=== PATIENT | male | born 1935 | race Caucasian/White ===

== ENCOUNTER 2017-01-26 09:27 | Day surgery (SDC) | payer MEDICARE, OTHER ==
--- NOTE | 2017-01-21 10:18 | HISTORY AND PHYSICAL E ---
History and Physical NAME: MALIKA LEHMAN : 1935 AGE: 81Y ADMITTED: 01/26/2017 ROOM: The patient is for colon screening. He takes baby aspirin, Tramadol, diltiazem. Patient for colon screening. TRANSFUSION: Negative. SOCIAL HISTORY: The patient is . Three children. Does not smoke. Does not drink. FAMILY HISTORY: Negative for colon cancer. His father had Whipple disease. His mom had heart disease. REVIEW OF SYSTEMS: CARDIAC: No chest pain. PULMONARY: No dyspnea. PHYSICAL EXAMINATION: GENERAL: Alert and oriented. In no acute distress. VITAL SIGNS: Blood pressure is 120/80, pulse 80, respirations 18, temp is 98. HEAD, EYES, EARS, NOSE, THROAT: Normal. ABDOMEN: Soft. NEUROLOGIC: Exam. SURGERIES: Patient had hip surgery. We give him Cleocin 450 mg IV prevention because of history of hip surgery. The patient presented for colon screening. Patient presented at this time regarding colon exam. It was successful to the cecum. There were no polyps. He did have external hemorrhoids, moderate amount of stool in the ascending colon. There was no gross abnormalities. Negative, external hemorrhoids. No polyps. The colonoscopy was done in 2014. PRIMARY CARE PHYSICIAN: Dr. Dequan Erwin. Patient does have hypertension. He does not smoke and does not drink. He was given Cleocin IV prior to his hip surgery. Patient to get Ancef or Cleocin. The patient presented at this time regarding colon exam. Patient does have history of arthritis. I saw him earlier this month where he presented. He did have surgery for aneurysm, poor circulation, rectal bleeding. Patient was hospitalized and his thoracic surgeon feels that he needs colonoscopy because of external hemorrhoids. MEDICATIONS: 1. Tramadol. 2. Clindamycin 300 mg 2 tablets prior dental. 3. Eliquis 5 mg tablet 1 tablet twice a day. CONCLUSION: Colon screening. Patient to stop his Eliquis 5 mg twice daily 24 hours before the test and needs Cleocin 450 mg IV. PLAN: Colonoscopy. DICTATING PHYSICIAN: TONIO CABA M.D. [id number] PHY#: [id number] ID: [id number] JOB#: [id number] ACCT: [id number] cc:TONIO CABA M.D. >
[~2017-01-26 09:27] MED LIST: EPINEPHRINE INJ 1 MG/10 ML DISP.SYRIN ONE; FENTANYL CITRATE INJ/PF 100 MCG/2 ML AMPUL ONE; FLUMAZENIL INJ 0.5 MG/5 ML VIAL IV ONE; GLUCAGON,HUMAN RECOMB 1 MG INJ ONE; GLYCOPYRROLATE INJ 0.4 MG/2 ML VIAL ONE; LIDOCAINE 2% JELLY 30 ML TUBE ONE; MIDAZOLAM 2 MG/2 ML INJ ONE; NALOXONE HCL INJ/PF 0.4 MG/1 ML SDV ONE; ONDANSETRON HCL INJ/PF 4 MG/2 ML SDV ONE; PROMETHAZINE HCL INJ 25 MG/1 ML VIAL ONE
[2017-01-26 11:17] LABS: HEMATOCRIT 32.5 % (37.9-51.0); HEMOGLOBIN 11.1 g/dL (13.5-17.0); HGB HCT DIFFERENCE 0.8; MEAN CORPUSCULAR HEMOGLOBIN 26.7 pg (27.0-33.4); MEAN CORPUSCULAR HGB CONC 34.3 g/dL (32.0-36.0); MEAN CORPUSCULAR VOLUME 78 fl (80-97); RED BLOOD COUNT 4.17 10^6/uL (4.35-5.55); RED CELL DISTRIBUTION WIDTH 19.2 % (11.5-14.0); WHITE BLOOD COUNT 8.9 10^3/uL (4.0-10.5)
[2017-01-26 11:30] VITALS: BP 141/72
[2017-01-26 11:42] LABS: IRON 29.4 ug/dL (49-181)
[2017-01-26 11:47] LABS: BAND NEUTROPHILS % (MANUAL) 1 % (3-5); BASOPHILS % (MANUAL) 0 % (0-2); EOSINOPHILS % (MANUAL) 0 % (0-6); LYMPHOCYTES % (MANUAL) 17 % (13-45); TOTAL CELLS COUNTED 100
[2017-01-26 11:49] LABS: ANISOCYTOSIS 1+; HYPOCHROMASIA SLIGHT; MICROCYTOSIS SLIGHT; POLYCHROMASIA SLIGHT
[2017-01-26 12:15] LABS: FERRITIN 26.2 ng/mL (17.9-464.0)
--- NOTE | 2017-01-26 14:38 | DISCHARGE SUMMARY E ---
Discharge Summary NAME: MALIKA LEHMAN : 1935 AGE: 81Y ADMITTED: 01/26/2017 DISCHARGED: 01/26/2017 HOSPITAL COURSE: This 81-year-old male presented with rectal bleeding. The patient takes Eliquis for a history of stent to kidney, stent to right leg. Hypertension. The patient underwent colonoscopy today showing no bleeding. He did have external hemorrhoids. He does have abdominal aortic aneurysm. DISCHARGE PLAN: Start Eliquis tonight or tomorrow morning. We will obtain baseline lab studies, CBC, iron, ferritin, and consider surgical consult if the bleeding continues regarding hemorrhoid surgery. DICTATING PHYSICIAN: TONIO CABA M.D. [id number] PHY#: [id number] ID: [id number] JOB#: [id number] ACCT: [id number] cc:TONIO CABA M.D. >
--- NOTE | 2017-01-26 14:41 | OPERATIVE REPORT E ---
Operative Report NAME: MALIKA LEHMAN : 1935 AGE: 81Y DATE OF SURGERY: 01/26/2017 ROOM: PREOPERATIVE DIAGNOSIS: Rectal bleeding. POSTOPERATIVE DIAGNOSIS: External hemorrhoids and anal warts. Diminutive anal polyp, 1 mm in size each. The bleeding is coming from external hemorrhoids and skin tags which prolapse in and out of the anus. OPERATION: Colonoscopy. SURGEON: TONIO CABA M.D. TISSUE REMOVED OR ALTERED: None. HISTORY: The patient is on blood thinner Eliquis, which was stopped prior to the procedure. The patient does have a history of abdominal aortic aneurysm in October 2016, stent in his kidney, stent to right leg, hypertension. DESCRIPTION OF PROCEDURE: Colonoscopy was successful to the cecum. No active bleeding. The patient does have mild diverticulosis. One or 2 diverticula were seen in the descending colon. No bleeding. Stool brown. Rectal exam shows prolapsed external hemorrhoids in and out of the anus. Mild proctitis. Diminutive anal polyps 1 mm in size each x2. Two diverticula opening in the descending colon with no diverticulitis. The rest of the colon was normal all the way to the cecum. Again, the scope was withdrawn from cecum, ascending, transverse, descending, and sigmoid all the way to the rectum. CONCLUSIONS: The rectal bleeding is coming from prolapsed hemorrhoid, external, with skin tags, anal warts and diminutive anal polyp. If the patient continues to see blood we will consider surgical consult for possible surgery. We will obtain baseline CBC, iron and ferritin. Start his blood thinner tomorrow. DICTATING PHYSICIAN: TONIO CABA M.D. [id number] PHY#: [id number] ID: [id number] JOB#: [id number] ACCT: [id number] cc:TONIO CABA M.D. >
== END 2017-01-26 11:38 | disposition home or self-care (01) ==
LOC: END 09:27
PROVIDERS: ATTEND Specialist
PROC: 0DJD8ZZ Inspection of Lower Intestinal Tract, Via Natural or Artificial Opening Endoscopic (ICD-10-PCS; principal; 2017-01-26 10:00)
DX: K57.30 Diverticulosis of large intestine without perforation or abscess without bleeding (principal); K62.0 Anal polyp; K64.4 Residual hemorrhoidal skin tags; K62.5 Hemorrhage of anus and rectum; I10 Essential (primary) hypertension; Z79.01 Long term (current) use of anticoagulants; Z79.82 Long term (current) use of aspirin; Z79.891 Long term (current) use of opiate analgesic
CPT/HCPCS: 45378; 36415; 82728; 83540; 85025; J2250; J3010; J1610; J0171; J2310; J2405; J2550; J3490

== ENCOUNTER → 2017-05-18 | Outpatient (CLI) | payer MEDICARE, OTHER ==
[2017-05-18 11:46] LABS: HEMATOCRIT 30.9 % (37.9-51.0); HEMOGLOBIN 10.7 g/dL (13.5-17.0); HGB HCT DIFFERENCE 1.2; MEAN CORPUSCULAR HEMOGLOBIN 28.8 pg (27.0-33.4); MEAN CORPUSCULAR HGB CONC 34.5 g/dL (32.0-36.0); MEAN CORPUSCULAR VOLUME 84 fl (80-97); RED BLOOD COUNT 3.69 10^6/uL (4.35-5.55); RED CELL DISTRIBUTION WIDTH 18.8 % (11.5-14.0); WHITE BLOOD COUNT 8.3 10^3/uL (4.0-10.5)
[2017-05-18 12:08] LABS: BAND NEUTROPHILS % (MANUAL) 1 % (3-5); BASOPHILS % (MANUAL) 0 % (0-2); EOSINOPHILS % (MANUAL) 2 % (0-6); IRON 50.3 ug/dL (49-181); LYMPHOCYTES % (MANUAL) 28 % (13-45); TOTAL CELLS COUNTED 100
[2017-05-18 12:15] LABS: ANISOCYTOSIS 1+; PLATELET CLUMPS PRESENT
[2017-05-18 12:40] LABS: FERRITIN 22.9 ng/mL (17.9-464.0)
[2017-05-20 11:12] LABS: PATH REVIEW PATHOLOGIST REVIEWED
== END ==
LOC: OD 10:18
PROVIDERS: ATTEND Specialist
DX: K92.2 Gastrointestinal hemorrhage, unspecified (principal); D50.9 Iron deficiency anemia, unspecified
CPT/HCPCS: 36415; 82728; 83540; 85025

== ENCOUNTER 2017-07-13 15:44 | Observation (INO) | payer MEDICARE, OTHER ==
[~2017-07-13 15:44] MED LIST changes: +ACETAMINOPHEN 325 MG TABLET PO PRN; +DIPHENHYDRAMINE HCL 25 MG CAPSULE PO PRN; -EPINEPHRINE INJ 1 MG/10 ML DISP.SYRIN ONE; -FENTANYL CITRATE INJ/PF 100 MCG/2 ML AMPUL ONE; -FLUMAZENIL INJ 0.5 MG/5 ML VIAL IV ONE; +FUROSEMIDE INJ/PF 20 MG/2 ML SDV IV PRN; -GLUCAGON,HUMAN RECOMB 1 MG INJ ONE; -GLYCOPYRROLATE INJ 0.4 MG/2 ML VIAL ONE; -LIDOCAINE 2% JELLY 30 ML TUBE ONE; -MIDAZOLAM 2 MG/2 ML INJ ONE; -NALOXONE HCL INJ/PF 0.4 MG/1 ML SDV ONE; -ONDANSETRON HCL INJ/PF 4 MG/2 ML SDV ONE; -PROMETHAZINE HCL INJ 25 MG/1 ML VIAL ONE
--- NOTE | 2017-07-13 16:51 | ER Document Report ---
ED Medical Screen (RME) - General Chief Complaint: Weakness Stated Complaint: WEAKNESS Time Seen by Provider: 07/13/17 16:49 Notes: Patient was sent from his primary care physician's office. Patient had some routine lab work done which showed a hemoglobin of approximately 6 per patient. He states that he was told he needed a transfusion in the come to the emergency department. He states he has been feeling weak. He states that he had an aneurysm repaired in October of this year and has been feeling weak ever since. He denies any new changes seen blood in the stool. 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 TRAVEL OUTSIDE OF THE [place] IN LAST 30 DAYS: No - Related Data Allergies/Adverse Reactions: amoxicillin [Amoxicillin] Allergy (Verified 07/13/17 16:49) ITCHING, HIVES Past Medical History - Past Medical History Cardiac Medical History: Reports: Hx Coronary Artery Disease - R lEG BLOCKAGE, Hx Hypertension Denies: Hx Heart Attack Pulmonary Medical History: Denies: Hx Asthma, Hx Bronchitis, Hx COPD, Hx Pneumonia Neurological Medical History: Denies: Hx Cerebrovascular Accident, Hx Seizures Renal/ Medical History: Denies: Hx Peritoneal Dialysis GI Medical History: Denies: Hx Hepatitis, Hx Hiatal Hernia, Hx Ulcer Musculoskeltal Medical History: Reports Hx Arthritis - BACK AND HANDS Infectious Medical History: Denies: Hx Hepatitis Past Surgical History: Denies: Hx Open Heart Surgery, Hx Pacemaker - Immunizations Hx Diphtheria, Pertussis, Tetanus Vaccination: Yes Physical Exam - Vital signs Vitals: Temp Pulse Resp BP Pulse Ox 98.3 F 74 16 153/61 H 98 07/13/17 15:55 07/13/17 15:55 07/13/17 15:55 07/13/17 15:55 07/13/17 15:55 Course - Vital Signs Vital signs: Temp Pulse Resp BP Pulse Ox 98.3 F 74 16 153/61 H 98 07/13/17 15:55 07/13/17 15:55 07/13/17 15:55 07/13/17 15:55 07/13/17 15:55
[2017-07-13 17:18] LABS: HEMATOCRIT 21.5 % (37.9-51.0); HGB HCT DIFFERENCE -0.2; MEAN CORPUSCULAR HEMOGLOBIN 28.2 pg (27.0-33.4); MEAN CORPUSCULAR HGB CONC 33.2 g/dL (32.0-36.0); MEAN CORPUSCULAR VOLUME 85 fl (80-97); RED BLOOD COUNT 2.53 10^6/uL (4.35-5.55); WHITE BLOOD COUNT 7.1 10^3/uL (4.0-10.5)
[2017-07-13 17:33] LABS: ALANINE AMINOTRANSFERASE 35 U/L (21-72); ALBUMIN 3.8 g/dL (3.5-5.0); ALKALINE PHOSPHATASE 60 U/L (38-126); ANION GAP 12 (5-19); ASPARTATE AMINO TRANSFERASE 24 U/L (17-59); BILIRUBIN,DIRECT 0.3 mg/dL (0.0-0.4); BILIRUBIN,TOTAL 0.3 mg/dL (0.2-1.3); BLOOD UREA NITROGEN 19 mg/dL (7-20); CALCIUM 9.3 mg/dL (8.4-10.2); CARBON DIOXIDE 26 mmol/L (22-30); CHLORIDE 98 mmol/L (98-107); CREATININE RESULT 1.59 mg/dL (0.52-1.25); GLUCOSE 96 mg/dL (75-110); POTASSIUM 4.7 mmol/L (3.6-5.0); SODIUM 135.6 mmol/L (137-145); TOTAL PROTEIN 6.8 g/dL (6.3-8.2)
[2017-07-13 17:39] LABS: HEMOGLOBIN 7.1 g/dL (13.5-17.0)
[2017-07-13 17:48] LABS: BASOPHILS % (MANUAL) 0 % (0-2); EOSINOPHILS % (MANUAL) 1 % (0-6); LYMPHOCYTES % (MANUAL) 20 % (13-45); TOTAL CELLS COUNTED 100
[2017-07-13 17:51] LABS: ANISOCYTOSIS 2+; POIKILOCYTOSIS 1+; POLYCHROMASIA SLIGHT; TOXIC GRANULATION SLIGHT
[2017-07-13 17:52] LABS: STOMATOCYTES 1+
--- NOTE | 2017-07-13 19:06 | ER Document Report ---
ED General - General Mode of Arrival: Ambulatory Information source: Patient TRAVEL OUTSIDE OF THE [place] IN LAST 30 DAYS: No - HPI Similar symptoms previously: Yes Recently seen / treated by doctor: Yes <ELSA FLORES - Last Filed: 07/13/17 21:45> <SHERIF SHOEMAKER - Last Filed: 07/13/17 23:42> - General Chief Complaint: Weakness Stated Complaint: WEAKNESS Time Seen by Provider: 07/13/17 19:23 Notes: Patient is an 81 year old male presenting to the emergency department for shortness of breath, weakness and hemoglobin level of 6. Patient states that he has had more shortness of breath and weakness than usual and he has seen Dr. Trujillo in the office for such. Patient was told to come to the emergency department for a transfusion. Patient denies any new changes seen in his stool. Patient states he has some chronic blood in his stool due to a renal cyst. Patient states that he has hard stool that he has to break up sometimes, However he has not had any increased amounts of blood in his stool. Patient denies any chest pain, syncope, or dizziness with standing. PCP Dr. Jose. ( ELSA FLORES) - Related Data Allergies/Adverse Reactions: amoxicillin [Amoxicillin] Allergy (Verified 07/13/17 16:49) ITCHING, HIVES Home Medications: Current Home Medications Albuterol Sulfate [Proair HFA] 2 puff IH Q4HP PRN 07/13/17 [History] Amiodarone HCl [Pacerone] 200 mg PO BID 07/13/17 [History] Apixaban [Eliquis 5 mg Tablet] 5 mg PO Q12 07/13/17 [History] Aspirin [Aspirin EC] 81 mg PO QHS 07/13/17 [History] Benazepril/Hydrochlorothiazide [Lotensin Hct 20-12.5 mg Tablet] 1 tab PO DAILY 07/13/17 [History] Celecoxib [Celebrex 200 mg Capsule] 200 mg PO DAILY 07/13/17 [History] Clindamycin HCl [Cleocin 300 mg Capsule] 600 mg PO ONCEP PRN 07/13/17 [History] Diltiazem HCl [Tiazac] 240 mg PO QHS 07/13/17 [History] Ferrous Sulfate [Iron] 325 mg PO Q12 07/13/17 [History] Lorazepam [Ativan 1 mg Tablet] 1 mg PO Q8HP PRN 07/13/17 [History] Multivit-Min/Folic/Vit K/Lycop [One-A-Day Men's 50 Plus Tablet] 1 tab PO DAILY 07/13/17 [History] Simvastatin [Zocor 20 mg Tablet] 20 mg PO QHS 07/13/17 [History] Tramadol HCl [Ultram 50 mg Tablet] 50 mg PO Q6HP PRN 07/13/17 [History] Trazodone HCl [Desyrel 50 mg Tablet] 50 mg PO QHS 07/13/17 [History] Past Medical History - General Information source: Patient - Social History Smoking Status: Former Smoker Chew tobacco use (# tins/day): No Frequency of alcohol use: None Drug Abuse: None Family History: None Patient has suicidal ideation: No Patient has homicidal ideation: No - Past Medical History Cardiac Medical History: Reports: Hx Coronary Artery Disease - R lEG BLOCKAGE, Hx Hypertension Musculoskeltal Medical History: Reports Hx Arthritis - BACK AND HANDS Surgical Hx: Negative - Immunizations Hx Diphtheria, Pertussis, Tetanus Vaccination: Yes Hx Pneumococcal Vaccination: 07/25/13 <ELSA FLORES - Last Filed: 07/13/17 21:45> Review of Systems - Review of Systems Constitutional: See HPI, Malaise, Weakness. denies: Fever EENT: No symptoms reported Cardiovascular: denies: Chest pain, Syncope, Dizziness Respiratory: See HPI, Short of breath Gastrointestinal: See HPI, Blood streaked bowels Genitourinary: No symptoms reported Male Genitourinary: No symptoms reported Musculoskeletal: No symptoms reported Skin: See HPI Hematologic/Lymphatic: No symptoms reported Neurological/Psychological: See HPI, Weakness -: Yes All other systems reviewed and negative <ELSA FLORES - Last Filed: 07/13/17 21:45> Physical Exam - Vital signs Interpretation: Hypertensive <ELSA FLORES - Last Filed: 07/13/17 21:45> <SHERIF SHOEMAKER - Last Filed: 07/13/17 23:42> - Vital signs Vitals: Temp Pulse Resp BP Pulse Ox 98.3 F 74 16 153/61 H 98 07/13/17 15:55 07/13/17 15:55 07/13/17 15:55 07/13/17 15:55 07/13/17 15:55 - Notes Notes: GENERAL: Alert, interacts well. No acute distress. HEAD: Normocephalic, atraumatic. EYES: Pupils equal, round, and reactive to light. Extraocular movements intact. ENT: Oral mucosa moist, tongue midline. NECK: Full range of motion. Supple. Trachea midline. LUNGS: Clear to auscultation bilaterally, no wheezes, rales, or rhonchi. No respiratory distress. HEART: Regular rate and rhythm. No murmurs, gallops, or rubs. ABDOMEN: Soft, non-tender. Non-distended. Bowel sounds present in all 4 quadrants. EXTREMITIES: Moves all 4 extremities spontaneously. No edema, radial and dorsalis pedis pulses 2/4 bilaterally. No cyanosis. NEUROLOGICAL: Alert and oriented x3. Normal speech. PSYCH: Normal affect, normal mood. SKIN: Warm, dry, normal turgor, pale. (ELSA FLORES) Course - Laboratory Result Diagrams: 07/13/17 16:55 07/13/17 16:55 - Consults Dr. Trujillo Time consulted: 19:39 Consulted provider: will see as inpatient <ELSA FLORES - Last Filed: 07/13/17 21:45> - Laboratory Result Diagrams: 07/13/17 16:55 07/13/17 16:55 <SHERIF SHOEMAKER - Last Filed: 07/13/17 23:42> - Re-evaluation Re-evalutation: 07/13/17 19:40 CBC shows anemia with hemoglobin 7.1, CMP shows some renal failure with a creatinine of 1.59, patient is O+. Discussed patient with Dr. Lopez who would like to admit the patient for blood transfusion for acute blood loss anemia and continue to monitor the patient after that. Patient will be placed on the IMCU in observation status. (SHERIF SHOEMAKER) - Vital Signs Vital signs: Temp Pulse Resp BP Pulse Ox 98.2 F 71 22 H 163/64 H 100 07/13/17 23:31 07/13/17 23:31 07/13/17 23:31 07/13/17 23:31 07/13/17 23:31 - Laboratory Laboratory results interpreted by me: 07/13/17 07/13/17 07/13/17 16:55 16:55 16:55 RBC 2.53 L Hgb 7.1 L Hct 21.5 L RDW 18.0 H Monocytes % (Manual) 30 H Abs Monocytes (Manual) 2.1 H Sodium 135.6 L Creatinine 1.59 H Est GFR ( Amer) 51 L Est GFR (Non-Af Amer) 42 L Crossmatch See Detail - Consults Dr. Trujillo Reason for consultation: 07/13/17 19:[address] Trujillo about patient, he would like the patient to be admitted as observation in the IMCU and has provided orders for the admission. He would like to evaluate the patient later after he receives a blood transfusion. ( ELSA FLORES) Critical Care Note - Critical Care Note Total time excluding time spent on procedures (mins): 35 <SHERIF SHOEMAKER - Last Filed: 07/13/17 23:42> Discharge <ELSA FLORES - Last Filed: 07/13/17 21:45> - Discharge Admitting Provider: Ronnie Unit Admitted: IMCU <SHERIF SHOEMAKER - Last Filed: 07/13/17 23:42> - Discharge Clinical Impression: Acute blood loss anemia, Chronic lower GI bleeding Condition: Stable Disposition: ADMITTED OBSERVATION Scribe Attestation: 07/13/17 23:42 I personally performed the services described in the documentation, reviewed and edited the documentation which was dictated to the scribe in my presence, and it accurately records my words and actions. (SHERIF SHOEMAKER) Scribe Documentation - Scribe Written by Roxanna:: Roxanna Ruiz 07/13/2017 19:43 acting as scribe for :: Janusz <ELSA FLORES - Last Filed: 07/13/17 21:45>
[2017-07-13] MEDS ORDERED: NORMAL SALINE 250 ML IV PRN (19:09)
[2017-07-13] MEDS ORDERED: DIPHENHYDRAMINE HCL 25 MG CAPSULE ONE (21:07)
[2017-07-13] MEDS ORDERED: ACETAMINOPHEN 325 MG TABLET ONE (21:08)
[2017-07-13] MEDS ORDERED: ALBUTEROL SULFATE HFA (90 MCG/PUFF) 8 GM MDI (1 MDI/ER DISP) IH PRN (21:51)
[2017-07-13] MEDS ORDERED: TRAMADOL HCL 50 MG TABLET PO PRN (21:51)
[2017-07-13] MEDS ORDERED: LORAZEPAM 1 MG TABLET PO PRN (21:51)
[2017-07-13] MEDS ORDERED: ALBUTEROL SULFATE HFA (90 MCG/PUFF) 200 PUFF/8.5 GM MDI IH PRN (21:55)
[2017-07-13] MEDS ORDERED: DILTIAZEM HCL 240 MG CAPSULE.CR PO SCH (22:00)
[2017-07-13] MEDS ORDERED: FAMOTIDINE INJ/PF 20 MG/2 ML SDV IV SCH (22:00)
[2017-07-13] MEDS ORDERED: TRAZODONE HCL 50 MG TABLET PO SCH (22:00)
[2017-07-13] MEDS ORDERED: DILTIAZEM HCL 240 MG PO SCH (22:00)
[2017-07-13] MEDS: AMIODARONE HCL 200 MG TABLET PO SCH (23:19)
[2017-07-14] MEDS: FAMOTIDINE INJ/PF 20 MG/2 ML SDV IV SCH ×2 (00:16→10:00)
[2017-07-14 06:38] LABS: HEMATOCRIT 26.5 % (37.9-51.0); HEMOGLOBIN 9.1 g/dL (13.5-17.0); HGB HCT DIFFERENCE 0.8; MEAN CORPUSCULAR HEMOGLOBIN 28.7 pg (27.0-33.4); MEAN CORPUSCULAR HGB CONC 34.3 g/dL (32.0-36.0); MEAN CORPUSCULAR VOLUME 84 fl (80-97); RED BLOOD COUNT 3.16 10^6/uL (4.35-5.55); RED CELL DISTRIBUTION WIDTH 16.6 % (11.5-14.0); WHITE BLOOD COUNT 6.7 10^3/uL (4.0-10.5)
[2017-07-14 06:46] LABS: ANION GAP 10 (5-19); BLOOD UREA NITROGEN 16 mg/dL (7-20); CALCIUM 9.1 mg/dL (8.4-10.2); CARBON DIOXIDE 24 mmol/L (22-30); CHLORIDE 102 mmol/L (98-107); CREATININE RESULT 1.33 mg/dL (0.52-1.25); GLUCOSE 94 mg/dL (75-110); IRON 31.7 ug/dL (49-181); POTASSIUM 5.1 mmol/L (3.6-5.0); SODIUM 136.2 mmol/L (137-145)
[2017-07-14] MEDS ORDERED: NALOXONE HCL INJ/PF 0.4 MG/1 ML SDV ONE (07:30)
[2017-07-14] MEDS ORDERED: ONDANSETRON HCL INJ/PF 4 MG/2 ML SDV ONE (07:30)
[2017-07-14] MEDS ORDERED: GLYCOPYRROLATE INJ 0.4 MG/2 ML VIAL ONE (07:30)
[2017-07-14] MEDS ORDERED: EPINEPHRINE INJ 1 MG/10 ML DISP.SYRIN ONE (07:31)
[2017-07-14] MEDS ORDERED: FLUMAZENIL INJ 0.5 MG/5 ML VIAL ONE (07:31)
[2017-07-14] MEDS ORDERED: FENTANYL CITRATE INJ/PF 100 MCG/2 ML AMPUL ONE (07:31)
[2017-07-14] MEDS ORDERED: MIDAZOLAM 2 MG/2 ML INJ ONE (07:31)
[2017-07-14 07:41] LABS: BASOPHILS % (MANUAL) 3 % (0-2); EOSINOPHILS % (MANUAL) 0 % (0-6); LYMPHOCYTES % (MANUAL) 28 % (13-45); TOTAL CELLS COUNTED 100
[2017-07-14 07:46] LABS: ANISOCYTOSIS 1+; OVALOCYTES SLIGHT; POIKILOCYTOSIS SLIGHT; POLYCHROMASIA 1+; TARGET CELLS SLIGHT
[2017-07-14 09:21] LABS: HEMATOCRIT 27.2 % (37.9-51.0); HEMOGLOBIN 9.3 g/dL (13.5-17.0); HGB HCT DIFFERENCE 0.7; MEAN CORPUSCULAR HEMOGLOBIN 28.6 pg (27.0-33.4); MEAN CORPUSCULAR HGB CONC 34.1 g/dL (32.0-36.0); MEAN CORPUSCULAR VOLUME 84 fl (80-97); RED BLOOD COUNT 3.23 10^6/uL (4.35-5.55); RED CELL DISTRIBUTION WIDTH 16.1 % (11.5-14.0); WHITE BLOOD COUNT 5.9 10^3/uL (4.0-10.5)
[2017-07-14 09:32] LABS: PROTHROMBIN TIME 15.4 SEC (11.4-15.4)
[2017-07-14] MEDS ORDERED: HYDROCHLOROTHIAZIDE 12.5 MG CAPSULE PO SCH (10:00)
[2017-07-14] MEDS ORDERED: BENAZEPRIL HCL 20 MG TABLET PO SCH (10:00)
[2017-07-14] MEDS: AMIODARONE HCL 200 MG TABLET PO SCH (10:00)
[2017-07-14] MEDS ORDERED: HYDROCHLOROTHIAZIDE PO SCH (10:00)
[2017-07-14] MEDS ORDERED: AMIODARONE HCL 200 MG TABLET PO SCH (10:00)
[2017-07-14] MEDS ORDERED: BENAZEPRIL PO SCH (10:00)
[2017-07-14] MEDS ORDERED: [UNRECOGNIZED DRUG - OTHER] PO SCH (10:00)
[2017-07-14 13:03] VITALS: BP 128/46
--- NOTE | 2017-07-14 14:00 | EKG REPORT ---
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
[2017-07-14 16:48] LABS: PATH REVIEW PATHOLOGIST REVIEWED
--- NOTE | 2017-07-22 15:26 | HISTORY AND PHYSICAL E ---
History and Physical NAME: MALIKA LEHMAN : 1935 AGE: 81Y ADMITTED: 07/13/2017 ROOM: 321 HISTORY OF PRESENT ILLNESS: The patient was seen as an outpatient on yesterday, 07/13, and his blood count came back with severe anemia, hemoglobin 7.2. The patient was brought in outpatient admission and transfused 2 units of packed cells. The patient is discharged to be evaluated as an outpatient. Reviewing records shows the patient does have history of hemorrhoids, anemia. He did have colonoscopy 2017 showing hemorrhoids. The patient is giving me a recent history of abdominal surgery, abdominal aorta repair at [place] and presented to me with constipation, is on ferrous sulfate. The patient again was seen 2012, colon was successful. I did not see any polyps. He did have external hemorrhoids. The patient is known to me. Originally he did have colonoscopy by in 1998, where he did have hemorrhoids, external and internal hemorrhoids. The patient's hemoglobin at that time was 16 with a creatinine 47. The patient does continue to have history of hemorrhoids. Colonoscopy 2012 showing hemorrhoids. The patient does take Celebrex, tramadol. The patient did have colonoscopy 2017. Colonoscopy 2017 shows thrombosed hemorrhoids. The patient takes Eliquis. The patient presently has a need for colonoscopy because of external hemorrhoids. Again, the patient did have external hemorrhoids, anal warts, diminutive anal polyp. His hemoglobin was 11 with a hematocrit 32. His iron was low 29, ferritin is 26. PAST MEDICAL HISTORY: 1. He does have history of hypertension. 2. The patient does have history of arthritis. PAST SURGICAL HISTORY: He did have surgery for: 1. Aneurysm. 2. Poor circulation. 3. Rectal bleeding. SOCIAL HISTORY: Does not smoke. DIAGNOSTIC DATA: The patient's white count was 6, hemoglobin was 7.2, the MCV was 86. Creatinine 21.5. The patient's iron continued to be low, 18. CONCLUSION: 1. Anemia. 2. The patient continues to have a low iron. PLAN: We will see the patient outpatient and consider upper GI/small bowel follow through to rule out upper GI lesion. Will arrange for upper GI and small bowel follow through. DICTATING PHYSICIAN: TONIO CABA M.D. [id number] PHY#: [id number] ID: [id number] JOB#: [id number] ACCT: [id number] cc:TONIO CABA M.D. >
== END 2017-07-14 13:15 | disposition home or self-care (01) ==
LOC: ER 15:44 → EH 19:51 → UNDOADMOB 19:51 → EH 21:00 → 3W 21:02 → EH 21:02 → 3W 07-14 03:39
PROVIDERS: ADMIT Specialist; ATTEND Specialist
PROC: 30233N1 Transfusion of Nonautologous Red Blood Cells into Peripheral Vein, Percutaneous Approach (ICD-10-PCS; principal; 2017-07-13)
PROC: 30233N1 Transfusion of Nonautologous Red Blood Cells into Peripheral Vein, Percutaneous Approach (ICD-10-PCS; 2017-07-14)
DX: D50.9 Iron deficiency anemia, unspecified (principal); K62.89 Other specified diseases of anus and rectum; K64.4 Residual hemorrhoidal skin tags; K59.00 Constipation, unspecified; K62.0 Anal polyp; I10 Essential (primary) hypertension; N19 Unspecified kidney failure; K92.1 Melena; I25.10 Atherosclerotic heart disease of native coronary artery without angina pectoris; Z79.899 Other long term (current) drug therapy; Z79.82 Long term (current) use of aspirin; Z79.02 Long term (current) use of antithrombotics/antiplatelets; Z87.891 Personal history of nicotine dependence; Z98.890 Other specified postprocedural states; Z79.1 Long term (current) use of non-steroidal anti-inflammatories (NSAID); Z79.891 Long term (current) use of opiate analgesic
CPT/HCPCS: 99291; 86900; 86901; 36415 ×2; 36430; 86850; 82607; 82728; 83540 ×2; 85025 ×2; 85027; 85610; 80048; 80053; 86920; 93005; 93010; G0378 ×2; P9016 ×2; A9270 ×9; S0028; J0171; J2250; J2310; J2405; J3010; J3490

== ENCOUNTER → 2017-07-13 | Outpatient (CLI) | payer MEDICARE, OTHER ==
[2017-07-13 14:02] LABS: HEMATOCRIT 21.5 % (37.9-51.0); HGB HCT DIFFERENCE 0.1; MEAN CORPUSCULAR HEMOGLOBIN 28.4 pg (27.0-33.4); MEAN CORPUSCULAR HGB CONC 33.2 g/dL (32.0-36.0); MEAN CORPUSCULAR VOLUME 86 fl (80-97); RED BLOOD COUNT 2.52 10^6/uL (4.35-5.55); RED CELL DISTRIBUTION WIDTH 17.5 % (11.5-14.0); WHITE BLOOD COUNT 6.2 10^3/uL (4.0-10.5)
[2017-07-13 14:26] LABS: IRON 18.4 ug/dL (49-181)
[2017-07-13 14:34] LABS: HEMOGLOBIN 7.2 g/dL (13.5-17.0)
[2017-07-13 14:36] LABS: BASOPHILS % (MANUAL) 1 % (0-2); EOSINOPHILS % (MANUAL) 0 % (0-6); LYMPHOCYTES % (MANUAL) 19 % (13-45); TOTAL CELLS COUNTED 100
[2017-07-13 14:38] LABS: ANISOCYTOSIS 1+; OVALOCYTES SLIGHT; POIKILOCYTOSIS SLIGHT; POLYCHROMASIA SLIGHT; STOMATOCYTES SLIGHT
[2017-07-13 15:05] LABS: FERRITIN 20.3 ng/mL (17.9-464.0)
== END ==
LOC: OD 13:23
PROVIDERS: ATTEND Specialist
DX: R10.9 Unspecified abdominal pain (principal); D50.9 Iron deficiency anemia, unspecified
CPT/HCPCS: 36415; 82728; 83540; 85025

== ENCOUNTER → 2017-07-21 | Outpatient (CLI) | payer MEDICARE, OTHER ==
[2017-07-21 15:37] LABS: HEMATOCRIT 29.7 % (37.9-51.0); HEMOGLOBIN 9.9 g/dL (13.5-17.0); MEAN CORPUSCULAR HEMOGLOBIN 27.7 pg (27.0-33.4); MEAN CORPUSCULAR HGB CONC 33.4 g/dL (32.0-36.0); MEAN CORPUSCULAR VOLUME 83 fl (80-97); RED BLOOD COUNT 3.58 10^6/uL (4.35-5.55); RED CELL DISTRIBUTION WIDTH 15.8 % (11.5-14.0); WHITE BLOOD COUNT 6.3 10^3/uL (4.0-10.5)
[2017-07-21 16:04] LABS: BASOPHILS % (MANUAL) 0 % (0-2); EOSINOPHILS % (MANUAL) 1 % (0-6); LYMPHOCYTES % (MANUAL) 38 % (13-45); TOTAL CELLS COUNTED 100; TOXIC VACUOLATION PRESENT
[2017-07-21 16:06] LABS: ANISOCYTOSIS SLIGHT; HYPOCHROMASIA SLIGHT; POLYCHROMASIA 1+
[2017-07-21 16:07] LABS: OVALOCYTES SLIGHT; PLATELET CLUMPS PRESENT
== END ==
LOC: OD 13:53
PROVIDERS: ATTEND Specialist
DX: D50.9 Iron deficiency anemia, unspecified (principal)
CPT/HCPCS: 36415; 85025

== ENCOUNTER 2017-08-03 07:25 | Day surgery (SDC) | payer MEDICARE, OTHER ==
--- NOTE | 2017-07-27 12:17 | HISTORY AND PHYSICAL E ---
History and Physical NAME: MALIKA LEHMAN : 1935 AGE: 81Y ADMITTED: 08/03/2017 ROOM: PRIMARY CARE PHYSICIAN: HAYDE ORTIZ MD CHIEF COMPLAINT: Anemia. The patient presented at this time for upper scope. HISTORY: The patient was recently found to be anemic, hemoglobin 7, and he was given 2 units of packed cells as an outpatient. The patient is on baby aspirin. The patient did have a colonoscopy in 2012. He did have a colon screening. The patient presented for a colon screening. The patient did have colonoscopy showing external hemorrhoids, otherwise no evidence of polyps, no evidence of malignancy. Colonoscopy was done on 01/26/2017 shows as follows: Colon screening. The patient's colonoscopy was successful to the cecum. No polyps. External hemorrhoids. Moderate amount of stool in the ascending colon. Again, 01/26/2017, colonoscopy shows anal warts, diminutive polyp, external hemorrhoids. The bleeding is coming from external hemorrhoids and skin tags, which prolapse in and out of the anus. Again, the patient presented recently with anemia and was transfused as an outpatient. The patient was admitted for upper scope. PAST MEDICAL HISTORY: Negative for tuberculosis or diabetes. PAST SURGICAL HISTORY: He did have hip surgery. MEDICATIONS: The patient takes: 1. Celebrex. 2. Lotensin. 3. Tramadol. 4. Diltiazem. SOCIAL HISTORY: Negative for alcohol or tobacco. The patient is , 3 children. Does not smoke. Does not drink. FAMILY HISTORY: Negative for colon cancer. His father had Whipple disease. His mom had heart disease. REVIEW OF SYSTEMS: GASTROINTESTINAL: No history of colon cancer. CARDIAC: No chest pain. PHYSICAL EXAMINATION: GENERAL: Pleasant, alert, oriented, in no acute distress. DIAGNOSTIC DATA: His hemoglobin was 11 with a hematocrit of 32. His iron was *------*. CONCLUSION: Anemia. PLAN: Upper endoscopy. Admit on 08/03. DICTATING PHYSICIAN: TONIO CABA M.D. [id number] PHY#: [id number] ID: [id number] JOB#: [id number] ACCT: [id number] cc:TONIO CABA M.D. >
[2017-08-03] MEDS ORDERED: NALOXONE HCL INJ/PF 0.4 MG/1 ML SDV ONE (07:28)
[2017-08-03] MEDS ORDERED: ONDANSETRON HCL INJ/PF 4 MG/2 ML SDV ONE (07:28)
[2017-08-03] MEDS ORDERED: GLYCOPYRROLATE INJ 0.4 MG/2 ML VIAL ONE (07:28)
[2017-08-03] MEDS ORDERED: FLUMAZENIL INJ 0.5 MG/5 ML VIAL ONE (07:29)
[2017-08-03] MEDS ORDERED: MIDAZOLAM 2 MG/2 ML INJ ONE (07:29)
[2017-08-03] MEDS ORDERED: EPINEPHRINE INJ 1 MG/10 ML DISP.SYRIN ONE (07:30)
[2017-08-03] MEDS ORDERED: GLUCAGON,HUMAN RECOMB 1 MG INJ ONE (07:30)
[2017-08-03] MEDS: FENTANYL CITRATE INJ/PF 100 MCG/2 ML AMPUL ONE ×2 (08:28→08:33)
--- NOTE | 2017-08-03 09:53 | OPERATIVE REPORT E ---
Operative Report NAME: MALIKA LEHMAN : 1935 AGE: 81Y DATE OF SURGERY: 08/03/2017 ROOM: PREOPERATIVE DIAGNOSIS: ANEMIA. POSTOPERATIVE DIAGNOSES: 1. ESOPHAGITIS, MILD. 2. GASTRITIS, MODERATE. 3. DUODENITIS, MILD. OPERATION: 1. Esophagoscopy. 2. Gastroscopy. 3. Duodenoscopy. SURGEON: TONIO CABA M.D. ANESTHESIA: Versed 2, fentanyl 75. TISSUE REMOVED OR ALTERED: Gastric biopsy. PROCEDURE: Videoscope passed under guided vision, no difficulties. Esophagoscopy: Junction at ; no hernia. No stricture. No cancer. Mild esophagitis. No erosions, no ulcers. Thickening mucosae at the junction, consistent with mild reflux. Gastroscopy: Benign looking pre-pyloric gastric polyps, 3 mm. Erosions, prominent folds in the gastric antrum. No definite ulcers; just erythema and polyp and prominent gastric folds. Biopsy obtained for H. pylori. Duodenoscopy: Moderate duodenitis with no ulcers. CONCLUSION: 1. BENIGN GASTRIC POLYP. 2. GASTRITIS. 3. DUODENITIS. 4. ESOPHAGITIS. PLAN: 1. Hold aspirin 5 days. 2. Awaiting biopsy results. 3. Repeat CBC, B12 and iron. 4. Follow-up office visit in the next few days. DICTATING PHYSICIAN: TONIO CABA M.D. [id number] PHY#: [id number] ID: [id number] JOB#: [id number] ACCT: [id number] cc:TONIO CABA M.D., MICHAEL
--- NOTE | 2017-08-03 09:53 | DISCHARGE SUMMARY E ---
Discharge Summary NAME: MALIKA LEHMAN : 1935 AGE: 81Y ADMITTED: 08/03/2017 DISCHARGED: 08/03/2017 HISTORY: An 81-year-old male with severe anemia. Patient had recent colonoscopy that shows no polyps, no bleeding. Underwent colonoscopy back in January this year, no problem. Hemorrhoids, diminutive polyps, anal warts. Today's upper scope shows no ulcers. He does have some gastritis, benign-looking gastric polyp, and duodenitis. DISCHARGE PLAN: Repeat CBC. I will do serology for Whipple disease. Repeat lab tests. Awaiting biopsy results. DICTATING PHYSICIAN: TONIO CABA M.D. [id number] Y#: [id number] ID: [id number] JOB#: [id number] ACCT: [id number] cc:TONIO CABA M.D. >
[2017-08-03 10:25] VITALS: BP 148/65
[2017-08-03 10:54] LABS: HEMATOCRIT 32.8 % (37.9-51.0); HEMOGLOBIN 10.9 g/dL (13.5-17.0); HGB HCT DIFFERENCE -0.1; MEAN CORPUSCULAR HEMOGLOBIN 27.7 pg (27.0-33.4); MEAN CORPUSCULAR HGB CONC 33.3 g/dL (32.0-36.0); MEAN CORPUSCULAR VOLUME 83 fl (80-97); RED BLOOD COUNT 3.95 10^6/uL (4.35-5.55); RED CELL DISTRIBUTION WIDTH 16.8 % (11.5-14.0); WHITE BLOOD COUNT 5.8 10^3/uL (4.0-10.5)
[2017-08-03 11:39] LABS: BASOPHILS % (MANUAL) 0 % (0-2); EOSINOPHILS % (MANUAL) 0 % (0-6); LYMPHOCYTES % (MANUAL) 17 % (13-45); TOTAL CELLS COUNTED 100
[2017-08-03 11:40] LABS: TOXIC GRANULATION SLIGHT
[2017-08-03 11:41] LABS: ANISOCYTOSIS 1+
[2017-08-03 12:51] LABS: IRON 10.4 ug/dL (49-181)
== END 2017-08-03 10:05 | disposition home or self-care (01) ==
LOC: END 07:25
PROVIDERS: ATTEND Specialist
PROC: 0DB68ZX Excision of Stomach, Via Natural or Artificial Opening Endoscopic, Diagnostic (ICD-10-PCS; principal; 2017-08-03 10:00)
DX: K64.4 Residual hemorrhoidal skin tags (principal); K20.9 Esophagitis, unspecified; K31.9 Disease of stomach and duodenum, unspecified; K29.80 Duodenitis without bleeding; K31.7 Polyp of stomach and duodenum; D64.9 Anemia, unspecified; Z79.1 Long term (current) use of non-steroidal anti-inflammatories (NSAID); Z79.899 Other long term (current) drug therapy
CPT/HCPCS: 43239; 87798; 36415; 82306; 82607; 83540; 85025; 88305 ×2; J2250; J3010; J1610; J2405; J0171; J2310; J3490

== ENCOUNTER → 2017-09-02 | Outpatient (CLI) | payer MEDICARE, OTHER ==
[2017-09-02 13:35] LABS: ANION GAP 15 (5-19); BLOOD UREA NITROGEN 16 mg/dL (7-20); CALCIUM 9.8 mg/dL (8.4-10.2); CARBON DIOXIDE 28 mmol/L (22-30); CHLORIDE 94 mmol/L (98-107); CREATININE RESULT 1.19 mg/dL (0.52-1.25); GLUCOSE 102 mg/dL (75-110); HEMOGLOBIN 12.5 g/dL (13.5-17.0); HGB HCT DIFFERENCE 0.5; MEAN CORPUSCULAR HEMOGLOBIN 27.9 pg (27.0-33.4); MEAN CORPUSCULAR HGB CONC 33.9 g/dL (32.0-36.0); MEAN CORPUSCULAR VOLUME 82 fl (80-97); PHOSPHORUS 3.3 mg/dL (2.5-4.5); POTASSIUM 4.5 mmol/L (3.6-5.0); RED BLOOD COUNT 4.49 10^6/uL (4.35-5.55); RED CELL DISTRIBUTION WIDTH 16.9 % (11.5-14.0); SODIUM 137.2 mmol/L (137-145); WHITE BLOOD COUNT 9.2 10^3/uL (4.0-10.5)
[2017-09-02 14:06] LABS: BASOPHILS % (MANUAL) 0 % (0-2); EOSINOPHILS % (MANUAL) 0 % (0-6); LYMPHOCYTES % (MANUAL) 24 % (13-45); TOTAL CELLS COUNTED 100
[2017-09-02 14:07] LABS: ANISOCYTOSIS 1+; POLYCHROMASIA SLIGHT; TOXIC GRANULATION SLIGHT
[2017-09-03 12:24] LABS: PATH REVIEW PATHOLOGIST REVIEWED
[2017-09-03 12:38] LABS: CREATININE URINE 27.5 mg/dL (Not Estab.); MICROALBUMIN URINE 38.4 ug/mL (Not Estab.)
== END ==
LOC: OD 11:26
PROVIDERS: ATTEND Internal Medicine Nephrology
DX: I12.9 Hypertensive chronic kidney disease with stage 1 through stage 4 chronic kidney disease, or unspecified chronic kidney disease (principal); N18.3 Chronic kidney disease, stage 3 (moderate); D63.1 Anemia in chronic kidney disease
CPT/HCPCS: 36415; 80048; 82043; 82570; 82728; 83540; 83550; 83970; 84100; 85025

== ENCOUNTER → 2017-12-06 | Outpatient (CLI) | payer MEDICARE, OTHER ==
[2017-12-06 12:04] LABS: HEMATOCRIT 38.2 % (37.9-51.0); HEMOGLOBIN 12.9 g/dL (13.5-17.0); MEAN CORPUSCULAR HGB CONC 33.8 g/dL (32.0-36.0); MEAN CORPUSCULAR VOLUME 86 fl (80-97); PLATELET COUNT 332 10^3/uL (150-450); RED BLOOD COUNT 4.46 10^6/uL (4.35-5.55); RED CELL DISTRIBUTION WIDTH 19.4 % (11.5-14.0); WHITE BLOOD COUNT 6.8 10^3/uL (4.0-10.5)
[2017-12-06 12:33] LABS: ABSOLUTE LYMPHOCYTES# (MANUAL) 1.8 10^3/uL (0.5-4.7); ABSOLUTE MONOCYTES # (MANUAL) 1.3 10^3/uL (0.1-1.4); ABSOLUTE NEUTROPHILS# (MANUAL) 3.6 10^3/uL (1.7-8.2); ANION GAP 12 (5-19); ANISOCYTOSIS 2+; BASOPHILS % (MANUAL) 2 % (0-2); BLOOD UREA NITROGEN 19 mg/dL (7-20); CALCIUM 9.9 mg/dL (8.4-10.2); CARBON DIOXIDE 31 mmol/L (22-30); CHLORIDE 96 mmol/L (98-107); EOSINOPHILS % (MANUAL) 0 % (0-6); GLUCOSE 138 mg/dL (75-110); LYMPHOCYTES % (MANUAL) 25 % (13-45); MONOCYTES % (MANUAL) 19 % (3-13); PLATELET COMMENT ADEQUATE; POIKILOCYTOSIS SLIGHT; POTASSIUM 4.4 mmol/L (3.6-5.0); SEGMENTED NEUTROPHILS % (MAN) 53 % (42-78); TEAR DROP CELLS SLIGHT; TOTAL CELLS COUNTED 100
[2017-12-06 13:27] LABS: IRON(TIBC) 40.4 ug/dL (49-181)
[2017-12-07 13:39] LABS: CREATININE URINE 136.3 mg/dL (Not Estab.); MICROALBUMIN URINE 27.3 ug/mL (Not Estab.)
== END ==
LOC: OD 10:38
PROVIDERS: ATTEND Internal Medicine Nephrology
DX: I12.9 Hypertensive chronic kidney disease with stage 1 through stage 4 chronic kidney disease, or unspecified chronic kidney disease (principal); N18.3 Chronic kidney disease, stage 3 (moderate); D63.1 Anemia in chronic kidney disease
CPT/HCPCS: 36415; 80048; 82043; 82570; 82728; 83540; 83550; 85025

== ENCOUNTER → 2018-03-07 | Outpatient (CLI) | payer MEDICARE, OTHER ==
[2018-03-07 11:27] LABS: HEMATOCRIT 28.2 % (37.9-51.0); HEMOGLOBIN 9.2 g/dL (13.5-17.0); MEAN CORPUSCULAR HEMOGLOBIN 25.9 pg (27.0-33.4); MEAN CORPUSCULAR HGB CONC 32.8 g/dL (32.0-36.0); MEAN CORPUSCULAR VOLUME 79 fl (80-97); PLATELET COUNT 510 10^3/uL (150-450); RED BLOOD COUNT 3.57 10^6/uL (4.35-5.55); RED CELL DISTRIBUTION WIDTH 18.2 % (11.5-14.0); WHITE BLOOD COUNT 9.6 10^3/uL (4.0-10.5)
[2018-03-07 11:39] LABS: ANION GAP 12 (5-19); BLOOD UREA NITROGEN 24 mg/dL (7-20); CARBON DIOXIDE 30 mmol/L (22-30); CHLORIDE 96 mmol/L (98-107); GLUCOSE 124 mg/dL (75-110); POTASSIUM 4.7 mmol/L (3.6-5.0)
[2018-03-07 11:50] LABS: ABSOLUTE LYMPHOCYTES# (MANUAL) 2.7 10^3/uL (0.5-4.7); ABSOLUTE MONOCYTES # (MANUAL) 2.6 10^3/uL (0.1-1.4); BASOPHILS % (MANUAL) 3 % (0-2); EOSINOPHILS % (MANUAL) 0 % (0-6); LYMPHOCYTES % (MANUAL) 28 % (13-45); MONOCYTES % (MANUAL) 27 % (3-13); SEGMENTED NEUTROPHILS % (MAN) 42 % (42-78); TOTAL CELLS COUNTED 100
[2018-03-07 11:51] LABS: ANISOCYTOSIS 2+; HYPOCHROMASIA SLIGHT; POIKILOCYTOSIS 1+; POLYCHROMASIA 1+; STOMATOCYTES 1+
[2018-03-07 11:52] LABS: PLATELET COMMENT INCREASED
[2018-03-08 14:40] LABS: CREATININE URINE 65.6 mg/dL (Not Estab.); MICROALBUMIN URINE 5.4 ug/mL (Not Estab.)
== END ==
LOC: OD 10:09
PROVIDERS: ATTEND Internal Medicine Nephrology
DX: N18.3 Chronic kidney disease, stage 3 (moderate) (principal); I12.9 Hypertensive chronic kidney disease with stage 1 through stage 4 chronic kidney disease, or unspecified chronic kidney disease
CPT/HCPCS: 36415; 80048; 82043; 82570; 85025

== ENCOUNTER → 2018-03-15 | Outpatient (CLI) | payer MEDICARE, OTHER ==
[2018-03-15 09:28] LABS: HEMATOCRIT 27.4 % (37.9-51.0); HEMOGLOBIN 9.1 g/dL (13.5-17.0); MEAN CORPUSCULAR HGB CONC 33.2 g/dL (32.0-36.0); MEAN CORPUSCULAR VOLUME 78 fl (80-97); PLATELET COUNT 506 10^3/uL (150-450); RED BLOOD COUNT 3.51 10^6/uL (4.35-5.55); RED CELL DISTRIBUTION WIDTH 18.5 % (11.5-14.0); WHITE BLOOD COUNT 8.3 10^3/uL (4.0-10.5)
[2018-03-15 09:43] LABS: IRON(TIBC) 14.6 ug/dL (49-181)
[2018-03-15 09:58] LABS: ABSOLUTE LYMPHOCYTES# (MANUAL) 1.7 10^3/uL (0.5-4.7); ABSOLUTE MONOCYTES # (MANUAL) 1.2 10^3/uL (0.1-1.4); ABSOLUTE NEUTROPHILS# (MANUAL) 5.1 10^3/uL (1.7-8.2); BAND NEUTROPHILS % (MANUAL) 2 % (3-5); BASOPHILS % (MANUAL) 1 % (0-2); EOSINOPHILS % (MANUAL) 1 % (0-6); LYMPHOCYTES % (MANUAL) 21 % (13-45); MONOCYTES % (MANUAL) 15 % (3-13); SEGMENTED NEUTROPHILS % (MAN) 60 % (42-78); TOTAL CELLS COUNTED 100
[2018-03-15 10:01] LABS: ANISOCYTOSIS 1+; HYPOCHROMASIA SLIGHT
[2018-03-15 10:02] LABS: PLATELET CLUMPS PRESENT; PLATELET COMMENT INCREASED; POLYCHROMASIA SLIGHT; STOMATOCYTES SLIGHT
== END ==
LOC: OD 08:16
PROVIDERS: ATTEND Internal Medicine Nephrology
DX: N18.3 Chronic kidney disease, stage 3 (moderate) (principal); D50.9 Iron deficiency anemia, unspecified
CPT/HCPCS: 36415; 82272; 82728; 83540; 83550; 85025

== ENCOUNTER 2018-03-22 09:19 | Outpatient (CLI) | payer MEDICARE, OTHER ==
[~2018-03-22 09:19] MED LIST changes: -ACETAMINOPHEN 325 MG TABLET PO PRN; -DIPHENHYDRAMINE HCL 25 MG CAPSULE PO PRN; +FERUMOXYTOL (NON-ESRD) 510 MG/NS 100 ML IV PRN; -FUROSEMIDE INJ/PF 20 MG/2 ML SDV IV PRN
[2018-03-22 10:06] VITALS: BP 110/38
== END 2018-03-22 10:31 | disposition home or self-care (01) ==
LOC: II 09:19 → 5TH 09:23 → II 10:31
PROVIDERS: ATTEND Internal Medicine Nephrology
PROC: 3E033GC Introduction of Other Therapeutic Substance into Peripheral Vein, Percutaneous Approach (ICD-10-PCS; principal; 2018-03-22)
DX: D50.8 Other iron deficiency anemias (principal); N18.3 Chronic kidney disease, stage 3 (moderate)
CPT/HCPCS: 96365; 96374; Q0138

== ENCOUNTER 2018-03-29 09:38 | Outpatient (CLI) | payer MEDICARE, OTHER ==
[~2018-03-29 09:38] MED LIST changes: -FERUMOXYTOL (NON-ESRD) 510 MG/NS 100 ML IV PRN; +FERUMOXYTOL 510 MG in NORMAL SALINE 100 ML IV PRN; +NORMAL SALINE 250 ML IV PRN
[2018-03-29 10:29] VITALS: BP 147/38
== END 2018-03-29 10:57 | disposition home or self-care (01) ==
LOC: II 09:38 → 5TH 09:43 → II 10:57
PROVIDERS: ATTEND Internal Medicine Nephrology
PROC: 3E033GC Introduction of Other Therapeutic Substance into Peripheral Vein, Percutaneous Approach (ICD-10-PCS; principal; 2018-03-29)
DX: D50.8 Other iron deficiency anemias (principal); N18.3 Chronic kidney disease, stage 3 (moderate)
CPT/HCPCS: 96365; Q0138

== ENCOUNTER → 2018-04-08 | Outpatient (CLI) | payer MEDICARE, OTHER ==
[2018-04-08 09:42] LABS: HEMATOCRIT 27.4 % (37.9-51.0); HEMOGLOBIN 8.9 g/dL (13.5-17.0); MEAN CORPUSCULAR HEMOGLOBIN 25.5 pg (27.0-33.4); MEAN CORPUSCULAR HGB CONC 32.3 g/dL (32.0-36.0); MEAN CORPUSCULAR VOLUME 79 fl (80-97); PLATELET COUNT 400 10^3/uL (150-450); RED BLOOD COUNT 3.48 10^6/uL (4.35-5.55); RED CELL DISTRIBUTION WIDTH 20.5 % (11.5-14.0); WHITE BLOOD COUNT 7.4 10^3/uL (4.0-10.5)
[2018-04-08 09:56] LABS: IRON(TIBC) 16.1 ug/dL (49-181)
[2018-04-08 10:12] LABS: ABSOLUTE LYMPHOCYTES# (MANUAL) 1.2 10^3/uL (0.5-4.7); ABSOLUTE MONOCYTES # (MANUAL) 1.3 10^3/uL (0.1-1.4); ABSOLUTE NEUTROPHILS# (MANUAL) 4.9 10^3/uL (1.7-8.2); ANISOCYTOSIS 2+; BAND NEUTROPHILS % (MANUAL) 1 % (3-5); BASOPHILS % (MANUAL) 0 % (0-2); EOSINOPHILS % (MANUAL) 0 % (0-6); LYMPHOCYTES % (MANUAL) 16 % (13-45); METAMYELOCYTES % (MANUAL) 1 % (0); MONOCYTES % (MANUAL) 18 % (3-13); PLATELET COMMENT ADEQUATE; POLYCHROMASIA 1+; SEGMENTED NEUTROPHILS % (MAN) 64 % (42-78); TOTAL CELLS COUNTED 100; TOXIC GRANULATION SLIGHT
== END ==
LOC: OD 08:57
PROVIDERS: ATTEND Internal Medicine Nephrology
DX: N18.3 Chronic kidney disease, stage 3 (moderate) (principal); D63.1 Anemia in chronic kidney disease; D50.9 Iron deficiency anemia, unspecified
CPT/HCPCS: 36415; 82728; 83540; 83550; 85025

== ENCOUNTER 2018-04-11 07:30 | Day surgery (SDC) | payer MEDICARE, OTHER ==
[~2018-04-11 07:30] MED LIST changes: -FERUMOXYTOL 510 MG in NORMAL SALINE 100 ML IV PRN; -NORMAL SALINE 250 ML IV PRN; +PROPOFOL INJ 200 MG/20 ML VIAL IV ONE
[2018-04-11 08:54] VITALS: BP 131/53
--- NOTE | 2018-04-11 12:19 | Operative Report ---
Operative Report DATE OF SURGERY: 04/11/18 Operative Report: The risks, benefits and alternatives of the procedure including risk of bleeding , perforation requiring surgery are explained to the patient in detail and informed consent is obtained. Patient is taken back to the endoscopy suite and placed in the left, lateral decubital position. Timeout was called. Propofol medications administered. Rectal examination is done which did not reveal any masses, tears or fissures. An Olympus endoscope was inserted in the patient's rectum. The scope was then carefully advanced all the way to the cecum. The cecum was identified by the usual anatomical landmarks including the ileocecal valve as well as the appendiceal office. Photodocumentation was obtained. The scope was then sequentially pulled back via the vas deferens of the colon including the ascending colon, hepatic flexure, transverse colon, splenic flexure, descending colon and finally to the rectosigmoid portions of the colon. Retroflexion maneuver was performed. PREOPERATIVE DIAGNOSIS: Personal history of polyps, iron deficiency anemia POSTOPERATIVE DIAGNOSIS: Internal hemorrhoids. Anal fissure. Diverticulosis OPERATION: Diagnostic colonoscopy SURGEON: CHUCK WHITNEY ANESTHESIA: LMAC TISSUE REMOVED OR ALTERED: None. COMPLICATIONS: None. ESTIMATED BLOOD LOSS: None. INTRAOPERATIVE FINDINGS: As noted above. PROCEDURE: Patient tolerated procedure well. No immediate postprocedure comp occasions are noted. Patient discharged in good condition. Discharge date 04/11/2018. Discharge diet: Regular. Discharge activity: Regular. 2-3-week follow-up to discuss findings. Patient is instructed to call the office or proceed to the emergency room should there be any further problems or questions. No active bleeding noted in the colon, due to iron deficiency anemia; will need to schedule upper endoscopy on a separate occasion.
== END 2018-04-11 08:55 | disposition home or self-care (01) ==
LOC: END 07:30
PROVIDERS: ATTEND Internal Medicine Gastroenterology
DX: K64.8 Other hemorrhoids (principal); K57.30 Diverticulosis of large intestine without perforation or abscess without bleeding; K64.4 Residual hemorrhoidal skin tags; D50.0 Iron deficiency anemia secondary to blood loss (chronic); Z86.010 Personal history of colon polyps; M19.90 Unspecified osteoarthritis, unspecified site; I73.9 Peripheral vascular disease, unspecified; I12.9 Hypertensive chronic kidney disease with stage 1 through stage 4 chronic kidney disease, or unspecified chronic kidney disease; N18.3 Chronic kidney disease, stage 3 (moderate); D63.1 Anemia in chronic kidney disease; I70.1 Atherosclerosis of renal artery; Z79.899 Other long term (current) drug therapy; Z79.82 Long term (current) use of aspirin
CPT/HCPCS: 45378; J2704; 811

== ENCOUNTER 2018-05-09 07:06 | Day surgery (SDC) | payer MEDICARE, OTHER ==
[2018-05-09] MEDS ORDERED: PROPOFOL INJ 200 MG/20 ML VIAL IV ONE (07:25)
[2018-05-09 09:41] VITALS: BP 146/58
--- NOTE | 2018-05-09 13:07 | Operative Report ---
Operative Report DATE OF SURGERY: 05/09/18 Operative Report: The risks benefits and alternatives of the procedure explained to the patient in detail and informed consent is obtained.A GIF Olympus video scope was inserted into the patient's mouth and hypopharynx, the esophagus is identified intubated and insufflated, the scope was then advanced through the esophagus stomach and duodenum, retroflexion maneuver is done, the esophagus stomach and first and second portions of the duodenum examined PREOPERATIVE DIAGNOSIS: Iron deficiency anemia, negative colonoscopy POSTOPERATIVE DIAGNOSIS: Duodenitis status post biopsy rule out celiac disease. Gastritis status post biopsy rule out Helicobacter pylori OPERATION: EGD with biopsy SURGEON: CHUCK WHITNEY ANESTHESIA: LMAC TISSUE REMOVED OR ALTERED: As noted above. COMPLICATIONS: None. ESTIMATED BLOOD LOSS: None. INTRAOPERATIVE FINDINGS: As noted above. PROCEDURE: Patient tolerated procedure well. No immediate postprocedure complications are noted. Patient discharged in good condition. Discharge date 05/09/2018. Discharge diet: Regular. Discharge activity: Regular. 2-3 week follow-up to discuss findings. Patient is instructed to call the office or proceed to the emergency room should there be any further problems or questions. We will wait on pathology.
== END 2018-05-09 09:40 | disposition home or self-care (01) ==
LOC: END 07:06
PROVIDERS: ATTEND Internal Medicine Gastroenterology
DX: D50.0 Iron deficiency anemia secondary to blood loss (chronic) (principal); K29.80 Duodenitis without bleeding; K29.70 Gastritis, unspecified, without bleeding; K64.8 Other hemorrhoids; K60.2 Anal fissure, unspecified; D50.9 Iron deficiency anemia, unspecified; E78.5 Hyperlipidemia, unspecified; I12.9 Hypertensive chronic kidney disease with stage 1 through stage 4 chronic kidney disease, or unspecified chronic kidney disease; N18.3 Chronic kidney disease, stage 3 (moderate); M19.90 Unspecified osteoarthritis, unspecified site; I73.9 Peripheral vascular disease, unspecified; D63.1 Anemia in chronic kidney disease; Z87.891 Personal history of nicotine dependence
CPT/HCPCS: 43239; 88342 ×2; 88305 ×2; J2704; 731

== ENCOUNTER → 2018-06-01 | Outpatient (CLI) | payer MEDICARE, OTHER ==
[2018-06-01 15:39] LABS: HEMATOCRIT 21.2 % (37.9-51.0); MEAN CORPUSCULAR HEMOGLOBIN 26.5 pg (27.0-33.4); MEAN CORPUSCULAR HGB CONC 33.3 g/dL (32.0-36.0); MEAN CORPUSCULAR VOLUME 80 fl (80-97); PLATELET COUNT 342 10^3/uL (150-450); RED BLOOD COUNT 2.66 10^6/uL (4.35-5.55); RED CELL DISTRIBUTION WIDTH 19.8 % (11.5-14.0); WHITE BLOOD COUNT 7.9 10^3/uL (4.0-10.5)
[2018-06-01 15:48] LABS: HEMOGLOBIN 7.1 g/dL (13.5-17.0)
== END ==
LOC: OD 15:09
PROVIDERS: ATTEND Internal Medicine Nephrology
DX: N18.9 Chronic kidney disease, unspecified (principal); D50.9 Iron deficiency anemia, unspecified
CPT/HCPCS: 36415; 85027

== ENCOUNTER 2018-06-02 12:56 | Outpatient (CLI) | payer MEDICARE, OTHER ==
[~2018-06-02 12:56] MED LIST changes: +ACETAMINOPHEN 325 MG TABLET PO PRN; +DIPHENHYDRAMINE HCL 25 MG CAPSULE PO PRN; +FUROSEMIDE INJ/PF 20 MG/2 ML SDV IV PRN; -PROPOFOL INJ 200 MG/20 ML VIAL IV ONE
[2018-06-02] MEDS ORDERED: NORMAL SALINE 250 ML IV PRN (13:46)
[2018-06-02] MEDS ORDERED: FUROSEMIDE INJ/PF 40 MG/4 ML SDV IV PRN (14:00)
[2018-06-02 14:24] LABS: HEMATOCRIT 21.7 % (37.9-51.0); MEAN CORPUSCULAR VOLUME 80 fl (80-97); RED BLOOD COUNT 2.69 10^6/uL (4.35-5.55); WHITE BLOOD COUNT 8.6 10^3/uL (4.0-10.5)
[2018-06-02 14:25] LABS: MEAN CORPUSCULAR HEMOGLOBIN 26.3 pg (27.0-33.4); MEAN CORPUSCULAR HGB CONC 32.7 g/dL (32.0-36.0); PLATELET COUNT 372 10^3/uL (150-450)
[2018-06-02 14:26] LABS: HEMOGLOBIN 7.1 g/dL (13.5-17.0)
[2018-06-03 00:15] VITALS: BP 132/41
== END 2018-06-03 00:10 | disposition home or self-care (01) ==
LOC: II 12:56 → 2S 12:59 → II 06-03 00:10
PROVIDERS: ATTEND Internal Medicine Nephrology
PROC: 30233N1 Transfusion of Nonautologous Red Blood Cells into Peripheral Vein, Percutaneous Approach (ICD-10-PCS; principal; 2018-06-02)
PROC: 3E033GC Introduction of Other Therapeutic Substance into Peripheral Vein, Percutaneous Approach (ICD-10-PCS; 2018-06-02)
DX: N18.3 Chronic kidney disease, stage 3 (moderate) (principal); D63.1 Anemia in chronic kidney disease
CPT/HCPCS: 86900; 86901; 36430; 86850; 86920; P9016; A9270 ×2; J1940; 36415; 96374

== ENCOUNTER 2018-06-12 16:28 | Emergency (ER) | payer MEDICARE, OTHER ==
--- NOTE | 2018-06-12 17:30 | ER Document Report ---
ED General - General Mode of Arrival: Ambulatory Information source: Patient TRAVEL OUTSIDE OF THE [place] IN LAST 30 DAYS: No <ESTER GASTON - Last Filed: 06/12/18 18:32> <ROSE KELLER - Last Filed: 06/13/18 02:18> - General Chief Complaint: Shortness Of Breath Stated Complaint: DIFFICULTY BREATHING Time Seen by Provider: 06/12/18 16:52 Notes: Patient is an 82 year old male with chronic anemia, CAD, HTN, PVD presents to the emergency department complaining of shortness of breath onset 3-4 days ago. Patient states his shortness of breath is exacerbated on exertion and relieved when laying down. Patient also complains of constipation and states he often times has to use a glove and break up his stool into smaller pieces. Patient states he takes a daily baby aspirin. Patient had a recent blood transfusion on 06/02/2018 and received 2 units. 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 Hernandez and PCP is Dr. Jsoe. Patient states they have been unable pinpoint the source of his bleeding. (ESTER GASTON) - Related Data Allergies/Adverse Reactions: amoxicillin [Amoxicillin] Allergy (Verified 05/09/18 07:13) ITCHING, HIVES Past Medical History - General Information source: Patient, Parent - Social History Smoking Status: Former Smoker Cigarette use (# per day): No Chew tobacco use (# tins/day): No Smoking Education Provided: No Frequency of alcohol use: None Family History: None - Past Medical History Cardiac Medical History: Reports: Hx Coronary Artery Disease - R lEG BLOCKAGE, Hx Hypertension, Hx Peripheral Vascular Disease Musculoskeletal Medical History: Reports Hx Arthritis - BACK AND HANDS Past Surgical History: Reports: Hx Orthopedic Surgery - Immunizations Hx Diphtheria, Pertussis, Tetanus Vaccination: Yes Hx Pneumococcal Vaccination: 07/06/17 <ESTER GASTON - Last Filed: 06/12/18 18:32> Review of Systems - Review of Systems Constitutional: No symptoms reported EENT: No symptoms reported Cardiovascular: No symptoms reported Respiratory: See HPI, Short of breath Gastrointestinal: No symptoms reported Genitourinary: No symptoms reported Male Genitourinary: No symptoms reported Musculoskeletal: No symptoms reported Skin: No symptoms reported Hematologic/Lymphatic: No symptoms reported Neurological/Psychological: No symptoms reported -: Yes All other systems reviewed and negative <DIONISIO GASTONAYA - Last Filed: 06/12/18 18:32> Physical Exam - General General appearance: Appears well, Alert In distress: None - HEENT Head: Normocephalic, Atraumatic Eyes: Normal, Pale conjunctiva Conjunctiva: Normal Extraocular movements intact: Yes Pupils: PERRL Mucous membranes: Normal Neck: Normal - Respiratory Respiratory status: Other - Dyspneic Chest status: Nontender Breath sounds: Normal Chest palpation: Normal - Cardiovascular Rhythm: Regular Heart sounds: Normal auscultation Murmur: No Friction rub: No Gallop: None auscultated - Abdominal Inspection: Obese Distension: No distension Bowel sounds: Normal Tenderness: Nontender Organomegaly: No organomegaly - Back Back: Normal - Extremities General upper extremity: Normal ROM General lower extremity: Edema - minimal, Normal ROM - Neurological Neuro grossly intact: Yes Cognition: Normal Orientation: AAOx4 Alyse Coma Scale Eye Opening: Spontaneous [place] Coma Scale Verbal: Oriented Alyse Coma Scale Motor: Obeys Commands Alyse Coma Scale Total: 15 Speech: Normal - Psychological Associated symptoms: Normal affect, Normal mood - Skin Skin Temperature: Warm Skin Moisture: Dry Skin Color: Pale - Nails are also pale <ALEKESTER MORA - Last Filed: 06/12/18 18:32> - Vital signs Vitals: Temp Pulse Resp BP Pulse Ox 98.6 F 80 22 H 163/41 H 100 06/12/18 16:32 06/12/18 16:32 06/12/18 16:32 06/12/18 16:32 06/12/18 16:32 Course - Laboratory Result Diagrams: 06/12/18 17:17 06/12/18 17:17 <ALEKDIONISIOEMILY - Last Filed: 06/12/18 18:32> - Laboratory Result Diagrams: 06/12/18 17:17 06/12/18 17:17 - Transfer of Care Care transferred to following provider: Dr. Galan <ROSE KELLER - Last Filed: 06/13/18 02:18> - Vital Signs Vital signs: Temp Pulse Resp BP Pulse Ox 97.8 F 68 17 147/57 H 98 06/13/18 02:09 06/13/18 02:09 06/13/18 02:09 06/13/18 02:09 06/13/18 02:09 - Laboratory Laboratory results interpreted by me: 06/12/18 06/12/18 06/12/18 17:17 17:17 18:05 RBC 2.20 L Hgb 6.0 L Hct 18.2 L RDW 18.9 H Monocytes % (Manual) 31 H Metamyelocytes % 1 H Abs Monocytes (Manual) 2.7 H Sodium 135.7 L Chloride 97 L BUN 35 H Creatinine 1.78 H Est GFR ( Amer) 45 L Est GFR (Non-Af Amer) 37 L Glucose 117 H Urine Ascorbic Acid Crossmatch See Detail 06/12/18 18:25 RBC Hgb Hct RDW Monocytes % (Manual) Metamyelocytes % Abs Monocytes (Manual) Sodium Chloride BUN Creatinine Est GFR ( Amer) Est GFR (Non-Af Amer) Glucose Urine Ascorbic Acid 40 H Crossmatch - Transfer of Care Notes: 06/13/18 02:17 Patient is receiving his second unit of packed red blood cells. He can be discharged after the blood is in. (ROSE KELLER) Discharge <ESTER GASTON - Last Filed: 06/12/18 18:32> <ROSE KELLER - Last Filed: 06/13/18 02:18> - Discharge Clinical Impression: Chronic lower GI bleeding, Dyspnea on exertion Anemia Qualifiers: Anemia type: iron deficiency Iron deficiency anemia type: chronic blood loss Qualified Code(s): D50.0 - Iron deficiency anemia secondary to blood loss ( chronic) Condition: Good Disposition: HOME, SELF-CARE Additional Instructions: Follow-up with Dr. Hernandez in the office today--call in the morning for an appointment today. RETURN TO THE EMERGENCY ROOM IF ANY NEW OR WORSENING SYMPTOMS. Referrals: LEONARDO HERNANDEZ MD [ACTIVE STAFF] - 06/13/18 Scribe Attestation: 06/12/18 18:16 I personally performed the services described in the documentation, reviewed and edited the documentation which was dictated to the scribe in my presence, and it accurately records my words and actions. (ROSE KELLER) Scribe Documentation - Scribe Written by Scribe:: Roxanna Huerta, 06/12/2018 17:32 acting as scribe for :: Ranjeet <ESTER GASTON - Last Filed: 06/12/18 18:32>
[2018-06-12 17:33] LABS: HEMATOCRIT 18.2 % (37.9-51.0); MEAN CORPUSCULAR HEMOGLOBIN 27.4 pg (27.0-33.4); MEAN CORPUSCULAR HGB CONC 33.1 g/dL (32.0-36.0); MEAN CORPUSCULAR VOLUME 83 fl (80-97); PLATELET COUNT 369 10^3/uL (150-450); RED CELL DISTRIBUTION WIDTH 18.9 % (11.5-14.0); WHITE BLOOD COUNT 8.7 10^3/uL (4.0-10.5)
--- NOTE | 2018-06-12 17:43 | RADIOLOGY REPORT (SQ) ---
EXAM DESCRIPTION: CHEST SINGLE VIEW COMPLETED DATE/TIME: 06/12/2018 5:28 pm REASON FOR STUDY: sob COMPARISON: None. EXAM PARAMETERS: NUMBER OF VIEWS: One view. TECHNIQUE: Single frontal radiographic view of the chest acquired. RADIATION DOSE: NA LIMITATIONS: Nonstandard patient positioning and patient motion. FINDINGS: LUNGS AND PLEURA: A patchy opacification is seen of the left lung base. No pleural effusi on. No pneumothorax. MEDIASTINUM AND HILAR STRUCTURES: No masses. Contour normal. HEART AND VASCULAR STRUCTURES: Heart normal in size. Normal vasculature. BONES: No acute findings. HARDWARE: None in the chest. OTHER: No other significant finding. IMPRESSION: In the appropriate clinical setting, findings are consistent with a developing lingular pneumonia. TECHNICAL DOCUMENTATION: JOB ID: [id number] [employer]- All Rights Reserved Reading location - IP/workstation name: [email or web address]
[2018-06-12 17:49] LABS: ALANINE AMINOTRANSFERASE 28 U/L (21-72); ALBUMIN 3.5 g/dL (3.5-5.0); ALKALINE PHOSPHATASE 44 U/L (38-126); ANION GAP 14 (5-19); ASPARTATE AMINO TRANSFERASE 30 U/L (17-59); BILIRUBIN,DIRECT 0.2 mg/dL (0.0-0.4); BILIRUBIN,TOTAL 0.3 mg/dL (0.2-1.3); BLOOD UREA NITROGEN 35 mg/dL (7-20); CALCIUM 9.4 mg/dL (8.4-10.2); CARBON DIOXIDE 25 mmol/L (22-30); CHLORIDE 97 mmol/L (98-107); CREATINE KINASE 63 U/L (55-170); GLUCOSE 117 mg/dL (75-110); POTASSIUM 4.5 mmol/L (3.6-5.0); SODIUM 135.7 mmol/L (137-145); TOTAL PROTEIN 6.5 g/dL (6.3-8.2)
[2018-06-12 17:52] LABS: ABSOLUTE LYMPHOCYTES# (MANUAL) 1.5 10^3/uL (0.5-4.7); ABSOLUTE MONOCYTES # (MANUAL) 2.7 10^3/uL (0.1-1.4); ABSOLUTE NEUTROPHILS# (MANUAL) 4.4 10^3/uL (1.7-8.2); ANISOCYTOSIS 2+; BASOPHILS % (MANUAL) 2 % (0-2); EOSINOPHILS % (MANUAL) 0 % (0-6); LYMPHOCYTES % (MANUAL) 17 % (13-45); METAMYELOCYTES % (MANUAL) 1 % (0); MONOCYTES % (MANUAL) 31 % (3-13); POLYCHROMASIA 1+; SEGMENTED NEUTROPHILS % (MAN) 49 % (42-78); TOTAL CELLS COUNTED 100
[2018-06-12 17:53] LABS: HYPOCHROMASIA SLIGHT; PLATELET COMMENT ADEQUATE
[2018-06-12 18:00] LABS: CREATINE KINASE MB 1.58 ng/mL (<4.55)
[2018-06-12] MEDS ORDERED: NORMAL SALINE 250 ML IV PRN (18:00)
[2018-06-12 18:03] LABS: TROPONIN I < 0.012 ng/mL
[2018-06-12 18:47] LABS: APPEARANCE,URINE SLIGHTLY-CLOUDY; BILIRUBIN,URINE NEGATIVE (NEGATIVE); COLOR,URINE YELLOW; GLUCOSE, URINE NEGATIVE (NEGATIVE); KETONES,URINE NEGATIVE (NEGATIVE); LEUKOCYTE ESTERASE,URINE NEGATIVE (NEGATIVE); NITRITE,URINE NEGATIVE (NEGATIVE); PROTEIN,URINE NEGATIVE (NEGATIVE); URINE SPECIFIC GRAVITY 1.015; UROBILINOGEN,URINE NEGATIVE mg/dL (<2.0)
[2018-06-13 02:39] VITALS: BP 125/47
--- NOTE | 2018-06-13 06:11 | EKG REPORT ---
SEVERITY:- ABNORMAL ECG - SINUS RHYTHM RBBB AND LAFB : Confirmed by: Abdiaziz Salinas MD 13-Jun-2018 06:10:32
== END 2018-06-13 02:41 | disposition home or self-care (01) ==
LOC: ER 16:28
DX: K92.2 Gastrointestinal hemorrhage, unspecified (principal); R06.09 Other forms of dyspnea; D50.0 Iron deficiency anemia secondary to blood loss (chronic); R06.02 Shortness of breath; E66.9 Obesity, unspecified; I25.10 Atherosclerotic heart disease of native coronary artery without angina pectoris; I10 Essential (primary) hypertension; Z88.0 Allergy status to penicillin
CPT/HCPCS: 93005; 99285; 86900; 86901; 36415; 82553; 36430; 86850; 82550; 85025; 80053; 81001; 84484; 86920; 71045; 93010; P9016

== ENCOUNTER → 2018-06-14 | Outpatient (CLI) | payer MEDICARE, OTHER ==
[2018-06-14 10:13] LABS: HEMATOCRIT 23.1 % (37.9-51.0); MEAN CORPUSCULAR HEMOGLOBIN 27.6 pg (27.0-33.4); MEAN CORPUSCULAR HGB CONC 33.4 g/dL (32.0-36.0); MEAN CORPUSCULAR VOLUME 83 fl (80-97); PLATELET COUNT 362 10^3/uL (150-450); WHITE BLOOD COUNT 6.9 10^3/uL (4.0-10.5)
[2018-06-14 11:09] LABS: HEMOGLOBIN 7.7 g/dL (13.5-17.0)
[2018-06-14 11:12] LABS: ABSOLUTE LYMPHOCYTES# (MANUAL) 1.2 10^3/uL (0.5-4.7); ABSOLUTE MONOCYTES # (MANUAL) 1.8 10^3/uL (0.1-1.4); ABSOLUTE NEUTROPHILS# (MANUAL) 3.9 10^3/uL (1.7-8.2); BAND NEUTROPHILS % (MANUAL) 1 % (3-5); BASOPHILS % (MANUAL) 0 % (0-2); EOSINOPHILS % (MANUAL) 0 % (0-6); LYMPHOCYTES % (MANUAL) 18 % (13-45); MONOCYTES % (MANUAL) 26 % (3-13); SEGMENTED NEUTROPHILS % (MAN) 55 % (42-78); TOTAL CELLS COUNTED 100
[2018-06-14 11:13] LABS: ANISOCYTOSIS 1+; OVALOCYTES SLIGHT; PLATELET COMMENT ADEQUATE; POIKILOCYTOSIS SLIGHT; POLYCHROMASIA SLIGHT
== END ==
LOC: OD 09:18
PROVIDERS: ATTEND Internal Medicine Nephrology
DX: N18.9 Chronic kidney disease, unspecified (principal)
CPT/HCPCS: 36415; 85025

== ENCOUNTER 2018-06-21 12:22 | Inpatient (IN) | payer MEDICARE, OTHER ==
--- NOTE | 2018-06-21 13:01 | ER Document Report ---
ED Medical Screen (RME) - General Chief Complaint: Breathing Difficulty Stated Complaint: WEAKNESS Time Seen by Provider: 06/21/18 12:57 Notes: RAPID MEDICAL EVALUATION DISCLOSURE I have seen this patient as part of a Rapid Medical Evaluation and, if applicable, placed any initially appropriate orders. The patient will be seen and fully evaluated, including a full history and physical exam, by a provider ( in Main ED or Fast Track) when a room becomes available. 82-year-old male PMH anemia requiring blood transfusions here with complaints of fatigue and exertional shortness of breath ongoing for the past 3-4 days. He usually will receive a Procrit injection once weekly however states that he felt so bad today he did not want to risk driving to receive his Procrit injection. He has chronically dark stools and has had scoping in the past but states "they have never found the source of the low blood counts". He denies any chest/abdominal/back pain cough fevers chills. He denies any other complaints. EXAM Pale conjunctiva CTAB RRR TRAVEL OUTSIDE OF THE [place] IN LAST 30 DAYS: No - Related Data Allergies/Adverse Reactions: amoxicillin [Amoxicillin] Allergy (Verified 06/21/18 12:49) ITCHING, HIVES Past Medical History - Social History Frequency of alcohol use: None Drug Abuse: None - Past Medical History Cardiac Medical History: Reports: Hx Coronary Artery Disease - R lEG BLOCKAGE, Hx Hypertension, Hx Peripheral Vascular Disease Denies: Hx Heart Attack Pulmonary Medical History: Denies: Hx Asthma, Hx Bronchitis, Hx COPD, Hx Pneumonia Neurological Medical History: Denies: Hx Cerebrovascular Accident, Hx Seizures Renal/ Medical History: Denies: Hx Peritoneal Dialysis GI Medical History: Denies: Hx Hepatitis, Hx Hiatal Hernia, Hx Ulcer Musculoskeltal Medical History: Reports Hx Arthritis - BACK AND HANDS Infectious Medical History: Denies: Hx Hepatitis Past Surgical History: Reports: Hx Abdominal Surgery - abdominal aneursym stent , Hx Orthopedic Surgery - right hand. Denies: Hx Open Heart Surgery, Hx Pacemaker - Immunizations Hx Diphtheria, Pertussis, Tetanus Vaccination: Yes History of Influenza Vaccine for 07/2017 - 12/2017 Season: Yes Influenza Administration Date for 07/2017 - 12/2017 Season: 07/06/17 Physical Exam - Vital signs Vitals: Temp Pulse BP Pulse Ox 97.8 F 65 132/54 H 98 06/21/18 12:29 06/21/18 12:29 06/21/18 12:29 06/21/18 12:29 Course - Vital Signs Vital signs: Temp Pulse Resp BP Pulse Ox 97.8 F 65 19 132/54 H 98 06/21/18 12:45 06/21/18 12:45 06/21/18 12:45 06/21/18 12:45 06/21/18 12:45 Doctor's Discharge - Discharge Referrals: LEONARDO HERNANDEZ MD [Primary Care Provider] - Follow up as needed
[2018-06-21 13:26] LABS: INTERNATIONAL RATION (INR) 1.54; PROTHROMBIN TIME 19.2 SEC (11.4-15.4)
[2018-06-21 13:27] LABS: PARTIAL THROMBOPLASTIN TIME 42.9 SEC (23.5-35.8)
[2018-06-21 13:30] LABS: ALANINE AMINOTRANSFERASE 27 U/L (21-72); ALBUMIN 2.9 g/dL (3.5-5.0); ALKALINE PHOSPHATASE 40 U/L (38-126); ANION GAP 12 (5-19); ASPARTATE AMINO TRANSFERASE 22 U/L (17-59); BILIRUBIN,DIRECT 0.3 mg/dL (0.0-0.4); BILIRUBIN,TOTAL 0.3 mg/dL (0.2-1.3); BLOOD UREA NITROGEN 43 mg/dL (7-20); CALCIUM 8.6 mg/dL (8.4-10.2); CARBON DIOXIDE 23 mmol/L (22-30); CHLORIDE 94 mmol/L (98-107); GLUCOSE 125 mg/dL (75-110); POTASSIUM 4.7 mmol/L (3.6-5.0); SODIUM 128.7 mmol/L (137-145); TOTAL PROTEIN 5.6 g/dL (6.3-8.2)
--- NOTE | 2018-06-21 13:33 | ER Document Report ---
ED General - General Mode of Arrival: Medic Information source: Patient TRAVEL OUTSIDE OF THE [place] IN LAST 30 DAYS: No <BK CURRIE - Last Filed: 06/21/18 13:39> <ROSE KELLER - Last Filed: 06/21/18 15:15> - General Chief Complaint: Breathing Difficulty Stated Complaint: WEAKNESS Time Seen by Provider: 06/21/18 12:57 Notes: 82-year-old male that presents to the emergency department today with complaints of generalized weakness. Patient has been seen for low blood levels multiple times in the past and was last transfused a little over a week ago. Patient was due for his Procrit injection today but he states he felt he was too weak to leave the house this morning so he missed his appointment. Patient is on Pacerone and Eliquis but he is unsure why. Patient has chronic GI blood loss but the source has never been identified. (BK CURRIE) The most recent upper and lower endoscopies were about 6 weeks ago without any bleeding source found. (ROSE KELLER) - Related Data Allergies/Adverse Reactions: amoxicillin [Amoxicillin] Allergy (Verified 06/21/18 12:49) ITCHING, HIVES Past Medical History - General Information source: Patient - Social History Smoking Status: Former Smoker Cigarette use (# per day): No Frequency of alcohol use: None Drug Abuse: None Lives with: Family Family History: None Patient has suicidal ideation: No Patient has homicidal ideation: No - Past Medical History Cardiac Medical History: Reports: Hx Hypertension, Hx Peripheral Vascular Disease - Right iliac artery stenosis, unsure where Musculoskeletal Medical History: Reports Hx Arthritis - BACK AND HANDS Past Surgical History: Reports: Hx Abdominal Surgery - abdominal aneursym stent , Hx Orthopedic Surgery - right hand - Immunizations Hx Diphtheria, Pertussis, Tetanus Vaccination: Yes Hx Pneumococcal Vaccination: 07/06/17 <BK CURRIE - Last Filed: 06/21/18 13:39> Review of Systems - Review of Systems Constitutional: See HPI, Weakness EENT: No symptoms reported Cardiovascular: No symptoms reported Respiratory: No symptoms reported Gastrointestinal: No symptoms reported Genitourinary: No symptoms reported Male Genitourinary: No symptoms reported Musculoskeletal: No symptoms reported Skin: No symptoms reported Hematologic/Lymphatic: No symptoms reported Neurological/Psychological: No symptoms reported -: Yes All other systems reviewed and negative <BK CURRIE - Last Filed: 06/21/18 13:39> Physical Exam <BK CURRIE - Last Filed: 06/21/18 13:39> <ROSE KELLER - Last Filed: 06/21/18 15:15> - Vital signs Vitals: Temp Pulse BP Pulse Ox 97.8 F 65 132/54 H 98 06/21/18 12:29 06/21/18 12:29 06/21/18 12:29 06/21/18 12:29 - Notes Notes: Physical Exam: General: Alert, appears pale. HEENT: Normocephalic. Atraumatic. PERRL. Extraocular movements intact. Oropharynx clear. Pale conjunctivae. Neck: Supple. Non-tender. Respiratory: No respiratory distress. Clear and equal breath sounds bilaterally. Mild congested cough. Dyspneic. Cardiovascular: Regular rate and rhythm. Abdominal: Protuberant abdomen. Non-tender. No distension. Normal Bowel Sounds. Back: Non-tender. No deformity or step off. Extremities: Moves all four extremities. Upper extremities: Normal inspection. Normal ROM. Lower extremities: Normal inspection. No edema. Normal ROM. Neurological: Normal cognition. AAOx4. Normal speech. Psychological: Normal affect. Normal Mood. Skin: Warm. Dry. Pale skin and nail beds. (BK CURRIE) Course - Laboratory Result Diagrams: 06/21/18 12:40 06/21/18 12:40 <BK CURRIE - Last Filed: 06/21/18 13:39> - Laboratory Result Diagrams: 06/21/18 12:40 06/21/18 12:40 - EKG Interpretation by Nd EKG shows normal: Sinus rhythm, [place], Intervals, QRS Complexes, ST-T Waves Rate: Normal - 65 Rhythm: NSR [place]/QRS: RBBB, LAHB/LAFB When compared to previous EKG there are: No significant change - Consults Dr. Neff Time consulted: 15:10 Consulted provider: will come to ER - Telemetry admission <ROSE KELLER - Last Filed: 06/21/18 15:15> - Vital Signs Vital signs: Temp Pulse Resp BP Pulse Ox 97.8 F 65 23 H 119/52 L 100 06/21/18 12:45 06/21/18 12:45 06/21/18 15:01 06/21/18 15:01 06/21/18 15:01 - Laboratory Laboratory results interpreted by me: 06/21/18 06/21/18 06/21/18 12:40 12:40 12:40 RBC 1.59 L Hgb 4.3 L* Hct 12.8 L* RDW 17.5 H Lymphocytes % (Manual) 10 L Monocytes % (Manual) 18 H Abs Monocytes (Manual) 1.6 H PT 19.2 H APTT 42.9 H Sodium 128.7 L Chloride 94 L BUN 43 H Creatinine 1.72 H Est GFR ( Amer) 46 L Est GFR (Non-Af Amer) 38 L Glucose 125 H Total Protein 5.6 L Albumin 2.9 L Crossmatch 06/21/18 12:40 RBC Hgb Hct RDW Lymphocytes % (Manual) Monocytes % (Manual) Abs Monocytes (Manual) PT APTT Sodium Chloride BUN Creatinine Est GFR ( Amer) Est GFR (Non-Af Amer) Glucose Total Protein Albumin Crossmatch See Detail Critical Care Note - Critical Care Note Total time excluding time spent on procedures (mins): 25 <ROSE KELLER - Last Filed: 06/21/18 15:15> Discharge <BK CURRIE - Last Filed: 06/21/18 13:39> - Discharge Admitting Provider: Hospitalist Unit Admitted: Telemetry <ROSE KELLER - Last Filed: 06/21/18 15:15> - Discharge Clinical Impression: Chronic lower GI bleeding, Acute blood loss anemia Condition: Stable Disposition: ADMITTED OBSERVATION Referrals: LEONARDO HERNANDEZ MD [ACTIVE STAFF] - Follow up as needed Scribe Attestation: 06/21/18 15:15 I personally performed the services described in the documentation, reviewed and edited the documentation which was dictated to the scribe in my presence, and it accurately records my words and actions. (ROSE KELLER)
--- NOTE | 2018-06-21 13:40 | RADIOLOGY REPORT (SQ) ---
EXAM DESCRIPTION: CHEST 2 VIEWS COMPLETED DATE/TIME: 06/21/2018 1:23 pm REASON FOR STUDY: SOB; pneumonia mass fluid? Shortness of breath on walking COMPARISON: None. EXAM PARAMETERS: NUMBER OF VIEWS: two views TECHNIQUE: Digital Frontal and Lateral radiographic views of the chest acquired. RADIATION DOSE: NA LIMITATIONS: none FINDINGS: LUNGS AND PLEURA: Bandlike atelectasis left lateral lung base. No fluffy alveolar infiltrates worrisome for edema or pneumonia. No pleural effusion. No pneumothor ax. MEDIASTINUM AND HILAR STRUCTURES: No masses or contour abnormalities. HEART AND VASCULAR STRUCTURES: Heart normal size. No evidence for failure. BONES: No acute findings. HARDWARE: None in the chest. OTHER: No other significant finding. IMPRESSION: NO ACUTE RADIOGRAPHIC FINDING IN THE CHEST. TECHNICAL DOCUMENTATION: JOB ID: [id number] [employer]- All Rights Reserved Reading location - IP/workstation name: [email or web address]
[2018-06-21 13:44] LABS: MEAN CORPUSCULAR HGB CONC 33.6 g/dL (32.0-36.0); MEAN CORPUSCULAR VOLUME 80 fl (80-97); PLATELET COUNT 319 10^3/uL (150-450); RED BLOOD COUNT 1.59 10^6/uL (4.35-5.55); RED CELL DISTRIBUTION WIDTH 17.5 % (11.5-14.0); WHITE BLOOD COUNT 8.7 10^3/uL (4.0-10.5)
[2018-06-21 15:01] LABS: HEMATOCRIT 12.8 % (37.9-51.0); HEMOGLOBIN 4.3 g/dL (13.5-17.0)
[2018-06-21] MEDS ORDERED: NORMAL SALINE 250 ML IV PRN ×2 (15:01→17:07)
[2018-06-21 15:04] LABS: ABSOLUTE LYMPHOCYTES# (MANUAL) 0.9 10^3/uL (0.5-4.7); ABSOLUTE MONOCYTES # (MANUAL) 1.6 10^3/uL (0.1-1.4); ABSOLUTE NEUTROPHILS# (MANUAL) 6.2 10^3/uL (1.7-8.2); ANISOCYTOSIS 1+; BASOPHILS % (MANUAL) 1 % (0-2); EOSINOPHILS % (MANUAL) 0 % (0-6); HYPOCHROMASIA SLIGHT; LYMPHOCYTES % (MANUAL) 10 % (13-45); MONOCYTES % (MANUAL) 18 % (3-13); NUCLEATED RED BLOOD CELLS 1 /100 WBC (0); PLATELET COMMENT ADEQUATE; SEGMENTED NEUTROPHILS % (MAN) 71 % (42-78); TOTAL CELLS COUNTED 100
[2018-06-21] MEDS ORDERED: DEXTROSE 50%-WATER 25 GM/50 ML DISP.SYRIN IV PRN ×2 (17:03)
[2018-06-21] MEDS ORDERED: GLUCAGON,HUMAN RECOMB 1 MG INJ SUBCUT PRN (17:03)
[2018-06-21] MEDS ORDERED: DEXTROSE 40% GEL 15 GM TUBE PO PRN ×2 (17:03)
--- NOTE | 2018-06-21 17:37 | PDOC CONSULTATION ---
Consultation Consult Date: 06/21/18 Attending physician:: CHUCK WHITNEY Consult reason:: chronic anemia History of Present Illness Admission Date/PCP: 06/21/18 15:28 NORMA ZAVALA DO History of Present Illness: MALIKA LEHMAN is a 82 year old male Asked to see this patient due to admission for chronic anemia did have recent EGD and colonoscopy done about 6 weeks ago,, no source of bleeding is noted prior to those procedures, patient also had same tests done by Dr Trujillo that did not reveal any cause of his bleeding he has not come back in for a office follow up they were plans to have a rectal EUS done as a next step , there appears to be internal hemorrhoids or prolapsed mucosa in the rectal area that will need a rectal ultrasound for further evaluation, however that needs to be done at a tertiary institution, either at [facility] patient does appear to have chronic renal issues as well if there is a suspicion that patient may be bleeding, then a bleeding scan would be recommended he will also need a small capusule endoscopy , but again not equipment available at [facility] follow up on H/H, transfuse as necessary, Past Medical History Cardiac Medical History: Reports: Coronary Artery Disease - R lEG BLOCKAGE, Hypertension, Peripheral Vascular Disease - Right iliac artery stenosis, unsure where Denies: Myocardial Infarction Pulmonary Medical History: Denies: Asthma, Bronchitis, Chronic Obstructive Pulmonary Disease (COPD), Pneumonia Neurological Medical History: Denies: Seizures GI Medical History: Denies: Hepatitis, Hiatal Hernia Musculoskeltal Medical History: Reports: Arthritis - BACK AND HANDS Hematology: Reports: Anemia Denies: Sickle Cell Disease Past Surgical History Past Surgical History: Reports: Orthopedic Surgery - right hand Denies: Pacemaker Social History Lives with: Family Smoking Status: Former Smoker Frequency of Alcohol Use: None Hx Recreational Drug Use: No Drugs: None Hx Prescription Drug Abuse: No Family History Family History: None Parental Family History Reviewed: Yes Children Family History Reviewed: Unknown Sibling(s) Family History Reviewed.: Unknown Medication/Allergy Home Medications: Aspirin [Aspirin EC] 81 mg PO QHS 07/13/17 Benazepril/Hydrochlorothiazide [Lotensin Hct 20-12.5 mg Tablet] 1 tab PO DAILY 07/13/17 Diltiazem HCl [Tiazac] 240 mg PO QHS 07/13/17 Ferrous Sulfate [Iron] 325 mg PO Q12 07/13/17 Lorazepam [Ativan 1 mg Tablet] 1 mg PO Q8HP PRN 07/13/17 Multivit-Min/Folic/Vit K/Lycop [One-A-Day Men's 50 Plus Tablet] 1 tab PO DAILY 07/13/17 Apixaban [Eliquis 5 mg Tablet] 5 mg PO BID 04/06/18 Allergies/Adverse Reactions: amoxicillin [Amoxicillin] Allergy (Verified 06/21/18 12:49) ITCHING, HIVES Review of Systems Constitutional: PRESENT: weakness. ABSENT: fever(s), headache(s), night sweats Eyes: ABSENT: visual disturbances Ears: ABSENT: hearing changes Cardiovascular: PRESENT: orthropnea. ABSENT: edema Respiratory: ABSENT: dyspnea, hemoptysis Gastrointestinal: ABSENT: nausea, vomiting Genitourinary: ABSENT: dysuria, hematuria Musculoskeletal: ABSENT: deformity, joint swelling Integumentary: ABSENT: lesions, pruritus Neurological: PRESENT: weakness. ABSENT: syncope, tingling, tremor(s), vertigo Endocrine: ABSENT: polydipsia, polyphagia, polyuria Hematologic/Lymphatic: ABSENT: easy bruising Physical Exam Vital Signs: Temp Pulse Resp BP Pulse Ox 98.1 F 65 20 146/59 H 100 06/21/18 16:00 06/21/18 12:45 06/21/18 16:30 06/21/18 16:30 06/21/18 16:30 Intake & Output 06/20/18 06/21/18 06/22/18 06:59 06:59 06:59 Intake Total 0 Output Total 300 Balance -300 General appearance: PRESENT: no acute distress, well-developed, well-nourished Head exam: PRESENT: atraumatic, normocephalic Eye exam: PRESENT: EOMI, PERRLA. ABSENT: nystagmus, periorbital swelling, scleral icterus Mouth exam: PRESENT: moist, neck supple Throat exam: ABSENT: tonsillar exudate, tonsillogmegaly Neck exam: ABSENT: meningismus, tenderness, thyromegaly Respiratory exam: PRESENT: symmetrical, unlabored. ABSENT: tachypnea, wheezes Cardiovascular exam: PRESENT: RRR, +S1, +S2 GI/Abdominal exam: PRESENT: soft. ABSENT: rebound, rigid, tenderness Extremities exam: ABSENT: joint swelling Musculoskeletal exam: PRESENT: full ROM Neurological exam: PRESENT: alert, awake, oriented to time, oriented to situation, CN II-XII grossly intact Focused psych exam: ABSENT: restlessness Skin exam: PRESENT: normal color, pallor. ABSENT: mottled, urticaria, vesicles Results Impressions: Chest X-Ray 06/21/18 12:58 IMPRESSION: NO ACUTE RADIOGRAPHIC FINDING IN THE CHEST. Assessment & Plan - Diagnosis (1) Chronic anemia Plan: recent colonoscopy and EGD from 6 weeks ago reviewed also all previous procedures from 2013 reviewed when he was a patient of Dr Trujillo no need to repeat that testing for now instead he will need a small capsule study to be performed, however this is not available here at [facility] Dr Cedeño's office may be able to do, but it will need to be done as an outpatient if there is suspicion of GI bleeding, recommend tagged RBC scan since no source noted on recent EGD and colonoscopy. transfuse as needed (2) Rectal lesion Plan: either internal hemorrhoids vs prolapsed mucosa that was noted as an outpatient he will need endoscopic ultrasound, not available here at [facility] patient will need to be scheduled for that further recommendations to follow - Time Time Spent: 50 to 70 Minutes
[2018-06-21] MEDS ORDERED: FUROSEMIDE INJ/PF 20 MG/2 ML SDV IV ONE (19:30)
--- NOTE | 2018-06-21 19:52 | EKG REPORT ---
SEVERITY:- ABNORMAL ECG - SINUS OR ECTOPIC ATRIAL RHYTHM RBBB AND LAFB : Confirmed by: Abdiaziz Salinas MD 21-Jun-2018 19:51:11
--- NOTE | 2018-06-21 20:37 | PDOC H&P ---
History of Present Illness Admission Date/PCP: 06/21/18 15:28 NORMA ZAVALA DO Patient complains of: melena History of Present Illness: MALIKA LEHMAN is a 82 year old male who has a history of recurrent anemia and history of GI bleeds and questionable history of atrial fibrillation on Eliquis who presented with fatigue in melena. Patient has had multiple blood transfusions in the past because of acute on chronic anemia. He did have prior histories of melanotic stools. He said he had multiple EGDs and colonoscopies in the past and the recent one in April which was unremarkable for a definite bleeding source. He says that he has been taken off Eliquis in the past. He is not sure if he has A. fib but says that he has been on Pacerone and Eliquis as prescribed by his scout executive. He says that when he followed up with his scout executive, the latter reportedly strongly recommended that he be resumed on the blood thinner. He says he has been having black stools in the past for to 6 weeks. He says he does not have any abdominal pain. He denies nausea, vomiting or hematemesis. He says he has been having increasing fatigue in the past 3 days. In the ER, hemoglobin was noted to be low at 4.3. Upon review of his previous hemoglobin, his last ones are running at 6-7.1. His blood pressure stable at 146/60. Patient currently denies any dizziness, chest pain or shortness of breath. Past Medical History Cardiac Medical History: Reports: Coronary Artery Disease - R lEG BLOCKAGE, Hypertension, Peripheral Vascular Disease - Right iliac artery stenosis, unsure where Denies: Myocardial Infarction Pulmonary Medical History: Denies: Asthma, Bronchitis, Chronic Obstructive Pulmonary Disease (COPD), Pneumonia Neurological Medical History: Denies: Seizures GI Medical History: Denies: Hepatitis, Hiatal Hernia Musculoskeltal Medical History: Reports: Arthritis - BACK AND HANDS Psychiatric Medical History: Reports: Depression Hematology: Reports: Anemia Denies: Sickle Cell Disease Past Surgical History Past Surgical History: Reports: Orthopedic Surgery - right hand Denies: Pacemaker Social History Lives with: Family Smoking Status: Former Smoker Frequency of Alcohol Use: None Hx Recreational Drug Use: No Drugs: None Hx Prescription Drug Abuse: No Family History Family History: None Medication/Allergy Home Medications: Albuterol Sulfate [Proair HFA] 2 puff IH Q4HP PRN 06/21/18 Amiodarone HCl [Pacerone] 200 mg PO DAILY 06/21/18 Apixaban [Eliquis 5 mg Tablet] 5 mg PO BID 06/21/18 Benazepril/Hydrochlorothiazide [Lotensin Hct 20-12.5 Tablet] 1 tab PO DAILY Diltiazem HCl [Diltiazem 24Hr ER] 240 mg PO DAILY 06/21/18 Lorazepam [Ativan 1 mg Tablet] 1 mg PO QHS 06/21/18 Multivit-Min/Folic/Vit K/Lycop [One-A-Day Men's 50+ Tablet] 1 each PO DAILY Allergies/Adverse Reactions: amoxicillin [Amoxicillin] Allergy (Verified 06/21/18 12:49) ITCHING, HIVES Review of Systems All systems: reviewed and no additional remarkable complaints except as stated - As mentioned in HPI. Physical Exam Vital Signs: Temp Pulse Resp BP Pulse Ox 98.1 F 73 20 146/59 H 100 06/21/18 16:00 06/21/18 17:45 06/21/18 16:30 06/21/18 16:30 06/21/18 16:30 Intake & Output 06/20/18 06/21/18 06/22/18 06:59 06:59 06:59 Intake Total 300 Output Total 300 Balance 0 General appearance: PRESENT: no acute distress, well-developed, well-nourished Head exam: PRESENT: atraumatic, normocephalic Eye exam: PRESENT: conjunctiva pink, EOMI, PERRLA. ABSENT: scleral icterus Ear exam: PRESENT: normal external ear exam Neck exam: ABSENT: carotid bruit, JVD, lymphadenopathy, thyromegaly Respiratory exam: PRESENT: clear to auscultation eduardo. ABSENT: rales, rhonchi, wheezes Cardiovascular exam: PRESENT: bradycardia Pulses: PRESENT: normal dorsalis pedis pul GI/Abdominal exam: PRESENT: normal bowel sounds, soft. ABSENT: distended, guarding, mass, organolmegaly, rebound, tenderness Neurological exam: PRESENT: alert, awake, oriented to person, oriented to place , oriented to time, oriented to situation, CN II-XII grossly intact. ABSENT: motor sensory deficit Results Impressions: Chest X-Ray 06/21/18 12:58 IMPRESSION: NO ACUTE RADIOGRAPHIC FINDING IN THE CHEST. Assessment & Plan - Diagnosis (1) Acute blood loss anemia Is this a current diagnosis for this admission?: Yes Plan: This is likely secondary to ongoing GI bleed. ER physician has already ordered 3 units of packed RBC. We will order a unit of FFP because patient has been on Eliquis at home. Will consult GI. We will continue to monitor H&H. (2) GI bleed Is this a current diagnosis for this admission?: Yes Plan: Will consult GI. We will continue to monitor H&H. Start Protonix IV. (3) History of atrial fibrillation Is this a current diagnosis for this admission?: Yes Plan: Patient is currently in sinus rhythm. Patient has a questionable history of atrial fibrillation. He is not sure why he is on amiodarone and Eliquis. Hold off on any anticoagulation at the moment. Will recommend holding of on anticoagulation even on discharge because of patient's recurrent GI bleed. Will rediscuss this with patient and family tomorrow. (4) Full code status Plan: Patient initially said that he is DNR/DNI however he verbalized that he wants to be full code for now and will rediscuss this tomorrow with his son and will update us with changes of his CODE STATUS. Will keep patient full code for now. - Time Time Spent: 50 to 70 Minutes
[2018-06-21] MEDS: PANTOPRAZOLE SODIUM 40 MG VIAL IV SCH (21:29)
--- NOTE | 2018-06-21 23:12 | RADIOLOGY REPORT (SQ) ---
EXAM DESCRIPTION: NM GASTROINTESTINAL BLEEDING COMPLETED DATE/TME: 06/21/2018 00:00 CLINICAL HISTORY: 82 years, Male, GI bleed COMPARISON: None. RADIONUCLIDE AND DOSE: 24.5 mCi Tc 99m RBC LIMITATIONS: None. FINDINGS: Left paracentral abdominal activity increases over time and moves within a tubular structure suggestive of a superior mesenteric arterial small bowel bleed. As seen on images 31 through 119 of the two minute frames. IMPRESSION: Active small bowel, superior mesenteric arterial GI bleed pattern.
--- NOTE | 2018-06-21 23:50 | PDOC TRANSFER SUMMARY ---
General Admission Date/PCP: 06/21/18 15:28 NORMA ZAVALA DO Admission Date: 06/21/18 Transfer Date: 06/21/18 Accepting Facility: [facility] Resuscitation Status: Full Code - Transfer Diagnosis (1) Acute blood loss anemia Is this a current diagnosis for this admission?: Yes Diagnosis Summary: Patient admitted with history of atrial fibrillation on Eliquis with several days of melena, fatigue, history of uncertain GI bleed following multiple negative EGD and colonoscopies. Patient is found to have a hemoglobin of only 4.3 from a baseline of 8. Ordered 3 units of packed red blood cells and FFP. He has received 1 unit of packed red blood cells. Bleeding scan results in active arterial bleed of the small bowel, surgery consulted recommending transfer to tertiary care for interventional radiology. Patient is updated as to his results, remaining in stable but unimproved condition blood pressure is 123/59 pulse of 74 respirations 16 satting 98% on room air and afebrile. Agrees to plan for transfer. (2) History of atrial fibrillation Is this a current diagnosis for this admission?: Yes Diagnosis Summary: Eliquis discontinued, rate controlled on Pacerone. - Transfer Medications Home Medications: Albuterol Sulfate [Proair HFA] 2 puff IH Q4HP PRN 06/21/18 Amiodarone HCl [Pacerone] 200 mg PO DAILY 06/21/18 Benazepril/Hydrochlorothiazide [Lotensin Hct 20-12.5 Tablet] 1 tab PO DAILY Diltiazem HCl [Diltiazem 24Hr ER] 240 mg PO DAILY 06/21/18 Lorazepam [Ativan 1 mg Tablet] 1 mg PO QHS 06/21/18 Multivit-Min/Folic/Vit K/Lycop [One-A-Day Men's 50+ Tablet] 1 each PO DAILY Transfer Medications: Current Medications Dextrose (Dextrose Inj 50% Syringe (25 Gm/50 Ml)) 12.5 gm IV PRN PRN; Protocol PRN Reason: FOR BG 50-69 IN ALERT PATIENT Stop: 07/21/18 17:02 Dextrose (Dextrose Inj 50% Syringe (25 Gm/50 Ml)) 25 gm IV PRN PRN; Protocol PRN Reason: See Label Comments Stop: 07/21/18 17:02 Glucagon (Glucagen Inj 1 Mg Vial) 1 mg SUBCUT PRN PRN; Protocol PRN Reason: Evaluate for BG < 70 Stop: 07/21/18 17:02 Glucose (Glutose 40% Gel 15 Gm Tube) 15 gm PO PRN PRN; Protocol PRN Reason: For BG 50-69 in Alert Patient Stop: 07/21/18 17:02 Glucose (Glutose 40% Gel 15 Gm Tube) 30 gm PO PRN PRN; Protocol PRN Reason: FOR BG < 50 IN ALERT PATIENT Stop: 07/21/18 17:02 Sodium Chloride (Nacl 0.9% 250 Ml Iv Soln) 250 mls @ 0 mls/hr IV CONTINUOUS PRN ; As Directed PRN Reason: AFTER EACH UNIT Stop: 06/22/18 15:00 Sodium Chloride (Nacl 0.9% 250 Ml Iv Soln) 250 mls @ 0 mls/hr IV CONTINUOUS PRN ; As Directed PRN Reason: AFTER EACH UNIT Stop: 06/22/18 17:06 Pantoprazole Sodium (Protonix Iv Inj 40 Mg Vial) 40 mg IV Q12A EDNA Stop: 06/24/18 17:59 Last Admin: 06/21/18 21:29 Dose: 40 mg - Allergies Allergies/Adverse Reactions: amoxicillin [Amoxicillin] Allergy (Verified 06/21/18 12:49) ITCHING, HIVES Hospital Course Hospital Course: Patient admitted with history of atrial fibrillation on Eliquis with several days of melena, fatigue, history of uncertain GI bleed following multiple negative EGD and colonoscopies. Patient is found to have a hemoglobin of only 4.3 from a baseline of 8. Ordered 3 units of packed red blood cells and FFP. He has received 1 unit of packed red blood cells. Bleeding scan results in active arterial bleed of the small bowel, surgery consulted recommending transfer to tertiary care for interventional radiology. Patient is updated as to his results, remaining in stable but unimproved condition blood pressure is 123/59 pulse of 74 respirations 16 satting 98% on room air and afebrile. Agrees to plan for transfer. Physical Exam Vital Signs: Temp Pulse Resp BP Pulse Ox 98.5 F 76 17 136/72 H 98 06/21/18 20:11 06/21/18 20:11 06/21/18 20:11 06/21/18 20:11 06/21/18 20:11 Intake & Output 06/20/18 06/21/18 06/22/18 11:59 11:59 11:59 Intake Total 300 Output Total 300 Balance 0 General appearance: PRESENT: no acute distress, well-developed, well-nourished Head exam: PRESENT: atraumatic, normocephalic Eye exam: PRESENT: conjunctiva pink, EOMI, PERRLA. ABSENT: scleral icterus Ear exam: PRESENT: normal external ear exam Mouth exam: PRESENT: moist, tongue midline Neck exam: ABSENT: carotid bruit, JVD, lymphadenopathy, thyromegaly Respiratory exam: PRESENT: clear to auscultation eduardo. ABSENT: rales, rhonchi, wheezes Cardiovascular exam: PRESENT: RRR. ABSENT: diastolic murmur, rubs, systolic murmur Pulses: PRESENT: normal dorsalis pedis pul Vascular exam: PRESENT: normal capillary refill GI/Abdominal exam: PRESENT: normal bowel sounds, soft. ABSENT: distended, guarding, mass, organolmegaly, rebound, tenderness Rectal exam: PRESENT: deferred Extremities exam: PRESENT: full ROM. ABSENT: calf tenderness, clubbing, pedal edema Neurological exam: PRESENT: alert, awake, oriented to person, oriented to place , oriented to time, oriented to situation, CN II-XII grossly intact. ABSENT: motor sensory deficit Psychiatric exam: PRESENT: appropriate affect, normal mood. ABSENT: homicidal ideation, suicidal ideation Skin exam: PRESENT: dry, intact, warm. ABSENT: cyanosis, rash Results Impressions: GI Bleed Scan Nuclear Medicine 06/21/18 00:00 IMPRESSION: Active small bowel, superior mesenteric arterial GI bleed pattern. Chest X-Ray 06/21/18 12:58 IMPRESSION: NO ACUTE RADIOGRAPHIC FINDING IN THE CHEST. Plan Discharge Plan: Patient admitted with history of atrial fibrillation on Eliquis with several days of melena, fatigue, history of uncertain GI bleed following multiple negative EGD and colonoscopies. Patient is found to have a hemoglobin of only 4.3 from a baseline of 8. Ordered 3 units of packed red blood cells and FFP. He has received 1 unit of packed red blood cells. Bleeding scan results in active arterial bleed of the small bowel, surgery consulted recommending transfer to tertiary care for interventional radiology. Patient is updated as to his results, remaining in stable but unimproved condition blood pressure is 123/59 pulse of 74 respirations 16 satting 98% on room air and afebrile. Agrees to plan for transfer. Time Spent: Less than 30 Minutes
--- NOTE | 2018-06-22 00:09 | PDOC CONSULTATION ---
Consultation Consult Date: 06/21/18 Consult reason:: SMA bleeding History of Present Illness Admission Date/PCP: 06/21/18 15:28 NORMA ZAVALA DO History of Present Illness: MALIKA LEHMAN is a 82 year old male with a hx of atrial fibrillation on Eliquis, recently developed anemia On May 31, which required hospitalization and transfusion of 1 U of PRBC, followed by second transfusion as ER patient. Today, the patient has developed dizziness and shortness of breath and found to be severely anemic (H/H= 4.3/12.8). Due to the lack of evidence of GI bleeding source, has he has undergone two previous EGD/colonoscopies both unable to identify the bleeding source. A Tagged red blood cell scan has been done today and it is positive for SMA active bleeding. Past Medical History Cardiac Medical History: Reports: Coronary Artery Disease - R lEG BLOCKAGE, Hypertension, Peripheral Vascular Disease - Right iliac artery stenosis, unsure where Denies: Myocardial Infarction Pulmonary Medical History: Denies: Asthma, Bronchitis, Chronic Obstructive Pulmonary Disease (COPD), Pneumonia Neurological Medical History: Denies: Seizures GI Medical History: Denies: Hepatitis, Hiatal Hernia Musculoskeltal Medical History: Reports: Arthritis - BACK AND HANDS Psychiatric Medical History: Reports: Depression Hematology: Reports: Anemia Denies: Sickle Cell Disease Past Surgical History Past Surgical History: Reports: Orthopedic Surgery - right hand Denies: Pacemaker Social History Lives with: Family Smoking Status: Former Smoker Frequency of Alcohol Use: None Hx Recreational Drug Use: No Drugs: None Hx Prescription Drug Abuse: No - Advance Directive Resuscitation Status: Full Code Family History Family History: None Parental Family History Reviewed: No Children Family History Reviewed: No Sibling(s) Family History Reviewed.: No Medication/Allergy Home Medications: Albuterol Sulfate [Proair HFA] 2 puff IH Q4HP PRN 06/21/18 Amiodarone HCl [Pacerone] 200 mg PO DAILY 06/21/18 Benazepril/Hydrochlorothiazide [Lotensin Hct 20-12.5 Tablet] 1 tab PO DAILY Diltiazem HCl [Diltiazem 24Hr ER] 240 mg PO DAILY 06/21/18 Lorazepam [Ativan 1 mg Tablet] 1 mg PO QHS 06/21/18 Multivit-Min/Folic/Vit K/Lycop [One-A-Day Men's 50+ Tablet] 1 each PO DAILY Allergies/Adverse Reactions: amoxicillin [Amoxicillin] Allergy (Verified 06/21/18 12:49) ITCHING, HIVES Physical Exam Vital Signs: Temp Pulse Resp BP Pulse Ox 98.5 F 76 17 136/72 H 98 06/21/18 20:11 06/21/18 20:11 06/21/18 20:11 06/21/18 20:11 06/21/18 20:11 Intake & Output 06/20/18 06/21/18 06/22/18 06:59 06:59 06:59 Intake Total 300 Output Total 300 Balance 0 General appearance: PRESENT: no acute distress, obese Head exam: PRESENT: atraumatic Eye exam: PRESENT: EOMI Mouth exam: PRESENT: dry mucosa, neck supple Neck exam: PRESENT: full ROM Respiratory exam: PRESENT: clear to auscultation eduardo Cardiovascular exam: PRESENT: RRR GI/Abdominal exam: PRESENT: soft - but obese, old upper abdominal midline scar Rectal exam: PRESENT: deferred Psychiatric exam: PRESENT: agitated, appropriate affect Focused psych exam: PRESENT: other Skin exam: PRESENT: warm Results Impressions: GI Bleed Scan Nuclear Medicine 06/21/18 00:00 IMPRESSION: Active small bowel, superior mesenteric arterial GI bleed pattern. Chest X-Ray 06/21/18 12:58 IMPRESSION: NO ACUTE RADIOGRAPHIC FINDING IN THE CHEST. Assessment & Plan - Plan Summary Plan Summary: A/ Acute anemia (H/H = 4.3/12.8 Negative previous EGD and colonoscopy x 2 during past few months Patient anticoagulated on Coumadin for atrial fribrillation Tgged red Blood Cell scan positive for upper GI bleeding from SMA branch source Marginal kidney failure, most likely secondary to dehydration and compounded by age and poor kidney functioni P/ My recommendation is to transfer the patient to a tertiary center with Interventional Radiology capabilities to endovascularly embolize the bleeding SMA vessel as soon as possible. No acute General Surgery modality available to this patient. Please, call me question.
[2018-06-22] MEDS ORDERED: FUROSEMIDE INJ/PF 20 MG/2 ML SDV ONE (02:38)
[2018-06-22] MEDS: PANTOPRAZOLE SODIUM 40 MG VIAL IV SCH (06:48)
--- NOTE | 2018-06-22 07:31 | PDOC PROGRESS REPORT ---
Subjective Progress Note for:: 06/22/18 Subjective:: tagged RBC scan reveals a probable small bowel source of bleeding surgery was consulted patient is being transferred presented with low Hgb, getting transfused patient otherwise hemodynamically stable he should be discontinued from his anti coagulation surgery recommended IVR for possible embolization of lesion. He will need a rectal EUS as well at the accepting facility if it is available. Reason For Visit: ACUTE GI BLEED Physical Exam Vital Signs: Temp Pulse Resp BP Pulse Ox 98.3 F 76 16 130/54 H 99 06/22/18 06:51 06/22/18 06:51 06/22/18 06:51 06/22/18 06:51 06/22/18 06:51 Intake & Output 06/21/18 06/22/18 06/23/18 06:59 06:59 06:59 Intake Total 1244 Output Total 2200 Balance -956 Weight 90.3 kg General appearance: PRESENT: no acute distress, well-developed, well-nourished Head exam: PRESENT: atraumatic, normocephalic Eye exam: PRESENT: EOMI, PERRLA. ABSENT: nystagmus, periorbital swelling, scleral icterus Mouth exam: PRESENT: moist, neck supple Throat exam: ABSENT: tonsillar exudate, tonsillogmegaly Neck exam: ABSENT: meningismus, tenderness, thyromegaly Respiratory exam: PRESENT: symmetrical, unlabored. ABSENT: tachypnea, wheezes Cardiovascular exam: PRESENT: irregular rhythm, RRR, +S2 GI/Abdominal exam: PRESENT: soft. ABSENT: rebound, rigid, tenderness Extremities exam: ABSENT: joint swelling Musculoskeletal exam: PRESENT: full ROM Neurological exam: PRESENT: alert, oriented to time, reflexes normal, CN II-XII grossly intact Focused psych exam: ABSENT: restlessness Skin exam: PRESENT: normal color. ABSENT: mottled, pallor, urticaria, vesicles Results Impressions: GI Bleed Scan Nuclear Medicine 06/21/18 00:00 IMPRESSION: Active small bowel, superior mesenteric arterial GI bleed pattern. Chest X-Ray 06/21/18 12:58 IMPRESSION: NO ACUTE RADIOGRAPHIC FINDING IN THE CHEST. Assessment & Plan - Diagnosis (1) Chronic anemia Is this a current diagnosis for this admission?: Yes Plan: small source of bleeding by tagged RBC scan previous EGD and colonoscopy negative transfer for interventional radiology embolization (2) Rectal lesion Is this a current diagnosis for this admission?: Yes Plan: will need EUS, rectal if available at accepting institution ? possible mucosal prolapse vs internal hemorrhoids vs other lesion - Time Time Spent with patient: 15-24 minutes
[2018-06-22 08:22] LABS: HEMATOCRIT 21.8 % (37.9-51.0); MEAN CORPUSCULAR HEMOGLOBIN 28.1 pg (27.0-33.4); MEAN CORPUSCULAR HGB CONC 34.2 g/dL (32.0-36.0); MEAN CORPUSCULAR VOLUME 82 fl (80-97); PLATELET COUNT 295 10^3/uL (150-450); RED BLOOD COUNT 2.65 10^6/uL (4.35-5.55); RED CELL DISTRIBUTION WIDTH 16.5 % (11.5-14.0); WHITE BLOOD COUNT 8.7 10^3/uL (4.0-10.5)
[2018-06-22 08:25] LABS: HEMOGLOBIN 7.5 g/dL (13.5-17.0)
[2018-06-22 08:54] VITALS: BP 154/88
[2018-06-22 15:55] LABS: PATH REVIEW PATHOLOGIST REVIEWED
== END 2018-06-22 08:56 | disposition short-term general hospital (02) | DRG 378 ==
LOC: ER 12:22 → EH 15:28 → OBSVTOIN 15:28 → 5 17:39
PROVIDERS: ADMIT Internal Medicine; ATTEND Internal Medicine
PROC: 30233N1 Transfusion of Nonautologous Red Blood Cells into Peripheral Vein, Percutaneous Approach (ICD-10-PCS; principal; 2018-06-21)
PROC: 30233L1 Transfusion of Nonautologous Fresh Plasma into Peripheral Vein, Percutaneous Approach (ICD-10-PCS; 2018-06-21)
DX: K92.2 Gastrointestinal hemorrhage, unspecified (principal); D62 Acute posthemorrhagic anemia; I48.91 Unspecified atrial fibrillation; I10 Essential (primary) hypertension; I25.10 Atherosclerotic heart disease of native coronary artery without angina pectoris; I73.9 Peripheral vascular disease, unspecified; M19.042 Primary osteoarthritis, left hand; M19.041 Primary osteoarthritis, right hand; M47.9 Spondylosis, unspecified; F32.9 Major depressive disorder, single episode, unspecified; I45.10 Unspecified right bundle-branch block; E66.9 Obesity, unspecified; Z68.34 Body mass index [BMI] 34.0-34.9, adult; Z79.899 Other long term (current) drug therapy; Z88.1 Allergy status to other antibiotic agents; Z87.891 Personal history of nicotine dependence
CPT/HCPCS: 36415; 36430; 71046; 78278; 80053; 84484; 85025; 85027; 85610; 85730; 86850; 86900; 86901; 86920; 93005; 93010; 99285; A9560; J1642; J1940; P9016; P9017; S0164

== ENCOUNTER → 2018-07-05 | Outpatient (CLI) | payer MEDICARE, OTHER ==
[2018-07-05 08:37] LABS: HEMATOCRIT 29.8 % (37.9-51.0); HEMOGLOBIN 10.1 g/dL (13.5-17.0); MEAN CORPUSCULAR HEMOGLOBIN 28.3 pg (27.0-33.4); MEAN CORPUSCULAR HGB CONC 33.7 g/dL (32.0-36.0); MEAN CORPUSCULAR VOLUME 84 fl (80-97); PLATELET COUNT 392 10^3/uL (150-450); RED BLOOD COUNT 3.55 10^6/uL (4.35-5.55); RED CELL DISTRIBUTION WIDTH 18.1 % (11.5-14.0)
[2018-07-05 08:46] LABS: ALBUMIN 3.5 g/dL (3.5-5.0); ANION GAP 9 (5-19); BLOOD UREA NITROGEN 23 mg/dL (7-20); CALCIUM 9.3 mg/dL (8.4-10.2); CARBON DIOXIDE 28 mmol/L (22-30); CHLORIDE 100 mmol/L (98-107); GLUCOSE 113 mg/dL (75-110); PHOSPHORUS 3.2 mg/dL (2.5-4.5); POTASSIUM 4.3 mmol/L (3.6-5.0); SODIUM 137.1 mmol/L (137-145)
[2018-07-05 09:39] LABS: ABSOLUTE LYMPHOCYTES# (MANUAL) 1.8 10^3/uL (0.5-4.7); ABSOLUTE MONOCYTES # (MANUAL) 2.2 10^3/uL (0.1-1.4); ABSOLUTE NEUTROPHILS# (MANUAL) 3.9 10^3/uL (1.7-8.2); BASOPHILS % (MANUAL) 2 % (0-2); EOSINOPHILS % (MANUAL) 0 % (0-6); LYMPHOCYTES % (MANUAL) 20 % (13-45); MONOCYTES % (MANUAL) 27 % (3-13); SEGMENTED NEUTROPHILS % (MAN) 49 % (42-78); TOTAL CELLS COUNTED 100
[2018-07-05 09:41] LABS: ANISOCYTOSIS 2+; PLATELET COMMENT ADEQUATE; POLYCHROMASIA SLIGHT
[2018-07-06 10:38] LABS: CREATININE URINE 74.4 mg/dL (Not Estab.); MICROALBUMIN URINE 23.9 ug/mL (Not Estab.)
== END ==
LOC: OD 07:47
PROVIDERS: ATTEND Student in an Organized Health Care Education/Training Program
DX: N18.3 Chronic kidney disease, stage 3 (moderate) (principal); D63.1 Anemia in chronic kidney disease; R80.9 Proteinuria, unspecified
CPT/HCPCS: 36415; 80048; 82040; 82043; 82306; 82570; 83970; 84100; 85025

== ENCOUNTER → 2018-07-18 | Outpatient (CLI) | payer MEDICARE, OTHER ==
--- NOTE | 2018-07-18 14:45 | XCELERA REPORT ---
[address] [place] [facility] [place] [id number] Lower Extremity Venous Evaluation Procedure: Color flow and duplex imaging bilaterally of the veins of the lower extremities as well as the Common Femoral veins. Right Sided Venous Evaluation Peroneal vein not well seen. Normal vessel filling wall to wall, compression and augmentation as well as Colour flow down to the infrageniculate veins. Left Sided Venous Evaluation Normal vessel filling wall to wall, compression and augmentation as well as Colour flow down to the infrageniculate veins. Interpretation Summary No duplex evidence of DVT or obstruction in the bilateral lower extremities. Minor limitation as the right Peroneal vein was not seen. Name: MALIKA LEHMAN Age: 82 yrs Gender: Male : 1935 Patient Status: Outpatient Patient Location: Study Date: 07/18/2018 11:38 AM Reason For Study: BLE SWELLING Ordering Physician: NORMA ZAVALA Performed By: Erick Head : NORMA ZAVALA > [facility] [place]
== END ==
LOC: SP 11:08
PROVIDERS: ATTEND Student in an Organized Health Care Education/Training Program
DX: N18.3 Chronic kidney disease, stage 3 (moderate) (principal); M79.89 Other specified soft tissue disorders
CPT/HCPCS: 93970

== ENCOUNTER → 2018-07-25 | Outpatient (CLI) | payer MEDICARE, OTHER ==
[2018-07-25 10:00] LABS: HEMOGLOBIN 9.4 g/dL (13.5-17.0); MEAN CORPUSCULAR HEMOGLOBIN 26.6 pg (27.0-33.4); MEAN CORPUSCULAR HGB CONC 33.8 g/dL (32.0-36.0); PLATELET COUNT 417 10^3/uL (150-450); RED BLOOD COUNT 3.55 10^6/uL (4.35-5.55); RED CELL DISTRIBUTION WIDTH 21.3 % (11.5-14.0); WHITE BLOOD COUNT 8.5 10^3/uL (4.0-10.5)
[2018-07-25 10:14] LABS: MEAN CORPUSCULAR VOLUME 79 fl (80-97)
[2018-07-25 10:21] LABS: BILIRUBIN,URINE NEGATIVE (NEGATIVE); GLUCOSE, URINE NEGATIVE (NEGATIVE); KETONES,URINE NEGATIVE (NEGATIVE); LEUKOCYTE ESTERASE,URINE NEGATIVE (NEGATIVE); NITRITE,URINE NEGATIVE (NEGATIVE); PROTEIN,URINE NEGATIVE (NEGATIVE); URINE SPECIFIC GRAVITY 1.012; UROBILINOGEN,URINE NEGATIVE mg/dL (<2.0)
[2018-07-25 10:27] LABS: APPEARANCE,URINE CLEAR; COLOR,URINE YELLOW
[2018-07-25 10:27] LABS: ALBUMIN 3.7 g/dL (3.5-5.0); ANION GAP 11 (5-19); BLOOD UREA NITROGEN 29 mg/dL (7-20); CALCIUM 9.3 mg/dL (8.4-10.2); CARBON DIOXIDE 30 mmol/L (22-30); CHLORIDE 92 mmol/L (98-107); GLUCOSE 150 mg/dL (75-110); PHOSPHORUS 3.3 mg/dL (2.5-4.5); POTASSIUM 4.3 mmol/L (3.6-5.0)
[2018-07-25 10:56] LABS: ABSOLUTE LYMPHOCYTES# (MANUAL) 1.2 10^3/uL (0.5-4.7); ABSOLUTE MONOCYTES # (MANUAL) 2.5 10^3/uL (0.1-1.4); ABSOLUTE NEUTROPHILS# (MANUAL) 4.7 10^3/uL (1.7-8.2); BASOPHILS % (MANUAL) 0 % (0-2); EOSINOPHILS % (MANUAL) 2 % (0-6); LYMPHOCYTES % (MANUAL) 12 % (13-45); METAMYELOCYTES % (MANUAL) 1 % (0); MONOCYTES % (MANUAL) 29 % (3-13); SEGMENTED NEUTROPHILS % (MAN) 54 % (42-78); TOTAL CELLS COUNTED 100
[2018-07-25 10:58] LABS: ANISOCYTOSIS 2+; HYPOCHROMASIA SLIGHT; PLATELET COMMENT ADEQUATE; POLYCHROMASIA SLIGHT; TOXIC GRANULATION SLIGHT
[2018-07-26 14:39] LABS: CREATININE URINE 68.2 mg/dL (Not Estab.); MICROALBUMIN URINE 21.7 ug/mL (Not Estab.)
[2018-07-26 16:39] LABS: A/G RATIO 0.7 (0.7-1.7); ALPHA-2-GLOBULIN 2 1.1 g/dL (0.4-1.0); GAMMA GLOBULIN 1.7 g/dL (0.4-1.8); GLOBULIN TOTAL 4.2 g/dL (2.2-3.9); MONOCLONAL SPIKE Not Observed g/dL (Not Observ); PROTEIN TOTAL SERUM 7.2 g/dL (6.0-8.5)
== END ==
LOC: OD 08:57
PROVIDERS: ATTEND Internal Medicine Nephrology
DX: N18.3 Chronic kidney disease, stage 3 (moderate) (principal); D63.1 Anemia in chronic kidney disease; D50.0 Iron deficiency anemia secondary to blood loss (chronic)
CPT/HCPCS: 36415; 80048; 81001; 82040; 82043; 82306; 82570; 83970; 84100; 84165; 85025

== ENCOUNTER → 2018-08-29 | Outpatient (CLI) | payer MEDICARE, OTHER ==
[2018-08-29 09:14] LABS: ANION GAP 15 (5-19); BLOOD UREA NITROGEN 42 mg/dL (7-20); CALCIUM 9.9 mg/dL (8.4-10.2); CARBON DIOXIDE 31 mmol/L (22-30); CHLORIDE 93 mmol/L (98-107); GLUCOSE 109 mg/dL (75-110); POTASSIUM 4.3 mmol/L (3.6-5.0); SODIUM 139.2 mmol/L (137-145)
== END ==
LOC: OD 08:17
PROVIDERS: ATTEND Internal Medicine Nephrology
DX: N18.3 Chronic kidney disease, stage 3 (moderate) (principal); R60.0 Localized edema
CPT/HCPCS: 36415; 80048

== ENCOUNTER → 2018-09-01 | Outpatient (CLI) | payer MEDICARE, OTHER ==
[2018-09-01 15:38] LABS: HEMATOCRIT 31.4 % (37.9-51.0); HEMOGLOBIN 10.4 g/dL (13.5-17.0); MEAN CORPUSCULAR VOLUME 76 fl (80-97); PLATELET COUNT 358 10^3/uL (150-450); RED BLOOD COUNT 4.15 10^6/uL (4.35-5.55); RED CELL DISTRIBUTION WIDTH 22.8 % (11.5-14.0)
== END ==
LOC: OD 15:07
PROVIDERS: ATTEND Internal Medicine Nephrology
DX: N18.3 Chronic kidney disease, stage 3 (moderate) (principal); D50.9 Iron deficiency anemia, unspecified
CPT/HCPCS: 36415; 85027

== ENCOUNTER → 2018-09-09 | Outpatient (CLI) | payer MEDICARE, OTHER ==
[2018-09-09 11:34] LABS: HEMATOCRIT 31.2 % (37.9-51.0); HEMOGLOBIN 10.5 g/dL (13.5-17.0); MEAN CORPUSCULAR HEMOGLOBIN 25.7 pg (27.0-33.4); MEAN CORPUSCULAR HGB CONC 33.6 g/dL (32.0-36.0); MEAN CORPUSCULAR VOLUME 77 fl (80-97); PLATELET COUNT 371 10^3/uL (150-450); RED BLOOD COUNT 4.08 10^6/uL (4.35-5.55); RED CELL DISTRIBUTION WIDTH 23.8 % (11.5-14.0); WHITE BLOOD COUNT 8.4 10^3/uL (4.0-10.5)
== END ==
LOC: OD 10:31
PROVIDERS: ATTEND Internal Medicine Nephrology
DX: N18.9 Chronic kidney disease, unspecified (principal)
CPT/HCPCS: 36415; 85027

== ENCOUNTER → 2018-09-14 | Outpatient (CLI) | payer MEDICARE, OTHER ==
[2018-09-14 08:41] LABS: ANION GAP 13 (5-19); BLOOD UREA NITROGEN 29 mg/dL (7-20); CALCIUM 9.7 mg/dL (8.4-10.2); CARBON DIOXIDE 28 mmol/L (22-30); CHLORIDE 100 mmol/L (98-107); GLUCOSE 107 mg/dL (75-110); POTASSIUM 4.4 mmol/L (3.6-5.0); SODIUM 141.4 mmol/L (137-145)
== END ==
LOC: OD 07:38
PROVIDERS: ATTEND Internal Medicine Nephrology
DX: N18.3 Chronic kidney disease, stage 3 (moderate) (principal); R60.0 Localized edema
CPT/HCPCS: 36415; 80048

== ENCOUNTER → 2018-09-19 | Outpatient (CLI) | payer MEDICARE, OTHER ==
--- NOTE | 2018-09-19 16:38 | RADIOLOGY REPORT (SQ) ---
EXAM DESCRIPTION: VENOUS BILATERAL LOWER COMPLETED DATE/TIME: 09/19/2018 4:24 pm REASON FOR STUDY: LLE SWELLING R22.42 LOCALIZED SWELLING, MASS AND LUMP, LEFT LOWER LIMB COMPARISON: 07/18/2018 TECHNIQUE: Dynamic and static stevens scale and color images acquired of both lower extremity venous sy stems. Selected spectral images acquired with additional compression and augmentation maneuvers. Imag es stored on PACS. LIMITATIONS: None. FINDINGS: RIGHT LEG COMMON FEMORAL AND FEMORAL: Normal phasicity, compression and augmentation. No visualized echogenic m aterial on stevens scale. No defects on color images. POPLITEAL: Normal compression and augmentation. No visualized echogenic material on stevens scale. No de fects on color images. CALF VESSELS: Normal compression and augmentation. No visualized echogenic material on stevens scale. No defects on color image. GSV AND SSV: Normal compression. No visualized echogenic material on stevens scale. No defects on color images. ANY DEEP VENOUS INSUFFICIENCY: Not evaluated. ANY EVIDENCE OF POPLITEAL CYST: No. OTHER: No other significant finding. LEFT LEG COMMON FEMORAL AND FEMORAL: Normal phasicity, compression and augmentation. No visualized echogenic m aterial on stevens scale. No defects on color images. POPLITEAL: Normal compression and augmentation. No visualized echogenic material on stevens scale. No de fects on color images. CALF VESSELS: Normal compression and augmentation. No visualized echogenic material on stevens scale. No defects on color images. GSV AND SSV: Normal compression. No visualized echogenic material on stevens scale. No defects on color images. ANY DEEP VENOUS INSUFFICIENCY: Not evaluated. ANY EVIDENCE POPLITEAL CYST: No. OTHER: No other significant finding. IMPRESSION: 1. NO EVIDENCE DVT OR SVT IN EITHER LEG. TECHNICAL DOCUMENTATION: JOB ID: [id number]- All Rights Reserved Reading location - IP/workstation name: [email or web address]
== END ==
LOC: SP 15:28
PROVIDERS: ATTEND Internal Medicine Nephrology
DX: R22.42 Localized swelling, mass and lump, left lower limb (principal)
CPT/HCPCS: 93970

== ENCOUNTER → 2018-11-08 | Outpatient (CLI) | payer MEDICARE, OTHER ==
[2018-11-08 12:32] LABS: HEMATOCRIT 33.4 % (37.9-51.0); HEMOGLOBIN 11.4 g/dL (13.5-17.0); MEAN CORPUSCULAR HEMOGLOBIN 27.3 pg (27.0-33.4); MEAN CORPUSCULAR HGB CONC 34.2 g/dL (32.0-36.0); MEAN CORPUSCULAR VOLUME 80 fl (80-97); PLATELET COUNT 361 10^3/uL (150-450); RED BLOOD COUNT 4.19 10^6/uL (4.35-5.55); RED CELL DISTRIBUTION WIDTH 23.1 % (11.5-14.0); WHITE BLOOD COUNT 6.6 10^3/uL (4.0-10.5)
[2018-11-08 12:51] LABS: ANION GAP 12 (5-19); BLOOD UREA NITROGEN 24 mg/dL (7-20); CARBON DIOXIDE 31 mmol/L (22-30); CHLORIDE 95 mmol/L (98-107); GLUCOSE 89 mg/dL (75-110); IRON(TIBC) 92.6 ug/dL (49-181); POTASSIUM 4.3 mmol/L (3.6-5.0); SODIUM 137.7 mmol/L (137-145)
[2018-11-08 13:15] LABS: ABSOLUTE LYMPHOCYTES# (MANUAL) 1.5 10^3/uL (0.5-4.7); ABSOLUTE MONOCYTES # (MANUAL) 1.5 10^3/uL (0.1-1.4); ABSOLUTE NEUTROPHILS# (MANUAL) 3.3 10^3/uL (1.7-8.2); BASOPHILS % (MANUAL) 3 % (0-2); EOSINOPHILS % (MANUAL) 1 % (0-6); LYMPHOCYTES % (MANUAL) 10 % (13-45); MONOCYTES % (MANUAL) 23 % (3-13); SEGMENTED NEUTROPHILS % (MAN) 50 % (42-78); TOTAL CELLS COUNTED 100
[2018-11-08 13:20] LABS: ANISOCYTOSIS 3+; STOMATOCYTES 2+
[2018-11-08 13:23] LABS: PLATELET COMMENT ADEQUATE; POLYCHROMASIA SLIGHT
[2018-11-09 13:12] LABS: PATH REVIEW PATHOLOGIST REVIEWED
[2018-11-09 13:39] LABS: CREATININE URINE 20.9 mg/dL (Not Estab.); MICROALBUMIN URINE <3.0 ug/mL (Not Estab.)
== END ==
LOC: OD 11:13
PROVIDERS: ATTEND Internal Medicine Nephrology
DX: I12.9 Hypertensive chronic kidney disease with stage 1 through stage 4 chronic kidney disease, or unspecified chronic kidney disease (principal); N18.3 Chronic kidney disease, stage 3 (moderate); D64.9 Anemia, unspecified
CPT/HCPCS: 36415; 80048; 82043; 82570; 82728; 83540; 83550; 85025

== ENCOUNTER 2019-01-03 10:01 | Inpatient (IN) | payer MEDICARE, OTHER ==
[2019-01-03] MEDS ORDERED: ASPIRIN 81 MG TABLET, CHEWABLE PO ONE (10:40)
--- NOTE | 2019-01-03 10:47 | ER Document Report ---
ED Medical Screen (RME) - General Chief Complaint: Breathing Difficulty Stated Complaint: DIFFICULTY BREATHING Time Seen by Provider: 01/03/19 10:39 Primary Care Provider: LEONARDO HERNANDEZ MD [Primary Care Provider] - Follow up as needed Mode of Arrival: Ambulatory Information source: Patient Notes: 83-year-old male with hypertension, coronary artery disease, peripheral vascular disease, known AAA presents with shortness of breath that started a few weeks prior to arrival. Patient states it is exacerbated with walking, relieved with rest. Patient denies any associated chest pain, nausea, vomiting, abdominal pain. Patient does report some mild lower extremity edema which is chronic for him. He denies known history of heart failure. I have greeted and performed a rapid initial assessment of this patient. A comprehensive ED assessment and evaluation of the patient, analysis of test results and completion of medical decision making process we will be contacted by additional ED providers. PHYSICAL EXAMINATION: Vital signs reviewed GENERAL: Well-appearing, well-nourished and in no acute distress. LUNGS: No respiratory distress Musculoskeletal: Normal range of motion NEUROLOGICAL: Normal speech, normal gait. PSYCH: Normal mood, normal affect. SKIN: Warm, Dry, normal turgor, no rashes or lesions noted. TRAVEL OUTSIDE OF THE [place] IN LAST 30 DAYS: No - HPI Onset: Other Onset/Duration: Gradual, Persistent Quality of pain: No pain Severity: None Associated Symptoms: Leg swelling, Shortness of breath. denies: Chest pain Exacerbated by: Walking Relieved by: Sitting Similar symptoms previously: No Recently seen / treated by doctor: No - Related Data Smoking: Quit greater than 1 year Frequency of alcohol use: None Drug Abuse: None Allergies/Adverse Reactions: amoxicillin [Amoxicillin] Allergy (Verified 01/03/19 10:02) ITCHING, HIVES Past Medical History - Past Medical History Cardiac Medical History: Reports: Hx Coronary Artery Disease - R lEG BLOCKAGE, Hx Hypertension, Hx Peripheral Vascular Disease - Right iliac artery stenosis, unsure where Denies: Hx Heart Attack Pulmonary Medical History: Denies: Hx Asthma, Hx Bronchitis, Hx COPD, Hx Pneumonia Neurological Medical History: Denies: Hx Cerebrovascular Accident, Hx Seizures Renal/ Medical History: Denies: Hx Peritoneal Dialysis GI Medical History: Denies: Hx Hepatitis, Hx Hiatal Hernia, Hx Ulcer Musculoskeltal Medical History: Reports Hx Arthritis - BACK AND HANDS Psychiatric Medical History: Reports: Hx Depression Infectious Medical History: Denies: Hx Hepatitis Past Surgical History: Reports: Hx Abdominal Surgery - abdominal aneursym stent, Hx Orthopedic Surgery - right hand. Denies: Hx Open Heart Surgery, Hx Pacemaker - Immunizations Hx Diphtheria, Pertussis, Tetanus Vaccination: Yes History of Influenza Vaccine for 07/2017 - 12/2017 Season: Yes Influenza Administration Date for 07/2017 - 12/2017 Season: 07/06/17 Physical Exam - Vital signs Vitals: Temp Pulse Resp BP Pulse Ox 97.4 F 68 22 H 162/64 H 100 01/03/19 10:07 01/03/19 10:07 01/03/19 10:07 01/03/19 10:07 01/03/19 10:07 Course - Vital Signs Vital signs: Temp Pulse Resp BP Pulse Ox 97.4 F 68 22 H 162/64 H 100 01/03/19 10:07 01/03/19 10:07 01/03/19 10:07 01/03/19 10:07 01/03/19 10:07 Doctor's Discharge - Discharge Referrals: LEONARDO HERNANDEZ MD [Primary Care Provider] - Follow up as needed
--- NOTE | 2019-01-03 11:27 | RADIOLOGY REPORT (SQ) ---
EXAM DESCRIPTION: CHEST 2 VIEWS COMPLETED DATE/TIME: 01/03/2019 10:51 am REASON FOR STUDY: sob COMPARISON: 06/21/2018, 06/12/2018 EXAM PARAMETERS: NUMBER OF VIEWS: two views TECHNIQUE: Digital Frontal and Lateral radiographic views of the chest acquired. RADIATION DOSE: NA LIMITATIONS: none FINDINGS: LUNGS AND PLEURA: There is a redemonstrated subtle opacity of the lingula as seen on prior radiographs. MEDIASTINUM AND HILAR STRUCTURES: No masses or contour abnormalities. HEART AND VASCULAR STRUCTURES: Heart normal size. No evidence for failure. BONES: Disc degenerative disease of the thoracic spine. HARDWARE: None in the chest. OTHER: No other significant finding. IMPRESSION: Redemonstrated subtle opacity of the lingula as seen on prior radiographs dating back to 06/12/2018, of uncertain significance. This could reflect airspace disease ; underlying malignancy i s not excluded. Consider CT to further evaluate. TECHNICAL DOCUMENTATION: JOB ID: [id number] [employer]- All Rights Reserved Reading location - IP/workstation name: [email or web address]
[2019-01-03 11:35] LABS: INTERNATIONAL RATION (INR) 1.04; PROTHROMBIN TIME 14.1 SEC (11.4-15.4)
[2019-01-03 11:48] LABS: ALANINE AMINOTRANSFERASE 31 U/L (21-72); ALBUMIN 4.1 g/dL (3.5-5.0); ALKALINE PHOSPHATASE 62 U/L (38-126); ANION GAP 7 (5-19); ASPARTATE AMINO TRANSFERASE 39 U/L (17-59); BILIRUBIN,DIRECT 0.2 mg/dL (0.0-0.4); BILIRUBIN,TOTAL 0.4 mg/dL (0.2-1.3); BLOOD UREA NITROGEN 19 mg/dL (7-20); CALCIUM 9.2 mg/dL (8.4-10.2); CARBON DIOXIDE 29 mmol/L (22-30); CHLORIDE 99 mmol/L (98-107); CREATINE KINASE 93 U/L (55-170); GLUCOSE 107 mg/dL (75-110); HEMATOCRIT 20.4 % (37.9-51.0); MEAN CORPUSCULAR HEMOGLOBIN 26.5 pg (27.0-33.4); MEAN CORPUSCULAR HGB CONC 33.3 g/dL (32.0-36.0); MEAN CORPUSCULAR VOLUME 79 fl (80-97); PLATELET COUNT 373 10^3/uL (150-450); POTASSIUM 4.6 mmol/L (3.6-5.0); RED BLOOD COUNT 2.57 10^6/uL (4.35-5.55); RED CELL DISTRIBUTION WIDTH 21.1 % (11.5-14.0); TOTAL PROTEIN 7.5 g/dL (6.3-8.2); WHITE BLOOD COUNT 9.6 10^3/uL (4.0-10.5)
[2019-01-03 11:55] LABS: HEMOGLOBIN 6.8 g/dL (13.5-17.0)
[2019-01-03 12:00] LABS: CREATINE KINASE MB 1.83 ng/mL (<4.55); NT PRO BNP 504 pg/mL (<450)
[2019-01-03 12:02] LABS: TROPONIN I < 0.012 ng/mL
[2019-01-03] MEDS ORDERED: NORMAL SALINE 250 ML IV PRN (12:02)
[2019-01-03 12:09] LABS: ABSOLUTE MONOCYTES # (MANUAL) 2.1 10^3/uL (0.1-1.4); ABSOLUTE NEUTROPHILS# (MANUAL) 5.4 10^3/uL (1.7-8.2); BASOPHILS % (MANUAL) 1 % (0-2); EOSINOPHILS % (MANUAL) 0 % (0-6); LYMPHOCYTES % (MANUAL) 21 % (13-45); METAMYELOCYTES % (MANUAL) 1 % (0); MONOCYTES % (MANUAL) 22 % (3-13); SEGMENTED NEUTROPHILS % (MAN) 55 % (42-78); TOTAL CELLS COUNTED 100
--- NOTE | 2019-01-03 12:09 | EKG REPORT ---
SEVERITY:- ABNORMAL ECG - SINUS RHYTHM RBBB AND LAFB : Confirmed by: Abdiaziz Salinas MD 03-Jan-2019 12:08:35
[2019-01-03 12:11] LABS: ANISOCYTOSIS 3+; HYPOCHROMASIA SLIGHT; OVALOCYTES SLIGHT; PLATELET COMMENT ADEQUATE; POIKILOCYTOSIS SLIGHT; POLYCHROMASIA SLIGHT
--- NOTE | 2019-01-03 15:13 | ER Document Report ---
Entered by ESTER GASTON SCRIBE 01/03/19 1211 Acting as scribe for:ROSE KELLER MD ED General - General Chief Complaint: Breathing Difficulty Stated Complaint: DIFFICULTY BREATHING Time Seen by Provider: 01/03/19 10:39 Primary Care Provider: LEONARDO HERNANDEZ MD [Primary Care Provider] - Follow up as needed NORMA JOSE DO [NO LOCAL MD] - Follow up as needed Mode of Arrival: Ambulatory Information source: Patient, [facility] Records Notes: Patient is an 83 year old male presenting to the emergency department complaining of shortness of breath. Patient states he has had shortness of breath on exertion for the last few weeks which has been progressively worsening. His dyspnea on exertion is relieved by sitting down to rest. He also reports he developed a dark stool about 2 weeks ago, and over the past few days it has turned more brown in color. He did not try to see his primary care provider when he developed the dark stool because he did not have an appointment. He also states he has been using MiraLax for chronic constipation. He denies any chest pain, nausea, vomiting, or abdominal pain. 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 The patient reports that the Eliquis was stopped after the GI bleed in May 2018. He does take one baby aspirin daily. Patient's PCP is Dr. Jose. TRAVEL OUTSIDE OF THE [place] IN LAST 30 DAYS: No - Related Data Allergies/Adverse Reactions: amoxicillin [Amoxicillin] Allergy (Verified 01/03/19 10:02) ITCHING, HIVES Past Medical History - General Information source: Patient, [facility] Records - Social History Smoking Status: Former Smoker Cigarette use (# per day): No Chew tobacco use (# tins/day): No Smoking Education Provided: No Frequency of alcohol use: None Drug Abuse: None Occupation: Retired Lives with: Spouse/Significant other Family History: None Patient has suicidal ideation: No Patient has homicidal ideation: No - Past Medical History Cardiac Medical History: Reports: Hx Atrial Fibrillation, Hx Coronary Artery Disease, Hx Hypercholesterolemia, Hx Hypertension, Hx Peripheral Vascular Disease - Right iliac artery stenosis, unsure where GI Medical History: Reports: Other - Chronic intermittent gastrointestinal bleeding Musculoskeletal Medical History: Reports Hx Arthritis - BACK AND HANDS Psychiatric Medical History: Reports: Hx Depression Past Surgical History: Reports: Hx Abdominal Surgery - abdominal aneursym stent, Hx Orthopedic Surgery - right hand - Immunizations Hx Diphtheria, Pertussis, Tetanus Vaccination: Yes Hx Pneumococcal Vaccination: 07/06/17 Review of Systems - Review of Systems Constitutional: No symptoms reported EENT: No symptoms reported Cardiovascular: No symptoms reported Respiratory: See HPI, Short of breath Gastrointestinal: See HPI Genitourinary: No symptoms reported Male Genitourinary: No symptoms reported Musculoskeletal: No symptoms reported Skin: No symptoms reported Hematologic/Lymphatic: No symptoms reported Neurological/Psychological: No symptoms reported -: Yes All other systems reviewed and negative Physical Exam - Vital signs Vitals: Temp Pulse Resp BP Pulse Ox 97.4 F 68 22 H 162/64 H 100 01/03/19 10:07 01/03/19 10:07 01/03/19 10:07 01/03/19 10:07 01/03/19 10:07 - Notes Notes: GENERAL: Alert, interacts well. No acute distress. HEAD: Normocephalic, atraumatic. EYES: Pupils equal, round, and reactive to light. Extraocular movements intact. Pale conjunctiva. ENT: Oral mucosa moist, tongue midline. NECK: Full range of motion. Supple. Trachea midline. LUNGS: Clear to auscultation bilaterally, no wheezes, rales, or rhonchi. No respiratory distress. Pulse ox 99% on room air. HEART: Regular rate and rhythm. No murmurs, gallops, or rubs. ABDOMEN: Soft, obese, non-tender, no guarding, rigidity, or rebound. Non- distended. Bowel sounds present in all 4 quadrants. EXTREMITIES: Moves all 4 extremities spontaneously. Trace edema in BLE, radial and dorsalis pedis pulses 2/4 bilaterally. Pale nail beds. NEUROLOGICAL: Alert and oriented x3. Normal speech. PSYCH: Normal affect, normal mood. SKIN: Warm, dry, normal turgor. Pale. Course - Re-evaluation Re-evalutation: 01/03/19 13:52 I have made phone calls to the transfer centers at [facility], [facility], and [facility]--none of these facilities have adult medical beds and are unable to accept this patient for transfer at this time. 01/03/19 15:09 I discussed the patient's case with the medical services at [facility]. They do not have beds available at this time. They did request that we call back tomorrow if the patient is still in the emergency room, or if he becomes unstable. Otherwise he may be a good candidate for their outpatient GI service to workup([phone]) and then use some of their newer endoscopic techniques to try to find the most current bleeding source. - Vital Signs Vital signs: Temp Pulse Resp BP Pulse Ox 97.8 F 71 15 146/81 H 99 01/03/19 15:05 01/03/19 15:05 01/03/19 15:05 01/03/19 15:05 01/03/19 15:05 - Laboratory Result Diagrams: 01/03/19 11:06 01/03/19 11:06 Laboratory results interpreted by me: 01/03/19 01/03/19 01/03/19 11:06 11:06 11:06 RBC 2.57 L Hgb 6.8 L Hct 20.4 L MCV 79 L MCH 26.5 L RDW 21.1 H Monocytes % (Manual) 22 H Metamyelocytes % 1 H Abs Monocytes (Manual) 2.1 H Sodium 135.0 L Creatinine 1.48 H Est GFR ( Amer) 55 L Est GFR (Non-Af Amer) 46 L NT-Pro-B Natriuret Pep 504 H Crossmatch 01/03/19 13:14 RBC Hgb Hct MCV MCH RDW Monocytes % (Manual) Metamyelocytes % Abs Monocytes (Manual) Sodium Creatinine Est GFR ( Amer) Est GFR (Non-Af Amer) NT-Pro-B Natriuret Pep Crossmatch See Detail - EKG Interpretation by Me EKG shows normal: Sinus rhythm, Mcalister, Intervals, QRS Complexes, ST-T Waves Rate: Normal - 65 Rhythm: NSR Mcalister/QRS: RBBB, LAHB/LAFB When compared to previous EKG there are: No significant change - Consults Dr. Larose Time consulted: 12:50 Consulted provider: other - After describing the patient current problem and past history, he feels that the patient cannot be cared for at this facility and needs to be transferred. - Transfer of Care Care transferred to following provider: Dr. Byrd Notes: 01/03/19 14:45 At this time the patient is scheduled to receive 2 units of packed RBCs. His history suggests that his GI bleed may have stopped a few days ago. I am presently awaiting a callback from [facility] to see if the patient can be placed on a waiting list for transfer. At this time, I suspect the patient will be transfused, will stay in the emergency room for repeat H&H in the morning and if remains stable could be discharged home. A more desirable course of action would be to have the patient admitted to the hospitalist service but so far that has not been possible. Discharge - Discharge Clinical Impression: Acute blood loss anemia, Chronic lower GI bleeding, History of atrial fibrillation, Chronic anemia Condition: Stable Referrals: LEONARDO HERNANDEZ MD [Primary Care Provider] - Follow up as needed NORMA JOSE DO [NO LOCAL MD] - Follow up as needed Scribe Attestation: 01/03/19 12:53 I personally performed the services described in the documentation, reviewed and edited the documentation which was dictated to the scribe in my presence, and it accurately records my words and actions. I personally performed the services described in the documentation, reviewed and edited the documentation which was dictated to the scribe in my presence, and it accurately records my words and actions.
[2019-01-03 18:51] LABS: HEMATOCRIT 25.6 % (37.9-51.0); HEMOGLOBIN 8.6 g/dL (13.5-17.0); MEAN CORPUSCULAR HEMOGLOBIN 27.3 pg (27.0-33.4); MEAN CORPUSCULAR HGB CONC 33.6 g/dL (32.0-36.0); MEAN CORPUSCULAR VOLUME 81 fl (80-97); PLATELET COUNT 332 10^3/uL (150-450); RED BLOOD COUNT 3.15 10^6/uL (4.35-5.55); RED CELL DISTRIBUTION WIDTH 20.6 % (11.5-14.0)
[2019-01-03] MEDS ORDERED: PANTOPRAZOLE SODIUM 40 MG VIAL IV ONE ×2 (20:11→20:26)
[2019-01-03] MEDS ORDERED: ACETAMINOPHEN 325 MG TABLET PO PRN (20:13)
[2019-01-03] MEDS ORDERED: IPRATROPIUM/ALBUTEROL 0.5-2.5 MG/3 ML AMPUL NEB PRN (20:13)
[2019-01-03] MEDS ORDERED: ONDANSETRON HCL INJ/PF 4 MG/2 ML SDV IV PRN (20:13)
[2019-01-03] MEDS ORDERED: NORMAL SALINE 1000 ML 1,000 ML IV ONE (20:17)
--- NOTE | 2019-01-03 20:38 | PDOC CONSULTATION ---
Consultation Consult Date: 01/03/19 Attending physician:: CHUCK WHITNEY Consult reason:: chronic anemia History of Present Illness Admission Date/PCP: LEONARDO HERNANDEZ MD History of Present Illness: MALIKA LEHMAN is a 83 year old male patient used to be a long standing patient of Dr Trujillo who has now retired in May of last year, he had an EGD and colonoscopy done for chronic anemia no source of bleeding was noted several weeks after that, patient had presented to the ED with GI bleeding a bleeding scan was done that showed a source in the distal small bowel corresponding to a bleed that was due to a 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 patient was transferred to a tertiary institution he apparently went to [place], GI over there said that they repeated the scan and could not be reproduced however they felt it could be an AVM he presented with about 1 week history of dark stool his Hgb was low on presentation and now received blood transfusion vitals are stable BUN/ Creat is normal, brown stool no longer on Eliquis of note, on his last colonoscopy that was done , he appeared to be an unusual rectal lesion that in the process of working up his GI bleed may have been lost he appeared to have possible rectal prolapse but I had wanted to send him to an institution where there was rectal EUS available however this never came to fruition . patient can be admitted here and have EGD done to see if there is indeed a lesion in the duodenum as previously stated however I do suspect that patient does have periodic bleeding episodes perhaps lower down in the small bowel that was by chance detected on the previous bleeding scan because of that , he will need close monitoring and potential transfer to a tertiary institution where there is interventional radiology available for possible embolization of the lesion if it were to bleed again as an arterial source of bleed cannot be controlled endoscopically. Past Medical History Cardiac Medical History: Reports: Atrial Fibrillation, Coronary Artery Disease, Hyperlipidema, Hypertension, Peripheral Vascular Disease - Right iliac artery stenosis, unsure where Denies: Myocardial Infarction Pulmonary Medical History: Denies: Asthma, Bronchitis, Chronic Obstructive Pulmonary Disease (COPD), Pneumonia Neurological Medical History: Denies: Seizures GI Medical History: Reports: Other - Chronic intermittent gastrointestinal bleeding Denies: Hepatitis, Hiatal Hernia Musculoskeltal Medical History: Reports: Arthritis - BACK AND HANDS Psychiatric Medical History: Reports: Depression Hematology: Reports: Anemia Denies: Sickle Cell Disease Past Surgical History Past Surgical History: Reports: Orthopedic Surgery - right hand Denies: Pacemaker Social History Lives with: Spouse/Significant other Smoking Status: Former Smoker Frequency of Alcohol Use: None Hx Recreational Drug Use: No Drugs: None Hx Prescription Drug Abuse: No Family History Family History: None Parental Family History Reviewed: Yes Children Family History Reviewed: Unknown Sibling(s) Family History Reviewed.: Unknown Medication/Allergy Home Medications: Albuterol Sulfate [Proair HFA] 2 puff IH Q4HP PRN 06/21/18 Amiodarone HCl [Pacerone] 200 mg PO DAILY 06/21/18 Benazepril/Hydrochlorothiazide [Lotensin Hct 20-12.5 Tablet] 1 tab PO DAILY 06/21/18 Diltiazem HCl [Diltiazem 24Hr ER] 240 mg PO DAILY 06/21/18 Multivit-Min/Folic/Vit K/Lycop [One-A-Day Men's 50+ Tablet] 1 each PO DAILY 06/21/18 Aspirin [Aspirin 81 mg Chewable Tablet] 81 mg PO DAILY 01/03/19 Allergies/Adverse Reactions: amoxicillin [Amoxicillin] Allergy (Verified 01/03/19 10:02) ITCHING, HIVES Review of Systems Constitutional: ABSENT: fever(s), headache(s), night sweats, weakness Eyes: ABSENT: visual disturbances Ears: ABSENT: hearing changes Nose, Mouth, and Throat: ABSENT: mouth pain, sore throat Cardiovascular: ABSENT: edema, orthropnea, palpitations Respiratory: ABSENT: dyspnea, hemoptysis Gastrointestinal: ABSENT: dysphagia, nausea, vomiting Genitourinary: ABSENT: dysuria, hematuria Musculoskeletal: ABSENT: deformity, joint swelling Integumentary: ABSENT: lesions, pruritus Neurological: ABSENT: syncope, tingling, tremor(s), vertigo Endocrine: ABSENT: polydipsia, polyphagia, polyuria Hematologic/Lymphatic: ABSENT: easy bruising Physical Exam Vital Signs: Temp Pulse Resp BP Pulse Ox 97.7 F 73 18 175/64 H 99 01/03/19 16:57 01/03/19 16:57 01/03/19 16:57 01/03/19 18:01 01/03/19 18:01 Intake & Output 01/02/19 01/03/19 01/04/19 06:59 06:59 06:59 Intake Total 600 Balance 600 Weight 93.894 kg General appearance: PRESENT: no acute distress, well-developed, well-nourished Head exam: PRESENT: atraumatic, normocephalic Eye exam: PRESENT: EOMI, PERRLA. ABSENT: nystagmus, periorbital swelling, scleral icterus Mouth exam: PRESENT: moist, neck supple Throat exam: ABSENT: tonsillar exudate, tonsillogmegaly Neck exam: ABSENT: meningismus, tenderness, thyromegaly Respiratory exam: PRESENT: symmetrical, unlabored. ABSENT: tachypnea, wheezes Cardiovascular exam: PRESENT: irregular rhythm, +S2 GI/Abdominal exam: PRESENT: soft. ABSENT: rebound, rigid, tenderness Extremities exam: ABSENT: joint swelling, pedal edema Neurological exam: PRESENT: oriented to time, oriented to situation, CN II-XII grossly intact Skin exam: PRESENT: normal color, pallor. ABSENT: mottled, urticaria, vesicles Results Laboratory Results: 01/03/19 18:41 01/03/19 11:06 01/03/19 01/03/19 01/03/19 11:06 11:06 13:14 WBC 9.6 RBC 2.57 L Hgb 6.8 L Hct 20.4 L MCV 79 L MCH 26.5 L MCHC 33.3 RDW 21.1 H Plt Count 373 Seg Neutrophils % Not Reportable Lymphocytes % Not Reportable Monocytes % Not Reportable Eosinophils % Not Reportable Basophils % Not Reportable Absolute Neutrophils Not Reportable Absolute Lymphocytes Not Reportable Absolute Monocytes Not Reportable Absolute Eosinophils Not Reportable Absolute Basophils Not Reportable Sodium 135.0 L Potassium 4.6 Chloride 99 Carbon Dioxide 29 Anion Gap 7 BUN 19 Creatinine 1.48 H Est GFR ( Amer) 55 L Est GFR (Non-Af Amer) 46 L Glucose 107 Calcium 9.2 Total Bilirubin 0.4 AST 39 ALT 31 Alkaline Phosphatase 62 Total Protein 7.5 Albumin 4.1 Blood Type O POSITIVE Antibody Screen NEGATIVE 01/03/19 18:41 WBC 8.0 RBC 3.15 L Hgb 8.6 L Hct 25.6 L MCV 81 MCH 27.3 MCHC 33.6 RDW 20.6 H Plt Count 332 Seg Neutrophils % Lymphocytes % Monocytes % Eosinophils % Basophils % Absolute Neutrophils Absolute Lymphocytes Absolute Monocytes Absolute Eosinophils Absolute Basophils Sodium Potassium Chloride Carbon Dioxide Anion Gap BUN Creatinine Est GFR ( Amer) Est GFR (Non-Af Amer) Glucose Calcium Total Bilirubin AST ALT Alkaline Phosphatase Total Protein Albumin Blood Type Antibody Screen 01/03/19 01/03/19 11:06 11:06 Creatine Kinase 93 CK-MB (CK-2) 1.83 Troponin I < 0.012 NT-Pro-B Natriuret Pep 504 H Impressions: Chest X-Ray 01/03/19 10:40 IMPRESSION: Redemonstrated subtle opacity of the lingula as seen on prior radio graphs dating back to 06/12/2018, of uncertain significance. This could reflect airspace disease ; underlying malignancy is not excluded. Consider CT to further evaluate. 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 - Time Time Spent: 50 to 70 Minutes
[2019-01-03 20:52] LABS: ABSOLUTE RETICS # 0.103 10^6/uL (0.028-0.122); RETICULOCYTE COUNT (AUTO) 3.28 % (0.66-2.85)
[2019-01-03] MEDS ORDERED: IRON SUCROSE COMPLEX INJ/PF 100 MG/5 ML SDV IV ONE (21:15)
[2019-01-03 21:33] LABS: IRON(TIBC) 24.8 ug/dL (49-181)
[2019-01-03] MEDS: DILTIAZEM HCL 240 MG CAPSULE.CR PO SCH (21:52)
[2019-01-03] MEDS: AMIODARONE HCL 200 MG TABLET PO SCH (21:53)
[2019-01-03 22:56] LABS: FOLATE > 20.00 ng/mL (>2.76)
[2019-01-04 00:59] LABS: HEMATOCRIT 24.9 % (37.9-51.0); HEMOGLOBIN 8.6 g/dL (13.5-17.0); MEAN CORPUSCULAR HEMOGLOBIN 27.5 pg (27.0-33.4); MEAN CORPUSCULAR HGB CONC 34.3 g/dL (32.0-36.0); MEAN CORPUSCULAR VOLUME 80 fl (80-97); PLATELET COUNT 322 10^3/uL (150-450); RED BLOOD COUNT 3.12 10^6/uL (4.35-5.55); RED CELL DISTRIBUTION WIDTH 19.7 % (11.5-14.0); WHITE BLOOD COUNT 8.5 10^3/uL (4.0-10.5)
[2019-01-04 01:22] LABS: ABSOLUTE LYMPHOCYTES# (MANUAL) 1.4 10^3/uL (0.5-4.7); ABSOLUTE MONOCYTES # (MANUAL) 2.2 10^3/uL (0.1-1.4); ABSOLUTE NEUTROPHILS# (MANUAL) 4.8 10^3/uL (1.7-8.2); ANISOCYTOSIS 2+; BAND NEUTROPHILS % (MANUAL) 1 % (3-5); BASOPHILS % (MANUAL) 1 % (0-2); EOSINOPHILS % (MANUAL) 0 % (0-6); LYMPHOCYTES % (MANUAL) 17 % (13-45); MONOCYTES % (MANUAL) 26 % (3-13); PLATELET COMMENT ADEQUATE; POLYCHROMASIA 1+; SEGMENTED NEUTROPHILS % (MAN) 55 % (42-78); TOTAL CELLS COUNTED 100; TOXIC VACUOLATION PRESENT
[2019-01-04 06:31] LABS: HEMATOCRIT 24.7 % (37.9-51.0); HEMOGLOBIN 8.6 g/dL (13.5-17.0); MEAN CORPUSCULAR HEMOGLOBIN 27.6 pg (27.0-33.4); MEAN CORPUSCULAR HGB CONC 34.6 g/dL (32.0-36.0); MEAN CORPUSCULAR VOLUME 80 fl (80-97); PLATELET COUNT 306 10^3/uL (150-450); RED CELL DISTRIBUTION WIDTH 20.1 % (11.5-14.0); WHITE BLOOD COUNT 8.2 10^3/uL (4.0-10.5)
[2019-01-04 06:48] LABS: ANION GAP 6 (5-19); BLOOD UREA NITROGEN 16 mg/dL (7-20); CARBON DIOXIDE 25 mmol/L (22-30); CHLORIDE 106 mmol/L (98-107); GLUCOSE 103 mg/dL (75-110); POTASSIUM 4.2 mmol/L (3.6-5.0); SODIUM 137.2 mmol/L (137-145)
--- NOTE | 2019-01-04 06:50 | PDOC H&P ---
History of Present Illness Admission Date/PCP: 01/03/19 20:28 LEONARDO HERNANDEZ MD Patient complains of: Shortness of breath History of Present Illness: MALIKA LEHMAN is a 83 year old male with a past medical history of GI bleed with iron deficiency anemia. Atrial fibrillation without anticoagulation secondary to bleeding. Patient had duodenal bleeding in May 2018 responsive to cautery intervention. Patient presents with 10 days of black stools without epigastric pain, nausea or vomiting. He denies recent change in medication regiment and specifically no NSAIDs beyond 81 mg of aspirin per day. He has developed exertional shortness of breath prompting evaluation in the emergency room where he is found to have Hemoccult positive stool and a hemoglobin of 6.8. He is ordered IV Protonix, 2 units of packed red blood cells and referred to the hospitalist for admission. Past Medical History Cardiac Medical History: Reports: Atrial Fibrillation, Coronary Artery Disease, Hyperlipidema, Hypertension, Peripheral Vascular Disease - Right iliac artery stenosis, unsure where Denies: Myocardial Infarction Pulmonary Medical History: Denies: Asthma, Bronchitis, Chronic Obstructive Pulmonary Disease (COPD), Pneumonia Neurological Medical History: Denies: Seizures GI Medical History: Reports: Other - Chronic intermittent gastrointestinal bleeding Denies: Hepatitis, Hiatal Hernia Musculoskeltal Medical History: Reports: Arthritis - BACK AND HANDS Psychiatric Medical History: Reports: Depression Hematology: Reports: Anemia Denies: Sickle Cell Disease Past Surgical History Past Surgical History: Reports: Orthopedic Surgery - right hand Denies: Pacemaker Social History Information Source: Patient, [facility] [place] Records Lives with: Spouse/Significant other Smoking Status: Former Smoker Number of Years Smokin Last Time Smoked: 1983 Frequency of Alcohol Use: None Hx Recreational Drug Use: No Drugs: None Hx Prescription Drug Abuse: No - Advance Directive Resuscitation Status: Full Code Family History Family History: Hypertension Parental Family History Reviewed: Yes Children Family History Reviewed: Yes Sibling(s) Family History Reviewed.: Yes Medication/Allergy Home Medications: Amiodarone HCl [Cordarone 200 mg Tablet] 200 mg PO QPM 01/03/19 Benazepril/Hydrochlorothiazide [Lotensin Hct 20-12.5 mg Tablet] 1 tab PO DAILY 01/03/19 Diltiazem HCl [Diltiazem 24Hr ER] 240 mg PO QPM 01/03/19 Lorazepam [Ativan 1 mg Tablet] 1 mg PO TIDP PRN 01/03/19 Multivit-Minerals/FA/Lycopene [One Daily Men's Health Tablet] 1 tab PO DAILY 01/03/19 Polyethylene Glycol 3350 [Miralax Powder 17 gm/Packet] 1 packet PO DAILY 01/03/19 Tramadol HCl [Ultram 50 mg Tablet] 50 mg PO BIDP PRN 01/03/19 Trazodone HCl [Desyrel 50 mg Tablet] 50 mg PO QHS 01/03/19 Allergies/Adverse Reactions: amoxicillin [Amoxicillin] Allergy (Verified 01/03/19 10:02) ITCHING, HIVES Review of Systems Constitutional: PRESENT: as per HPI, fatigue. ABSENT: chills, fever(s), headache(s), weight gain, weight loss Eyes: ABSENT: visual disturbances Ears: ABSENT: hearing changes Cardiovascular: ABSENT: chest pain, dyspnea on exertion, edema, orthropnea, palpitations Respiratory: ABSENT: cough, hemoptysis Gastrointestinal: PRESENT: as per HPI, melena. ABSENT: abdominal pain, constipation, diarrhea, hematemesis, hematochezia, nausea, vomiting Genitourinary: ABSENT: dysuria, hematuria Musculoskeletal: ABSENT: joint swelling Integumentary: ABSENT: rash, wounds Neurological: ABSENT: abnormal gait, abnormal speech, confusion, dizziness, focal weakness, syncope Psychiatric: ABSENT: anxiety, depression, homidical ideation, suicidal ideation Endocrine: ABSENT: cold intolerance, heat intolerance, polydipsia, polyuria Hematologic/Lymphatic: ABSENT: easy bleeding, easy bruising Physical Exam Vital Signs: Temp Pulse Resp BP Pulse Ox 98.4 F 71 17 176/71 H 96 01/04/19 04:18 01/04/19 04:18 01/04/19 04:18 01/04/19 04:18 01/04/19 04:18 Intake & Output 01/02/19 01/03/19 01/04/19 11:59 11:59 11:59 Intake Total 600 Balance 600 Weight 93.894 kg 93.2 kg General appearance: PRESENT: cooperative, mild distress, well-developed, well- nourished Head exam: PRESENT: atraumatic, normocephalic Eye exam: PRESENT: conjunctiva pale, EOMI, PERRLA. ABSENT: scleral icterus Ear exam: PRESENT: normal external ear exam Mouth exam: PRESENT: moist, tongue midline Neck exam: ABSENT: carotid bruit, JVD, lymphadenopathy, thyromegaly Respiratory exam: PRESENT: clear to auscultation eduardo. ABSENT: rales, rhonchi, wheezes Cardiovascular exam: PRESENT: RRR. ABSENT: diastolic murmur, rubs, systolic murmur Pulses: PRESENT: normal dorsalis pedis pul Vascular exam: PRESENT: normal capillary refill GI/Abdominal exam: PRESENT: normal bowel sounds, soft. ABSENT: distended, guarding, mass, organolmegaly, rebound, tenderness Rectal exam: PRESENT: deferred Extremities exam: PRESENT: full ROM. ABSENT: calf tenderness, clubbing, pedal edema Neurological exam: PRESENT: alert, awake, oriented to person, oriented to place, oriented to time, oriented to situation, CN II-XII grossly intact. ABSENT: motor sensory deficit Psychiatric exam: PRESENT: appropriate affect, normal mood. ABSENT: homicidal ideation, suicidal ideation Skin exam: PRESENT: dry, intact, warm. ABSENT: cyanosis, rash Results Laboratory Results: 01/03/19 01/03/19 01/03/19 11:06 11:06 13:14 WBC 9.6 RBC 2.57 L Hgb 6.8 L Hct 20.4 L MCV 79 L MCH 26.5 L MCHC 33.3 RDW 21.1 H Plt Count 373 Seg Neutrophils % Not Reportable Lymphocytes % Not Reportable Monocytes % Not Reportable Eosinophils % Not Reportable Basophils % Not Reportable Absolute Neutrophils Not Reportable Absolute Lymphocytes Not Reportable Absolute Monocytes Not Reportable Absolute Eosinophils Not Reportable Absolute Basophils Not Reportable Retic Count (auto) Absolute Retic Sodium 135.0 L Potassium 4.6 Chloride 99 Carbon Dioxide 29 Anion Gap 7 BUN 19 Creatinine 1.48 H Est GFR ( Amer) 55 L Est GFR (Non-Af Amer) 46 L Glucose 107 Calcium 9.2 Iron TIBC % Saturation Ferritin Total Bilirubin 0.4 AST 39 ALT 31 Alkaline Phosphatase 62 Total Protein 7.5 Albumin 4.1 Vitamin B12 Folate Blood Type O POSITIVE Antibody Screen NEGATIVE 01/03/19 01/03/19 01/03/19 18:41 18:41 18:41 WBC 8.0 RBC 3.15 L Hgb 8.6 L Hct 25.6 L MCV 81 MCH 27.3 MCHC 33.6 RDW 20.6 H Plt Count 332 Seg Neutrophils % Lymphocytes % Monocytes % Eosinophils % Basophils % Absolute Neutrophils Absolute Lymphocytes Absolute Monocytes Absolute Eosinophils Absolute Basophils Retic Count (auto) 3.28 H Absolute Retic 0.103 Sodium Potassium Chloride Carbon Dioxide Anion Gap BUN Creatinine Est GFR ( Amer) Est GFR (Non-Af Amer) Glucose Calcium Iron 24.8 L TIBC 423 % Saturation 6 Ferritin 10.70 L Total Bilirubin AST ALT Alkaline Phosphatase Total Protein Albumin Vitamin B12 > 1000.0 H Folate > 20.00 Blood Type Antibody Screen 01/04/19 00:25 WBC 8.5 RBC 3.12 L Hgb 8.6 L Hct 24.9 L MCV 80 MCH 27.5 MCHC 34.3 RDW 19.7 H Plt Count 322 Seg Neutrophils % Not Reportable Lymphocytes % Not Reportable Monocytes % Not Reportable Eosinophils % Not Reportable Basophils % Not Reportable Absolute Neutrophils Not Reportable Absolute Lymphocytes Not Reportable Absolute Monocytes Not Reportable Absolute Eosinophils Not Reportable Absolute Basophils Not Reportable Retic Count (auto) Absolute Retic Sodium Potassium Chloride Carbon Dioxide Anion Gap BUN Creatinine Est GFR ( Amer) Est GFR (Non-Af Amer) Glucose Calcium Iron TIBC % Saturation Ferritin Total Bilirubin AST ALT Alkaline Phosphatase Total Protein Albumin Vitamin B12 Folate Blood Type Antibody Screen 01/03/19 01/03/19 11:06 11:06 Creatine Kinase 93 CK-MB (CK-2) 1.83 Troponin I < 0.012 NT-Pro-B Natriuret Pep 504 H Impressions: Chest X-Ray 01/03/19 10:40 IMPRESSION: Redemonstrated subtle opacity of the lingula as seen on prior radiographs dating back to 06/12/2018, of uncertain significance. This could reflect airspace disease ; underlying malignancy is not excluded. Consider CT to further evaluate. Assessment & Plan - Diagnosis (1) Upper GI bleed Is this a current diagnosis for this admission?: Yes Plan: No further evidence of bleeding, continue IV Protonix, transfuse as needed hemoglobin less than 8, follow-up GI consultation for endoscopy and CBC. (2) Acute blood loss anemia Is this a current diagnosis for this admission?: Yes Plan: In addition to baseline iron deficiency anemia. Transfuse and IV iron. Follow- up CBC (3) History of atrial fibrillation Is this a current diagnosis for this admission?: Yes Plan: Currently in sinus rhythm, intolerant of anticoagulation secondary to recurrent GI bleed. Continue outpatient regiment. - Time Time Spent: 50 to 70 Minutes - Inpatient Certification Medical Necessity: Need Close Monitoring Due to Risk of Patient Decompensation
[2019-01-04] MEDS ORDERED: ONDANSETRON HCL INJ/PF 4 MG/2 ML SDV ONE (08:00)
[2019-01-04] MEDS ORDERED: DIPHENHYDRAMINE HCL 50 MG/ML VIAL ONE (08:00)
[2019-01-04] MEDS ORDERED: NALOXONE HCL INJ/PF 0.4 MG/1 ML SDV ONE (08:01)
[2019-01-04] MEDS ORDERED: EPINEPHRINE INJ 1 MG/10 ML DISP.SYRIN ONE (08:01)
[2019-01-04] MEDS ORDERED: FLUMAZENIL INJ 0.5 MG/5 ML VIAL ONE (08:01)
[2019-01-04] MEDS ORDERED: GLUCAGON,HUMAN RECOMB 1 MG INJ ONE (08:01)
[2019-01-04 08:05] LABS: ABSOLUTE LYMPHOCYTES# (MANUAL) 1.5 10^3/uL (0.5-4.7); ABSOLUTE MONOCYTES # (MANUAL) 3.3 10^3/uL (0.1-1.4); ABSOLUTE NEUTROPHILS# (MANUAL) 3.4 10^3/uL (1.7-8.2); BASOPHILS % (MANUAL) 0 % (0-2); EOSINOPHILS % (MANUAL) 0 % (0-6); LYMPHOCYTES % (MANUAL) 18 % (13-45); MONOCYTES % (MANUAL) 40 % (3-13); SEGMENTED NEUTROPHILS % (MAN) 42 % (42-78); TOTAL CELLS COUNTED 100
[2019-01-04 08:06] LABS: ANISOCYTOSIS 2+; HYPOCHROMASIA SLIGHT; OVALOCYTES SLIGHT; PLATELET COMMENT ADEQUATE; POIKILOCYTOSIS 1+; POLYCHROMASIA SLIGHT; STOMATOCYTES 1+
[2019-01-04] MEDS: MIDAZOLAM 2 MG/2 ML INJ ONE ×5 (08:36→08:46)
[2019-01-04] MEDS: FENTANYL CITRATE INJ/PF 100 MCG/2 ML AMPUL ONE ×2 (08:38→08:41)
[2019-01-04] MEDS ORDERED: TRAMADOL HCL 50 MG TABLET PO PRN (08:45)
[2019-01-04] MEDS ORDERED: LORAZEPAM 1 MG TABLET PO PRN (08:45)
--- NOTE | 2019-01-04 09:01 | Operative Report ---
Operative Report DATE OF SURGERY: 01/04/19 Operative Report: The risks benefits and alternatives of the procedure explained to the patient in detail and informed consent is obtained.A GIF Olympus video scope was inserted into the patient's mouth and hypopharynx, the esophagus is identified intubated and insufflated, the scope was then advanced through the esophagus stomach and duodenum, retroflexion maneuver is done, the esophagus stomach and first and second portions of the duodenum examined. 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 Conscious sedation monitoring time 30 minutes. TISSUE REMOVED OR ALTERED: None. COMPLICATIONS: None. ESTIMATED BLOOD LOSS: None. INTRAOPERATIVE FINDINGS: As noted above. PROCEDURE: Patient tolerated the procedure well. No immediate postprocedure complications are noted. Patient sent back to his room in good condition. Resume diet: Clears advance as tolerated Resume previous activity level Continue to monitor closely for any signs of rebleed Outpatient follow-up as needed
[2019-01-04] MEDS ORDERED: LYCOPENE PO SCH (10:00)
[2019-01-04] MEDS ORDERED: [UNRECOGNIZED DRUG - OTHER] PO SCH (10:00)
[2019-01-04] MEDS ORDERED: MULTIVIT MINERALS PO SCH (10:00)
[2019-01-04] MEDS ORDERED: (PENDING PHARMACY ID) (Diltiazem Hcl [Diltiazem 24hr Er] 240 MG) PO SCH (10:00)
[2019-01-04] MEDS: DILTIAZEM HCL 240 MG CAPSULE.CR PO SCH (10:04)
[2019-01-04] MEDS: PANTOPRAZOLE SODIUM 40 MG VIAL IV SCH ×2 (10:05→22:03)
[2019-01-04] MEDS: MULTIVITAMIN TABLET PO SCH (10:05)
[2019-01-04] MEDS: POLYETHYLENE GLYCOL 3350 POWDER 17 GM/1 PACKET PO SCH (10:05)
[2019-01-04 13:46] LABS: APPEARANCE,URINE CLEAR; BILIRUBIN,URINE NEGATIVE (NEGATIVE); COLOR,URINE YELLOW; GLUCOSE, URINE NEGATIVE (NEGATIVE); KETONES,URINE NEGATIVE (NEGATIVE); LEUKOCYTE ESTERASE,URINE NEGATIVE (NEGATIVE); NITRITE,URINE NEGATIVE (NEGATIVE); PROTEIN,URINE NEGATIVE (NEGATIVE); URINE SPECIFIC GRAVITY 1.014; UROBILINOGEN,URINE NEGATIVE mg/dL (<2.0)
[2019-01-04 14:14] LABS: HEMOGLOBIN 8.4 g/dL (13.5-17.0); MEAN CORPUSCULAR HGB CONC 33.9 g/dL (32.0-36.0)
[2019-01-04 14:18] LABS: HEMATOCRIT 24.9 % (37.9-51.0); MEAN CORPUSCULAR HEMOGLOBIN 27.3 pg (27.0-33.4); MEAN CORPUSCULAR VOLUME 81 fl (80-97); PLATELET COUNT 302 10^3/uL (150-450); RED CELL DISTRIBUTION WIDTH 20.2 % (11.5-14.0); WHITE BLOOD COUNT 8.6 10^3/uL (4.0-10.5)
[2019-01-04 14:36] LABS: ABSOLUTE LYMPHOCYTES# (MANUAL) 1.8 10^3/uL (0.5-4.7); ABSOLUTE NEUTROPHILS# (MANUAL) 4.8 10^3/uL (1.7-8.2); ANISOCYTOSIS 2+; BASOPHILS % (MANUAL) 0 % (0-2); EOSINOPHILS % (MANUAL) 0 % (0-6); HYPOCHROMASIA SLIGHT; LYMPHOCYTES % (MANUAL) 21 % (13-45); MONOCYTES % (MANUAL) 23 % (3-13); POLYCHROMASIA 1+; SEGMENTED NEUTROPHILS % (MAN) 56 % (42-78); TOTAL CELLS COUNTED 100
[2019-01-04 14:37] LABS: PLATELET COMMENT ADEQUATE
--- NOTE | 2019-01-04 15:05 | PDOC PROGRESS REPORT ---
Subjective Progress Note for:: 01/04/19 Subjective:: No adverse events overnight. No new complaints. No abdominal pain. No blood per rectum. He had EGD this morning with Dr. Merrill and the patient says he had a couple of "irregular blood vessels" that sound like AVMs which were cauterized. Reason For Visit: GI BLEED AFIB ANEMIA Physical Exam Vital Signs: Temp Pulse Resp BP Pulse Ox 98.1 F 69 24 H 167/60 H 100 01/04/19 11:34 01/04/19 11:34 01/04/19 11:34 01/04/19 11:34 01/04/19 11:34 Intake & Output 01/03/19 01/04/19 01/05/19 06:59 06:59 06:59 Intake Total 600 300 Balance 600 300 Weight 93.2 kg General appearance: PRESENT: no acute distress, cooperative, disheveled, morbidly obese Respiratory exam: PRESENT: clear to auscultation eduardo, symmetrical, unlabored. ABSENT: accessory muscle use, crackles, prolonged expiratory phas, rhonchi, tachypnea, wheezes Cardiovascular exam: PRESENT: irregular rhythm Pulses: PRESENT: normal carotid pulses Vascular exam: PRESENT: normal capillary refill GI/Abdominal exam: PRESENT: normal bowel sounds, soft. ABSENT: distended, guarding, rebound, tenderness Extremities exam: ABSENT: clubbing, pedal edema Musculoskeletal exam: PRESENT: normal inspection. ABSENT: deformity Neurological exam: PRESENT: alert, awake, oriented to person, oriented to place, oriented to time, oriented to situation Psychiatric exam: PRESENT: appropriate affect, normal mood Skin exam: PRESENT: dry, warm Results Laboratory Results: 01/04/19 13:46 01/04/19 06:15 01/03/19 01/03/19 01/03/19 13:14 18:41 18:41 WBC 8.0 RBC 3.15 L Hgb 8.6 L Hct 25.6 L MCV 81 MCH 27.3 MCHC 33.6 RDW 20.6 H Plt Count 332 Seg Neutrophils % Lymphocytes % Monocytes % Eosinophils % Basophils % Absolute Neutrophils Absolute Lymphocytes Absolute Monocytes Absolute Eosinophils Absolute Basophils Retic Count (auto) 3.28 H Absolute Retic 0.103 Sodium Potassium Chloride Carbon Dioxide Anion Gap BUN Creatinine Est GFR ( Amer) Est GFR (Non-Af Amer) Glucose Calcium Iron TIBC % Saturation Ferritin Vitamin B12 Folate Urine Color Urine Appearance Urine pH Ur Specific [place] Urine Protein Urine Glucose (UA) Urine Ketones Urine Blood Urine Nitrite Ur Leukocyte Esterase Urine WBC (Auto) Urine RBC (Auto) Blood Type O POSITIVE Antibody Screen NEGATIVE 01/03/19 01/04/19 01/04/19 18:41 00:25 06:15 WBC 8.5 8.2 RBC 3.12 L 3.10 L Hgb 8.6 L 8.6 L Hct 24.9 L 24.7 L MCV 80 80 MCH 27.5 27.6 MCHC 34.3 34.6 RDW 19.7 H 20.1 H Plt Count 322 306 Seg Neutrophils % Not Reportable Not Reportable Lymphocytes % Not Reportable Not Reportable Monocytes % Not Reportable Not Reportable Eosinophils % Not Reportable Not Reportable Basophils % Not Reportable Not Reportable Absolute Neutrophils Not Reportable Not Reportable Absolute Lymphocytes Not Reportable Not Reportable Absolute Monocytes Not Reportable Not Reportable Absolute Eosinophils Not Reportable Not Reportable Absolute Basophils Not Reportable Not Reportable Retic Count (auto) Absolute Retic Sodium Potassium Chloride Carbon Dioxide Anion Gap BUN Creatinine Est GFR ( Amer) Est GFR (Non-Af Amer) Glucose Calcium Iron 24.8 L TIBC 423 % Saturation 6 Ferritin 10.70 L Vitamin B12 > 1000.0 H Folate > 20.00 Urine Color Urine Appearance Urine pH Ur Specific [place] Urine Protein Urine Glucose (UA) Urine Ketones Urine Blood Urine Nitrite Ur Leukocyte Esterase Urine WBC (Auto) Urine RBC (Auto) Blood Type Antibody Screen 01/04/19 01/04/19 01/04/19 06:15 13:35 13:46 WBC 8.6 RBC 3.10 L Hgb 8.4 L Hct 24.9 L MCV 81 MCH 27.3 MCHC 33.9 RDW 20.2 H Plt Count 302 Seg Neutrophils % Not Reportable Lymphocytes % Not Reportable Monocytes % Not Reportable Eosinophils % Not Reportable Basophils % Not Reportable Absolute Neutrophils Not Reportable Absolute Lymphocytes Not Reportable Absolute Monocytes Not Reportable Absolute Eosinophils Not Reportable Absolute Basophils Not Reportable Retic Count (auto) Absolute Retic Sodium 137.2 Potassium 4.2 Chloride 106 Carbon Dioxide 25 Anion Gap 6 BUN 16 Creatinine 1.40 H Est GFR ( Amer) 59 L Est GFR (Non-Af Amer) 49 L Glucose 103 Calcium 9.0 Iron TIBC % Saturation Ferritin Vitamin B12 Folate Urine Color YELLOW Urine Appearance CLEAR Urine pH 7.0 Ur Specific [place] 1.014 Urine Protein NEGATIVE Urine Glucose (UA) NEGATIVE Urine Ketones NEGATIVE Urine Blood NEGATIVE Urine Nitrite NEGATIVE Ur Leukocyte Esterase NEGATIVE Urine WBC (Auto) 1 Urine RBC (Auto) 2 Blood Type Antibody Screen 01/03/19 01/03/19 11:06 11:06 Creatine Kinase 93 CK-MB (CK-2) 1.83 Troponin I < 0.012 NT-Pro-B Natriuret Pep 504 H Impressions: Chest X-Ray 01/03/19 10:40 IMPRESSION: Redemonstrated subtle opacity of the lingula as seen on prior radiographs dating back to 06/12/2018, of uncertain significance. This could reflect airspace disease ; underlying malignancy is not excluded. Consider CT to further evaluate. Assessment & Plan - Diagnosis (1) Acute blood loss anemia Is this a current diagnosis for this admission?: Yes Plan: Resolved. He is status post 2 units of packed red blood cells and his hemoglobin has been stable the last couple of times is been checked. His iron levels are low he will need an iron supplement when he is discharged. (2) Upper GI bleed Is this a current diagnosis for this admission?: Yes Plan: Per the report, he had 2 small bowel AVMs that were ablated. We will monitor him overnight let him eat, and if his blood counts are good and he has no recurrence of GI bleeding, we can likely send him home in the morning. - Time Time Spent with patient: 25-34 minutes
[2019-01-04 18:28] LABS: HEMATOCRIT 25.1 % (37.9-51.0); HEMOGLOBIN 8.6 g/dL (13.5-17.0); MEAN CORPUSCULAR HEMOGLOBIN 27.7 pg (27.0-33.4); MEAN CORPUSCULAR HGB CONC 34.1 g/dL (32.0-36.0); MEAN CORPUSCULAR VOLUME 81 fl (80-97); PLATELET COUNT 331 10^3/uL (150-450); RED BLOOD COUNT 3.08 10^6/uL (4.35-5.55); RED CELL DISTRIBUTION WIDTH 20.4 % (11.5-14.0); WHITE BLOOD COUNT 7.6 10^3/uL (4.0-10.5)
[2019-01-04 18:43] LABS: ABSOLUTE LYMPHOCYTES# (MANUAL) 1.4 10^3/uL (0.5-4.7); ABSOLUTE MONOCYTES # (MANUAL) 1.8 10^3/uL (0.1-1.4); ABSOLUTE NEUTROPHILS# (MANUAL) 4.2 10^3/uL (1.7-8.2); BASOPHILS % (MANUAL) 0 % (0-2); EOSINOPHILS % (MANUAL) 2 % (0-6); LYMPHOCYTES % (MANUAL) 19 % (13-45); MONOCYTES % (MANUAL) 24 % (3-13); SEGMENTED NEUTROPHILS % (MAN) 55 % (42-78); TOTAL CELLS COUNTED 100
[2019-01-04 18:45] LABS: ANISOCYTOSIS 2+; HYPOCHROMASIA SLIGHT; PLATELET COMMENT ADEQUATE; POIKILOCYTOSIS SLIGHT; TOXIC GRANULATION SLIGHT
[2019-01-04] MEDS: AMIODARONE HCL 200 MG TABLET PO SCH (18:51)
[2019-01-04] MEDS ORDERED: TRAZODONE HCL 50 MG TABLET PO SCH (22:00)
[2019-01-05 00:56] LABS: HEMATOCRIT 24.8 % (37.9-51.0); HEMOGLOBIN 8.3 g/dL (13.5-17.0); MEAN CORPUSCULAR HGB CONC 33.5 g/dL (32.0-36.0); MEAN CORPUSCULAR VOLUME 81 fl (80-97); PLATELET COUNT 310 10^3/uL (150-450); RED BLOOD COUNT 3.08 10^6/uL (4.35-5.55); RED CELL DISTRIBUTION WIDTH 20.9 % (11.5-14.0); WHITE BLOOD COUNT 7.4 10^3/uL (4.0-10.5)
[2019-01-05 01:37] LABS: ABSOLUTE LYMPHOCYTES# (MANUAL) 1.3 10^3/uL (0.5-4.7); BASOPHILS % (MANUAL) 0 % (0-2); EOSINOPHILS % (MANUAL) 0 % (0-6); LYMPHOCYTES % (MANUAL) 17 % (13-45); SEGMENTED NEUTROPHILS % (MAN) 56 % (42-78); TOTAL CELLS COUNTED 100
[2019-01-05 01:40] LABS: ANISOCYTOSIS 2+; HYPOCHROMASIA SLIGHT; POIKILOCYTOSIS 1+; POLYCHROMASIA 1+; STOMATOCYTES 1+
[2019-01-05 01:41] LABS: PLATELET COMMENT ADEQUATE
[2019-01-05 06:52] LABS: HEMOGLOBIN 8.6 g/dL (13.5-17.0); MEAN CORPUSCULAR HEMOGLOBIN 27.8 pg (27.0-33.4); MEAN CORPUSCULAR HGB CONC 34.5 g/dL (32.0-36.0); MEAN CORPUSCULAR VOLUME 81 fl (80-97); PLATELET COUNT 318 10^3/uL (150-450); RED CELL DISTRIBUTION WIDTH 21.2 % (11.5-14.0); WHITE BLOOD COUNT 7.5 10^3/uL (4.0-10.5)
[2019-01-05 07:20] LABS: ANION GAP 11 (5-19); BLOOD UREA NITROGEN 12 mg/dL (7-20); CALCIUM 9.4 mg/dL (8.4-10.2); CARBON DIOXIDE 23 mmol/L (22-30); CHLORIDE 103 mmol/L (98-107); GLUCOSE 95 mg/dL (75-110); POTASSIUM 4.2 mmol/L (3.6-5.0)
[2019-01-05 08:01] LABS: ABSOLUTE LYMPHOCYTES# (MANUAL) 1.3 10^3/uL (0.5-4.7); ABSOLUTE MONOCYTES # (MANUAL) 2.3 10^3/uL (0.1-1.4); ABSOLUTE NEUTROPHILS# (MANUAL) 3.8 10^3/uL (1.7-8.2); BASOPHILS % (MANUAL) 2 % (0-2); EOSINOPHILS % (MANUAL) 0 % (0-6); LYMPHOCYTES % (MANUAL) 16 % (13-45); MONOCYTES % (MANUAL) 30 % (3-13); SEGMENTED NEUTROPHILS % (MAN) 51 % (42-78); TOTAL CELLS COUNTED 100
[2019-01-05 08:02] LABS: ANISOCYTOSIS 3+; OVALOCYTES SLIGHT; PLATELET COMMENT ADEQUATE; POIKILOCYTOSIS SLIGHT; POLYCHROMASIA SLIGHT
[2019-01-05] MEDS: DILTIAZEM HCL 240 MG CAPSULE.CR PO SCH (09:54)
[2019-01-05] MEDS: POLYETHYLENE GLYCOL 3350 POWDER 17 GM/1 PACKET PO SCH (09:54)
[2019-01-05] MEDS: MULTIVITAMIN TABLET PO SCH (09:54)
[2019-01-05] MEDS: PANTOPRAZOLE SODIUM 40 MG VIAL IV SCH (09:54)
[2019-01-05 11:35] VITALS: BP 121/60
[2019-01-05 14:29] LABS: MONOCYTES % (MANUAL) 27 % (3-13); PATH REVIEW PATHOLOGIST REVIEWED
[2019-01-05 14:30] LABS: ABSOLUTE NEUTROPHILS# (MANUAL) 4.1 10^3/uL (1.7-8.2)
--- NOTE | 2019-01-05 18:11 | PDOC DISCHARGE SUMMARY ---
General - Admit/Disc Date/PCP Admission Date/Primary Care Provider: 01/03/19 20:28 LEONARDO HERNANDEZ MD Discharge Date: 01/05/19 - Discharge Diagnosis (1) Acute blood loss anemia Is this a current diagnosis for this admission?: Yes Summary: Resolved. He got 2 units of packed red blood cells and retained all of it. The bleeding source in his small bowel was ablated endoscopically. (2) Upper GI bleed Is this a current diagnosis for this admission?: Yes Summary: It appears he had 2 AVMs in his duodenum that were ablated endoscopically during EGD. He will be on a PPI for 8 weeks and will follow up with GI in the office. - Additional Information Resuscitation Status: Full Code Discharge Diet: Cardiac Discharge Activity: Activity As Tolerated, Balance Activity w/Rest Prescriptions: Ferrous Sulfate 325 mg PO BID #60 tablet. Pantoprazole Sodium [Protonix] 40 mg PO BID #[address] [place] Medications: Amiodarone HCl [Cordarone 200 mg Tablet] 200 mg PO QPM 01/03/19 Benazepril/Hydrochlorothiazide [Lotensin Hct 20-12.5 mg Tablet] 1 tab PO DAILY 01/03/19 Diltiazem HCl [Diltiazem 24Hr ER] 240 mg PO QPM 01/03/19 Lorazepam [Ativan 1 mg Tablet] 1 mg PO TIDP PRN 01/03/19 Multivit-Minerals/FA/Lycopene [One Daily Men's Health Tablet] 1 tab PO DAILY 01/03/19 Polyethylene Glycol 3350 [Miralax Powder 17 gm/Packet] 1 packet PO DAILY 01/03/19 Tramadol HCl [Ultram 50 mg Tablet] 50 mg PO BIDP PRN 01/03/19 Trazodone HCl [Desyrel 50 mg Tablet] 50 mg PO QHS 01/03/19 Ferrous Sulfate 325 mg PO BID #60 tablet. 01/05/19 Pantoprazole Sodium [Protonix] 40 mg PO BID #60 tablet. 01/05/19 History of Present Illness History of Present Illness: MALIKA LEHMAN is a 83 year old male with a past medical history of GI bleed with iron deficiency anemia. Atrial fibrillation without anticoagulation secondary to bleeding. Patient had duodenal bleeding in May 2018 responsive to cautery intervention. Patient presents with 10 days of black stools without epigastric pain, nausea or vomiting. He denies recent change in medication regiment and specifically no NSAIDs beyond 81 mg of aspirin per day. He has developed exertional shortness of breath prompting evaluation in the emergency room where he is found to have Hemoccult positive stool and a hemoglobin of 6.8. He is ordered IV Protonix, 2 units of packed red blood cells and referred to the hospitalist for admission. Hospital Course Hospital Course: He was given 2 units of packed red blood cells and put on some Protonix and his bleeding stopped. He was seen in consultation by Dr. Sheets who performed an EGD and ablated 2 AVMs in the duodenum. Dr. Merrill also noted a history of a rectal lesion that he was going to have evaluated via endoscopic ultrasound during a previous encounter but did not do so because of some issues at that time which were more acute. This can be followed up in the office. Patient was monitored sure he did not have any more ongoing blood loss. He tolerated his diet without any difficulty. His labs and examination were reassuring and he was discharged today in good condition. Physical Exam Vital Signs: Temp Pulse Resp BP Pulse Ox 97.5 F 60 18 121/60 99 01/05/19 13:02 01/05/19 13:02 01/05/19 13:02 01/05/19 13:02 01/05/19 13:02 Intake & Output 01/04/19 01/05/19 01/06/19 06:59 06:59 06:59 Intake Total 600 3760 Balance 600 3760 Weight 93.2 kg 93.5 kg General appearance: PRESENT: no acute distress, cooperative, disheveled, morbidly obese Respiratory exam: PRESENT: clear to auscultation eduardo, symmetrical, unlabored. ABSENT: accessory muscle use, crackles, prolonged expiratory phas, rhonchi, tachypnea, wheezes Cardiovascular exam: PRESENT: irregular rhythm Pulses: PRESENT: normal carotid pulses Vascular exam: PRESENT: normal capillary refill GI/Abdominal exam: PRESENT: normal bowel sounds, soft. ABSENT: distended, guarding, rebound, tenderness Extremities exam: ABSENT: clubbing, pedal edema Musculoskeletal exam: PRESENT: normal inspection. ABSENT: deformity Neurological exam: PRESENT: alert, awake, oriented to person, oriented to place, oriented to time, oriented to situation Psychiatric exam: PRESENT: appropriate affect, normal mood Skin exam: PRESENT: dry, warm Results Laboratory Results: 01/05/19 05:45 01/05/19 05:45 01/04/19 01/05/19 01/05/19 18:13 00:26 05:45 WBC 7.6 7.4 7.5 RBC 3.08 L 3.08 L 3.10 L Hgb 8.6 L 8.3 L 8.6 L Hct 25.1 L 24.8 L 25.0 L MCV 81 81 81 MCH 27.7 27.0 27.8 MCHC 34.1 33.5 34.5 RDW 20.4 H 20.9 H 21.2 H Plt Count 331 310 318 Seg Neutrophils % Not Reportable Not Reportable Not Reportable Lymphocytes % Not Reportable Not Reportable Not Reportable Monocytes % Not Reportable Not Reportable Not Reportable Eosinophils % Not Reportable Not Reportable Not Reportable Basophils % Not Reportable Not Reportable Not Reportable Absolute Neutrophils Not Reportable Not Reportable Not Reportable Absolute Lymphocytes Not Reportable Not Reportable Not Reportable Absolute Monocytes Not Reportable Not Reportable Not Reportable Absolute Eosinophils Not Reportable Not Reportable Not Reportable Absolute Basophils Not Reportable Not Reportable Not Reportable Sodium Potassium Chloride Carbon Dioxide Anion Gap BUN Creatinine Est GFR ( Amer) Est GFR (Non-Af Amer) Glucose Calcium Magnesium 01/05/19 05:45 WBC RBC Hgb Hct MCV MCH MCHC RDW Plt Count Seg Neutrophils % Lymphocytes % Monocytes % Eosinophils % Basophils % Absolute Neutrophils Absolute Lymphocytes Absolute Monocytes Absolute Eosinophils Absolute Basophils Sodium 137.0 Potassium 4.2 Chloride 103 Carbon Dioxide 23 Anion Gap 11 BUN 12 Creatinine 1.26 H Est GFR ( Amer) > 60 Est GFR (Non-Af Amer) 55 L Glucose 95 Calcium 9.4 Magnesium 2.0 01/03/19 01/03/19 11:06 11:06 Creatine Kinase 93 CK-MB (CK-2) 1.83 Troponin I < 0.012 NT-Pro-B Natriuret Pep 504 H Impressions: Chest X-Ray 01/03/19 10:40 IMPRESSION: Redemonstrated subtle opacity of the lingula as seen on prior radiographs dating back to 06/12/2018, of uncertain significance. This could reflect airspace disease ; underlying malignancy is not excluded. Consider CT to further evaluate. Qualifiers - * PATIENT BEING DISCHARGED WITH ANY OF THE FOLLOWING DIAGNOSIS: No
== END 2019-01-05 13:40 | disposition home or self-care (01) | DRG 988 ==
LOC: ER 10:01 → EH 20:28 → 3W 22:25
PROVIDERS: ADMIT Internal Medicine; ATTEND Internal Medicine
PROC: 30233N1 Transfusion of Nonautologous Red Blood Cells into Peripheral Vein, Percutaneous Approach (ICD-10-PCS; principal; 2019-01-03)
PROC: 0D5 Gastrointestinal System, Destruction (ICD-10-PCS; 2019-01-04)
DX: D62 Acute posthemorrhagic anemia (principal); K92.2 Gastrointestinal hemorrhage, unspecified; Q27.33 Arteriovenous malformation of digestive system vessel; I48.91 Unspecified atrial fibrillation; I25.10 Atherosclerotic heart disease of native coronary artery without angina pectoris; E78.00 Pure hypercholesterolemia, unspecified; I10 Essential (primary) hypertension; I73.9 Peripheral vascular disease, unspecified; M19.90 Unspecified osteoarthritis, unspecified site; F32.9 Major depressive disorder, single episode, unspecified; Z87.891 Personal history of nicotine dependence
CPT/HCPCS: 36415; 36430; 44366; 71046; 80048; 80053; 81001; 82550; 82553; 82607; 82728; 82746; 82962; 83540; 83550; 83735; 83880; 84484; 85025; 85027; 85045; 85610; 86850; 86900; 86901; 86920; 93005; 93010; 99285; J0171; J1200; J1610; J1756; J2250; J2310; J2405; J3010; J3490; J7030; P9016; S0164

== ENCOUNTER 2019-01-10 08:41 | Emergency (ER) | payer MEDICARE, OTHER ==
--- NOTE | 2019-01-10 09:53 | RADIOLOGY REPORT (SQ) ---
EXAM DESCRIPTION: HIP LEFT AP/LATERAL COMPLETED DATE/TIME: 01/10/2019 9:47 am REASON FOR STUDY: fell. hit face, hurts to move left hip COMPARISON: None. NUMBER OF VIEWS: Two views. TECHNIQUE: AP pelvis and additional frog-leg view of the left hip. LIMITATIONS: None. FINDINGS: MINERALIZATION: Normal. LEFT HIP: Total left hip arthroplasty. No radiographic evidence of loosening or infection. No frac ture or dislocation. RIGHT HIP: Total right hip arthroplasty. No radiographic evidence of loosening or infection. No fr acture or dislocation. PUBIS AND ISCHIUM: No fracture. PELVIS: No fracture. SACRUM: No fracture or dislocation. No worrisome bone lesions. LOWER LUMBAR SPINE: Moderate severe to marked degenerative changes lower lumbar spine. SOFT TISSUES: No findings. OTHER: No other significant finding. IMPRESSION: 1. Total hip arthroplasties. 2. No acute osseous findings. Correlation suggested and additional imaging if clinically indicated. TECHNICAL DOCUMENTATION: JOB ID: [id number] [employer]- All Rights Reserved Reading location - IP/workstation name: [email or web address]
--- NOTE | 2019-01-10 09:54 | RADIOLOGY REPORT (SQ) ---
EXAM DESCRIPTION: CT HEAD WITHOUT COMPLETED DATE/TIME: 01/10/2019 9:44 am REASON FOR STUDY: fell. hit face, hurts to move left hip COMPARISON: None. TECHNIQUE: Axial images acquired through the brain without intravenous contrast. Images reviewed wi th bone, brain and subdural windows. Additional sagittal and coronal reconstructions were generated. Images stored on PACS. All CT scanners at this facility use dose modulation, iterative reconstruction, and/or weight based d osing when appropriate to reduce radiation dose to as low as reasonably achievable (ALARA). [facility]: Dose Right [facility]: CareDose [facility]: Dose Right [facility]: Teradose 4D [facility]: MobStac RADIATION DOSE: CT Rad equipment meets quality standard of care and radiation dose reduction techniq ues were employed. CTDIvol: 53.2 mGy. DLP: 1044 mGy-cm. mGy. LIMITATIONS: None. FINDINGS: VENTRICLES: Appropriate for age. CEREBRUM: No masses. No hemorrhage. No midline shift. Mild scattered areas of low density in the w carlos alberto matter most likely due to chronic micro-vascular ischemic change. No evidence for acute infarct ion. CEREBELLUM: No masses. No hemorrhage. No alteration of density. No evidence for acute infarction. EXTRAAXIAL SPACES: Mild age-related involutional change. No fluid collections. No masses. ORBITS AND GLOBE: No intra- or extraconal masses. Normal contour of globe without masses. Evidence of prior cataract surgery. CALVARIUM: No fracture. PARANASAL SINUSES: No fluid or mucosal thickening. SOFT TISSUES: No mass or hematoma. OTHER: No other significant finding. IMPRESSION: No evidence of acute intracranial process. EVIDENCE OF ACUTE STROKE: NO. TECHNICAL DOCUMENTATION: JOB ID: [id number] Quality ID # [id number]: Final reports with documentation of one or more dose reduction techniques (e.g., Au tomated exposure control, adjustment of the mA and/or kV according to patient size, use of iterative reconstruction technique) 2010 [employer]- All Rights Reserved Reading location - IP/workstation name: [email or web address]
--- NOTE | 2019-01-10 10:07 | RADIOLOGY REPORT (SQ) ---
EXAM DESCRIPTION: CT CERVICAL SPINE WITHOUT COMPLETED DATE/TIME: 01/10/2019 9:44 am REASON FOR STUDY: fell. hit face, neck pain, hurts to move left hip COMPARISON: None. TECHNIQUE: Axial images acquired through the cervical spine without intravenous contrast. Images re viewed with lung, soft tissue and bone windows. Reconstructed coronal and sagittal MPR images review ed. Images stored on PACS. All CT scanners at this facility use dose modulation, iterative reconstruction, and/or weight based d osing when appropriate to reduce radiation dose to as low as reasonably achievable (ALARA). [facility]: Dose Right [facility]: CareDose [facility]: Dose Right [facility]: Teradose 4D [facility]: [employer] RADIATION DOSE: CT Rad equipment meets quality standard of care and radiation dose reduction techniq ues were employed. CTDIvol: 24.8 mGy. DLP: 461 mGy-cm. mGy. LIMITATIONS: None. FINDINGS: ALIGNMENT: Straightening of the normal cervical lordosis, likely positional. MINERALIZATION: Decreased. VERTEBRAL BODIES: No discrete fracture or dislocation. DISCS: There is multilevel degenerative disc disease throughout the cervical spine with anterior and posterior osteophytosis. Mild to moderate osseous canal narrowing secondary to posterior disc osteop hytes greatest at C5-6 and C6-7. FACETS, LATERAL MASSES, POSTERIOR ELEMENTS: No fractures. No dislocation. No acute findings. Mild multilevel facet arthropathy. HARDWARE: None in the spine. VISUALIZED RIBS: No fractures. LUNG APICES AND SOFT TISSUES: No pneumothorax. Increased prevertebral soft tissue density secondary to retropharyngeal course of the bilateral internal carotid arteries. OTHER: No other significant finding. IMPRESSION: No evidence of acute bony abnormality of the cervical spine. Multilevel degenerative disc disease throughout the cervical spine. Small posterior disc osteophytes causing lgfv-ej-hnydmyiq canal stenosis greatest at C5-6 and C6-7. TECHNICAL DOCUMENTATION: JOB ID: [id number] Quality ID # [id number]: Final reports with documentation of one or more dose reduction techniques (e.g., Au tomated exposure control, adjustment of the mA and/or kV according to patient size, use of iterative reconstruction technique) 2010 [employer]- All Rights Reserved Reading location - IP/workstation name: [email or web address]
--- NOTE | 2019-01-10 12:05 | RADIOLOGY REPORT (SQ) ---
EXAM DESCRIPTION: CT LT LOWER EXTREMITY WITHOUT COMPLETED DATE/TIME: 01/10/2019 11:34 am REASON FOR STUDY: left hip pain s/p fall, ?occult fracture COMPARISON: None. TECHNIQUE: CT scan of the left hip performed without intravenous or oral contrast. Images reviewed with soft tissue and bone windows. Reconstructed coronal and sagittal MPR images reviewed. All imag es stored on PACS. All CT scanners at this facility use dose modulation, iterative reconstruction, and/or weight based d osing when appropriate to reduce radiation dose to as low as reasonably achievable (ALARA). [facility]: Dose Right [facility]: CareDose [facility]: Dose Right [facility]: Teradose 4D [facility]: [employer] RADIATION DOSE: CT Rad equipment meets quality standard of care and radiation dose reduction techniq ues were employed. CTDIvol: 28.1 mGy. DLP: 930 mGy-cm. mGy. LIMITATIONS: None. FINDINGS: LEFT HIP: Left total hip arthroplasty with screw fixated acetabular component. No eviden ce of periprosthetic fracture or dislocation. PELVIC BONES: Unremarkable. VISUALIZED SPINE: Lower lumbar facet arthropathy. Lower lumbar osteophytosis. PELVIC SOFT TISSUES: Scattered vascular calcifications. EXTRAPELVIC SOFT TISSUES: No significant findings. OTHER: Scattered soft tissue calcifications within the scrotum. IMPRESSION: Left total hip arthroplasty without evident of fracture or other acute osseous abnormali ty. TECHNICAL DOCUMENTATION: JOB ID: [id number] Quality ID # [id number]: Final reports with documentation of one or more dose reduction techniques (e.g., Au tomated exposure control, adjustment of the mA and/or kV according to patient size, use of iterative reconstruction technique) 2010 [employer]- All Rights Reserved Reading location - IP/workstation name: [email or web address]
--- NOTE | 2019-01-10 12:49 | ER Document Report ---
Entered by ESTER GASTON SCRIBE 01/10/19 0932 Acting as scribe for:SHERIF SHOEMAKER DO ED Fall - General Chief Complaint: Fall Injury Stated Complaint: FALL/HIP AND KNEE PAIN Time Seen by Provider: 01/10/19 09:08 Primary Care Provider: LEONARDO HERNANDEZ MD [ACTIVE STAFF] - Follow up as needed Mode of Arrival: Ambulatory Information source: Patient Notes: Patient is an 83 year old male with HTN, hyperlipidemia presents to the emergency department complaining of neck pain and left leg pain secondary a mechanical trip and fall. Patient states he was stepping out of his car when he lost his footing and fell flat on his face. He states he has some subsequent nose and left hip pain. He reports a history of neck pain, but states he does no t have an increase of neck pain. He denies vomiting, a loss of consciousness, trouble breathing, headaches or confusion. He reports recently discontinuing aspirin a few days ago without consent of his employee relations consultant, Dr. Shultz. TRAVEL OUTSIDE OF THE [place] IN LAST 30 DAYS: No - Related data Allergies/Adverse Reactions: amoxicillin [Amoxicillin] Allergy (Verified 01/10/19 08:48) ITCHING, HIVES Past Medical History - General Information source: Patient - Social History Smoking Status: Former Smoker Frequency of alcohol use: None Drug Abuse: None Family History: Hypertension Patient has suicidal ideation: No Patient has homicidal ideation: No - Past Medical History Cardiac Medical History: Reports: Hx Atrial Fibrillation, Hx Coronary Artery Disease, Hx Hypercholesterolemia, Hx Hypertension, Hx Peripheral Vascular Disease - Right iliac artery stenosis, unsure where GI Medical History: Reports: Hx Gastroesophageal Reflux Disease Musculoskeletal Medical History: Reports Hx Arthritis Psychiatric Medical History: Reports: Hx Depression Past Surgical History: Reports: Hx Abdominal Surgery - AAA repair, Hx Orthopedic Surgery - right hand, bilateral hip replacement, Hx Tonsillectomy - Immunizations Hx Diphtheria, Pertussis, Tetanus Vaccination: Yes Hx Pneumococcal Vaccination: 07/06/17 Review of Systems - Review of Systems Constitutional: No symptoms reported EENT: See HPI Cardiovascular: No symptoms reported Respiratory: No symptoms reported Gastrointestinal: No symptoms reported Genitourinary: No symptoms reported Male Genitourinary: No symptoms reported Musculoskeletal: See HPI Skin: No symptoms reported Hematologic/Lymphatic: No symptoms reported Neurological/Psychological: No symptoms reported -: Yes All other systems reviewed and negative Physical Exam - Vital signs Vitals: Temp Pulse Resp BP Pulse Ox 98.1 F 66 18 187/58 H 96 01/10/19 08:51 01/10/19 08:51 01/10/19 08:51 01/10/19 08:51 01/10/19 08:51 - Notes Notes: GENERAL: Alert, interacts well. No acute distress. HEAD: Normocephalic. Abrasion to the bridge and tip of nose. EYES: Pupils equal, round, and reactive to light. Extraocular movements intact. ENT: Oral mucosa moist, tongue midline. Nares patent, no nasal septal hematoma, or bleeding. TM's intacts. NECK: Full range of motion. Supple. Trachea midline. LUNGS: Clear to auscultation bilaterally, no wheezes, rales, or rhonchi. No respiratory distress. HEART: Regular rate and rhythm. No murmurs, gallops, or rubs. ABDOMEN: Soft, non-tender. Non-distended. Bowel sounds present in all 4 quadrants. No guarding, rigidity, or rebound. EXTREMITIES: Moves all 4 extremities spontaneously. Flexion and extension of LLE is limited due to pain. It is not shortened or internally rotated. Sensations intact. No edema, radial and dorsalis pedis pulses 2/4 bilaterally. No cyanosis . NEUROLOGICAL: Alert and oriented x3. Normal speech. PSYCH: Normal affect, normal mood. SKIN: Warm, dry, normal turgor. No rashes or lesions noted. Course - Re-evaluation Re-evalutation: 01/10/19 10:23 CT scan of head was ordered given the fact that he just stopped taking aspirin a few days ago. CT scan of the head is negative, CT scan of the neck was ordered given the fact that he has baseline pain and cannot tell me whether or not his pain has worsened, this was negative for any acute process but does show chronic multilevel degenerative disc disease with osteophytes. X-ray of the left hip was ordered given increase in pain with movement. Patient is able to ambulate though there is increased pain. Given the ability to ambulate and how long the pain has been going on I do not suspect occult fracture at this time, I will not order a CT scan of the hip at this time. Recommend follow-up with orthopedic surgery as an outpatient. Discharge to home. 01/10/19 10:25 01/10/19 10:32 When discussing discharge plan with patient he states that he cannot actually walk very well, states that he has to use a cane and even with a cane he has significant pain while walking. Given this new information I will perform a CT scan to look for occult fracture. 01/10/19 12:49 CT scan of the left hip shows total left hip arthroplasty without evidence of fracture or other acute osseous abnormality. Patient is thus discharged to home, instructed to continue using the cane. Given instructions on following up with orthopedics. - Vital Signs Vital signs: Temp Pulse Resp BP Pulse Ox 98.1 F 66 18 187/58 H 96 01/10/19 08:51 01/10/19 08:51 01/10/19 08:51 01/10/19 08:51 01/10/19 08:51 Discharge - Discharge Clinical Impression: Left hip pain Fall at home Qualifiers: Encounter type: initial encounter Qualified Code(s): W19.XXXA - Unspecified fall, initial encounter; Y92.009 - Unspecified place [facility] the place of occurrence of the external cause Nasal abrasion Qualifiers: Encounter type: initial encounter Qualified Code(s): S00.31XA - Abrasion of nose, initial encounter Condition: Stable Disposition: HOME, SELF-CARE Additional Instructions: Today there was no evidence of bleeding in your brain, broken neck or broken hip. There is no evidence that the prosthesis is loosened. Since you have been having increasing pain in your left hip for some time now I would recommend that you follow-up with the orthopedic surgeon that either place this hip or with 1 of her local orthopedic surgeons if you no longer have contact with the surgeon who placed this hip. Please return to the emergency department should you stop being able to walk at all, develop numbness or tingling in your foot or any new or concerning symptoms. Referrals: LEONARDO HERNANDEZ MD [ACTIVE STAFF] - Follow up as needed I personally performed the services described in the documentation, reviewed and edited the documentation which was dictated to the scribe in my presence, and it accurately records my words and actions.
[2019-01-10 13:05] VITALS: BP 170/69
== END 2019-01-10 13:21 | disposition home or self-care (01) ==
LOC: ER 08:41
DX: S00.31XA Abrasion of nose, initial encounter (principal); M25.552 Pain in left hip; W19.XXXA Unspecified fall, initial encounter; Y93.89 Activity, other specified; M50.322 Other cervical disc degeneration at C5-C6 level; M48.02 Spinal stenosis, cervical region; I25.10 Atherosclerotic heart disease of native coronary artery without angina pectoris; I73.9 Peripheral vascular disease, unspecified; I10 Essential (primary) hypertension; Z91.14 Patient's other noncompliance with medication regimen; Z88.0 Allergy status to penicillin; Z87.891 Personal history of nicotine dependence; Z96.643 Presence of artificial hip joint, bilateral; Z95.828 Presence of other vascular implants and grafts
CPT/HCPCS: 70450; 72125; 99284

== ENCOUNTER 2019-02-21 09:53 | Day surgery (SDC) | payer MEDICARE, OTHER ==
[2019-02-21] MEDS ORDERED: PROPOFOL INJ 200 MG/20 ML VIAL IV ONE ×2 (10:49→11:10)
[2019-02-21 11:12] LABS: HEMATOCRIT 38.5 % (37.9-51.0); HEMOGLOBIN 13.2 g/dL (13.5-17.0); MEAN CORPUSCULAR HEMOGLOBIN 29.3 pg (27.0-33.4); MEAN CORPUSCULAR HGB CONC 34.3 g/dL (32.0-36.0); MEAN CORPUSCULAR VOLUME 85 fl (80-97); PLATELET COUNT 345 10^3/uL (150-450); RED BLOOD COUNT 4.51 10^6/uL (4.35-5.55); RED CELL DISTRIBUTION WIDTH 21.2 % (11.5-14.0); WHITE BLOOD COUNT 7.2 10^3/uL (4.0-10.5)
[2019-02-21] MEDS ORDERED: DIPHENHYDRAMINE HCL 50 MG/ML VIAL IV PRN (12:25)
[2019-02-21] MEDS ORDERED: FENTANYL CITRATE INJ/PF 100 MCG/2 ML AMPUL IV PRN ×3 (12:25)
[2019-02-21] MEDS ORDERED: PROMETHAZINE HCL INJ 25 MG/1 ML VIAL IV PRN ×2 (12:25)
[2019-02-21] MEDS ORDERED: MEPERIDINE HCL/PF INJ 25 MG/1 ML DISP.SYRIN IV PRN (12:25)
[2019-02-21 13:40] VITALS: BP 165/61
--- NOTE | 2019-02-21 13:40 | Operative Report ---
Operative Report DATE OF SURGERY: 02/21/19 Operative Report: The risks benefits and alternatives of the procedure explained to the patient in detail and informed consent is obtained.A GIF pediatric colonoscope Olympus video scope was inserted into the patient's mouth and hypopharynx, the esophagus is identified intubated and insufflated the scope was then advanced through the esophagus stomach and duodenum, the scope was advanced to at least 180 cm, retroflexion maneuver is done. PREOPERATIVE DIAGNOSIS: Possible AVM in the distal portions of the duodenum/jejunum. Pediatric colonoscope is used. 180 cm there is visualized POSTOPERATIVE DIAGNOSIS: Lesion noted in the distal portions of the duodenum status post biopsy, no active bleeding noted. No AVMs noted. Question if this is the lesion that have bled in the past will await biopsy OPERATION: Small intestinal enteroscopy with biopsy SURGEON: CHUCK WHITNEY ANESTHESIA: LMAC TISSUE REMOVED OR ALTERED: As noted above COMPLICATIONS: None. ESTIMATED BLOOD LOSS: None. INTRAOPERATIVE FINDINGS: As noted above PROCEDURE: Patient tolerated the procedure well. No immediate postprocedure complications are noted. Patient discharged in good condition. Discharge date 02/21/2019. Discharge diet: Regular. Discharge activity: Regular. 2 to 3-week follow-up to discuss findings. Patient is instructed to call the office or proceed to the emergency room should there be any further proximal questions. Wait on the pathology.
== END 2019-02-21 13:41 | disposition home or self-care (01) ==
LOC: OROUT 09:53
PROVIDERS: ATTEND Internal Medicine Gastroenterology
DX: Q27.30 Arteriovenous malformation, site unspecified (principal); D13.2 Benign neoplasm of duodenum; K62.3 Rectal prolapse; Z79.891 Long term (current) use of opiate analgesic; Z79.899 Other long term (current) drug therapy; Z79.82 Long term (current) use of aspirin; Z79.01 Long term (current) use of anticoagulants; E78.5 Hyperlipidemia, unspecified; D63.1 Anemia in chronic kidney disease; I12.9 Hypertensive chronic kidney disease with stage 1 through stage 4 chronic kidney disease, or unspecified chronic kidney disease; N18.3 Chronic kidney disease, stage 3 (moderate); D50.9 Iron deficiency anemia, unspecified; I73.9 Peripheral vascular disease, unspecified; I65.21 Occlusion and stenosis of right carotid artery
CPT/HCPCS: 44361; 36415; 84132; 85027; 88305 ×2; J2704; 731

== ENCOUNTER → 2019-03-08 | Outpatient (CLI) | payer MEDICARE, OTHER ==
[2019-03-08 08:15] LABS: HEMOGLOBIN 13.2 g/dL (13.5-17.0); MEAN CORPUSCULAR HEMOGLOBIN 29.7 pg (27.0-33.4); MEAN CORPUSCULAR HGB CONC 34.8 g/dL (32.0-36.0); MEAN CORPUSCULAR VOLUME 85 fl (80-97); PLATELET COUNT 354 10^3/uL (150-450); RED BLOOD COUNT 4.46 10^6/uL (4.35-5.55); RED CELL DISTRIBUTION WIDTH 19.5 % (11.5-14.0)
[2019-03-08 08:20] LABS: APPEARANCE,URINE CLEAR; BILIRUBIN,URINE NEGATIVE (NEGATIVE); COLOR,URINE STRAW; GLUCOSE, URINE NEGATIVE (NEGATIVE); KETONES,URINE NEGATIVE (NEGATIVE); LEUKOCYTE ESTERASE,URINE NEGATIVE (NEGATIVE); NITRITE,URINE NEGATIVE (NEGATIVE); PROTEIN,URINE NEGATIVE (NEGATIVE); URINE SPECIFIC GRAVITY 1.009; UROBILINOGEN,URINE NEGATIVE mg/dL (<2.0)
[2019-03-08 08:37] LABS: ALBUMIN 4.2 g/dL (3.5-5.0); BLOOD UREA NITROGEN 25 mg/dL (7-20); CHLORIDE 90 mmol/L (98-107); GLUCOSE 134 mg/dL (75-110); POTASSIUM 4.2 mmol/L (3.6-5.0); SODIUM 134.7 mmol/L (137-145)
[2019-03-08 08:39] LABS: ANION GAP 13 (5-19); CARBON DIOXIDE 32 mmol/L (22-30)
[2019-03-08 08:45] LABS: ABSOLUTE LYMPHOCYTES# (MANUAL) 2.4 10^3/uL (0.5-4.7); ABSOLUTE MONOCYTES # (MANUAL) 1.7 10^3/uL (0.1-1.4); ABSOLUTE NEUTROPHILS# (MANUAL) 2.9 10^3/uL (1.7-8.2); BASOPHILS % (MANUAL) 0 % (0-2); EOSINOPHILS % (MANUAL) 1 % (0-6); LYMPHOCYTES % (MANUAL) 25 % (13-45); MONOCYTES % (MANUAL) 24 % (3-13); SEGMENTED NEUTROPHILS % (MAN) 41 % (42-78); TOTAL CELLS COUNTED 100
[2019-03-08 08:47] LABS: ANISOCYTOSIS 2+; OVALOCYTES SLIGHT; POIKILOCYTOSIS SLIGHT; POLYCHROMASIA SLIGHT
[2019-03-08 08:48] LABS: PLATELET COMMENT ADEQUATE
[2019-03-09 11:38] LABS: CREATININE URINE 42.1 mg/dL (Not Estab.); MICROALBUMIN URINE 29.4 ug/mL (Not Estab.)
== END ==
LOC: OD 07:39
PROVIDERS: ATTEND Internal Medicine Nephrology
DX: I12.9 Hypertensive chronic kidney disease with stage 1 through stage 4 chronic kidney disease, or unspecified chronic kidney disease (principal); D63.1 Anemia in chronic kidney disease; N18.3 Chronic kidney disease, stage 3 (moderate); E55.9 Vitamin D deficiency, unspecified; D50.9 Iron deficiency anemia, unspecified
CPT/HCPCS: 36415; 80069; 81001; 82043; 82306; 82570; 83970; 85025

== ENCOUNTER → 2019-06-01 | Outpatient (CLI) | payer MEDICARE, OTHER ==
[2019-06-01 09:47] LABS: HEMATOCRIT 37.2 % (37.9-51.0); MEAN CORPUSCULAR HEMOGLOBIN 30.8 pg (27.0-33.4); MEAN CORPUSCULAR VOLUME 88 fl (80-97); PLATELET COUNT 309 10^3/uL (150-450); RED BLOOD COUNT 4.23 10^6/uL (4.35-5.55); RED CELL DISTRIBUTION WIDTH 18.3 % (11.5-14.0); WHITE BLOOD COUNT 6.9 10^3/uL (4.0-10.5)
[2019-06-01 10:17] LABS: ANION GAP 11 (5-19); BLOOD UREA NITROGEN 19 mg/dL (7-20); CALCIUM 9.5 mg/dL (8.4-10.2); CARBON DIOXIDE 30 mmol/L (22-30); CHLORIDE 96 mmol/L (98-107); GLUCOSE 127 mg/dL (75-110); POTASSIUM 4.2 mmol/L (3.6-5.0)
[2019-06-01 10:25] LABS: ABSOLUTE LYMPHOCYTES# (MANUAL) 1.4 10^3/uL (0.5-4.7); ABSOLUTE MONOCYTES # (MANUAL) 1.7 10^3/uL (0.1-1.4); BASOPHILS % (MANUAL) 2 % (0-2); EOSINOPHILS % (MANUAL) 0 % (0-6); LYMPHOCYTES % (MANUAL) 20 % (13-45); METAMYELOCYTES % (MANUAL) 1 % (0); MONOCYTES % (MANUAL) 24 % (3-13); SEGMENTED NEUTROPHILS % (MAN) 52 % (42-78); TOTAL CELLS COUNTED 100
[2019-06-01 10:26] LABS: ANISOCYTOSIS 2+; OVALOCYTES SLIGHT; PLATELET COMMENT ADEQUATE; POIKILOCYTOSIS SLIGHT
[2019-06-02 10:36] LABS: MICROALBUMIN URINE 56.8 ug/mL (Not Estab.)
== END ==
LOC: OD 09:16
PROVIDERS: ATTEND Internal Medicine Nephrology
DX: I12.9 Hypertensive chronic kidney disease with stage 1 through stage 4 chronic kidney disease, or unspecified chronic kidney disease (principal); N18.3 Chronic kidney disease, stage 3 (moderate); D63.1 Anemia in chronic kidney disease; R80.9 Proteinuria, unspecified
CPT/HCPCS: 36415; 80048; 82043; 82570; 85025

== ENCOUNTER → 2019-07-01 | Outpatient (CLI) | payer MEDICARE, OTHER ==
[2019-07-01 09:02] LABS: ANION GAP 10 (5-19); BLOOD UREA NITROGEN 38 mg/dL (7-20); CALCIUM 9.7 mg/dL (8.4-10.2); CARBON DIOXIDE 31 mmol/L (22-30); CHLORIDE 96 mmol/L (98-107); GLUCOSE 120 mg/dL (75-110)
== END ==
LOC: OD 08:22
PROVIDERS: ATTEND Internal Medicine Nephrology
DX: I12.9 Hypertensive chronic kidney disease with stage 1 through stage 4 chronic kidney disease, or unspecified chronic kidney disease (principal); N18.3 Chronic kidney disease, stage 3 (moderate); D63.1 Anemia in chronic kidney disease; R80.9 Proteinuria, unspecified
CPT/HCPCS: 36415; 80048

== ENCOUNTER → 2019-10-03 | Outpatient (CLI) | payer MEDICARE, OTHER ==
[2019-10-03 08:35] LABS: HEMATOCRIT 31.6 % (37.9-51.0); HEMOGLOBIN 11.1 g/dL (13.5-17.0); MEAN CORPUSCULAR HEMOGLOBIN 33.1 pg (27.0-33.4); MEAN CORPUSCULAR VOLUME 94 fl (80-97); PLATELET COUNT 244 10^3/uL (150-450); RED BLOOD COUNT 3.35 10^6/uL (4.35-5.55); RED CELL DISTRIBUTION WIDTH 20.2 % (11.5-14.0); WHITE BLOOD COUNT 7.6 10^3/uL (4.0-10.5)
[2019-10-03 08:41] LABS: APPEARANCE,URINE CLEAR; BILIRUBIN,URINE NEGATIVE (NEGATIVE); COLOR,URINE STRAW; GLUCOSE, URINE NEGATIVE (NEGATIVE); KETONES,URINE NEGATIVE (NEGATIVE); LEUKOCYTE ESTERASE,URINE NEGATIVE (NEGATIVE); NITRITE,URINE NEGATIVE (NEGATIVE); PROTEIN,URINE NEGATIVE (NEGATIVE); URINE SPECIFIC GRAVITY 1.009; UROBILINOGEN,URINE NEGATIVE mg/dL (<2.0)
[2019-10-03 09:00] LABS: ALBUMIN 4.1 g/dL (3.5-5.0); ANION GAP 11 (5-19); BLOOD UREA NITROGEN 40 mg/dL (7-20); CALCIUM 9.7 mg/dL (8.4-10.2); CARBON DIOXIDE 32 mmol/L (22-30); CHLORIDE 94 mmol/L (98-107); GLUCOSE 104 mg/dL (75-110); IRON(TIBC) 81.1 ug/dL (49-181); PHOSPHORUS 4.3 mg/dL (2.5-4.5); POTASSIUM 4.6 mmol/L (3.6-5.0)
[2019-10-03 09:02] LABS: ABSOLUTE MONOCYTES # (MANUAL) 1.2 10^3/uL (0.1-1.4); ANISOCYTOSIS 2+; BASOPHILS % (MANUAL) 0 % (0-2); EOSINOPHILS % (MANUAL) 0 % (0-6); LYMPHOCYTES % (MANUAL) 26 % (13-45); MONOCYTES % (MANUAL) 16 % (3-13); SEGMENTED NEUTROPHILS % (MAN) 58 % (42-78); TOTAL CELLS COUNTED 100
[2019-10-03 09:03] LABS: PLATELET COMMENT ADEQUATE
[2019-10-04 13:36] LABS: CREATININE URINE 44.5 mg/dL (Not Estab.); MICROALBUMIN URINE 13.5 ug/mL (Not Estab.)
== END ==
LOC: OD 07:58
PROVIDERS: ATTEND Internal Medicine Nephrology
DX: I12.9 Hypertensive chronic kidney disease with stage 1 through stage 4 chronic kidney disease, or unspecified chronic kidney disease (principal); N18.3 Chronic kidney disease, stage 3 (moderate); D63.1 Anemia in chronic kidney disease; D50.9 Iron deficiency anemia, unspecified
CPT/HCPCS: 36415; 80069; 81001; 82043; 82306; 82570; 82728; 83540; 83550; 83970; 85025

== ENCOUNTER 2019-10-30 10:06 | Inpatient (IN) | payer MEDICARE, OTHER ==
--- NOTE | 2019-10-30 10:35 | ER Document Report ---
ED Medical Screen (RME) - General Chief Complaint: Weakness Stated Complaint: WEAKNESS Time Seen by Provider: 10/30/19 10:27 Primary Care Provider: LEONARDO HERNANDEZ MD [Primary Care Provider] - Follow up as needed Notes: Patient is a 4-year-old male with a history of hypertension and chronic kidney disease who presents to the emergency department with a chief complaint of generalized weakness. Patient reports he normally uses a cane but on Wednesday started to have generalized weakness. Patient reports he has been using his walker. Patient reports he has fallen 5 times over the past 2 days. Patient reports he is also had a productive cough with yellow sputum. Patient denies nausea, vomiting or diarrhea. Patient reports shortness of breath. Patient denies chest pain. Patient reports increased swelling to his legs. Patient denies history of congestive heart failure. TRAVEL OUTSIDE OF THE [place] IN LAST 30 DAYS: No - Related Data Allergies/Adverse Reactions: amoxicillin [Amoxicillin] Allergy (Verified 01/10/19 08:48) ITCHING, HIVES Past Medical History - Social History Frequency of alcohol use: None Drug Abuse: None - Past Medical History Cardiac Medical History: Reports: Hx Atrial Fibrillation, Hx Coronary Artery Disease, Hx Hypercholesterolemia, Hx Hypertension, Hx Peripheral Vascular Disease - Right iliac artery stenosis, unsure where Denies: Hx Heart Attack Pulmonary Medical History: Denies: Hx Asthma, Hx Bronchitis, Hx COPD, Hx Pneumonia Neurological Medical History: Denies: Hx Cerebrovascular Accident, Hx Seizures Renal/ Medical History: Denies: Hx Peritoneal Dialysis GI Medical History: Reports: Hx Gastroesophageal Reflux Disease. Denies: Hx Hepatitis, Hx Hiatal Hernia, Hx Ulcer Musculoskeltal Medical History: Reports Hx Arthritis Psychiatric Medical History: Reports: Hx Depression Infectious Medical History: Denies: Hx Hepatitis Past Surgical History: Reports: Hx Abdominal Surgery - AAA repair, Hx Orthopedic Surgery - right hand, bilateral hip replacement, Hx Tonsillectomy. Denies: Hx Open Heart Surgery, Hx Pacemaker - Immunizations Hx Diphtheria, Pertussis, Tetanus Vaccination: Yes Physical Exam - Vital signs Vitals: Temp Pulse Resp BP Pulse Ox 98.0 F 59 L 18 110/82 97 10/30/19 10:11 10/30/19 10:11 10/30/19 10:11 10/30/19 10:11 10/30/19 10:11 Course - Re-evaluation Re-evalutation: 10/30/19 10:34 Patient has +4 pitting edema in bilateral lower extremities. I have greeted and performed a rapid initial assessment of this patient. A comprehensive ED assessment and evaluation of the patient, analysis of test results and completion of the medical decision making process will be conducted by additional ED providers. - Vital Signs Vital signs: Temp Pulse Resp BP Pulse Ox 98.0 F 59 L 18 110/82 97 10/30/19 10:11 10/30/19 10:11 10/30/19 10:11 10/30/19 10:11 10/30/19 10:11 Doctor's Discharge - Discharge Referrals: LEONARDO HERNANDEZ MD [Primary Care Provider] - Follow up as needed
[2019-10-30 11:07] LABS: HEMATOCRIT 25.7 % (37.9-51.0); HEMOGLOBIN 9.2 g/dL (13.5-17.0); MEAN CORPUSCULAR HEMOGLOBIN 34.8 pg (27.0-33.4); MEAN CORPUSCULAR VOLUME 97 fl (80-97); PLATELET COUNT 211 10^3/uL (150-450); RED BLOOD COUNT 2.66 10^6/uL (4.35-5.55); RED CELL DISTRIBUTION WIDTH 18.9 % (11.5-14.0); WHITE BLOOD COUNT 5.7 10^3/uL (4.0-10.5)
--- NOTE | 2019-10-30 11:10 | ER Document Report ---
ED General - General Chief Complaint: Weakness Stated Complaint: WEAKNESS Time Seen by Provider: 10/30/19 10:27 Primary Care Provider: ELONARDO HERNANDEZ MD [ACTIVE STAFF] - Follow up as needed Notes: 84-year-old male with CHF living at home presents with generalized weakness and frequent falls for 5 days. Can barely get out of bed. Feels very shaky. Has fallen 5 times but does not hurt anything. Feels puffier and heavier than usual with swelling of the legs and eyelids. History of CHF. Says he is not on [place]. No fevers chills or cough. Positive shortness of breath but no chest pain. TRAVEL OUTSIDE OF THE [place] IN LAST 30 DAYS: No - Related Data Allergies/Adverse Reactions: amoxicillin [Amoxicillin] Allergy (Verified 01/10/19 08:48) ITCHING, HIVES Past Medical History - Social History Smoking Status: Never Smoker Frequency of alcohol use: None Drug Abuse: None Family History: Hypertension Patient has suicidal ideation: No Patient has homicidal ideation: No - Past Medical History Cardiac Medical History: Reports: Hx Atrial Fibrillation, Hx Coronary Artery Disease, Hx Hypercholesterolemia, Hx Hypertension, Hx Peripheral Vascular Disease - Right iliac artery stenosis, unsure where Denies: Hx Heart Attack Pulmonary Medical History: Denies: Hx Asthma, Hx Bronchitis, Hx COPD, Hx Pneumonia Neurological Medical History: Denies: Hx Cerebrovascular Accident, Hx Seizures Renal/ Medical History: Denies: Hx Peritoneal Dialysis GI Medical History: Reports: Hx Gastroesophageal Reflux Disease. Denies: Hx Hepatitis, Hx Hiatal Hernia, Hx Ulcer Musculoskeletal Medical History: Reports Hx Arthritis Psychiatric Medical History: Reports: Hx Depression Infectious Medical History: Denies: Hx Hepatitis Past Surgical History: Reports: Hx Abdominal Surgery - AAA repair, Hx Orthopedic Surgery - right hand, bilateral hip replacement, Hx Tonsillectomy. Denies: Hx Open Heart Surgery, Hx Pacemaker - Immunizations Hx Diphtheria, Pertussis, Tetanus Vaccination: Yes Hx Pneumococcal Vaccination: 07/06/17 Review of Systems - Review of Systems Notes: REVIEW OF SYSTEMS GEN: Weakness weight gain ENT: Denies sore throat, nasal discharge, ear pain EYES: Denies blurry vision, eye pain, discharge CV: Denies chest pain, palpitations, edema RESP: Denies cough, shortness of breath, wheezing GI: Denies abdominal pain, nausea, vomiting, diarrhea MSK: Bilateral leg edema SKIN: Denies rash, skin lesions LYMPH: Denies swollen glands/lymph nodes NEURO: Denies headache, focal weakness or numbness, dizziness PSYCH: Denies depression, suicidal or homicidal ideation PHYSICAL EXAMINATION General: No acute distress, well-nourished Head: Atraumatic, normocephalic ENT: Eyelid edema. Mouth normal, oropharynx moist, no exudates or tonsillar enlargement Eyes: Conjunctiva normal, pupils equal, lids normal Neck: No JVD, supple, no guarding CVS: Normal rate, regular rhythm, no murmurs Resp: No resp distress, equal and normal breath sounds bilaterally GI: Nondistended, soft, no tenderness to palpation, no rebound or guarding Ext: Shiny 3+ edema to both legs to the thighs Back: No CVA or midline TTP Skin: No rash, warm Lymphatic: No lymphadeopathy noted Neuro: Awake, alert. Face symmetric. GCS 15. Physical Exam - Vital signs Vitals: Temp Pulse Resp BP Pulse Ox 98.0 F 59 L 18 110/82 97 10/30/19 10:11 10/30/19 10:11 10/30/19 10:11 10/30/19 10:11 10/30/19 10:11 Course - Re-evaluation Re-evalutation: 10/30/19 12:01 Patient presents with generalized weakness falls unsafe at home on his own. He exhibits signs of volume overload as well. No chest pain. Vitals are stable except for mild pretension. No acute pulmonary edema clinically. EKG unchanged. Labs show elevated BNP hyponatremia and acute kidney injury. Patient will need to be admitted for likely diuresis but I will not start this in the emergency department. I see no other issues with him at this time and have submitted to admit him to the hospitalist. - Vital Signs Vital signs: Temp Pulse Resp BP Pulse Ox 98.0 F 59 L 18 172/66 H 99 10/30/19 10:11 10/30/19 10:11 10/30/19 11:09 10/30/19 10:44 10/30/19 10:44 - Laboratory Result Diagrams: 10/30/19 10:44 10/30/19 10:44 Laboratory results interpreted by me: 10/30/19 10/30/19 10/30/19 10:44 10:44 10:44 RBC 2.66 L Hgb 9.2 L Hct 25.7 L MCH 34.8 H RDW 18.9 H Monocytes % (Manual) 15 H Basophils % (Manual) 3 H Sodium 127.8 L Chloride 88 L BUN 50 H Creatinine 3.30 H Est GFR ( Amer) 22 L Est GFR (MDRD) Non-Af 18 L NT-Pro-B Natriuret Pep 1120 H - Diagnostic Test Radiology reviewed: Image reviewed, Reports reviewed - EKG Interpretation by Me EKG shows normal: Sinus rhythm Rate: Normal Rhythm: NSR When compared to previous EKG there are: No significant change Discharge - Discharge Clinical Impression: Generalized weakness Acute exacerbation of congestive heart failure Qualifiers: Heart failure type: combined systolic and diastolic Qualified Code(s): I50.43 - Acute on chronic combined systolic (congestive) and diastolic (congestive) heart failure Condition: Fair Disposition: ADMITTED OBSERVATION Admitting Provider: Jace (Hospitalist) Unit Admitted: IMCU Referrals: LEONARDO HERNANDEZ MD [ACTIVE STAFF] - Follow up as needed
[2019-10-30 11:35] LABS: ABSOLUTE LYMPHOCYTES# (MANUAL) 1.6 10^3/uL (0.5-4.7); ABSOLUTE MONOCYTES # (MANUAL) 0.9 10^3/uL (0.1-1.4); ALBUMIN 3.9 g/dL (3.5-5.0); ALKALINE PHOSPHATASE 63 U/L (38-126); ANION GAP 11 (5-19); ASPARTATE AMINO TRANSFERASE 38 U/L (17-59); BASOPHILS % (MANUAL) 3 % (0-2); BILIRUBIN,DIRECT 0.4 mg/dL (0.0-0.4); BILIRUBIN,TOTAL 0.5 mg/dL (0.2-1.3); BLOOD UREA NITROGEN 50 mg/dL (7-20); CALCIUM 8.7 mg/dL (8.4-10.2); CARBON DIOXIDE 29 mmol/L (22-30); CHLORIDE 88 mmol/L (98-107); EOSINOPHILS % (MANUAL) 0 % (0-6); GLUCOSE 94 mg/dL (75-110); LYMPHOCYTES % (MANUAL) 25 % (13-45); MONOCYTES % (MANUAL) 15 % (3-13); POTASSIUM 4.3 mmol/L (3.6-5.0); SEGMENTED NEUTROPHILS % (MAN) 54 % (42-78); TOTAL CELLS COUNTED 100; TOTAL PROTEIN 7.7 g/dL (6.3-8.2)
[2019-10-30 11:36] LABS: ANISOCYTOSIS 2+; PLATELET COMMENT ADEQUATE
--- NOTE | 2019-10-30 11:36 | RADIOLOGY REPORT (SQ) ---
EXAM DESCRIPTION: CHEST 2 VIEWS COMPLETED DATE/TIME: 10/30/2019 11:12 am REASON FOR STUDY: shortness of breath COMPARISON: None. EXAM PARAMETERS: NUMBER OF VIEWS: two views TECHNIQUE: Digital Frontal and Lateral radiographic views of the chest acquired. RADIATION DOSE: NA LIMITATIONS: none FINDINGS: LUNGS AND PLEURA: Unchanged lingular opacity from multiple priors, likely prominent perica rdial fat pad. Unchanged right basilar calcified granuloma. No new airspace disease. No pleural ef fusion or pneumothorax. MEDIASTINUM AND HILAR STRUCTURES: No masses or contour abnormalities. HEART AND VASCULAR STRUCTURES: Normal heart size. Aortic atherosclerosis. BONES: No acute findings. HARDWARE: None in the chest. OTHER: No other significant finding. IMPRESSION: Stable lingular opacity for multiple priors, possibly prominent pericardial fat pad or s carring. No other evidence of acute intrathoracic process. TECHNICAL DOCUMENTATION: JOB ID: [id number] [employer]- All Rights Reserved Reading location - IP/workstation name: [email or web address]
[2019-10-30] MEDS ORDERED: LEVALBUTEROL HCL NEB 0.63 MG/3 ML AMPUL NEB PRN (12:43)
[2019-10-30 12:52] LABS: APPEARANCE,URINE SLIGHTLY-CLOUDY; BILIRUBIN,URINE NEGATIVE (NEGATIVE); COLOR,URINE YELLOW; GLUCOSE, URINE NEGATIVE (NEGATIVE); KETONES,URINE NEGATIVE (NEGATIVE); LEUKOCYTE ESTERASE,URINE NEGATIVE (NEGATIVE); NITRITE,URINE NEGATIVE (NEGATIVE); PROTEIN,URINE NEGATIVE (NEGATIVE); URINE SPECIFIC GRAVITY 1.011; UROBILINOGEN,URINE NEGATIVE mg/dL (<2.0)
--- NOTE | 2019-10-30 13:16 | PDOC H&P ---
History of Present Illness Admission Date/PCP: 10/30/19 12:28 Patient complains of: History of falls associated with weakness for the last few days History of Present Illness: MALIKA LEHMAN is a 84 year old male with history of atrial fibrillation on amiodarone, diltiazem, history of GI bleed, chronic kidney disease, hypertension, osteoarthritis, history of abdominal aortic aneurysm repair 2 years ago in [place] came to the emergency room with complaining of multiple falls in the last 24 hours. He is also complaining of increased weakness associated with weight gain associated with bilateral leg swelling. The work-up in the emergency room indicates elevated BNP, worsening kidney function indicating OLYA and patient is hyponatremic with serum sodium of 127. Hemoglobin is 9.2. Chest x-ray was negative for acute pathology. Medical consult was mesha led for further management and for admission for falls. Past Medical History Cardiac Medical History: Reports: Atrial Fibrillation, Coronary Artery Disease, Hyperlipidema, Hypertension, Peripheral Vascular Disease - Right iliac artery stenosis, unsure where Denies: Myocardial Infarction Pulmonary Medical History: Denies: Asthma, Bronchitis, Chronic Obstructive Pulmonary Disease (COPD), Pneumonia Neurological Medical History: Denies: Seizures GI Medical History: Reports: Gastroesophageal Reflux Disease Denies: Hepatitis, Hiatal Hernia Musculoskeltal Medical History: Reports: Arthritis Psychiatric Medical History: Reports: Depression Hematology: Reports: Anemia Denies: Sickle Cell Disease Past Surgical History Past Surgical History: Reports: Orthopedic Surgery - right hand, bilateral hip replacement, Tonsillectomy Denies: Pacemaker Social History Smoking Status: Former Smoker Frequency of Alcohol Use: None Hx Recreational Drug Use: No Drugs: None Hx Prescription Drug Abuse: No - Advance Directive Resuscitation Status: Full Code Family History Family History: Hypertension Parental Family History Reviewed: Yes - family history of hypertension. Children Family History Reviewed: Yes Sibling(s) Family History Reviewed.: Yes Medication/Allergy Home Medications: Amiodarone HCl [Cordarone 200 mg Tablet] 200 mg PO QPM 01/03/19 Benazepril/Hydrochlorothiazide [Lotensin Hct 20-12.5 mg Tablet] 1 tab PO DAILY 01/03/19 Diltiazem HCl [Diltiazem 24Hr ER] 240 mg PO QPM 01/03/19 Lorazepam [Ativan 1 mg Tablet] 1 mg PO TIDP PRN 01/03/19 Multivit-Minerals/FA/Lycopene [One Daily Men's Health Tablet] 1 tab PO DAILY 10/12 Polyethylene Glycol 3350 [Miralax Powder 17 gm/Packet] 1 packet PO DAILY 01/03/19 Tramadol HCl [Ultram 50 mg Tablet] 50 mg PO BIDP PRN 01/03/19 Trazodone HCl [Desyrel 50 mg Tablet] 50 mg PO QHS 01/03/19 Ferrous Sulfate 325 mg PO BID #60 tablet. 01/05/19 Pantoprazole Sodium [Protonix] 40 mg PO BID #60 tablet. 01/05/19 Allergies/Adverse Reactions: amoxicillin [Amoxicillin] Allergy (Verified 01/10/19 08:48) ITCHING, HIVES Review of Systems Constitutional: PRESENT: fatigue, weakness. ABSENT: fever(s), headache(s), night sweats Eyes: ABSENT: visual disturbances Ears: ABSENT: hearing changes Nose, Mouth, and Throat: ABSENT: sore throat Cardiovascular: PRESENT: edema Respiratory: PRESENT: cough Gastrointestinal: ABSENT: diarrhea, dysphagia, heartburn, hematemesis Integumentary: ABSENT: rash, wounds Neurological: ABSENT: abnormal gait, abnormal speech, confusion, dizziness, focal weakness, syncope Psychiatric: ABSENT: anxiety, depression, homidical ideation, suicidal ideation Physical Exam Vital Signs: Temp Pulse Resp BP Pulse Ox 98.0 F 59 L 18 172/66 H 99 10/30/19 10:11 10/30/19 10:11 10/30/19 11:09 10/30/19 10:44 10/30/19 10:44 Intake & Output 10/29/19 10/30/19 10/31/19 06:59 06:59 06:59 Weight 100.2 kg General appearance: PRESENT: morbidly obese Head exam: PRESENT: atraumatic Eye exam: PRESENT: PERRLA Ear exam: PRESENT: normal external ear exam Mouth exam: PRESENT: neck supple Teeth exam: PRESENT: poor dentation Throat exam: ABSENT: post pharyngeal erythema, tonsillar erythema, tonsillar exudate, tonsillogmegaly, other Neck exam: ABSENT: carotid bruit, JVD, lymphadenopathy, thyromegaly Respiratory exam: PRESENT: decreased breath sounds, wheezes Cardiovascular exam: PRESENT: tachycardia GI/Abdominal exam: PRESENT: normal bowel sounds, soft. ABSENT: distended, guarding, mass, organolmegaly, rebound, tenderness Rectal exam: PRESENT: deferred Extremities exam: PRESENT: +2 edema Neurological exam: PRESENT: alert, awake, oriented to person, oriented to place, oriented to time, oriented to situation, CN II-XII grossly intact. ABSENT: motor sensory deficit Psychiatric exam: PRESENT: appropriate affect, normal mood. ABSENT: homicidal ideation, suicidal ideation Results Laboratory Results: 10/30/19 10:44 10/30/19 10:44 10/30/19 10/30/19 10/30/19 10:44 10:44 12:25 WBC 5.7 RBC 2.66 L Hgb 9.2 L Hct 25.7 L MCV 97 MCH 34.8 H MCHC 36.0 RDW 18.9 H Plt Count 211 Seg Neutrophils % Not Reportable Sodium 127.8 L Potassium 4.3 Chloride 88 L Carbon Dioxide 29 Anion Gap 11 BUN 50 H Creatinine 3.30 H Est GFR ( Amer) 22 L Glucose 94 Calcium 8.7 Total Bilirubin 0.5 AST 38 Alkaline Phosphatase 63 Total Protein 7.7 Albumin 3.9 Urine Color YELLOW Urine Appearance SLIGHTLY-CLOUDY Urine pH 7.0 Ur Specific [place] 1.011 Urine Protein NEGATIVE Urine Glucose (UA) NEGATIVE Urine Ketones NEGATIVE Urine Blood NEGATIVE Urine Nitrite NEGATIVE Ur Leukocyte Esterase NEGATIVE Urine WBC (Auto) 0 Urine RBC (Auto) 1 10/30/19 10:44 NT-Pro-B Natriuret Pep 1120 H Impressions: Chest X-Ray 10/30/19 10:32 IMPRESSION: Stable lingular opacity for multiple priors, possibly prominent pericardial fat pad or scarring. No other evidence of acute intrathoracic process. Assessment and Plan - Diagnosis (1) Falls Is this a current diagnosis for this admission?: Yes Plan: 10/30/2019-patient is going to be admitted to [facility] as inpatient. Came in with history of generalized weakness with multiple falls. PT consult was requested. GI prophylaxis DVT prophylaxis initiated. Plan is to restart his home medications. Fall precautions aspiration precautions are requested. (2) History of atrial fibrillation Is this a current diagnosis for this admission?: No Plan: 10/30/2019-patient has history of chronic atrial fibrillation not on anticoagulation because of the GI bleed. Hemoglobin is 9.2 today. Plan is to restart his amiodarone and diltiazem during this hospital stay. (3) HTN (hypertension) Is this a current diagnosis for this admission?: No Plan: 10/30/2019-patient has history of chronic essential hypertension blood pressure in the emergency room is 172/66. Patient was started on Lasix 40 mg IV twice a day. To watch blood pressures every shift. (4) Chronic anemia Is this a current diagnosis for this admission?: No Plan: 10/30/2019-patient has history of chronic anemia with hemoglobin of 9.2. Previous admissions for GI bleed and status post blood transfusions. Chronic anemia may be secondary to underlying chronic kidney disease. (5) Hyponatremia Is this a current diagnosis for this admission?: Yes Plan: 10/30/2019-serum sodium is 127 it may be secondary to chronic kidney disease, congestive heart failure. He is also on Lasix at home. Asymptomatic. Plan is to closely monitor the serum sodium levels during this hospital stay. Hyponatremia may be secondary to fluid overload. (6) Obesity (BMI 30-39.9) Is this a current diagnosis for this admission?: No Plan: 10/30/2019-patient's BMI is 38. Diet exercise weight loss lifestyle modifications discussed with the patient. (7) CHF (congestive heart failure) Is this a current diagnosis for this admission?: No Plan: 10/30/2019 patient came in with increasing shortness of breath associated weight gain, bilateral pedal edema chest x-ray indicated of cardiomegaly. Patient may have a chronic systolic heart failure. Echocardiogram was requested. Started on Lasix 40 mg IV twice a day. (8) CKD (chronic kidney disease) Is this a current diagnosis for this admission?: Yes Plan: 10/30/2019 patient's kidney function with serum creatinine is around 2.90. Today's creatinine was 3.3. Acute on chronic kidney injury may be secondary to CHF exacerbation. Plan is to do the renal ultrasound requested for Ahmadi's catheter to check for strict input output chart. consultation with Dr. Fenton will be requested tomorrow.
--- NOTE | 2019-10-30 14:11 | RADIOLOGY REPORT (SQ) ---
EXAM DESCRIPTION: CT CHEST WITHOUT COMPLETED DATE/TIME: 10/30/2019 1:25 pm REASON FOR STUDY: chf R06.02 SHORTNESS OF BREATH I12.9 HYPERTENSIVE CHRONIC KIDNEY DISEASE W STG 1 -4/UNSP CHR COMPARISON: Chest x-ray 10/30/2019 TECHNIQUE: CT scan performed of the chest without intravenous contrast. Images reviewed with lung, soft tissue and bone windows. Reconstructed coronal and sagittal MPR images reviewed. All images st ored on PACS. All CT scanners at this facility use dose modulation, iterative reconstruction, and/or weight based d osing when appropriate to reduce radiation dose to as low as reasonably achievable (ALARA). [facility]: Dose Right [facility]: CareDose [facility]: Dose Right [facility]: Teradose 4D [facility]: [employer] RADIATION DOSE: CT Rad equipment meets quality standard of care and radiation dose reduction techniq ues were employed. CTDIvol: 18.1 mGy. DLP: 733 mGy-cm. mGy. LIMITATIONS: No technical limitations. FINDINGS: LUNGS AND PLEURA: There is calcified granuloma in the right posterior costophrenic sulcus. No pulmonary infiltrate, effusion, or mass. HILAR AND MEDIASTINAL STRUCTURES: No identified masses or abnormal nodes. No obvious aneurysm. HEART AND VASCULAR STRUCTURES: No aneurysm. No pericardial effusion. UPPER ABDOMEN: A large gallstone is present. Marked atrophy of the left kidney. THYROID AND OTHER SOFT TISSUES: No masses. No adenopathy. BONES: No significant finding. HARDWARE: None in the chest. OTHER: No other significant findings. IMPRESSION: NO SIGNIFICANT FINDING ON NON-CONTRASTED CHEST CT. TECHNICAL DOCUMENTATION: JOB ID: [id number] Quality ID # [id number]: Final reports with documentation of one or more dose reduction techniques (e.g., Au tomated exposure control, adjustment of the mA and/or kV according to patient size, use of iterative reconstruction technique) 2010 [employer]- All Rights Reserved Reading location - IP/workstation name: [email or web address]
[2019-10-30] MEDS: HEPARIN SOD (PORCINE) 5,000 UNIT/ML 1 ML VIAL SUBCUT SCH ×2 (17:50→22:38)
[2019-10-30] MEDS: FUROSEMIDE INJ/PF 40 MG/4 ML SDV IV SCH (18:03)
--- NOTE | 2019-10-30 22:12 | EKG REPORT ---
SEVERITY:- ABNORMAL ECG - SINUS RHYTHM RBBB AND LAFB : Confirmed by: Alexandra Bustamante 30-Oct-2019 22:11:42
[2019-10-30] MEDS: DILTIAZEM HCL 240 MG CAPSULE.CR PO SCH (22:49)
[2019-10-30] MEDS: TRAZODONE HCL 50 MG TABLET PO SCH (22:49)
[2019-10-30] MEDS: AMIODARONE HCL 200 MG TABLET PO SCH (22:49)
[2019-10-31] MEDS: HEPARIN SOD (PORCINE) 5,000 UNIT/ML 1 ML VIAL SUBCUT SCH ×3 (05:23→22:09)
[2019-10-31] MEDS: PANTOPRAZOLE SODIUM 20 MG TABLET.DR PO SCH (05:26)
[2019-10-31] MEDS: FUROSEMIDE INJ/PF 40 MG/4 ML SDV IV SCH ×2 (05:26→17:36)
[2019-10-31 06:30] LABS: HEMATOCRIT 25.7 % (37.9-51.0); HEMOGLOBIN 9.4 g/dL (13.5-17.0); MEAN CORPUSCULAR HEMOGLOBIN 34.9 pg (27.0-33.4); MEAN CORPUSCULAR HGB CONC 36.5 g/dL (32.0-36.0); MEAN CORPUSCULAR VOLUME 96 fl (80-97); PLATELET COUNT 202 10^3/uL (150-450); RED BLOOD COUNT 2.68 10^6/uL (4.35-5.55); RED CELL DISTRIBUTION WIDTH 19.1 % (11.5-14.0); WHITE BLOOD COUNT 5.4 10^3/uL (4.0-10.5)
[2019-10-31 07:05] LABS: ALBUMIN 3.7 g/dL (3.5-5.0); ALKALINE PHOSPHATASE 59 U/L (38-126); ANION GAP 12 (5-19); ASPARTATE AMINO TRANSFERASE 37 U/L (17-59); BILIRUBIN,DIRECT 0.5 mg/dL (0.0-0.4); BILIRUBIN,TOTAL 0.7 mg/dL (0.2-1.3); BLOOD UREA NITROGEN 48 mg/dL (7-20); CALCIUM 8.8 mg/dL (8.4-10.2); CARBON DIOXIDE 29 mmol/L (22-30); CHLORIDE 87 mmol/L (98-107); CREATINE KINASE 178 U/L (55-170); GLUCOSE 92 mg/dL (75-110); POTASSIUM 3.9 mmol/L (3.6-5.0); TOTAL PROTEIN 7.3 g/dL (6.3-8.2)
[2019-10-31 07:06] LABS: CREATINE KINASE MB 3.14 ng/mL (<4.55); TROPONIN I 0.014 ng/mL
[2019-10-31 07:54] LABS: ABSOLUTE LYMPHOCYTES# (MANUAL) 1.6 10^3/uL (0.5-4.7); ABSOLUTE MONOCYTES # (MANUAL) 1.2 10^3/uL (0.1-1.4); BASOPHILS % (MANUAL) 1 % (0-2); EOSINOPHILS % (MANUAL) 0 % (0-6); LYMPHOCYTES % (MANUAL) 28 % (13-45); MONOCYTES % (MANUAL) 22 % (3-13); SEGMENTED NEUTROPHILS % (MAN) 47 % (42-78); TOTAL CELLS COUNTED 100
[2019-10-31 07:55] LABS: ANISOCYTOSIS 2+; PLATELET COMMENT ADEQUATE
--- NOTE | 2019-10-31 08:20 | RADIOLOGY REPORT (SQ) ---
EXAM DESCRIPTION: U/S RETROPERITON LTD COMPLETED DATE/TIME: 10/30/2019 10:13 pm REASON FOR STUDY: ckd R06.02 SHORTNESS OF BREATH I12.9 HYPERTENSIVE CHRONIC KIDNEY DISEASE W STG 1 -4/UNSP CHR COMPARISON: None. TECHNIQUE: Dynamic and static grayscale images acquired of the kidneys and bladder and recorded on P ACS. Additional selected color Doppler and spectral images recorded. LIMITATIONS: The right kidney is obscured by bowel gas. FINDINGS: RIGHT KIDNEY: Normal size. Mild increased echogenicity. No solid or suspicious masses . No hydronephrosis. No calcifications. LEFT KIDNEY: Poorly visualized, obscured by bowel gas. 2 simple cysts are present, measuring 2.3 c m and 3.2 cm. BLADDER: No masses. OTHER FINDINGS: No other significant finding. IMPRESSION: MILD INCREASED ECHOGENICITY OF THE RIGHT KIDNEY CONSISTENT WITH CHRONIC MEDICAL RENAL DI SEASE. NO HYDRONEPHROSIS. LEFT KIDNEY IS POORLY VISUALIZED. THERE ARE 2 SIMPLE CYSTS PRESENT. TECHNICAL DOCUMENTATION: JOB ID: [id number] [employer]- All Rights Reserved Reading location - IP/workstation name: [email or web address]
[2019-10-31] MEDS ORDERED: LORAZEPAM 1 MG TABLET PO PRN (09:27)
[2019-10-31] MEDS ORDERED: [UNRECOGNIZED DRUG - OTHER] PO SCH (10:00)
[2019-10-31] MEDS ORDERED: LYCOPENE PO SCH (10:00)
[2019-10-31] MEDS ORDERED: MULTIVIT MINERALS PO SCH (10:00)
--- NOTE | 2019-10-31 10:42 | PDOC CONSULTATION ---
Consultation Consult Date: 10/31/19 Provider Consulted: LEONARDO HERNANDEZ Consult reason:: I was asked to see the patient due to acute worsening of kidney function, hyponatremia and increasing edema. 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 He reports some dizziness, chronic cough for the last couple months but it is nonproductive, and mild shortness of breath. He denies any chest pains, fever nor chills. He denies any nausea, vomiting, nor blood in the stools but he admits his stools are dark. He denies any confusion. He admits that he has recently poor appetite but thinks that he is drinking enough fluids. He denies any palpitations. He thinks that he is urinating adequately. He also admits that he ran out of his furosemide about 1-1/2 weeks ago. He has also been taking Advil [id number] twice a day for the last 4 to 5 months for his arthritis. Upon presentation yesterday in the emergency room he was found to be swollen including periorbital edema and increased lower extremity edema. He was also found to have hyponatremia with sodium of 127.8, elevated BUN of 50 with creatinine of 3.3 and EGFR of 18. His hemoglobin appears to be stable at 9.2. He has elevated BNP of 1120. His urinalysis is bland without any proteinuria nor hematuria with albumin of 3.9. Chest x-ray was negative. Chest CT without contrast was also negative for pulmonary pathology with a note of left atrophic kidney. He had a renal ultrasound done which showed the right kidney measuring 10.58 cm without any solid or suspicious masses nor hydronephrosis or calcification. The left kidney was poorly visualized and a note of 2 simple cysts. There was an incidental finding of gallstones. Echocardiogram was done and official interpretation is currently still pending but preliminary report showed an ejection fraction of 51%. The patient's baseline creatinine usually ranges anywhere between 1.6-1.88. Last September when I saw him his creatinine on October 03, 2019 went up to 2.39 without any obvious precipitating factors. He was actually supposed to see me in the office yesterday but he did not show up obviously because I did not know he is in the emergency room. He had a repeat lab on October 23, 2019 which showed a BUN of 39 and creatinine of 2.89 with EGFR of 21. Admitting kidney function was noted above. Today the patient has a sodium of 128.2, BUN of 48 and creatinine of 3.46 with EGFR of 17. Past Medical History Cardiac Medical History: Reports: Abdominal Aortic Aneurysm - Repaired in October 2016, Atrial Fibrillation, Coronary Artery Disease, Hyperlipidemia, Hypertension-primary, Hypertension- yoni-vascular, Peripheral Vascular Disease - Right iliac artery stenosis, unsure where Renal/ Medical History: Reports: Chronic Kidney Disease Stage III, Hyponatremia, Renal artery stenosis GI Medical History: Reports: Gastroesophageal Reflux Disease, Other - History of AV malformation causing GI bleeding, gastritis, duodenitis GI History Note: History of diverticulosis and hemorrhoids Musculoskeltal Medical History: Reports: Arthritis Psychiatric Medical History: Reports: Depression, General Anxiety Disorder Hematology Medical History: Reports Anemia of Chronic Kidney Disease, Reports Iron Deficiency Anemia Past Surgical History Past Surgical History: Reports: Orthopedic Surgery - right hand, bilateral hip replacement, Renal Stent - Left on 2016, Tonsillectomy, Other - Abdominal aortic aneurysm repair in October 2016, hemorrhoidectomy 2006 Social History Information Source: Patient Smoking Status: Former Smoker Frequency of Alcohol Use: None Hx Recreational Drug Use: No Drugs: None Hx Prescription Drug Abuse: No - Advance Directive Resuscitation Status: Full Code Family History Family History: Hypertension - Mother Parental Family History Reviewed: Yes Children Family History Reviewed: Yes Sibling(s) Family History Reviewed.: Yes Medication/Allergy Home Medications: Amiodarone HCl [Cordarone 200 mg Tablet] 200 mg PO QPM 01/03/19 Benazepril/Hydrochlorothiazide [Lotensin Hct 20-12.5 mg Tablet] 1 tab PO DAILY 01/03/19 Diltiazem HCl [Diltiazem 24Hr ER] 240 mg PO QPM 01/03/19 Lorazepam [Ativan 1 mg Tablet] 1 mg PO DAILY 01/03/19 Multivit-Minerals/FA/Lycopene [One Daily Men's Health Tablet] 1 tab PO DAILY 01/03/19 Polyethylene Glycol 3350 [Miralax Powder 17 gm/Packet] 1 packet PO DAILY 01/03/19 Tramadol HCl [Ultram 50 mg Tablet] 50 mg PO BIDP PRN 01/03/19 Trazodone HCl [Desyrel 50 mg Tablet] 50 mg PO QHS 01/03/19 Pantoprazole Sodium [Protonix] 40 mg PO BID #60 tablet. 01/05/19 Allergies/Adverse Reactions: amoxicillin [Amoxicillin] Allergy (Verified 01/10/19 08:48) ITCHING, HIVES Review of Systems All systems: reviewed and no additional remarkable complaints except as stated Review of Systems: Constitutional: ABSENT: chills, fatigue, fever(s), headache(s), weight loss; admits weight gain and generalized weakness Eyes: ABSENT: visual disturbances Ears: ABSENT: hearing changes Cardiovascular: ABSENT: chest pain, orthropnea, palpitations; admits increasing edema and shortness of breath Respiratory: ABSENT: Hemoptysis; admits chronic dry cough Gastrointestinal: ABSENT: abdominal pain, constipation, diarrhea, hematemesis, hematochezia, nausea, vomiting Genitourinary: ABSENT: dysuria, hematuria Musculoskeletal: ABSENT: joint swelling Integumentary: ABSENT: rash, wounds Neurological: ABSENT: abnormal gait, abnormal speech, confusion, dizziness, focal weakness, numbness, syncope Psychiatric: ABSENT: anxiety, depression Endocrine: ABSENT: cold intolerance, heat intolerance, polydipsia, polyuria Hematologic/Lymphatic: ABSENT: easy bleeding, easy bruising, lymphadenopathy Physical Exam Vital Signs: Temp Pulse Resp BP Pulse Ox 97.4 F 54 L 18 121/45 L 100 10/31/19 08:55 10/31/19 08:55 10/31/19 08:55 10/31/19 08:55 10/31/19 08:55 Intake & Output 10/30/19 10/31/19 11/01/19 06:59 06:59 06:59 Intake Total 630 Output Total 1325 Balance -695 Weight 99.4 kg Exam: General appearance: No acute distress, cooperative, well-developed, well- nourished Head exam: PRESENT: atraumatic, normocephalic Eye exam: PRESENT: Conjunctiva pale, EOMI, PERRLA. Positive mild periorbital edema ABSENT: conjunctival injection, scleral icterus Mouth exam: PRESENT: moist, neck supple, tongue midline Neck exam: PRESENT: full ROM. ABSENT: carotid bruit, JVD, lymphadenopathy, thyromegaly Respiratory exam: PRESENT: Diminished to auscultation bilaterally. ABSENT: rales, rhonchi, stridor, wheezes Cardiovascular exam: PRESENT: RRR, +S1, +S2. ABSENT: systolic murmur Pulses: PRESENT: normal radial pulses, normal dorsalis pedis pulses GI/Abdominal exam: PRESENT: normal bowel sounds, soft. Obese and distended but no obvious subcutaneous edema ABSENT: guarding, mass, tenderness Rectal exam: Deferred Extremities exam: PRESENT: full ROM. Grade 2 bilateral lower extremity pitting edema ABSENT: calf tenderness Musculoskeletal: PRESENT: full ROM. ABSENT: deformity Neurological exam: PRESENT: alert, Awake, Oriented to person, Oriented to place, Oriented to time, reflexes normal, CN II-XII grossly intact. ABSENT: motor sensory deficit Psychiatric exam: PRESENT: appropriate affect, normal mood. ABSENT: homicidal ideation, suicidal ideation Skin exam: PRESENT: intact, dry, warm. Positive generalized pallor ABSENT: rash Results Laboratory Results: 10/31/19 05:51 10/31/19 05:51 10/30/19 10/30/19 10/30/19 10:44 10:44 12:25 WBC 5.7 RBC 2.66 L Hgb 9.2 L Hct 25.7 L MCV 97 MCH 34.8 H MCHC 36.0 RDW 18.9 H Plt Count 211 Seg Neutrophils % Not Reportable Sodium 127.8 L Potassium 4.3 Chloride 88 L Carbon Dioxide 29 Anion Gap 11 BUN 50 H Creatinine 3.30 H Est GFR ( Amer) 22 L Glucose 94 Calcium 8.7 Total Bilirubin 0.5 AST 38 Alkaline Phosphatase 63 Total Protein 7.7 Albumin 3.9 Urine Color YELLOW Urine Appearance SLIGHTLY-CLOUDY Urine pH 7.0 Ur Specific [place] 1.011 Urine Protein NEGATIVE Urine Glucose (UA) NEGATIVE Urine Ketones NEGATIVE Urine Blood NEGATIVE Urine Nitrite NEGATIVE Ur Leukocyte Esterase NEGATIVE Urine WBC (Auto) 0 Urine RBC (Auto) 1 10/31/19 10/31/19 05:51 05:51 WBC 5.4 RBC 2.68 L Hgb 9.4 L Hct 25.7 L MCV 96 MCH 34.9 H MCHC 36.5 H RDW 19.1 H Plt Count 202 Seg Neutrophils % Not Reportable Sodium 128.2 L Potassium 3.9 Chloride 87 L Carbon Dioxide 29 Anion Gap 12 BUN 48 H Creatinine 3.46 H Est GFR ( Amer) 21 L Glucose 92 Calcium 8.8 Total Bilirubin 0.7 AST 37 Alkaline Phosphatase 59 Total Protein 7.3 Albumin 3.7 Urine Color Urine Appearance Urine pH Ur Specific [place] Urine Protein Urine Glucose (UA) Urine Ketones Urine Blood Urine Nitrite Ur Leukocyte Esterase Urine WBC (Auto) Urine RBC (Auto) 10/30/19 10/31/19 10/31/19 10:44 05:51 05:51 Creatine Kinase 178 H CK-MB (CK-2) 3.14 Troponin I 0.014 NT-Pro-B Natriuret Pep 1120 H 1160 H Impressions: Chest CT 10/30/19 00:00 IMPRESSION: NO SIGNIFICANT FINDING ON NON-CONTRASTED CHEST CT. Renal Ultrasound 10/30/19 00:00 IMPRESSION: MILD INCREASED ECHOGENICITY OF THE RIGHT KIDNEY CONSISTENT WITH CHRONIC MEDICAL RENAL DISEASE. NO HYDRONEPHROSIS. LEFT KIDNEY IS POORLY VISUALIZED. THERE ARE 2 SIMPLE CYSTS PRESENT. Chest X-Ray 10/30/19 10:32 IMPRESSION: Stable lingular opacity for multiple priors, possibly prominent pericardial fat pad or scarring. No other evidence of acute intrathoracic process. Assessment & Plan - Diagnosis (1) Acute kidney injury superimposed on chronic kidney disease Is this a current diagnosis for this admission?: Yes Plan: Patient is nonoliguric by history. Possible precipitating factors of acute worsening of kidney function include prerenal factors including recent use of NSAIDs, running out of his furosemide, needs to rule out right renal artery stenosis due to history of left renal artery stenosis. The patient does not have an obvious proteinuria nor hematuria which makes acute glomerulonephritis unlikely. And when I checked the patient for urine microalbumin to creatinine ratio and protein electrophoresis for possibility of any undiagnosed paraproteinemia. We will also check duplex of renal arteries specifically the right renal artery. Agree with furosemide 40 mg IV every 12 hours. Agree with holding GLENDY inhibitor and ARB. Avoid any other nephrotoxic medications including NSAIDs. I again e ducated the patient regarding the negative effect of NSAIDs in the kidneys. Needs strict intake and output. Close monitoring of the kidney function and electrolytes. (2) Chronic kidney disease, stage 3 Is this a current diagnosis for this admission?: Yes Plan: Baseline creatinine about 1.6-1.8. This is secondary to hypertensive nephrosclerosis and ischemic nephropathy. (3) Bilateral lower extremity edema Is this a current diagnosis for this admission?: Yes Plan: IV Lasix as above. (4) CHF (congestive heart failure) Is this a current diagnosis for this admission?: Yes Plan: Preliminary report of echocardiogram shows EF of 51%. If at all there is a mild component of CHF decompensation is probably more of diastolic dysfunction. (5) Hyponatremia Is this a current diagnosis for this admission?: Yes Plan: Due to hypervolemic state. Will diurese. (6) Anemia in chronic kidney disease (CKD) Is this a current diagnosis for this admission?: Yes Plan: We will check iron panel. Possible need for Retacrit if iron are adequate. (7) Falls Is this a current diagnosis for this admission?: Yes (8) Generalized weakness Is this a current diagnosis for this admission?: Yes Plan: Due to above abnormalities. (9) HTN (hypertension) Is this a current diagnosis for this admission?: Yes Plan: Currently acceptably controlled. (10) History of atrial fibrillation Is this a current diagnosis for this admission?: Yes Plan: Patient is not on anticoagulation due to history of GI bleed in the past. - Notes Notes: Thank you very much for this consultation. I will follow the patient closely with you. - Time Time Spent: Greater than 70 Minutes
[2019-10-31] MEDS: POLYETHYLENE GLYCOL 3350 POWDER 17 GM/1 PACKET PO SCH (10:47)
[2019-10-31] MEDS: MULTIVITAMIN TABLET PO SCH (10:49)
--- NOTE | 2019-10-31 13:42 | XCELERA REPORT ---
[address] [address] Transthoracic Echocardiogram Report Name: MALIKA LEHMAN Age: 84 yrs Gender: Male : 1935 Patient Status: Inpatient Patient Location: [address] [place] [address] Study Date: 10/30/2019 06:44 PM History: CHF Height: 64 in Weight: 220 lb BSA: 2.0 m2 Procedure: A complete two-dimensional transthoracic echocardiogram was performed (2D, M-mode, spectral and color flow Doppler). The study was technically difficult with many images being suboptimal in quality. Reason For Study: chf Previous Evaluation: No previous studies were available. History: CHF. Ordering Physician: POLO GREEN Performed By: Pauline Donohue Interpretation Summary The study was technically difficult with many images being suboptimal in quality. Left ventricular systolic function is low normal. The Ejection Fraction estimate is 50-55% Doppler measurements suggest pseudonormalized left ventricular relaxation, which is associated with grade II/IV or mild to moderate diastolic dysfunction The right ventricle is normal in size and function. There is a trace to mild amount of mitral regurgitation There is no aortic valve stenosis There is a mild amount of tricuspid regurgitation There is no pericardial effusion. MMode/2D Measurements & Calculations RVDd: 2.8 cm LVIDd: 4.1 cm FS: 9.1 % Ao root diam: 2.9 cm IVSd: 1.2 cm LVIDs: 3.7 cm EDV(Teich): 73.4 ml Ao root area: 6.6 cm2 LVPWd: 1.1 cm ESV(Teich): 58.5 ml LA dimension: 3.4 cm EF(Teich): 20.3 % Doppler Measurements & Calculations MV E max eliseo: MV P1/2t max eliseo: Ao V2 max: LV V1 max P.7 cm/sec 108.6 cm/sec 98.9 cm/sec 2.9 mmHg MV A max eliseo: MV P1/2t: 70.4 msec Ao max PG: LV V1 max: 75.5 cm/sec MVA(P1/2t): 3.1 cm2 3.9 mmHg 84.9 cm/sec MV E/A: 1.3 MV dec slope: 452.1 cm/sec2 MV dec time: 0.24 sec PA V2 max: PI end-d eliseo: TR max eliseo: MV P1/2t-pr_phl: 70.8 cm/sec 98.9 cm/sec 231.7 cm/sec 70.4 msec PA max PG: TR max P.0 mmHg 21.5 mmHg Left Ventricle The left ventricle is normal in size. There is moderate to severe concentric left ventricular hypertrophy. Left ventricular systolic function is low normal. The Ejection Fraction estimate is 50-55%. Doppler measurements suggest pseudonormalized left ventricular relaxation, which is associated with grade II/IV or mild to moderate diastolic dysfunction. No regional wall motion abnormalities noted. Right Ventricle The right ventricle is normal in size and function. Atria The left atrial size is normal. Lipomatous hypertrophy of the interatrial septum is noted. Mitral Valve The mitral valve is grossly normal. There is a trace to mild amount of mitral regurgitation. Aortic Valve The aortic valve is not well visualized secondary to technical limitations. There is no aortic valve stenosis. No aortic regurgitation is present. Tricuspid Valve The tricuspid valve is normal in structure and function. There is a mild amount of tricuspid regurgitation. Tricuspid regurgitation jet envelope not well defined to measure RV systolic pressure accurately. Pulmonic Valve The pulmonic valve is not well visualized. There is a mild to moderate amount of pulmonic regurgitation. Great Vessels The aortic root is normal size. The IVC is dilated, but has some respiratory collapse suggesting high central venous pressures. Effusions There is no pericardial effusion. : POLO GREEN Anil
--- NOTE | 2019-10-31 14:11 | PDOC PROGRESS REPORT ---
Subjective Progress Note for:: 10/31/19 Subjective:: Patient is a 84-year-old white male who presented for frequent falls, bilateral lower extremity edema, acute renal failure, CHF exacerbation. 10/31: Patient states he is feeling a bit better today still having some fatigue. Lower extremities are still edematous. Perhaps less than previous days. Denies shortness of breath or chest pain. Tolerating diet moving bladder/bowels per patient. Discussed findings thus far and plan going forward in detail with patient and family at bedside. Reason For Visit: FALLS Physical Exam Vital Signs: Temp Pulse Resp BP Pulse Ox 97.4 F 54 L 18 121/45 L 100 10/31/19 08:55 10/31/19 08:55 10/31/19 08:55 10/31/19 08:55 10/31/19 08:55 Intake & Output 10/30/19 10/31/19 11/01/19 06:59 06:59 06:59 Intake Total 630 Output Total 1325 Balance -695 Weight 99.4 kg General appearance: PRESENT: no acute distress Eye exam: PRESENT: conjunctiva pink Mouth exam: PRESENT: moist Respiratory exam: PRESENT: clear to auscultation eduardo. ABSENT: accessory muscle use Cardiovascular exam: PRESENT: RRR GI/Abdominal exam: PRESENT: normal bowel sounds, soft. ABSENT: tenderness Extremities exam: PRESENT: pedal edema, +2 edema Neurological exam: PRESENT: alert, awake, oriented to person, oriented to place, oriented to time, oriented to situation Psychiatric exam: PRESENT: appropriate affect, normal mood Skin exam: PRESENT: intact, normal color, warm Results Laboratory Results: 10/31/19 05:51 10/31/19 05:51 10/31/19 10/31/19 05:51 05:51 WBC 5.4 RBC 2.68 L Hgb 9.4 L Hct 25.7 L MCV 96 MCH 34.9 H MCHC 36.5 H RDW 19.1 H Plt Count 202 Seg Neutrophils % Not Reportable Sodium 128.2 L Potassium 3.9 Chloride 87 L Carbon Dioxide 29 Anion Gap 12 BUN 48 H Creatinine 3.46 H Est GFR ( Amer) 21 L Glucose 92 Calcium 8.8 Total Bilirubin 0.7 AST 37 Alkaline Phosphatase 59 Total Protein 7.3 Albumin 3.7 10/30/19 10/31/19 10/31/19 10:44 05:51 05:51 Creatine Kinase 178 H CK-MB (CK-2) 3.14 Troponin I 0.014 NT-Pro-B Natriuret Pep 1120 H 1160 H Impressions: Chest CT 10/30/19 00:00 IMPRESSION: NO SIGNIFICANT FINDING ON NON-CONTRASTED CHEST CT. Renal Ultrasound 10/30/19 00:00 IMPRESSION: MILD INCREASED ECHOGENICITY OF THE RIGHT KIDNEY CONSISTENT WITH CHRONIC MEDICAL RENAL DISEASE. NO HYDRONEPHROSIS. LEFT KIDNEY IS POORLY VISUALIZED. THERE ARE 2 SIMPLE CYSTS PRESENT. Chest X-Ray 10/30/19 10:32 IMPRESSION: Stable lingular opacity for multiple priors, possibly prominent pericardial fat pad or scarring. No other evidence of acute intrathoracic process. Assessment and Plan - Diagnosis (1) Acute exacerbation of congestive heart failure Qualifiers: Heart failure type: diastolic Qualified Code(s): I50.33 - Acute on chronic diastolic (congestive) heart failure Is this a current diagnosis for this admission?: Yes Plan: 10/31:Reviewed echocardiogram which showed moderate diastolic dysfunction. EF within normal limits. No significant valvular pathology noted. Continue diuresis with IV Lasix. (2) Acute kidney injury superimposed on chronic kidney disease Is this a current diagnosis for this admission?: Yes Plan: 10/31: Consulted nephrology today and discussed the case with them in detail. Doubt this is nephrotic/nephritic syndrome as UA did not show protein. Knuckler as previously ordered work-up for myeloma per her note. Most likely this is cardiorenal syndrome given the hyponatremia and bilateral lower extremity edema in the setting of elevated BNP and clear diastolic CHF on echo. Continue diuresis with Lasix IV. Might consider SIADH if patient becomes euvolemic and still remains hyponatremic. (3) Anemia in chronic kidney disease (CKD) Is this a current diagnosis for this admission?: Yes Plan: 10/31: Trend H/H intermittently. No evidence of blood loss currently (4) Bilateral lower extremity edema Is this a current diagnosis for this admission?: Yes Plan: 10/31: Due to CHF and renal failure as above. Diuresis (5) CHF (congestive heart failure) Is this a current diagnosis for this admission?: Yes Plan: 10/30/2019 patient came in with increasing shortness of breath associated weight gain, bilateral pedal edema chest x-ray indicated of cardiomegaly. Patient may have a chronic systolic heart failure. Echocardiogram was requested. Started on Lasix 40 mg IV twice a day. (6) Falls Is this a current diagnosis for this admission?: Yes Plan: 10/30/2019-patient is going to be admitted to [facility] as inpatient. Came in with history of generalized weakness with multiple falls. PT consult was requested. GI prophylaxis DVT prophylaxis initiated. Plan is to restart his home medications. Fall precautions aspiration precautions are requested. 10/31: Suspect generalized weakness is due to acute heart failure exacerbation and renal failure. PT following (7) Generalized weakness Is this a current diagnosis for this admission?: Yes Plan: 10/31: As above (8) HTN (hypertension) Is this a current diagnosis for this admission?: Yes Plan: 10/30/2019-patient has history of chronic essential hypertension blood pressure in the emergency room is 172/66. Patient was started on Lasix 40 mg IV twice a day. To watch blood pressures every shift. 10/31: Continue home medications, monitor BP (9) Hyponatremia Is this a current diagnosis for this admission?: Yes Plan: 10/30/2019-serum sodium is 127 it may be secondary to chronic kidney disease, congestive heart failure. He is also on Lasix at home. Asymptomatic. Plan is to closely monitor the serum sodium levels during this hospital stay. Hyponatremia may be secondary to fluid overload. 10/31: Likely due to CHF, less likely SIADH. Continue diuresis for now. Nep hrology following. (10) Obesity (BMI 30-39.9) Is this a current diagnosis for this admission?: No (11) Chronic lower GI bleeding Is this a current diagnosis for this admission?: Yes (12) History of atrial fibrillation Is this a current diagnosis for this admission?: Yes Plan: 10/30/2019-patient has history of chronic atrial fibrillation not on ant icoagulation because of the GI bleed. Hemoglobin is 9.2 today. Plan is to restart his amiodarone and diltiazem during this hospital stay. 10/31: Continue holding anticoagulation due to chronic GI bleed. Amiodarone diltiazem restarted at home dose. - Time Time Spent with patient: 25-34 minutes - Inpatient Certification I certify that my determination is in accordance with my understanding of Medicare's requirements for reasonable and necessary INPATIENT services [42 CFR 412.3e].: Yes Medical Necessity: Need Close Monitoring Due to Risk of Patient Decompensation
[2019-10-31] MEDS ORDERED: (PENDING PHARMACY ID) (Diltiazem Hcl [Diltiazem 24hr Er] 240 MG) PO SCH (18:00)
[2019-10-31] MEDS ORDERED: DILTIAZEM HCL 240 MG CAPSULE.CR PO SCH (18:00)
[2019-10-31] MEDS ORDERED: AMIODARONE HCL 200 MG TABLET PO SCH (18:00)
[2019-10-31] MEDS: TRAZODONE HCL 50 MG TABLET PO SCH (22:08)
[2019-10-31] MEDS: AMIODARONE HCL 200 MG TABLET PO SCH (22:09)
[2019-10-31] MEDS: DILTIAZEM HCL 240 MG CAPSULE.CR PO SCH (22:18)
[2019-11-01] MEDS: FUROSEMIDE INJ/PF 40 MG/4 ML SDV IV SCH ×3 (05:57→22:15)
[2019-11-01] MEDS: HEPARIN SOD (PORCINE) 5,000 UNIT/ML 1 ML VIAL SUBCUT SCH ×3 (05:58→22:14)
[2019-11-01] MEDS: PANTOPRAZOLE SODIUM 20 MG TABLET.DR PO SCH (05:58)
[2019-11-01 06:26] LABS: ABSOLUTE RETICS # 0.044 10^6/uL (0.028-0.122); HEMATOCRIT 26.8 % (37.9-51.0); HEMOGLOBIN 9.9 g/dL (13.5-17.0); MEAN CORPUSCULAR HEMOGLOBIN 35.1 pg (27.0-33.4); MEAN CORPUSCULAR HGB CONC 36.8 g/dL (32.0-36.0); MEAN CORPUSCULAR VOLUME 95 fl (80-97); PLATELET COUNT 229 10^3/uL (150-450); RED BLOOD COUNT 2.81 10^6/uL (4.35-5.55); RED CELL DISTRIBUTION WIDTH 18.4 % (11.5-14.0); RETICULOCYTE COUNT (AUTO) 1.57 % (0.66-2.85); WHITE BLOOD COUNT 7.3 10^3/uL (4.0-10.5)
[2019-11-01 06:31] LABS: ANION GAP 15 (5-19); BLOOD UREA NITROGEN 48 mg/dL (7-20); CARBON DIOXIDE 29 mmol/L (22-30); CHLORIDE 86 mmol/L (98-107); GLUCOSE 100 mg/dL (75-110); IRON(TIBC) 38.8 ug/dL (49-181); PHOSPHORUS 4.4 mg/dL (2.5-4.5); POTASSIUM 3.8 mmol/L (3.6-5.0)
[2019-11-01 06:58] LABS: ABSOLUTE LYMPHOCYTES# (MANUAL) 1.8 10^3/uL (0.5-4.7); ABSOLUTE MONOCYTES # (MANUAL) 1.7 10^3/uL (0.1-1.4); BAND NEUTROPHILS % (MANUAL) 1 % (3-5); BASOPHILS % (MANUAL) 0 % (0-2); EOSINOPHILS % (MANUAL) 0 % (0-6); LYMPHOCYTES % (MANUAL) 24 % (13-45); MONOCYTES % (MANUAL) 23 % (3-13); SEGMENTED NEUTROPHILS % (MAN) 52 % (42-78); TOTAL CELLS COUNTED 100
[2019-11-01 06:59] LABS: ANISOCYTOSIS 1+; PLATELET COMMENT ADEQUATE
[2019-11-01 07:39] LABS: FOLATE > 20.00 ng/mL (>2.76)
[2019-11-01] MEDS ORDERED: IRON SUCROSE COMPLEX INJ/PF 100 MG/5 ML SDV IV ONE (08:39)
[2019-11-01] MEDS: MULTIVITAMIN TABLET PO SCH (09:48)
[2019-11-01] MEDS: POLYETHYLENE GLYCOL 3350 POWDER 17 GM/1 PACKET PO SCH (09:48)
[2019-11-01] MEDS ORDERED: IRON SUCROSE COMPLEX 500 MG in NORMAL SALINE 250 ML IV ONE (10:30)
--- NOTE | 2019-11-01 11:39 | PDOC PROGRESS REPORT ---
Subjective Progress Note for:: 11/01/19 Subjective:: Patient is lying comfortably in bed but tells me that he still feels tired and short of breath requiring some oxygen via nasal cannula. He said he did walk the hallway yesterday but today he does not feel like he can do that again. From what was recorded he made 1250 mL of urine and at one point he has a post void residual volume 120 mL. So his intake and output balance for the last 24 hours if accurately recorded was +235 mL. He denies any chest pains. No other new complaints. Reason For Visit: FALLS Physical Exam Vital Signs: Temp Pulse Resp BP Pulse Ox 98.0 F 63 16 142/72 H 96 11/01/19 08:20 11/01/19 08:20 11/01/19 08:20 11/01/19 08:20 11/01/19 08:20 Intake & Output 10/31/19 11/01/19 11/02/19 06:59 06:59 06:59 Intake Total 630 1605 Output Total 1325 1370 Balance -695 235 Weight 99.4 kg 97.8 kg Exam: General appearance: PRESENT: no acute distress, cooperative, well-developed, well-nourished Head exam: PRESENT: atraumatic, normocephalic Eye exam: PRESENT: conjunctiva pale, PERRLA. ABSENT: scleral icterus Neck exam: ABSENT: JVD Respiratory exam: PRESENT: Diminished breath sounds. ABSENT: crackles, rales, rhonchi, unlabored, wheezes Cardiovascular exam: PRESENT: Regular rate rhythm -+S1, +S2. ABSENT: diastolic murmur, systolic murmur GI/Abdominal exam: PRESENT: normal bowel sounds, soft. Distended abdomen and obese ABSENT: guarding, mass, tenderness Extremities exam: Grade 2 bilateral lower extremity pitting edema Neurological exam: PRESENT: alert, awake, oriented to person, place and time. Skin exam: PRESENT: dry, warm, generalized pallor Results Laboratory Results: 11/01/19 05:54 11/01/19 05:54 11/01/19 11/01/19 05:54 05:54 WBC 7.3 RBC 2.81 L Hgb 9.9 L Hct 26.8 L MCV 95 MCH 35.1 H MCHC 36.8 H RDW 18.4 H Plt Count 229 Seg Neutrophils % Not Reportable Retic Count (auto) 1.57 Sodium 129.5 L Potassium 3.8 Chloride 86 L Carbon Dioxide 29 Anion Gap 15 BUN 48 H Creatinine 3.37 H Est GFR ( Amer) 21 L Glucose 100 Calcium 9.0 Phosphorus 4.4 Magnesium 2.3 Iron 38.8 L TIBC 325 % Saturation 12 Ferritin 175.00 Vitamin B12 833.0 Folate > 20.00 10/30/19 10/31/19 10/31/19 10:44 05:51 05:51 Creatine Kinase 178 H CK-MB (CK-2) 3.14 Troponin I 0.014 NT-Pro-B Natriuret Pep 1120 H 1160 H Impressions: Chest CT 10/30/19 00:00 IMPRESSION: NO SIGNIFICANT FINDING ON NON-CONTRASTED CHEST CT. Renal Ultrasound 10/30/19 00:00 IMPRESSION: MILD INCREASED ECHOGENICITY OF THE RIGHT KIDNEY CONSISTENT WITH CHRONIC MEDICAL RENAL DISEASE. NO HYDRONEPHROSIS. LEFT KIDNEY IS POORLY VISUALIZED. THERE ARE 2 SIMPLE CYSTS PRESENT. Chest X-Ray 10/30/19 10:32 IMPRESSION: Stable lingular opacity for multiple priors, possibly prominent pericardial fat pad or scarring. No other evidence of acute intrathoracic process. Assessment & Plan - Diagnosis (1) Acute kidney injury superimposed on chronic kidney disease Is this a current diagnosis for this admission?: Yes Plan: Patient is nonoliguric. Likely due to multiple acute prerenal factors including NSAID use, CHF secondary to diastolic dysfunction, running out of furosemide, and needing to rule out through right renal artery stenosis. Duplex of renal arteries was done but pending interpretation. Protein electrophoresis and urine microalbumin to creatinine ratio are both pending. We need to achieve negative fluid balance every day so I will increase the Lasix to 40 mg IV every 8 hours. We will also insert a Ahmadi catheter for strict I/O. (2) Chronic kidney disease, stage 3 Is this a current diagnosis for this admission?: Yes Plan: Baseline creatinine around 1.6-1.8. 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 (3) Bilateral lower extremity edema Is this a current diagnosis for this admission?: Yes (4) CHF (congestive heart failure) Is this a current diagnosis for this admission?: Yes Plan: Echocardiogram showed LVEF of 50 to 55% with grade 2/4 mild to moderate diast olic dysfunction. Continue diuresis. GLENDY/ARB inhibitor to be held at this time but once the patient's kidney function is better I think we can restart his maintenance Lotensin or replace it with an ARB due to report of a dry cough. (5) Hyponatremia Is this a current diagnosis for this admission?: Yes Plan: Secondary to hypervolemic state due to CHF and worsening kidney disease. Diuresis should help this. (6) Anemia in chronic kidney disease (CKD) Is this a current diagnosis for this admission?: Yes Plan: We will give the patient Retacrit after giving iron. (7) Iron deficiency anemia Is this a current diagnosis for this admission?: Yes Plan: No obvious active bleeding. Patient will be given IV Venofer 500 mg IV x1 dose as ordered by Dr. Avila. He can probably start maintenance oral ferrous sulfate after this. (8) Falls Is this a current diagnosis for this admission?: Yes (9) Generalized weakness Is this a current diagnosis for this admission?: Yes Plan: Multifactorial due to above issues. (10) HTN (hypertension) Is this a current diagnosis for this admission?: Yes Plan: Acceptable control. (11) History of atrial fibrillation Is this a current diagnosis for this admission?: Yes Plan: Not on anticoagulation due to history of GI bleed. - Notes Notes: Discussed assessment and plan with Dr. Avila. Updated the patient and his at bedside. - Time Time with patient: 15-25 minutes
--- NOTE | 2019-11-01 13:06 | RADIOLOGY REPORT (SQ) ---
EXAM DESCRIPTION: U/S LTD DUPLEX ART/LAMONTE FLOW COMPLETED DATE/TIME: 11/01/2019 4:46 am REASON FOR STUDY: Hx ESTELLA, OLYA R06.02 SHORTNESS OF BREATH I12.9 HYPERTENSIVE CHRONIC KIDNEY DISEASE W STG 1-4/UNSP CHR COMPARISON: None. TECHNIQUE: Realtime and static grayscale images acquired. Selected color Doppler, velocities and spe ctral images recorded. LIMITATIONS: None. FINDINGS: RIGHT KIDNEY: RENAL ARTERY VELOCITIES: 198 cm/sec. Segmental artery velocity 87 cm/sec. RENAL VEIN: Color doppler flow present, patent. VELOCITY RATIO: 3.7. Spectral broadening. KIDNEY: Loss of normal corticomedullary differentiation. No significant pathology. LEFT KIDNEY: RENAL ARTERY VELOCITIES: 80 cm/sec. Segmental artery velocity 68 cm/sec. RENAL VEIN: Color doppler flow present, patent. VELOCITY RATIO: 1.5. Normal waveforms. KIDNEY: Loss of normal corticomedullary differentiation. Left renal cortical cysts. BLADDER: Not imaged. OTHER: No other significant finding. 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 No evidence of hemodynamically significant stenosis of the left renal artery. COMMENT: NORMAL RENAL ARTERY/AORTA VELOCITY RATIO IS LESS THAN OR EQUAL TO 3.5. TECHNICAL DOCUMENTATION: JOB ID: [id number] [employer]- All Rights Reserved Reading location - IP/workstation name: [email or web address]
--- NOTE | 2019-11-01 14:23 | PDOC PROGRESS REPORT ---
Subjective Progress Note for:: 11/01/19 Subjective:: Patient is a 84-year-old white male who presented for frequent falls, bilateral lower extremity edema, acute renal failure, CHF exacerbation. 10/31: Patient states he is feeling a bit better today still having some fatigue. Lower extremities are still edematous. Perhaps less than previous days. Denies shortness of breath or chest pain. Tolerating diet moving bladder/bowels per patient. Discussed findings thus far and plan going forward in detail with patient and family at bedside. 11/01: Patient seems to be doing better today. Seems less short of breath and is not complaining of as much dyspnea. He is still extremely weak/tired. He is having some urine output since starting diuretic. Reason For Visit: FALLS Physical Exam Vital Signs: Temp Pulse Resp BP Pulse Ox 98.1 F 60 18 128/68 H 96 11/01/19 12:10 11/01/19 12:10 11/01/19 12:10 11/01/19 12:10 11/01/19 12:10 Intake & Output 10/31/19 11/01/19 11/02/19 06:59 06:59 06:59 Intake Total 630 1605 995 Output Total 1325 1370 300 Balance -695 235 695 Weight 99.4 kg 97.8 kg General appearance: PRESENT: no acute distress, well-developed, well-nourished Head exam: PRESENT: atraumatic, normocephalic Eye exam: PRESENT: conjunctiva pink Respiratory exam: PRESENT: crackles, unlabored - mild. ABSENT: wheezes Cardiovascular exam: PRESENT: RRR. ABSENT: diastolic murmur, rubs, systolic murmur GI/Abdominal exam: PRESENT: normal bowel sounds, soft. ABSENT: distended, guarding, mass, organolmegaly, rebound, tenderness Extremities exam: PRESENT: pedal edema, +2 edema Neurological exam: PRESENT: alert, awake, oriented to person, oriented to place, oriented to time, oriented to situation Psychiatric exam: PRESENT: appropriate affect, normal mood Skin exam: PRESENT: intact, normal color, warm Results Laboratory Results: 11/01/19 05:54 11/01/19 05:54 11/01/19 11/01/19 05:54 05:54 WBC 7.3 RBC 2.81 L Hgb 9.9 L Hct 26.8 L MCV 95 MCH 35.1 H MCHC 36.8 H RDW 18.4 H Plt Count 229 Seg Neutrophils % Not Reportable Retic Count (auto) 1.57 Sodium 129.5 L Potassium 3.8 Chloride 86 L Carbon Dioxide 29 Anion Gap 15 BUN 48 H Creatinine 3.37 H Est GFR ( Amer) 21 L Glucose 100 Calcium 9.0 Phosphorus 4.4 Magnesium 2.3 Iron 38.8 L TIBC 325 % Saturation 12 Ferritin 175.00 Vitamin B12 833.0 Folate > 20.00 10/30/19 10/31/19 10/31/19 10:44 05:51 05:51 Creatine Kinase 178 H CK-MB (CK-2) 3.14 Troponin I 0.014 NT-Pro-B Natriuret Pep 1120 H 1160 H Impressions: Chest CT 10/30/19 00:00 IMPRESSION: NO SIGNIFICANT FINDING ON NON-CONTRASTED CHEST CT. Renal Ultrasound 10/30/19 00:00 IMPRESSION: MILD INCREASED ECHOGENICITY OF THE RIGHT KIDNEY CONSISTENT WITH CHRONIC MEDICAL RENAL DISEASE. NO HYDRONEPHROSIS. LEFT KIDNEY IS POORLY VISUALIZED. THERE ARE 2 SIMPLE CYSTS PRESENT. Chest X-Ray 10/30/19 10:32 IMPRESSION: Stable lingular opacity for multiple priors, possibly prominent pericardial fat pad or scarring. No other evidence of acute intrathoracic process. 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 No evidence of hemodynamically significant stenosis of the left renal artery. Assessment and Plan - Diagnosis (1) Acute exacerbation of congestive heart failure Qualifiers: Heart failure type: diastolic Qualified Code(s): I50.33 - Acute on chronic diastolic (congestive) heart failure Is this a current diagnosis for this admission?: Yes Plan: 10/31:Reviewed echocardiogram which showed moderate diastolic dysfunction. EF within normal limits. No significant valvular pathology noted. Continue diuresis with IV Lasix. Echocardiogram reviewed Will need outpatient cardiology follow-up Avoid IV fluids Diuresis with IV Lasix dose increased per nephrology (2) Acute kidney injury superimposed on chronic kidney disease Is this a current diagnosis for this admission?: Yes Plan: 10/31: Consulted nephrology today and discussed the case with them in detail. D oubt this is nephrotic/nephritic syndrome as UA did not show protein. [employer] as previously ordered work-up for myeloma per her note. Most likely this is cardiorenal syndrome given the hyponatremia and bilateral lower extremity edema in the setting of elevated BNP and clear diastolic CHF on echo. Continue diuresis with Lasix IV. Might consider SIADH if patient becomes euvolemic and still remains hyponatremic. Baseline creatinine approximately 1.8 per vendor management specialist, discussed the case with her in detail Trend BMP Suspect cardiorenal etiology (3) Anemia in chronic kidney disease (CKD) Is this a current diagnosis for this admission?: Yes (4) Bilateral lower extremity edema Is this a current diagnosis for this admission?: Yes (5) CHF (congestive heart failure) Is this a current diagnosis for this admission?: Yes (6) Falls Is this a current diagnosis for this admission?: Yes (7) Generalized weakness Is this a current diagnosis for this admission?: Yes (8) HTN (hypertension) Is this a current diagnosis for this admission?: Yes (9) Hyponatremia Is this a current diagnosis for this admission?: Yes (10) Obesity (BMI 30-39.9) Is this a current diagnosis for this admission?: No (11) Chronic lower GI bleeding Is this a current diagnosis for this admission?: Yes (12) History of atrial fibrillation Is this a current diagnosis for this admission?: Yes (13) Chronic kidney disease, stage 3 Is this a current diagnosis for this admission?: Yes Plan: -Followed by nephrology outpatient, consulted here (14) Iron deficiency anemia Is this a current diagnosis for this admission?: Yes Plan: Low iron, low iron saturation, ferritin less than 200 Given IV Venofer Needs follow-up with GI outpatient for further scopes to rule out persistent chronic slow bleeding; he does have other reasons to be anemic including severe renal failure (15) CAROLYN (obstructive sleep apnea) Is this a current diagnosis for this admission?: Yes Plan: Has been diagnosed with CAROLYN in the past but simply decided to stop using his CPAP and his insurance company took it back Needs follow-up with sleep medicine outpatient and he needs to get a new CPAP CPAP ordered nightly here - Time Time Spent with patient: 15-24 minutes - Inpatient Certification Medical Necessity: Significant Comorbidiites Make Outpatient Treatment Too Risky
[2019-11-01] MEDS: TRAZODONE HCL 50 MG TABLET PO SCH (22:13)
[2019-11-01] MEDS: AMIODARONE HCL 200 MG TABLET PO SCH (22:14)
[2019-11-01] MEDS: DILTIAZEM HCL 240 MG CAPSULE.CR PO SCH (22:14)
[2019-11-02] MEDS: PANTOPRAZOLE SODIUM 20 MG TABLET.DR PO SCH (05:39)
[2019-11-02] MEDS: FUROSEMIDE INJ/PF 40 MG/4 ML SDV IV SCH ×2 (05:39→15:15)
[2019-11-02] MEDS: HEPARIN SOD (PORCINE) 5,000 UNIT/ML 1 ML VIAL SUBCUT SCH ×2 (05:39→15:16)
[2019-11-02 09:38] LABS: APPEARANCE,URINE CLOUDY; BILIRUBIN,URINE NEGATIVE (NEGATIVE); CALCIUM OXALATE CRYSTALS,URINE RARE /HPF; COLOR,URINE RED; GLUCOSE, URINE NEGATIVE (NEGATIVE); KETONES,URINE NEGATIVE (NEGATIVE); PROTEIN,URINE 100 mg/dL (NEGATIVE); URINE SPECIFIC GRAVITY 1.011; UROBILINOGEN,URINE NEGATIVE mg/dL (<2.0)
[2019-11-02 09:40] LABS: URIC ACID CRYSTALS,URINE FEW /HPF
[2019-11-02 09:41] LABS: TRIPLE PHOSPHATE CRYSTAL,URINE MODERATE /HPF
[2019-11-02] MEDS: POLYETHYLENE GLYCOL 3350 POWDER 17 GM/1 PACKET PO SCH (09:43)
[2019-11-02] MEDS: MULTIVITAMIN TABLET PO SCH (09:43)
[2019-11-02 09:57] LABS: HEMATOCRIT 25.1 % (37.9-51.0); HEMOGLOBIN 8.8 g/dL (13.5-17.0); MEAN CORPUSCULAR HEMOGLOBIN 33.8 pg (27.0-33.4); MEAN CORPUSCULAR HGB CONC 35.1 g/dL (32.0-36.0); MEAN CORPUSCULAR VOLUME 96 fl (80-97); PLATELET COUNT 210 10^3/uL (150-450); RED BLOOD COUNT 2.61 10^6/uL (4.35-5.55); RED CELL DISTRIBUTION WIDTH 18.5 % (11.5-14.0); WHITE BLOOD COUNT 11.7 10^3/uL (4.0-10.5)
[2019-11-02 10:25] LABS: ABSOLUTE LYMPHOCYTES# (MANUAL) 1.8 10^3/uL (0.5-4.7); ABSOLUTE MONOCYTES # (MANUAL) 3.2 10^3/uL (0.1-1.4); BASOPHILS % (MANUAL) 0 % (0-2); EOSINOPHILS % (MANUAL) 0 % (0-6); LYMPHOCYTES % (MANUAL) 15 % (13-45); MONOCYTES % (MANUAL) 27 % (3-13); SEGMENTED NEUTROPHILS % (MAN) 58 % (42-78); TOTAL CELLS COUNTED 100
[2019-11-02 10:26] LABS: ANION GAP 13 (5-19); BLOOD UREA NITROGEN 57 mg/dL (7-20); CALCIUM 8.6 mg/dL (8.4-10.2); CARBON DIOXIDE 30 mmol/L (22-30); CHLORIDE 85 mmol/L (98-107); GLUCOSE 141 mg/dL (75-110); POTASSIUM 3.4 mmol/L (3.6-5.0)
[2019-11-02 10:31] LABS: ANISOCYTOSIS 2+; PLATELET COMMENT ADEQUATE; POLYCHROMASIA SLIGHT
--- NOTE | 2019-11-02 11:22 | PDOC PROGRESS REPORT ---
Subjective Progress Note for:: 11/02/19 Subjective:: Patient seems to be comfortable, sitting down and eating his breakfast when I entered the room. He said he slept good with a CPAP on. He still has mild shortness of breath and is not better nor worse. Ahmadi catheter was inserted yesterday and his urine output is only about 1300 mL that was recorded. According to his nurse the initial urine was clear and yellow but this morning it is blood-tinged with some sediments. Patient denies of pulling the catheter. He continues to have decreased appetite but he tries to eat and he drinks Ensure. His duplex of renal arteries showed a hemodynamically significant proximal right renal artery stenosis and none on the left renal artery. He has history of left renal artery stent placement in 2017 which he thinks was done at the same time that his abdominal aortic aneurysm was repaired. He follows up with vascular surgeon at [facility] in [place]. Reason For Visit: FALLS Physical Exam Vital Signs: Temp Pulse Resp BP Pulse Ox 97.9 F 70 16 143/63 H 95 11/02/19 08:34 11/02/19 08:34 11/02/19 08:34 11/02/19 08:34 11/02/19 08:34 Intake & Output 11/01/19 11/02/19 11/03/19 06:59 06:59 06:59 Intake Total 1605 1905 Output Total 1370 1300 Balance 235 605 Weight 97.8 kg 99.7 kg Exam: General appearance: PRESENT: no acute distress, cooperative, well-developed, well-nourished Head exam: PRESENT: atraumatic, normocephalic Eye exam: PRESENT: conjunctiva pale, PERRLA. ABSENT: scleral icterus Neck exam: ABSENT: JVD Respiratory exam: PRESENT: Normal breath sounds. ABSENT: crackles, rales, rhonchi, unlabored, wheezes Cardiovascular exam: PRESENT: Regular rate rhythm -+S1, +S2. ABSENT: diastolic murmur, systolic murmur GI/Abdominal exam: PRESENT: normal bowel sounds, soft. ABSENT: guarding, mass, tenderness Extremities exam: Grade 1 bilateral lower extremity pitting edema Neurological exam: PRESENT: alert, awake, oriented to person, place and time. Skin exam: PRESENT: dry, warm, mild generalized pallor Results Laboratory Results: 11/01/19 05:54 11/01/19 05:54 10/30/19 10/31/19 10/31/19 10:44 05:51 05:51 Creatine Kinase 178 H CK-MB (CK-2) 3.14 Troponin I 0.014 NT-Pro-B Natriuret Pep 1120 H 1160 H Impressions: Chest CT 10/30/19 00:00 IMPRESSION: NO SIGNIFICANT FINDING ON NON-CONTRASTED CHEST CT. Renal Ultrasound 10/30/19 00:00 IMPRESSION: MILD INCREASED ECHOGENICITY OF THE RIGHT KIDNEY CONSISTENT WITH CHRONIC MEDICAL RENAL DISEASE. NO HYDRONEPHROSIS. LEFT KIDNEY IS POORLY VISUALIZED. THERE ARE 2 SIMPLE CYSTS PRESENT. Chest X-Ray 10/30/19 10:32 IMPRESSION: Stable lingular opacity for multiple priors, possibly prominent pericardial fat pad or scarring. No other evidence of acute intrathoracic process. 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 No evidence of hemodynamically significant stenosis of the left renal artery. Assessment & Plan - Diagnosis (1) Acute kidney injury superimposed on chronic kidney disease Is this a current diagnosis for this admission?: Yes Plan: Patient is nonoliguric. Likely due to multiple acute prerenal factors including possible acute right proximal renal artery stenosis per duplex ultrasound done here, NSAID use, CHF secondary to diastolic dysfunction, and running out of furosemide. Patient has no microhematuria no microalbuminuria on initial urine. Doubt any acute glomerulonephritis. Protein electrophoresis and urine microalbumin to creatinine ratio are both pending. I increase his Lasix to 40 mg IV every 8 hours yesterday with the hope of increasing his urine output and more diuresis but that did not happen. There is a high likelihood that the right proximal renal artery stenosis is acute and possibly causing his acute kidney injury. If that is the case I think we need to do intervention to relieve the acute kidney injury. Explained to the patient that there is a risk for contrast nephropathy and doing the procedure to fix the renal artery stenosis but if we do not fix it his kidney function might continue to get worse and he might require dialysis and will never fix the causative problem. Unfortunately we do not have the capacity to do renal arteriogram, angioplasty or stent placement if needed in this facility. I spoke to Dr. Avila regarding the case and the need for transfer to another facility who can take care of the problem. Patient prefers to go to [place]. His vascular surgeon is also there in that facility. I also happened to talk to my partner property investor in [facility], Dr. Hewitt and discussed the case as well. If patient gets admitted at [facility] Dr. Hewitt will look out for the patient. (2) Chronic kidney disease, stage 3 Is this a current diagnosis for this admission?: Yes Plan: Baseline creatinine around 1.6-1.8. 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 Patient has history of left renal artery stenosis with stent placement. Currently that kidney is atrophic and probably not contributing much to overall kidney function. (3) Bilateral lower extremity edema Is this a current diagnosis for this admission?: Yes (4) CHF (congestive heart failure) Is this a current diagnosis for this admission?: Yes Plan: Echocardiogram showed LVEF of 50 to 55% with grade 2/4 mild to moderate diastolic dysfunction. Continue diuresis. GLENDY/ARB inhibitor to be held at this time especially with a new finding of acute proximal right renal artery stenosis with known left atrophic kidney. (5) Hyponatremia Is this a current diagnosis for this admission?: Yes Plan: Secondary to hypervolemic state due to CHF and worsening kidney disease. Diuresis should help this. (6) Anemia in chronic kidney disease (CKD) Is this a current diagnosis for this admission?: Yes Plan: We will give the patient Retacrit after giving iron. (7) Iron deficiency anemia Is this a current diagnosis for this admission?: Yes Plan: No obvious active bleeding. Patient received IV Venofer 500 mg IV x1 dose yesterday as ordered by Dr. Avila. He can probably start maintenance oral ferrous sulfate after this. (8) Hematuria Is this a current diagnosis for this admission?: Yes Plan: Since the initial urine was clear and yellow I think this could be traumatic. Urinalysis also has some white cells but will wait for urine culture before treating that as an infection. (9) Falls Is this a current diagnosis for this admission?: Yes (10) Generalized weakness Is this a current diagnosis for this admission?: Yes Plan: Multifactorial due to above issues. (11) HTN (hypertension) Is this a current diagnosis for this admission?: Yes Plan: Acceptable control. (12) History of atrial fibrillation Is this a current diagnosis for this admission?: Yes Plan: Not on anticoagulation due to history of GI bleed. (13) Sleep apnea Is this a current diagnosis for this admission?: Yes Plan: Comfortable on CPAP. - Notes Notes: Patient agreed to be transferred preferably to [facility] in [place] if needed. Discussed the case with Dr. Avila who agrees that her again I have to transfer the patient for further intervention and management. - Time Time with patient: Greater than 35 minutes
[2019-11-02] MEDS ORDERED: POTASSIUM CHLORIDE 10 MEQ TABLET.ER PO ONE ×2 (11:24→15:04)
[2019-11-02] MEDS ORDERED: EPOETIN ALFA-EPBX 20,000 UNITS (NON-ESRD) in SYRINGE SUBCUT ONE (12:30)
[2019-11-02] MEDS ORDERED: EPOETIN ALFA-EPBX 10,000 UNIT/ML VIAL (RENAL) SUBCUT ONE (12:30)
[2019-11-02 13:37] LABS: CREATININE URINE 73.7 mg/dL (Not Estab.); MICROALBUMIN URINE 26.5 ug/mL (Not Estab.)
--- NOTE | 2019-11-02 14:57 | PDOC TRANSFER SUMMARY ---
General Admission Date/PCP: 10/30/19 12:28 Resuscitation Status: Full Code - Transfer Diagnosis (1) Acute exacerbation of congestive heart failure Is this a current diagnosis for this admission?: Yes (2) Acute kidney injury superimposed on chronic kidney disease Is this a current diagnosis for this admission?: Yes (3) Anemia in chronic kidney disease (CKD) Is this a current diagnosis for this admission?: Yes (4) Bilateral lower extremity edema Is this a current diagnosis for this admission?: Yes (5) CHF (congestive heart failure) Is this a current diagnosis for this admission?: Yes (6) Falls Is this a current diagnosis for this admission?: Yes (7) Generalized weakness Is this a current diagnosis for this admission?: Yes (8) HTN (hypertension) Is this a current diagnosis for this admission?: Yes (9) Hyponatremia Is this a current diagnosis for this admission?: Yes (10) Obesity (BMI 30-39.9) Is this a current diagnosis for this admission?: No (11) Chronic lower GI bleeding Is this a current diagnosis for this admission?: Yes (12) History of atrial fibrillation Is this a current diagnosis for this admission?: Yes (13) Chronic kidney disease, stage 3 Is this a current diagnosis for this admission?: Yes (14) Iron deficiency anemia Is this a current diagnosis for this admission?: Yes (15) CAROLYN (obstructive sleep apnea) Is this a current diagnosis for this admission?: Yes - Transfer Medications Home Medications: Amiodarone HCl [Cordarone 200 mg Tablet] 200 mg PO QPM 01/03/19 Benazepril/Hydrochlorothiazide [Lotensin Hct 20-12.5 mg Tablet] 1 tab PO DAILY 01/03/19 Diltiazem HCl [Diltiazem 24Hr ER] 240 mg PO QPM 01/03/19 Lorazepam [Ativan 1 mg Tablet] 1 mg PO DAILY 01/03/19 Multivit-Minerals/FA/Lycopene [One Daily Men's Health Tablet] 1 tab PO DAILY 01/03/19 Polyethylene Glycol 3350 [Miralax Powder 17 gm/Packet] 1 packet PO DAILY 01/03/19 Tramadol HCl [Ultram 50 mg Tablet] 50 mg PO BIDP PRN 01/03/19 Trazodone HCl [Desyrel 50 mg Tablet] 50 mg PO QHS 01/03/19 Transfer Medications: Current Medications Amiodarone HCl (Cordarone 200 Mg Tablet) 200 mg PO QHS EDNA Stop: 11/29/19 21:59 Last Admin: 11/01/19 22:14 Dose: 200 mg Documented by: Diltiazem HCl (Cardizem Cd 240 Mg Capsule.Cr) 240 mg PO QHS EDNA Stop: 11/29/19 21:59 Last Admin: 11/01/19 22:14 Dose: 240 mg Documented by: Furosemide (Lasix Inj/Pf 40 Mg/4 Ml Sdv) 40 mg IV Q8 EDNA Stop: 12/01/19 13:59 Last Admin: 11/02/19 05:39 Dose: 40 mg Documented by: Heparin Sodium (Porcine) (Heparin Inj 5,000 Units/Ml 1 Ml Vial) 5,000 unit SUBCUT Q8 EDNA Stop: 11/29/19 13:59 Last Admin: 11/02/19 05:39 Dose: 5,000 unit Documented by: Levalbuterol HCl (Xopenex Neb 0.63 Mg/3 Ml Ampul) 0.63 mg NEB RTQ4HP PRN PRN Reason: FOR WHEEZING Stop: 11/29/19 12:42 Last Admin: 11/02/19 10:33 Dose: 0.63 mg Documented by: Lorazepam (Ativan 1 Mg Tablet) 1 mg PO Q12HP PRN PRN Reason: ANXIETY Stop: 11/07/19 09:26 Multivitamins (Tab-A-Annabella (Multiple Vitamin) Tablet) 1 tab PO DAILY EDNA Stop: 11/30/19 09:59 Last Admin: 11/02/19 09:43 Dose: 1 tab Documented by: Pantoprazole Sodium (Protonix [address] Tablet) 20 mg PO Q6AM EDNA Stop: 11/30/19 05:59 Last Admin: 11/02/19 05:39 Dose: 20 mg Documented by: Polyethylene Glycol (Miralax Powder 17 Gm/Packet) 17 gm PO DAILY EDNA Stop: 11/30/19 09:59 Last Admin: 11/02/19 09:43 Dose: 17 gm Documented by: Sodium Chloride (Saline Flush 2.5 Ml Monoject Prefil Syrin) 2.5 ml IV Q8 EDNA Stop: 11/29/19 13:59 Last Admin: 11/02/19 08:35 Dose: Not Given Documented by: Trazodone HCl (Desyrel 50 Mg Tablet) 50 mg PO QHS EDNA Stop: 11/29/19 21:59 Last Admin: 11/01/19 22:13 Dose: 50 mg Documented by: - Allergies Allergies/Adverse Reactions: amoxicillin [Amoxicillin] Allergy (Verified 01/10/19 08:48) ITCHING, HIVES - Diet/Activity Discharge Diet: Cardiac Discharge Activity: Bedrest Hospital Course Hospital Course: Patient is a 84-year-old white male who presents to ED for frequent falls, bilateral lower extremity edema, acute renal failure, CHF exacerbation. Respiratory failure was treated with diuresis and elevated creatinine above his baseline of 1.8 presumed to be cardiorenal, however this did not improve despite aggressive diuresis and his urine output was not adequate given the dosage of Lasix that was given. Renal PVL was ordered by nephrology was consulted and his PVL showed patient has severe renal artery stenosis on the right, previously had this on the left as well and that kidney had atrophied. Commercial Loan Administrator here is concerned that patient will continue to lose kidney function if renal artery stenosis is not addressed, placing him at very high likelihood he will need dialysis in the near future. Overall, patient is hemodynamically stable for transfer and his respiratory status has improved since admission. Creatinine continues to be elevated without signs of improvement over several days. Patient is agreeable to transfer. Discussed the transfer with accepting physician Sahil Gillespie who is agreed to accept patient onto the hospitalist service. Also discussed the case with Dr. Chavez and vascular surgery has agreed to consult when patient arrives. Physical Exam Vital Signs: Temp Pulse Resp BP Pulse Ox 97.9 F 61 18 143/63 H 94 11/02/19 08:34 11/02/19 10:33 11/02/19 10:33 11/02/19 08:34 11/02/19 10:33 Intake & Output 11/01/19 11/02/19 11/03/19 06:59 06:59 06:59 Intake Total 1605 1905 Output Total 1370 1300 275 Balance 235 605 -275 Weight 97.8 kg 99.7 kg General appearance: PRESENT: no acute distress, well-developed, well-nourished Head exam: PRESENT: atraumatic, normocephalic Eye exam: PRESENT: conjunctiva pink Respiratory exam: PRESENT: clear to auscultation eduardo. ABSENT: rales, rhonchi, wheezes Cardiovascular exam: PRESENT: RRR. ABSENT: diastolic murmur, rubs, systolic murmur GI/Abdominal exam: PRESENT: normal bowel sounds, soft. ABSENT: distended, guarding, mass, organolmegaly, rebound, tenderness Extremities exam: PRESENT: pedal edema Neurological exam: PRESENT: alert, awake, oriented to person, oriented to place, oriented to time, oriented to situation Psychiatric exam: PRESENT: appropriate affect, normal mood Skin exam: PRESENT: dry, intact, warm Results Laboratory Results: 11/02/19 09:38 11/02/19 09:38 11/02/19 11/02/19 11/02/19 09:15 09:38 09:38 WBC 11.7 H RBC 2.61 L Hgb 8.8 L Hct 25.1 L MCV 96 MCH 33.8 H MCHC 35.1 RDW 18.5 H Plt Count 210 Seg Neutrophils % Not Reportable Sodium 128.3 L Potassium 3.4 L Chloride 85 L Carbon Dioxide 30 Anion Gap 13 BUN 57 H Creatinine 3.96 H Est GFR ( Amer) 18 L Glucose 141 H Calcium 8.6 Urine Color RED Urine Appearance CLOUDY Urine pH 8.0 Ur Specific [place] 1.011 Urine Protein 100 H Urine Glucose (UA) NEGATIVE Urine Ketones NEGATIVE Urine Blood LARGE H Urine RBC (Auto) >182 10/30/19 10/31/19 10/31/19 10:44 05:51 05:51 Creatine Kinase 178 H CK-MB (CK-2) 3.14 Troponin I 0.014 NT-Pro-B Natriuret Pep 1120 H 1160 H Impressions: Chest CT 10/30/19 00:00 IMPRESSION: NO SIGNIFICANT FINDING ON NON-CONTRASTED CHEST CT. Renal Ultrasound 10/30/19 00:00 IMPRESSION: MILD INCREASED ECHOGENICITY OF THE RIGHT KIDNEY CONSISTENT WITH CHRONIC MEDICAL RENAL DISEASE. NO HYDRONEPHROSIS. LEFT KIDNEY IS POORLY VISUALIZED. THERE ARE 2 SIMPLE CYSTS PRESENT. Chest X-Ray 10/30/19 10:32 IMPRESSION: Stable lingular opacity for multiple priors, possibly prominent pericardial fat pad or scarring. No other evidence of acute intrathoracic process. 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 No evidence of hemodynamically significant stenosis of the left renal artery. Plan Discharge Plan: Transfer to [facility] for further work-up/treatment of severe renal artery stenosis and acute kidney injury.
[2019-11-02 16:04] VITALS: BP 143/44
[2019-11-03 14:37] LABS: ALBUMIN 3 3.3 g/dL (2.9-4.4); ALPHA-1-GLOBULIN 0.2 g/dL (0.0-0.4); BETA GLOBULIN 0.8 g/dL (0.7-1.3); GAMMA GLOBULINS 1.6 g/dL (0.4-1.8); IMMUNOGLOBULIN A 257 mg/dL (61-437); IMMUNOGLOBULIN G 1550 mg/dL (700-1600); IMMUNOGLOBULIN M 160 mg/dL (15-143); MONOCLONAL-SPIKE Not Observed g/dL (Not Observ); PROTEIN TOTAL SERUM 6.7 g/dL (6.0-8.5)
== END 2019-11-02 17:48 | disposition short-term general hospital (02) | DRG 698 ==
LOC: ER 10:06 → EH 12:28 → OBSVTOIN 12:28 → 3S 14:38
PROVIDERS: ADMIT Internal Medicine; ATTEND Internal Medicine
DX: I70.1 Atherosclerosis of renal artery (principal); I50.33 Acute on chronic diastolic (congestive) heart failure; N17.9 Acute kidney failure, unspecified; I13.0 Hypertensive heart and chronic kidney disease with heart failure and stage 1 through stage 4 chronic kidney disease, or unspecified chronic kidney disease; K92.2 Gastrointestinal hemorrhage, unspecified; E87.1 Hypo-osmolality and hyponatremia; D63.1 Anemia in chronic kidney disease; N18.3 Chronic kidney disease, stage 3 (moderate); I48.91 Unspecified atrial fibrillation; D50.9 Iron deficiency anemia, unspecified; G47.33 Obstructive sleep apnea (adult) (pediatric); I25.10 Atherosclerotic heart disease of native coronary artery without angina pectoris; M19.90 Unspecified osteoarthritis, unspecified site; N26.1 Atrophy of kidney (terminal); E78.5 Hyperlipidemia, unspecified; I73.9 Peripheral vascular disease, unspecified; K21.9 Gastro-esophageal reflux disease without esophagitis; F32.9 Major depressive disorder, single episode, unspecified; F41.1 Generalized anxiety disorder; Z96.643 Presence of artificial hip joint, bilateral; E66.01 Morbid (severe) obesity due to excess calories; R53.1 Weakness; R29.6 Repeated falls; Z88.0 Allergy status to penicillin; Z95.820 Peripheral vascular angioplasty status with implants and grafts; Z68.39 Body mass index [BMI] 39.0-39.9, adult; Q27.33 Arteriovenous malformation of digestive system vessel; Z87.891 Personal history of nicotine dependence; Z82.49 Family history of ischemic heart disease and other diseases of the circulatory system
CPT/HCPCS: 36415; 71046; 71250; 76775; 80048; 80053; 81001; 82043; 82550; 82553; 82570; 82607; 82728; 82746; 83036; 83540; 83550; 83735; 83880; 84100; 84484; 85025; 85045; 86320; 87086; 87088; 87186; 93005; 93010; 93306; 93976; 94660; 99285; J1644; J1756; J1940; J3490; J7050; J7614; Q5106

== ENCOUNTER → 2019-11-07 | Outpatient (CLI) | payer MEDICARE, OTHER ==
[2019-11-07 11:23] LABS: HEMATOCRIT 30.6 % (37.9-51.0); HEMOGLOBIN 10.9 g/dL (13.5-17.0); MEAN CORPUSCULAR HEMOGLOBIN 34.8 pg (27.0-33.4); MEAN CORPUSCULAR HGB CONC 35.6 g/dL (32.0-36.0); MEAN CORPUSCULAR VOLUME 98 fl (80-97); PLATELET COUNT 356 10^3/uL (150-450); RED BLOOD COUNT 3.12 10^6/uL (4.35-5.55); WHITE BLOOD COUNT 7.2 10^3/uL (4.0-10.5)
[2019-11-07 11:56] LABS: ANION GAP 15 (5-19); BLOOD UREA NITROGEN 77 mg/dL (7-20); CARBON DIOXIDE 32 mmol/L (22-30); CHLORIDE 90 mmol/L (98-107); GLUCOSE 82 mg/dL (75-110); PHOSPHORUS 4.4 mg/dL (2.5-4.5); POTASSIUM 3.8 mmol/L (3.6-5.0)
[2019-11-07 12:43] LABS: ABSOLUTE LYMPHOCYTES# (MANUAL) 2.2 10^3/uL (0.5-4.7); ABSOLUTE MONOCYTES # (MANUAL) 4.3 10^3/uL (0.1-1.4); ANISOCYTOSIS 2+; BAND NEUTROPHILS % (MANUAL) 1 % (3-5); BASOPHILS % (MANUAL) 1 % (0-2); EOSINOPHILS % (MANUAL) 0 % (0-6); LYMPHOCYTES % (MANUAL) 31 % (13-45); MONOCYTES % (MANUAL) 60 % (3-13); PLATELET COMMENT ADEQUATE; POLYCHROMASIA SLIGHT; SEGMENTED NEUTROPHILS % (MAN) 7 % (42-78); TOTAL CELLS COUNTED 100
== END ==
LOC: OD 09:56
PROVIDERS: ATTEND Internal Medicine Nephrology
DX: I12.9 Hypertensive chronic kidney disease with stage 1 through stage 4 chronic kidney disease, or unspecified chronic kidney disease (principal); N18.3 Chronic kidney disease, stage 3 (moderate); D63.1 Anemia in chronic kidney disease
CPT/HCPCS: 36415; 80048; 83735; 84100; 85025

== ENCOUNTER → 2019-11-15 | Outpatient (CLI) | payer MEDICARE, OTHER ==
[2019-11-15 10:16] LABS: HEMATOCRIT 32.5 % (37.9-51.0); HEMOGLOBIN 11.3 g/dL (13.5-17.0); MEAN CORPUSCULAR HGB CONC 34.8 g/dL (32.0-36.0); MEAN CORPUSCULAR VOLUME 98 fl (80-97); PLATELET COUNT 301 10^3/uL (150-450); RED BLOOD COUNT 3.33 10^6/uL (4.35-5.55); RED CELL DISTRIBUTION WIDTH 18.1 % (11.5-14.0); WHITE BLOOD COUNT 4.4 10^3/uL (4.0-10.5)
[2019-11-15 10:39] LABS: ANION GAP 13 (5-19); BLOOD UREA NITROGEN 77 mg/dL (7-20); CALCIUM 9.6 mg/dL (8.4-10.2); CARBON DIOXIDE 33 mmol/L (22-30); CHLORIDE 93 mmol/L (98-107); GLUCOSE 101 mg/dL (75-110)
[2019-11-15 10:59] LABS: ABSOLUTE LYMPHOCYTES# (MANUAL) 1.4 10^3/uL (0.5-4.7); ABSOLUTE MONOCYTES # (MANUAL) 1.6 10^3/uL (0.1-1.4); ANISOCYTOSIS 2+; BASOPHILS % (MANUAL) 0 % (0-2); EOSINOPHILS % (MANUAL) 0 % (0-6); LYMPHOCYTES % (MANUAL) 31 % (13-45); MONOCYTES % (MANUAL) 37 % (3-13); PLATELET COMMENT ADEQUATE; SEGMENTED NEUTROPHILS % (MAN) 32 % (42-78); TOTAL CELLS COUNTED 100
== END ==
LOC: OD 09:43
PROVIDERS: ATTEND Internal Medicine Nephrology
DX: I12.9 Hypertensive chronic kidney disease with stage 1 through stage 4 chronic kidney disease, or unspecified chronic kidney disease (principal); N18.4 Chronic kidney disease, stage 4 (severe); N17.9 Acute kidney failure, unspecified
CPT/HCPCS: 36415; 80048; 85025

== ENCOUNTER → 2019-11-29 | Outpatient (CLI) | payer MEDICARE, OTHER ==
[2019-11-29 11:07] LABS: ANION GAP 13 (5-19); BLOOD UREA NITROGEN 70 mg/dL (7-20); CALCIUM 8.9 mg/dL (8.4-10.2); CARBON DIOXIDE 28 mmol/L (22-30); CHLORIDE 95 mmol/L (98-107); GLUCOSE 112 mg/dL (75-110); POTASSIUM 3.9 mmol/L (3.6-5.0)
== END ==
LOC: OD 09:58
PROVIDERS: ATTEND Internal Medicine Nephrology
DX: N17.9 Acute kidney failure, unspecified (principal); I12.9 Hypertensive chronic kidney disease with stage 1 through stage 4 chronic kidney disease, or unspecified chronic kidney disease; N18.3 Chronic kidney disease, stage 3 (moderate); D63.1 Anemia in chronic kidney disease
CPT/HCPCS: 36415; 80048; 83735

== ENCOUNTER 2019-12-25 12:24 | Emergency (ER) | payer MEDICARE, OTHER ==
--- NOTE | 2019-12-25 13:02 | ER Document Report ---
ED Medical Screen (RME) - General Chief Complaint: Leg Swelling Stated Complaint: LEFT FOOT PAIN, SWELLING Time Seen by Provider: 12/25/19 12:47 Primary Care Provider: LEONARDO HERNANDEZ MD [Primary Care Provider] - Follow up as needed Notes: Patient is an 84-year-old male who presents to the emergency department with a chief complaint of left medial foot pain. Patient states that his symptoms started last night. He denies any injury. States that he noticed some swelling that started yesterday. Patient also tripped over a doorway around noon today and fell and hurt his right hip and lower back. Patient normally uses a walker. Patient called his primary care provider and was referred to the emergency department. Exam: Edema noted to left lower leg, left greater than right. Erythema noted to the left medial foot. I have greeted and performed a rapid initial assessment of this patient. A comprehensive ED assessment and evaluation of the patient, analysis of test results and completion of medical decision making process will be conducted by an additional ED providers. TRAVEL OUTSIDE OF THE [place] IN LAST 30 DAYS: No - Related Data Allergies/Adverse Reactions: amoxicillin [Amoxicillin] Allergy (Verified 01/10/19 08:48) ITCHING, HIVES Past Medical History - Past Medical History Cardiac Medical History: Reports: Hx Atrial Fibrillation, Hx Coronary Artery Disease, Hx Hypercholesterolemia, Hx Hypertension, Hx Peripheral Vascular Disease - Right iliac artery stenosis, unsure where Denies: Hx Heart Attack Pulmonary Medical History: Denies: Hx Asthma, Hx Bronchitis, Hx COPD, Hx Pneumonia Neurological Medical History: Denies: Hx Cerebrovascular Accident, Hx Seizures Renal/ Medical History: Denies: Hx Peritoneal Dialysis GI Medical History: Reports: Hx Gastroesophageal Reflux Disease. Denies: Hx Hepatitis, Hx Hiatal Hernia, Hx Ulcer Musculoskeltal Medical History: Reports Hx Arthritis Psychiatric Medical History: Reports: Hx Depression Infectious Medical History: Denies: Hx Hepatitis Past Surgical History: Reports: Hx Abdominal Surgery - AAA repair, Hx Orthopedic Surgery - right hand, bilateral hip replacement, Hx Tonsillectomy, Other - Abdominal aortic aneurysm repair in October 2016, hemorrhoidectomy 2006. Denies: Hx Open Heart Surgery, Hx Pacemaker - Immunizations Hx Diphtheria, Pertussis, Tetanus Vaccination: Yes Physical Exam - Vital signs Vitals: Temp Pulse Resp BP Pulse Ox 98.8 F 65 20 141/57 H 98 12/25/19 12:40 12/25/19 12:40 12/25/19 12:40 12/25/19 12:40 12/25/19 12:40 Course - Vital Signs Vital signs: Temp Pulse Resp BP Pulse Ox 98.8 F 65 20 141/57 H 98 12/25/19 12:40 12/25/19 12:40 12/25/19 12:40 12/25/19 12:40 12/25/19 12:40 Doctor's Discharge - Discharge Referrals: LEONARDO HERNANDEZ MD [Primary Care Provider] - Follow up as needed
[2019-12-25 13:40] LABS: HEMATOCRIT 29.2 % (37.9-51.0); HEMOGLOBIN 10.3 g/dL (13.5-17.0); MEAN CORPUSCULAR HEMOGLOBIN 34.3 pg (27.0-33.4); MEAN CORPUSCULAR HGB CONC 35.2 g/dL (32.0-36.0); MEAN CORPUSCULAR VOLUME 97 fl (80-97); PLATELET COUNT 169 10^3/uL (150-450); RED CELL DISTRIBUTION WIDTH 18.9 % (11.5-14.0); WHITE BLOOD COUNT 9.1 10^3/uL (4.0-10.5)
[2019-12-25 13:57] LABS: ANION GAP 14 (5-19); BLOOD UREA NITROGEN 36 mg/dL (7-20); CALCIUM 9.3 mg/dL (8.4-10.2); CARBON DIOXIDE 26 mmol/L (22-30); CHLORIDE 99 mmol/L (98-107); GLUCOSE 146 mg/dL (75-110); URIC ACID 13.4 mg/dL (3.5-8.5)
--- NOTE | 2019-12-25 14:01 | RADIOLOGY REPORT (SQ) ---
EXAM DESCRIPTION: L SPINE WHOLE COMPLETED DATE/TIME: 12/25/2019 1:41 pm REASON FOR STUDY: fall COMPARISON: CT of the chest without contrast from 10/30/2019. NUMBER OF VIEWS: Five views including obliques. TECHNIQUE: AP, lateral, oblique, and sacral radiographic images acquired of the lumbar spine. LIMITATIONS: None. FINDINGS: MINERALIZATION: Osteopenia. SEGMENTATION: There are 5 lumbar-type vertebral bodies. There is no transitional anatomy at the lumb osacral junction. ALIGNMENT: There is straightening of the normal lordotic curve of the lumbar spine with grade 1 retro listhesis of L3 relative to L4. VERTEBRAE: Mild wedge compression deformities of the superior endplates of the T9, T12, L1 and L2 binta tebral bodies. DISCS: The L4-5 and L5-S1 intervertebral disc spaces are narrowed and there is associated endplate sc lerosis, vacuum disc phenomena and endplate osteophyte formation. There is also evidence of vacuum d isc phenomena and mild endplate osteophyte formation at L2-L3 and L3-L4. POSTERIOR ELEMENTS: Osteoarthrosis of the L4-5 and L5-S1 facet joints. There is no pars interarticul radha defect. HARDWARE: None in the spine. PARASPINAL SOFT TISSUES: Endovascular stent in the right renal artery and cholelithiasis. PELVIS: Intact. OTHER: No other finding. IMPRESSION: No definite fracture or malalignment of the lumbar spine. TECHNICAL DOCUMENTATION: JOB ID: [id number] [employer]- All Rights Reserved Reading location - IP/workstation name: [email or web address]
[2019-12-25] MEDS ORDERED: DEXAMETHASONE SOD PHOS INJ 10 MG/1 ML VIAL IV ONE (14:05)
--- NOTE | 2019-12-25 14:05 | RADIOLOGY REPORT (SQ) ---
EXAM DESCRIPTION: FOOT LEFT COMPLETE COMPLETED DATE/TIME: 12/25/2019 1:41 pm REASON FOR STUDY: foot pain COMPARISON: None. NUMBER OF VIEWS: Three views. TECHNIQUE: AP, lateral and oblique radiographic images acquired of the left foot. LIMITATIONS: None. FINDINGS: MINERALIZATION: Osteopenia. BONES: No acute fracture or dislocation. JOINTS: The normal tarsometatarsal alignment is preserved. There is osteoarthrosis of the 1st and 2n d MTP joints and of several IP joints. SOFT TISSUES: Soft tissue swelling over the dorsal aspect of the midfoot. OTHER: Enthesophytes at the calcaneal insertion of the plantar fascia. IMPRESSION: Soft tissue swelling over the dorsal aspect of the midfoot. There is no associated acut e osseous abnormality. TECHNICAL DOCUMENTATION: JOB ID: [id number] [employer]- All Rights Reserved Reading location - IP/workstation name: [email or web address]
[2019-12-25] MEDS ORDERED: MORPHINE SULFATE 10 MG/ML INJ IV ONE (14:07)
--- NOTE | 2019-12-25 14:07 | RADIOLOGY REPORT (SQ) ---
EXAM DESCRIPTION: HIP RIGHT AP/LATERAL COMPLETED DATE/TIME: 12/25/2019 1:41 pm REASON FOR STUDY: fall COMPARISON: None. NUMBER OF VIEWS: Two views. TECHNIQUE: AP pelvis and additional frog-leg view of the right hip. LIMITATIONS: None. FINDINGS: MINERALIZATION: Normal. RIGHT HIP: The NEERAJ hardware is in anatomic alignment. There is no periprosthetic fracture. LEFT HIP: The NEERAJ hardware is in anatomic alignment. There is no definite periprosthetic fracture. PUBIS AND ISCHIUM: The ilioischial and iliopectineal lines are intact. There is no diastasis of the pubic symphysis. PELVIS: No fracture. SACRUM: The sacrum is partially obscured by overlying bowel. SOFT TISSUES: No findings. OTHER: No other finding. IMPRESSION: NEERAJ hardware without a periprosthetic fracture. TECHNICAL DOCUMENTATION: JOB ID: [id number] [employer]- All Rights Reserved Reading location - IP/workstation name: [email or web address]
--- NOTE | 2019-12-25 14:07 | ER Document Report ---
ED General - General Chief Complaint: Leg Swelling Stated Complaint: LEFT FOOT PAIN, SWELLING Time Seen by Provider: 12/25/19 12:47 Primary Care Provider: LEONARDO HERNANDEZ MD [Primary Care Provider] - Follow up as needed Notes: 84-year-old man presents to the emergency department with a complaint of left foot pain. He states that his foot has become swollen and very painful in the distal aspect of the foot. He states that a very sensitive and cannot tolerate light touch. He denies a prior history of similar episodes. There is swelling and increased warmth. He denies a history of gout in the past. However he has renal insufficiency and is being mapped for vascular surgery to the left upper extremity and shunt placement in the near future. Patient also has a history of a fall this morning. Apparently lost his balance when attempting to walk on the left foot fell backwards hitting his back. He complains of back pain, denies numbness or other neurologic symptoms. TRAVEL OUTSIDE OF THE [place] IN LAST 30 DAYS: No - Related Data Allergies/Adverse Reactions: amoxicillin [Amoxicillin] Allergy (Verified 01/10/19 08:48) ITCHING, HIVES Past Medical History - Social History Smoking Status: Former Smoker Family History: Reviewed & Not Pertinent, Hypertension Patient has suicidal ideation: No Patient has homicidal ideation: No - Past Medical History Cardiac Medical History: Reports: Hx Atrial Fibrillation, Hx Coronary Artery Disease, Hx Hypercholesterolemia, Hx Hypertension, Hx Peripheral Vascular Disease - Right iliac artery stenosis, unsure where Denies: Hx Heart Attack Pulmonary Medical History: Denies: Hx Asthma, Hx Bronchitis, Hx COPD, Hx Pneumonia Neurological Medical History: Denies: Hx Cerebrovascular Accident, Hx Seizures Renal/ Medical History: Denies: Hx Peritoneal Dialysis GI Medical History: Reports: Hx Gastroesophageal Reflux Disease. Denies: Hx Hepatitis, Hx Hiatal Hernia, Hx Ulcer Musculoskeletal Medical History: Reports Hx Arthritis Psychiatric Medical History: Reports: Hx Depression Infectious Medical History: Denies: Hx Hepatitis Past Surgical History: Reports: Hx Abdominal Surgery - AAA repair, Hx Orthopedic Surgery - right hand, bilateral hip replacement, Hx Tonsillectomy, Other - Abdominal aortic aneurysm repair in October 2016, hemorrhoidectomy 2006. Denies: Hx Open Heart Surgery, Hx Pacemaker - Immunizations Hx Diphtheria, Pertussis, Tetanus Vaccination: Yes Hx Pneumococcal Vaccination: 07/06/17 Review of Systems - Review of Systems Notes: Constitutional: Negative for fever. HENT: Negative for sore throat. Eyes: Negative for visual changes. Cardiovascular: Negative for chest pain. Respiratory: Negative for shortness of breath. Gastrointestinal: Negative for abdominal pain, vomiting or diarrhea. Genitourinary: Negative for dysuria. Musculoskeletal: + Left foot with swelling with tenderness Skin: Negative for rash. Neurological: Negative for headaches, weakness or numbness. 10 point ROS negative except as marked above and in HPI. Physical Exam - Vital signs Vitals: Temp Pulse Resp BP Pulse Ox 98.8 F 65 20 141/57 H 98 12/25/19 12:40 12/25/19 12:40 12/25/19 12:40 12/25/19 12:40 12/25/19 12:40 - Notes Notes: PHYSICAL EXAMINATION: Physical Exam: General: Well-nourished well-developed overweight man in acute pain in the left foot. HEENT: NC/AT, pupils equal round and reactive to light, MM moist,nares clear, oropharynx clear, airway patent Neck: supple, no adenopathy, no masses. Good range of motion Lungs: clear, no wheezing, no rales no rhonchi CVS: Regular rate and rhythm no murmur gallop or rub Abdomen: Soft, active, nontender, no masses, no hepatosplenomegaly Ext: Left foot with + swelling, + redness, and + increase tenderness to light touch. Neuro: Alert and responsive, moving all 4 extremities on command, cranial nerves intact, no focal findings Skin: Intact no open lesions, no rash PSYCH: Normal mood, normal affect. Course - Re-evaluation Re-evalutation: 12/25/19 13:58 Patient with a history of a fall injuring his back, x-ray of the back reveals no obvious fracture or dislocation. Left foot pain compatible with gout. Renal failure and increased swelling and severe pain. There is no pain in the leg and nothing to suggest a DVT. 12/25/19 15:24 Has some improvement with IV Decadron and 2 mg morphine. I have asked him to contact his primary care doctor regarding pain management with gout and late stage renal disease. I will provide a prescription for prednisone 20 mg twice daily and can be supplemented with Tylenol. - Vital Signs Vital signs: Temp Pulse Resp BP Pulse Ox 98.8 F 65 20 141/57 H 98 12/25/19 12:40 12/25/19 12:40 12/25/19 12:40 12/25/19 12:40 12/25/19 12:40 - Laboratory Result Diagrams: 12/25/19 13:10 12/25/19 13:10 Laboratory results interpreted by me: 12/25/19 12/25/19 13:10 13:10 RBC 3.00 L Hgb 10.3 L Hct 29.2 L MCH 34.3 H RDW 18.9 H Monocytes % (Manual) 29 H Abs Monocytes (Manual) 2.6 H BUN 36 H Creatinine 2.89 H Est GFR ( Amer) 25 L Est GFR (MDRD) Non-Af 21 L Glucose 146 H Uric Acid 13.4 H - Diagnostic Test Radiology reviewed: Image reviewed - X-ray of the lumbosacral spine: No acute fracture, there is disc space narrowing at L4-L5 and at L5-S1. Marked degenerative changes diffusely. X-ray left foot: + Soft tissue swelling/edema, no bony abnormalities noted. X-ray hips and pelvis: Lateral hip prostheses in place, no fracture seen., Reports reviewed Discharge - Discharge Clinical Impression: Left foot pain, Gouty arthritis of left foot, Obesity (BMI 30-39.9), HTN (hypertension), Chronic kidney disease, stage 3 Condition: Good Disposition: HOME, SELF-CARE Instructions: Gout ([facility]), Gout Diet ([facility]) Additional Instructions: You were diagnosed with a gouty arthritis flare involving the left foot today. Because of your renal disease, you must avoid NSAIDs and some of the more common medication is used for gout. Please contact your primary care doctor regarding pain management with regards to this flareup. I am providing a prescription for prednisone 20 mg tablets twice daily for the next 5 days. You may take Tylenol as a supplement to help reduce the pain. If your symptoms are worsening or if you have other concerns you may return to the emergency department for reevaluation. HOME CARE INSTRUCTIONS & INFORMATION: Thank you for choosing us for your medical needs. We hope you're satisfied with the care you received. After you leave, you must properly care for your problem and, at the same time, observe its progress. Any condition can change. Some illnesses can change rapidly over hours or days. If your condition worsens, return to the Emergency Department or see your physician promptly. ABOUT YOUR X-RAYS AND EKG'S: If you had an EKG or X-rays taken, they have been read by the Emergency Physician. The X-rays and EKG's will also be read by a Radiologist or Supervisor Cartography within 24 hours. If discrepancies are noted, you will be notified by telephone. Please be certain the ED has a correct telephone number & address where you can be reached. Also, realize that some fractures or abnormalities do not show up on initial X-rays. If your symptoms continue, see your physician. ABOUT YOUR LABORATORY TEST: If you had laboratory tests, the results have been reviewed by the Emergency Physician. Some test results (for example cultures) may not be available for several days. You will be contacted if any test result shows you need additional treatment. Please be certain the ED has a correct telephone number and address where you can be reached. ABOUT YOUR MEDICATIONS: You will receive instructions on how to take your m edicine on the prescription label you receive. Additional information may be provided by the Pharmacy. If you have questions afterwards, call the ED for clarification or further instructions. Some prescribed medications may cause drowsiness. Do not perform tasks such as driving a car or operating machinery without consulting your Pharmacist. If you feel you need a refill of pain medication, your condition will need re-evaluation. Please do not call for a refill of any medication. ABOUT YOUR SIGNATURE: Signature of this document acknowledges to followin. Understanding that you received emergency treatment and that you may be released before al medical problems are known or treated. Please be certain the ED has a correct phone number & address where you can be reached. 2. Acknowledgement that you will arrange for follow-up care as recommended. 3. Authorization for the Emergency Physician to provide information to your follow-up Physician in order to maximize your care. AT ANY TIME, IF YOUR SYMPTOMS CHANGE SIGNIFICANTLY OR WORSEN OR YOU DEVELOP NEW SYMPTOMS, RETURN TO THE EMERGENCY DEPARTMENT IMMEDIATELY FOR RE-EVALUATION. OUR GOAL IS TO PROVIDE EXCELLENT MEDICAL CARE! WE HOPE THAT WE HAVE MET YOUR EXPECTATIONS DURING YOUR EMERGENCY DEPARTMENT VISIT AND THAT YOU FEEL YOU HAVE RECEIVED EXCELLENT CARE! Prescriptions: Prednisone [Deltasone 20 mg Tablet] 1 tab PO BID 5 Days #10 tablet Referrals: LEONARDO HERNANDEZ MD [Primary Care Provider] - Follow up as needed
[2019-12-25 14:23] LABS: ABSOLUTE LYMPHOCYTES# (MANUAL) 1.5 10^3/uL (0.5-4.7); ABSOLUTE MONOCYTES # (MANUAL) 2.6 10^3/uL (0.1-1.4); BASOPHILS % (MANUAL) 0 % (0-2); EOSINOPHILS % (MANUAL) 0 % (0-6); LYMPHOCYTES % (MANUAL) 17 % (13-45); MONOCYTES % (MANUAL) 29 % (3-13); SEGMENTED NEUTROPHILS % (MAN) 54 % (42-78); TOTAL CELLS COUNTED 100
[2019-12-25 14:27] LABS: ANISOCYTOSIS 1+; PLATELET COMMENT ADEQUATE; PLATELET LARGE PRESENT; TOXIC VACUOLATION PRESENT
[2019-12-25 14:28] LABS: HYPOCHROMASIA SLIGHT
[2019-12-25 16:02] VITALS: BP 135/56
== END 2019-12-25 15:50 | disposition home or self-care (01) ==
LOC: ER 12:24
DX: M79.672 Pain in left foot (principal); M79.89 Other specified soft tissue disorders; M10.9 Gout, unspecified; W19.XXXA Unspecified fall, initial encounter; I12.9 Hypertensive chronic kidney disease with stage 1 through stage 4 chronic kidney disease, or unspecified chronic kidney disease; N18.3 Chronic kidney disease, stage 3 (moderate); E66.01 Morbid (severe) obesity due to excess calories; Z68.39 Body mass index [BMI] 39.0-39.9, adult; Z88.0 Allergy status to penicillin; Z96.643 Presence of artificial hip joint, bilateral
CPT/HCPCS: 99283; 96372; 96374; 36415; 84550; 85025; 80048; 73630; 73502; 72110; J2270; J1100

== ENCOUNTER → 2020-01-01 | Outpatient (CLI) | payer MEDICARE, OTHER ==
[~2020-01-01] MED LIST changes: -ACETAMINOPHEN 325 MG TABLET PO PRN; +CEFAZOLIN 1 GM/D5W RTU 1 GM/50 ML RTUPB IV PRN; +CLINDAMYCIN 600 MG/D5W RTU 600 MG/50 ML RTUPB IV PRN; -DIPHENHYDRAMINE HCL 25 MG CAPSULE PO PRN; -FUROSEMIDE INJ/PF 20 MG/2 ML SDV IV PRN; +LACTATED RINGERS 1000 ML IV PRN; +LIDOCAINE 0.5% INJ-PF (5 MG/ML) 50 ML SDV SUBCUT PRN
[2020-01-01 12:47] LABS: HEMATOCRIT 31.1 % (37.9-51.0); HEMOGLOBIN 10.6 g/dL (13.5-17.0); MEAN CORPUSCULAR HEMOGLOBIN 33.8 pg (27.0-33.4); MEAN CORPUSCULAR HGB CONC 34.2 g/dL (32.0-36.0); MEAN CORPUSCULAR VOLUME 99 fl (80-97); PLATELET COUNT 210 10^3/uL (150-450); RED BLOOD COUNT 3.15 10^6/uL (4.35-5.55); RED CELL DISTRIBUTION WIDTH 19.5 % (11.5-14.0); WHITE BLOOD COUNT 16.9 10^3/uL (4.0-10.5)
[2020-01-01 13:04] LABS: ANION GAP 12 (5-19); BLOOD UREA NITROGEN 51 mg/dL (7-20); CARBON DIOXIDE 28 mmol/L (22-30); CHLORIDE 99 mmol/L (98-107); POTASSIUM 4.7 mmol/L (3.6-5.0)
[2020-01-01 13:06] LABS: GLUCOSE 69 mg/dL (75-110)
--- NOTE | 2020-01-01 13:19 | RADIOLOGY REPORT (SQ) ---
EXAM DESCRIPTION: CHEST PA/LATERAL COMPLETED DATE/TIME: 01/01/2020 1:05 pm REASON FOR STUDY: PRE-OP COMPARISON: 10/30/2019 EXAM PARAMETERS: NUMBER OF VIEWS: two views TECHNIQUE: Digital Frontal and Lateral radiographic views of the chest acquired. RADIATION DOSE: NA LIMITATIONS: none FINDINGS: LUNGS AND PLEURA: Unchanged prominent pericardial fat pad. No focal consolidation, pleura l effusion or pneumothorax. Unchanged calcified right basilar granuloma. MEDIASTINUM AND HILAR STRUCTURES: No masses or contour abnormalities. HEART AND VASCULAR STRUCTURES: Normal heart size. Unfolded atherosclerotic thoracic aorta. BONES: No acute findings. HARDWARE: None in the chest. OTHER: No other significant finding. IMPRESSION: Stable chronic changes without evidence of acute cardiopulmonary process. TECHNICAL DOCUMENTATION: JOB ID: [id number] 2010 eOriginal- All Rights Reserved Reading location - IP/workstation name: [email or web address]
--- NOTE | 2020-01-02 11:45 | EKG REPORT ---
SEVERITY:- ABNORMAL ECG - PACEMAKER SPIKES OR ARTIFACTS, REC REPEAT EKG SINUS BRADYCARDIA PAIRED VENTRICULAR PREMATURE COMPLEXES RBBB AND LAFB : Confirmed by: Alexandra Bustamante 02-Jan-2020 11:44:42
== END ==
LOC: OD 10:42 → EDSTATUS 01-08 12:00
PROVIDERS: ATTEND Surgery
DX: Z01.818 Encounter for other preprocedural examination (principal); N18.6 End stage renal disease; I25.10 Atherosclerotic heart disease of native coronary artery without angina pectoris; I73.9 Peripheral vascular disease, unspecified; E78.00 Pure hypercholesterolemia, unspecified; I48.91 Unspecified atrial fibrillation
CPT/HCPCS: 36415; 71046; 80048; 85027; 93005; 93010

== ENCOUNTER → 2020-01-16 | Outpatient (CLI) | payer MEDICARE, OTHER ==
[2020-01-16 10:24] LABS: ALBUMIN 3.5 g/dL (3.5-5.0); ANION GAP 9 (5-19); BLOOD UREA NITROGEN 47 mg/dL (7-20); CALCIUM 8.8 mg/dL (8.4-10.2); CARBON DIOXIDE 26 mmol/L (22-30); CHLORIDE 98 mmol/L (98-107); GLUCOSE 89 mg/dL (75-110); PHOSPHORUS 4.3 mg/dL (2.5-4.5); POTASSIUM 4.1 mmol/L (3.6-5.0)
[2020-01-16 10:47] LABS: HEMOGLOBIN 9.9 g/dL (13.5-17.0); MEAN CORPUSCULAR HEMOGLOBIN 35.7 pg (27.0-33.4); MEAN CORPUSCULAR HGB CONC 36.8 g/dL (32.0-36.0); MEAN CORPUSCULAR VOLUME 97 fl (80-97); PLATELET COUNT 125 10^3/uL (150-450); RED BLOOD COUNT 2.78 10^6/uL (4.35-5.55); WHITE BLOOD COUNT 14.1 10^3/uL (4.0-10.5)
[2020-01-16 10:47] LABS: APPEARANCE,URINE SLIGHTLY-CLOUDY; BILIRUBIN,URINE NEGATIVE (NEGATIVE); COLOR,URINE YELLOW; GLUCOSE, URINE NEGATIVE (NEGATIVE); KETONES,URINE NEGATIVE (NEGATIVE); LEUKOCYTE ESTERASE,URINE NEGATIVE (NEGATIVE); NITRITE,URINE NEGATIVE (NEGATIVE); PROTEIN,URINE NEGATIVE (NEGATIVE); URINE SPECIFIC GRAVITY 1.009; UROBILINOGEN,URINE NEGATIVE mg/dL (<2.0)
[2020-01-16 11:53] LABS: ABSOLUTE MONOCYTES # (MANUAL) 5.5 10^3/uL (0.1-1.4); BAND NEUTROPHILS % (MANUAL) 5 % (3-5); BASOPHILS % (MANUAL) 2 % (0-2); EOSINOPHILS % (MANUAL) 0 % (0-6); LYMPHOCYTES % (MANUAL) 21 % (13-45); MONOCYTES % (MANUAL) 39 % (3-13); SEGMENTED NEUTROPHILS % (MAN) 33 % (42-78); TOTAL CELLS COUNTED 100
[2020-01-16 11:55] LABS: ANISOCYTOSIS 2+; PLATELET COMMENT DECREASED; POLYCHROMASIA SLIGHT
[2020-01-17 07:37] LABS: CREATININE URINE 69.1 mg/dL (Not Estab.); MICROALBUMIN URINE 30.3 ug/mL (Not Estab.)
== END ==
LOC: OD 09:46
PROVIDERS: ATTEND Internal Medicine Nephrology
DX: I12.0 Hypertensive chronic kidney disease with stage 5 chronic kidney disease or end stage renal disease (principal); N18.5 Chronic kidney disease, stage 5; D63.1 Anemia in chronic kidney disease; R80.9 Proteinuria, unspecified
CPT/HCPCS: 36415; 80069; 81001; 82043; 82306; 82570; 83970; 85025

== ENCOUNTER 2020-02-16 01:41 | Inpatient (IN) | payer MEDICARE, OTHER ==
[2020-02-16] MEDS ORDERED: NORMAL SALINE 500 ML IV ONE (02:54)
[2020-02-16 03:20] LABS: HEMATOCRIT 19.7 % (37.9-51.0); MEAN CORPUSCULAR HEMOGLOBIN 37.4 pg (27.0-33.4); MEAN CORPUSCULAR HGB CONC 36.8 g/dL (32.0-36.0); MEAN CORPUSCULAR VOLUME 102 fl (80-97); PLATELET COUNT 200 10^3/uL (150-450); RED BLOOD COUNT 1.93 10^6/uL (4.35-5.55); RED CELL DISTRIBUTION WIDTH 22.8 % (11.5-14.0); WHITE BLOOD COUNT 5.7 10^3/uL (4.0-10.5)
[2020-02-16 03:30] LABS: ALBUMIN 3.5 g/dL (3.5-5.0); ALKALINE PHOSPHATASE 58 U/L (38-126); ANION GAP 11 (5-19); ASPARTATE AMINO TRANSFERASE 35 U/L (17-59); BILIRUBIN,TOTAL 0.5 mg/dL (0.2-1.3); BLOOD UREA NITROGEN 36 mg/dL (7-20); CALCIUM 8.8 mg/dL (8.4-10.2); CARBON DIOXIDE 25 mmol/L (22-30); CHLORIDE 96 mmol/L (98-107); GLUCOSE 117 mg/dL (75-110); POTASSIUM 4.6 mmol/L (3.6-5.0); TOTAL PROTEIN 7.1 g/dL (6.3-8.2)
[2020-02-16 03:41] LABS: TROPONIN I 0.014 ng/mL
[2020-02-16 03:49] LABS: ABSOLUTE LYMPHOCYTES# (MANUAL) 2.7 10^3/uL (0.5-4.7); ABSOLUTE MONOCYTES # (MANUAL) 0.7 10^3/uL (0.1-1.4); BASOPHILS % (MANUAL) 2 % (0-2); EOSINOPHILS % (MANUAL) 0 % (0-6); LYMPHOCYTES % (MANUAL) 47 % (13-45); MONOCYTES % (MANUAL) 12 % (3-13); SEGMENTED NEUTROPHILS % (MAN) 39 % (42-78); TOTAL CELLS COUNTED 100
[2020-02-16 03:57] LABS: ANISOCYTOSIS 3+; PLATELET COMMENT ADEQUATE
[2020-02-16 03:58] LABS: TEAR DROP CELLS SLIGHT
[2020-02-16 04:00] LABS: HEMOGLOBIN 7.2 g/dL (13.5-17.0)
--- NOTE | 2020-02-16 04:23 | ER Document Report ---
Entered by ALAN DOUGLASS SCRIBE 02/16/20 0230 Acting as scribe for:JUNIE HOLMAN IV, MD ED Respiratory Problem - General Chief Complaint: Shortness Of Breath Stated Complaint: SHORTNESS OF BREATH Time Seen by Provider: 02/16/20 02:25 Mode of Arrival: Wheelchair Information source: Patient, Emergency Med Personnel Notes: This 84 year old male patient with a history of stage 5 chronic kidney disease presents to the ED today with complaints of worsening shortness of breath with ambulation that occurred tonight. Patient states that he has been short of breath "for some time", but it was increasingly worse tonight after walking back from the bathroom. He reports that he had to sit down in a chair for a long time after returning from the bathroom before attempting to go back to bed. He states that he did not feel right after lying down, so asked his to take him to the ED. Denies chest pain. He was found to be bradycardic by ED staff; however, he states that his heart rate has never been this low before. Denies history of pacemaker. He notes that "I have 1 kidney gone and the other is 19%", stating that he was supposed to have an AV fistula surgery in December 2019, but it was cancelled due to COVID-19 restrictions of non-emergent surgeries. He states that he his compliant with all of his medications. He notes that he sees Dr. Shultz for cardiology. TRAVEL OUTSIDE OF THE [place] IN LAST 30 DAYS: No - Related Data Allergies/Adverse Reactions: amoxicillin [Amoxicillin] Allergy (Verified 01/10/19 08:48) ITCHING, HIVES NSAIDS (Non-Steroidal Anti-Inflamma Adverse Reaction (Severe, Verified 01/05/20 08:37) esrd Past Medical History - General Information source: Patient, [facility] Records - Social History Smoking Status: Unknown if Ever Smoked Cigarette use (# per day): No Chew tobacco use (# tins/day): No Smoking Education Provided: No Frequency of alcohol use: None Drug Abuse: None Lives with: Spouse/Significant other Family History: Reviewed & Not Pertinent, Hypertension Patient has suicidal ideation: No Patient has homicidal ideation: No - Past Medical History Cardiac Medical History: Reports: Hx Atrial Fibrillation, Hx Coronary Artery Disease, Hx Hypercholesterolemia, Hx Hypertension, Hx Peripheral Vascular Disease - Right iliac artery stenosis, unsure where GI Medical History: Reports: Hx Gastroesophageal Reflux Disease Musculoskeletal Medical History: Reports Hx Arthritis Psychiatric Medical History: Reports: Hx Depression Past Surgical History: Reports: Hx Abdominal Surgery - Abdominal aortic aneurysm repair in October 2016, Hx Orthopedic Surgery - right hand, bilateral hip replacement, Hx Rectal Surgery - Hemorrhoidectomy 2006, Hx Tonsillectomy - Immunizations Hx Diphtheria, Pertussis, Tetanus Vaccination: Yes Hx Pneumococcal Vaccination: 07/06/17 Review of Systems - Review of Systems Constitutional: No symptoms reported EENT: No symptoms reported Cardiovascular: See HPI. denies: Chest pain Respiratory: See HPI, Short of breath Gastrointestinal: No symptoms reported Genitourinary: No symptoms reported Male Genitourinary: No symptoms reported Musculoskeletal: No symptoms reported Skin: No symptoms reported Hematologic/Lymphatic: No symptoms reported Neurological/Psychological: No symptoms reported -: Yes All other systems reviewed and negative Physical Exam - Vital signs Vitals: Temp 97.8 F 02/16/20 01:41 Interpretation: Hypotensive, Bradycardic - General General appearance: Alert In distress: None - HEENT Head: Normocephalic, Atraumatic Eyes: Normal Pupils: PERRL - Respiratory Respiratory status: No respiratory distress Chest status: Nontender Breath sounds: Normal Chest palpation: Normal - Cardiovascular Rhythm: Regular, Bradycardia Heart sounds: Normal auscultation Murmur: No Friction rub: No Gallop: None auscultated - Abdominal Inspection: Normal Distension: No distension Bowel sounds: Normal Tenderness: Nontender - Abdomen soft Organomegaly: No organomegaly - Rectal Stool: Heme negative - Back Back: Normal, Nontender - Extremities General upper extremity: Normal inspection General lower extremity: Edema - +1 pitting edema to LE bilaterally - Neurological Neuro grossly intact: Yes Orientation: AAOx4 - Psychological Associated symptoms: Normal affect, Normal mood - Skin Skin Temperature: Warm Skin Moisture: Dry Skin Color: Pale Course - Re-evaluation Re-evalutation: 02/16/20 05:42 Patient is lying in bed in no acute distress and is alert and oriented x3. Results of ED MSE discussed with patient. All questions were answered. - Vital Signs Vital signs: Temp Pulse Resp BP Pulse Ox 97.8 F 36 L 16 112/45 L 95 02/16/20 03:01 02/16/20 02:23 02/16/20 05:31 02/16/20 05:31 02/16/20 05:31 - Laboratory Result Diagrams: 02/16/20 02:52 02/16/20 02:52 Laboratory results interpreted by me: 02/16/20 02/16/20 02/16/20 02:52 02:52 02:52 RBC 1.93 L Hgb 7.2 L Hct 19.7 L MCV 102 H MCH 37.4 H MCHC 36.8 H RDW 22.8 H Seg Neuts % (Manual) 39 L Lymphocytes % (Manual) 47 H Sodium 131.9 L Chloride 96 L BUN 36 H Creatinine 3.91 H Est GFR ( Amer) 18 L Est GFR (MDRD) Non-Af 15 L Glucose 117 H Magnesium 2.5 H NT-Pro-B Natriuret Pep 1540 H - Diagnostic Test Radiology reviewed: Reports reviewed - EKG Interpretation by Me Additional EKG results interpreted by me: 02/16/20 05:39 Initial EKG obtained on 02/16/2020 at 0259 hrs. was interpreted by this MD. Findings: Severe bradycardia, rate 33, nonspecific ST segments. Impression severe bradycardia with nonspecific ST segments Repeat EKG obtained at 0514 hrs. after administration of 3 mg of IV glucagon was interpreted by this MD. Findings rate is improved, sinus bradycardia with a rate of 52 is present, P waves proceed QRS complexes, right bundle branch block is present, ST segments are nonspecific. Impression sinus bradycardia with nonspecific ST segments. - Consults DR. SHULTZ Time consulted: 05:16 - Dr. Shultz said he would be happy to consult on the patient in hospital Reason for consultation: 02/16/20 05:[address] Shultz, he is on beta-bhavya therapy, has improvement of bradycardia with glucagon IV Consulted provider: will see as inpatient DR. MATIAS Time consulted: 05:54 - AGREED TO ADMIT PT Reason for consultation: 02/16/20 05:54 SYMPTOMATIC BRADYCARDIA Consulted provider: will see as inpatient Critical Care Note - Critical Care Note Total time excluding time spent on procedures (mins): 120 Discharge - Discharge Clinical Impression: Symptomatic bradycardia, Chronic anemia Condition: Good Disposition: ADMITTED INPATIENT Admitting Provider: Yaya (Hospitalist) Unit Admitted: IMCU I personally performed the services described in the documentation, reviewed and edited the documentation which was dictated to the scribe in my presence, and it accurately records my words and actions.
[2020-02-16] MEDS ORDERED: GLUCAGON,HUMAN RECOMB 1 MG INJ IV ONE (04:31)
--- NOTE | 2020-02-16 05:39 | RADIOLOGY REPORT (SQ) ---
CHEST 1 VIEW on 02/16/2020 at 5:04 AM CLINICAL INDICATION: Shortness of breath COMPARISON: 01/01/2020 FINDINGS: Heart is upper limits normal for size. There is minimal basilar atelectasis. The lungs are otherwise clear. Hilar and mediastinal contours are within normal limits. Vascular calcification is noted in the aorta. IMPRESSION: No acute disease.
[2020-02-16] MEDS ORDERED: ACETAMINOPHEN 325 MG TABLET PO PRN (05:55)
[2020-02-16] MEDS ORDERED: MAG HYDROX/AL HYDROX/SIMETH SUSP 30 ML UDCUP PO PRN (05:55)
[2020-02-16] MEDS ORDERED: MAGNESIUM HYDROXIDE SUSP 30 ML UDCUP PO PRN (05:55)
[2020-02-16] MEDS ORDERED: GLUCAGON,HUMAN RECOMB 1 MG INJ SUBCUT PRN (05:55)
[2020-02-16] MEDS ORDERED: IPRATROPIUM/ALBUTEROL 0.5-2.5 MG/3 ML AMPUL NEB PRN (05:55)
[2020-02-16] MEDS ORDERED: NORMAL SALINE 1000 ML 1,000 ML IV ONE (05:59)
[2020-02-16] MEDS: HEPARIN SOD (PORCINE) 5,000 UNIT/ML 1 ML VIAL SUBCUT SCH ×3 (06:14→21:35)
--- NOTE | 2020-02-16 06:18 | PDOC H&P ---
History of Present Illness Patient complains of: Shortness of breath History of Present Illness: MALIKA LEHMAN is a 84 year old male with a past medical history of atrial fibrillation on amiodarone and diltiazem, nonoliguric stage V CKD, chronic anemia, and recurrent GI bleed. He presents to the emergency department with an unclear duration of shortness of breath prompting evaluation in the emergency department where he is found to have hypotension and bradycardia in the 30s which promptly response to a trial of glucagon. He is underlying chronic kidney disease and anemia is otherwise at baseline. His director semiconductor Dr. Adan Valiente is consulted and patient is referred to the hospitalist for admission. He denies chest pain nausea vomiting diaphoresis. He denies change in diet or medication regiment. Past Medical History Cardiac Medical History: Reports: Atrial Fibrillation, Coronary Artery Disease, Hyperlipidema, Hypertension, Peripheral Vascular Disease - Right iliac artery stenosis, unsure where Denies: Myocardial Infarction Pulmonary Medical History: Denies: Asthma, Bronchitis, Chronic Obstructive Pulmonary Disease (COPD), Pneumonia Neurological Medical History: Denies: Seizures GI Medical History: Reports: Gastroesophageal Reflux Disease Denies: Hepatitis, Hiatal Hernia Musculoskeltal Medical History: Reports: Arthritis Psychiatric Medical History: Reports: Depression Hematology: Reports: Anemia Denies: Sickle Cell Disease Past Surgical History Past Surgical History: Reports: Orthopedic Surgery - right hand, bilateral hip replacement, Tonsillectomy, Other - Abdominal aortic aneurysm repair in October 2016, hemorrhoidectomy 2006 Denies: Pacemaker Social History Information Source: Patient Lives with: Spouse/Significant other Smoking Status: Unknown if Ever Smoked Frequency of Alcohol Use: None Hx Recreational Drug Use: No Drugs: None Hx Prescription Drug Abuse: No - Advance Directive Resuscitation Status: Full Code Family History Family History: Arthritis, Hypertension Parental Family History Reviewed: Yes Children Family History Reviewed: Yes Sibling(s) Family History Reviewed.: Yes Medication/Allergy Home Medications: Benazepril/Hydrochlorothiazide [Lotensin Hct 20-12.5 mg Tablet] 1 tab PO DAILY 01/03/19 Diltiazem HCl [Diltiazem 24Hr ER] 240 mg PO QPM 01/03/19 Tramadol HCl [Ultram 50 mg Tablet] 50 mg PO BIDP PRN 01/03/19 Trazodone HCl [Desyrel 50 mg Tablet] 50 mg PO QHS 01/03/19 Amiodarone HCl [Pacerone] 200 mg PO HSP PRN 01/01/20 Celecoxib [Celebrex 200 mg Capsule] 200 mg PO 01/01/20 Furosemide [Lasix 40 mg Tablet] 40 mg PO QAM 01/01/20 Polyethylene Glycol 3350 [Miralax] 119 gm PO DAILY 01/01/20 Simvastatin [Zocor 10 mg Tablet] 20 mg PO QHS 01/01/20 Allergies/Adverse Reactions: amoxicillin [Amoxicillin] Allergy (Verified 01/10/19 08:48) ITCHING, HIVES NSAIDS (Non-Steroidal Anti-Inflamma Adverse Reaction (Severe, Verified 01/05/20 08:37) esrd Review of Systems Constitutional: ABSENT: chills, fever(s), headache(s), weight gain, weight loss Eyes: ABSENT: visual disturbances Ears: ABSENT: hearing changes Cardiovascular: ABSENT: chest pain, dyspnea on exertion, edema, orthropnea, palpitations Respiratory: ABSENT: cough, hemoptysis Gastrointestinal: ABSENT: abdominal pain, constipation, diarrhea, hematemesis, hematochezia, nausea, vomiting Genitourinary: ABSENT: dysuria, hematuria Musculoskeletal: ABSENT: joint swelling Integumentary: ABSENT: rash, wounds Neurological: ABSENT: abnormal gait, abnormal speech, confusion, dizziness, focal weakness, syncope Psychiatric: ABSENT: anxiety, depression, homidical ideation, suicidal ideation Endocrine: ABSENT: cold intolerance, heat intolerance, polydipsia, polyuria Hematologic/Lymphatic: ABSENT: easy bleeding, easy bruising Physical Exam Vital Signs: Temp Pulse Resp BP Pulse Ox 97.8 F 36 L 16 112/45 L 95 02/16/20 03:01 02/16/20 02:23 02/16/20 05:31 02/16/20 05:31 02/16/20 05:31 Intake & Output 02/14/20 02/15/20 02/16/20 11:59 11:59 11:59 Weight 88.2 kg General appearance: PRESENT: no acute distress, cooperative, well-developed, well-nourished. ABSENT: disheveled Head exam: PRESENT: atraumatic, normocephalic Eye exam: PRESENT: conjunctiva pink, EOMI, PERRLA. ABSENT: scleral icterus Ear exam: PRESENT: normal external ear exam Mouth exam: PRESENT: moist, tongue midline Neck exam: ABSENT: carotid bruit, JVD, lymphadenopathy, thyromegaly Respiratory exam: PRESENT: clear to auscultation eduardo, symmetrical. ABSENT: crackles, prolonged expiratory phas, rales, rhonchi, wheezes Cardiovascular exam: PRESENT: bradycardia, RRR. ABSENT: diastolic murmur, rubs, systolic murmur Pulses: PRESENT: normal dorsalis pedis pul Vascular exam: PRESENT: normal capillary refill GI/Abdominal exam: PRESENT: normal bowel sounds, soft. ABSENT: distended, guarding, mass, organolmegaly, rebound, tenderness Rectal exam: PRESENT: deferred Extremities exam: PRESENT: full ROM. ABSENT: calf tenderness, clubbing, pedal edema Neurological exam: PRESENT: alert, awake, oriented to person, oriented to place, oriented to time, oriented to situation, CN II-XII grossly intact. ABSENT: motor sensory deficit Psychiatric exam: PRESENT: appropriate affect, normal mood. ABSENT: homicidal ideation, suicidal ideation Skin exam: PRESENT: dry, intact, warm. ABSENT: cyanosis, rash Results Laboratory Results: 02/16/20 02:52 02/16/20 02:52 02/16/20 02/16/20 02:52 02:52 WBC 5.7 RBC 1.93 L Hgb 7.2 L Hct 19.7 L MCV 102 H MCH 37.4 H MCHC 36.8 H RDW 22.8 H Plt Count 200 Seg Neutrophils % Not Reportable Sodium 131.9 L Potassium 4.6 Chloride 96 L Carbon Dioxide 25 Anion Gap 11 BUN 36 H Creatinine 3.91 H Est GFR ( Amer) 18 L Glucose 117 H Calcium 8.8 Magnesium 2.5 H Total Bilirubin 0.5 AST 35 Alkaline Phosphatase 58 Total Protein 7.1 Albumin 3.5 02/16/20 02:52 Troponin I 0.014 NT-Pro-B Natriuret Pep 1540 H Impressions: Chest X-Ray 02/16/20 04:27 IMPRESSION: No acute disease. Assessment and Plan - Diagnosis (1) Symptomatic bradycardia Is this a current diagnosis for this admission?: Yes Plan: Likely secondary to calcium channel versus beta-bhavya however this does not appear in his current med list. IMCU admission, glucagon as needed, follow-up cardiology consult and serial cardiac enzymes. (2) CKD (chronic kidney disease) stage 5, GFR less than 15 ml/min Is this a current diagnosis for this admission?: Yes Plan: Nonoliguric, avoid nephrotoxic meds and doses follow-up chemistry (3) Chronic anemia Is this a current diagnosis for this admission?: Yes Plan: Likely secondary to #2 however follow-up Hemoccult stool and anemia labs. - Time Time Spent with patient: 25-34 minutes - Inpatient Certification Medical Necessity: Need Close Monitoring Due to Risk of Patient Decompensation
[2020-02-16 08:54] LABS: FREE T3 2.54 pg/mL (2.77-5.27); FREE T4 (FREE THYROXINE) 0.66 ng/dL (0.78-2.19)
[2020-02-16] MEDS: DOCUSATE SODIUM 100 MG CAPSULE PO SCH (09:09)
--- NOTE | 2020-02-16 10:12 | PDOC CONSULTATION ---
Consultation Consult Date: 02/16/20 Attending physician:: KRISTIAN VINSON Provider Consulted: SHAY TAYLOR Consult reason:: Bradycardia. History of Present Illness Admission Date/PCP: 02/16/20 07:15 History of Present Illness: MALIKA LEHMAN is a 84 year old male with history of hypertension, hyperlipidemia, renal artery stenosis, PAD with known right iliac occlusion despite 2 previous endovascular procedures, high-grade left common iliac artery stenosis, infrarenal abdominal aortic aneurysm followed by Dr. 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 The patient had been in his usual state of health until early this morning when he got up to use the bathroom at which time he felt significant shortness of breath to the point he could not make it back to his room. He sat down for at least 15 to 20 minutes before he could catch his breath. He continued to be short of breath therefore he came to the emergency room at which time he was found to have a heart rate of 33 bpm. He was given 3 mg of glucagon which increased his rate into the 50s. He now feels much better and states that his shortness of breath is completely resolved. Physical exam on 02/16/2020: GENERAL: Pleasant and conversational. Oriented x3 with normal mood. Not in acute distress. Well groomed and well developed. HEENT: Normocephalic, atraumatic. Pupils equal. Sclerae anicteric. Oropharynx moist. NECK: No JVD. No carotid bruits. LUNGS: Clear to auscultation bilaterally. Normal respiratory effort without the use of accessory muscles or intercostal retractions. CARDIOVASCULAR: Regular rate and rhythm, normal S1 and S2 without murmurs, rubs, or gallops. PMI not displaced. ABDOMEN: No masses or tenderness to palpation. No bruit. No splenomegaly or hepatomegaly. No abdominal aorta bruit noted. EXTREMITIES: 1+ pitting edema bilaterally, no cyanosis, no clubbing. +2 pulses femoral and pedal pulses bilaterally. SKIN: No lesions or rashes. MUSCULOSKELETAL: No chest tenderness to palpation. NEUROLOGIC: Nonfocal. No gross sensory or motor deficits bilateral upper or lower extremities. Cardiac studies: Echocardiogram on 11/02/18: -LV is normal in size. -Mild concentric LVH. -EF 55-60%. -Grade 1 diastolic dysfunction. -Mild LAE. -Mild PI. -Mildly dilated aortic root at 4.0 cm. -Mildly dilated ascending aorta at 3.8 cm. echocardiogram on 09/29/17: -The left ventricle is normal in size. -Mild asymmetric LVH. -Ejection fraction between 60 and 65%. -Grade 1 diastolic dysfunction. -Moderate LAE. -Mild MAC without stenosis. -Trace MR, trace TR, mild PI. Mild aortic root dilatation 0 cm. Dilated proximal ascending aorta at 4.0 cm. LHC on 06/07/17: -Left main: Minimal irregularities. -LAD: Luminal irregularities. -Left circumflex: 20-30% mid stenosis. -OM1: Patent. -OM 2: Minimal irregularities. -RCA: Dominant vessel. Patent. Echocardiogram on 03/29/17: -Left ventricle is normal in size. -Mild concentric LVH. -EF 55-60%. -Grade 1 diastolic dysfunction. -No regional wall motion normalities. -Mild MAC without stenosis. -Trace MR, trace TR, mild PI. -Mildly dilated aortic root at 4.0 cm. Nuclear stress test on 09/29/16: -EF 68%. -No evidence of ischemia or infarct. Past Medical History Cardiac Medical History: Reports: Atrial Fibrillation, Coronary Artery Disease, Hyperlipidema, Hypertension, Peripheral Vascular Disease - Right iliac artery stenosis, unsure where Denies: Myocardial Infarction Pulmonary Medical History: Denies: Asthma, Bronchitis, Chronic Obstructive Pulmonary Disease (COPD), Pneumonia Neurological Medical History: Denies: Seizures GI Medical History: Reports: Gastroesophageal Reflux Disease Denies: Hepatitis, Hiatal Hernia Musculoskeltal Medical History: Reports: Arthritis Psychiatric Medical History: Reports: Depression Hematology: Reports: Anemia Denies: Sickle Cell Disease Past Surgical History Past Surgical History: Reports: Orthopedic Surgery - right hand, bilateral hip replacement, Tonsillectomy, Other - Abdominal aortic aneurysm repair in October 2016, hemorrhoidectomy 2006 Denies: Pacemaker Social History Lives with: Spouse/Significant other Smoking Status: Unknown if Ever Smoked Frequency of Alcohol Use: None Hx Recreational Drug Use: No Drugs: None Hx Prescription Drug Abuse: No - Advance Directive Resuscitation Status: Full Code Family History Family History: Arthritis, Hypertension Parental Family History Reviewed: Yes Children Family History Reviewed: Yes Sibling(s) Family History Reviewed.: Yes Medication/Allergy Home Medications: Benazepril/Hydrochlorothiazide [Lotensin Hct 20-12.5 mg Tablet] 1 tab PO DAILY 01/03/19 Diltiazem HCl [Diltiazem 24Hr ER] 240 mg PO QPM 01/03/19 Tramadol HCl [Ultram 50 mg Tablet] 50 mg PO BIDP PRN 01/03/19 Trazodone HCl [Desyrel 50 mg Tablet] 50 mg PO QHS 01/03/19 Amiodarone HCl [Pacerone] 200 mg PO HSP PRN 01/01/20 Celecoxib [Celebrex 200 mg Capsule] 200 mg PO 01/01/20 Furosemide [Lasix 40 mg Tablet] 40 mg PO QAM 01/01/20 Polyethylene Glycol 3350 [Miralax] 119 gm PO DAILY 01/01/20 Simvastatin [Zocor 10 mg Tablet] 20 mg PO QHS 01/01/20 Allergies/Adverse Reactions: amoxicillin [Amoxicillin] Allergy (Verified 01/10/19 08:48) ITCHING, HIVES NSAIDS (Non-Steroidal Anti-Inflamma Adverse Reaction (Severe, Verified 01/05/20 08:37) esrd Physical Exam Vital Signs: Temp Pulse Resp BP Pulse Ox 97.8 F 36 L 20 137/55 H 99 02/16/20 03:01 02/16/20 02:23 02/16/20 07:32 02/16/20 07:32 02/16/20 07:32 Intake & Output 02/15/20 02/16/20 02/17/20 06:59 06:59 06:59 Weight 88.2 kg Results Laboratory Results: 02/16/20 02:52 02/16/20 02:52 02/16/20 02/16/20 02/16/20 02:52 02:52 02:52 WBC 5.7 RBC 1.93 L Hgb 7.2 L Hct 19.7 L MCV 102 H MCH 37.4 H MCHC 36.8 H RDW 22.8 H Plt Count 200 Seg Neutrophils % Not Reportable Sodium 131.9 L Potassium 4.6 Chloride 96 L Carbon Dioxide 25 Anion Gap 11 BUN 36 H Creatinine 3.91 H Est GFR ( Amer) 18 L Glucose 117 H Calcium 8.8 Magnesium 2.5 H Total Bilirubin 0.5 AST 35 Alkaline Phosphatase 58 Total Protein 7.1 Albumin 3.5 TSH 64.00 H Free T4 Free T3 pg/mL 02/16/20 02:52 WBC RBC Hgb Hct MCV MCH MCHC RDW Plt Count Seg Neutrophils % Sodium Potassium Chloride Carbon Dioxide Anion Gap BUN Creatinine Est GFR ( Amer) Glucose Calcium Magnesium Total Bilirubin AST Alkaline Phosphatase Total Protein Albumin TSH Free T4 0.66 L Free T3 pg/mL 2.54 L 02/16/20 02:52 Troponin I 0.014 NT-Pro-B Natriuret Pep 1540 H Impressions: Chest X-Ray 02/16/20 04:27 IMPRESSION: No acute disease. 02/16/20 02:52 02/16/20 02:52 MCV 102 fl (80-97) H 02/16/20 02:52 MCH 37.4 pg (27.0-33.4) H 02/16/20 02:52 MCHC 36.8 g/dL (32.0-36.0) H 02/16/20 02:52 RDW 22.8 % (11.5-14.0) H 02/16/20 02:52 Seg Neutrophils % Not Reportable 02/16/20 02:52 Chloride 96 mmol/L (98-107) L 02/16/20 02:52 Carbon Dioxide 25 mmol/L (22-30) 02/16/20 02:52 Anion Gap 11 (5-19) 02/16/20 02:52 Est GFR ( Amer) 18 (>60) L 02/16/20 02:52 Glucose 117 mg/dL (75-110) H 02/16/20 02:52 Calcium 8.8 mg/dL (8.4-10.2) 02/16/20 02:52 Magnesium 2.5 mg/dL (1.6-2.3) H 02/16/20 02:52 Total Bilirubin 0.5 mg/dL (0.2-1.3) 02/16/20 02:52 AST 35 U/L (17-59) 02/16/20 02:52 Alkaline Phosphatase 58 U/L (38-126) 02/16/20 02:52 Total Protein 7.1 g/dL (6.3-8.2) 02/16/20 02:52 Albumin 3.5 g/dL (3.5-5.0) 02/16/20 02:52 TSH 64.00 uIU/mL (0.47-4.68) H 02/16/20 02:52 Free T4 0.66 ng/dL (0.78-2.19) L 02/16/20 02:52 Free T3 pg/mL 2.54 pg/mL (2.77-5.27) L 02/16/20 02:52 02/16/20 02/16/20 02:52 08:27 Troponin I 0.014 < 0.012 NT-Pro-B Natriuret Pep 1540 H Current Medication List Generic Name Dose Route Start Last Admin Trade Name Freq PRN Reason Stop Dose Admin Acetaminophen 650 mg 02/16/20 05:55 Tylenol 325 Mg Tablet PO 03/17/20 05:54 Q4HP PRN FOR PAIN OR TEMP Al Hydrox/Mg Hydrox/Simethicone 30 ml 02/16/20 05:55 Maalox Plus Susp 30 Udcup PO 03/17/20 05:54 Q6HP PRN HEARTBURN Albuterol/Ipratropium 3 ml 02/16/20 05:55 Duoneb 3 Ml Ampul NEB 03/17/20 05:54 [id number] PRN SHORTNESS OF BREATH Docusate Sodium 100 mg 02/16/20 10:00 02/16/20 09:09 Colace 100 Mg Capsule PO 03/17/20 09:59 Not Given DAILY EDNA Glucagon 1 mg 02/16/20 05:55 Glucagen Inj 1 Mg Vial SUBCUT 03/17/20 05:54 Q2HP PRN hr<40 Heparin Sodium (Porcine) 5,000 unit 02/16/20 06:00 02/16/20 06:14 Heparin Inj 5,000 Units/Ml 1 Ml Vial SUBCUT 03/17/20 05:59 5,000 unit Q8 EDNA Administration Sodium Chloride 1,000 mls @ 200 mls/hr 02/16/20 05:59 02/16/20 06:15 Nacl 0.9% 1000 Ml Iv Soln IV 02/16/20 10:58 200 mls/hr X 1 BAG ONE Administration Magnesium Hydroxide 30 ml 02/16/20 05:55 Milk Of Magnesia 30 Ml Udcup PO 03/17/20 05:54 HSP PRN FOR CONSTIPATION Discontinued Medications Generic Name Dose Route Start Last Admin Trade Name Freq PRN Reason Stop Dose Admin Glucagon 3 mg 02/16/20 04:31 02/16/20 04:54 Glucagen Inj 1 Mg Vial IV 02/16/20 04:32 3 mg ONCE ONE Administration Sodium Chloride 500 mls @ 125 mls/hr 02/16/20 02:54 02/16/20 03:01 Nacl 0.9% 500 Ml Iv Soln IV 02/16/20 06:53 125 mls/hr NOW ONE Administration Protocol Assessment & Plan - Diagnosis (1) Bradycardia Plan: The patient reported to the emergency room with an initial heart rate of 33 bpm which improved to heart rate in the mid 50s after administration of glucagon. His bradycardia is likely iatrogenic with the use of beta-bhavya and amiodarone to treat his atrial fibrillation in the setting of stage V CKD. He feels much better now with his heart rate in the 50s. The patient may also have a component of sick sinus syndrome but currently does not require pacemaker. Recommendations: -Discontinue beta-blockers and do not use any other AV jose agents. -Continue to hold amiodarone for now even though it is not renally cleared however the patient has remained in atrial fibrillation despite using the antiarrhythmic. -Continue with cardiac telemetry. -We will continue to follow with you. (2) Atrial fibrillation Qualifiers: Atrial fibrillation type: permanent Qualified Code(s): I48.21 - Permanent atrial fibrillation Plan: The patient is currently hemodynamically stable. He had not been anticoagulated given a significant prior episode of a GI bleed and currently he is very anemic with a hemoglobin of 7.7. Recommendations: -Do not start anticoagulation. -Do not start beta-bhavya or any other AV jose agents. (3) HTN (hypertension) Qualifiers: Hypertension type: essential hypertension Qualified Code(s): I10 - Essential (primary) hypertension Plan: His blood pressure is currently at goal. Recommendations: -Continue with current medical management. (4) Anemia Qualifiers: Anemia type: unspecified type Qualified Code(s): D64.9 - Anemia, unsp ecified Plan: The patient is currently severely anemic with an hemoglobin of 7. This actually represents a significant change given that his hemoglobin and hematocrit in my office on 11/25/2018 was 11 and 34. The patient does have a prior history of GI bleed. Recommendations: -Hold anticoagulation. -Anemia work-up by primary team.
[2020-02-16] MEDS ORDERED: LEVOTHYROXINE SODIUM 0.15 MG TABLET PO ONE (11:57)
[2020-02-16] MEDS ORDERED: NORMAL SALINE 250 ML IV PRN ×2 (13:22)
--- NOTE | 2020-02-16 13:26 | Progress Note ---
Provider Note Provider Note: Patient evaluated by me today. Noted drop of hemoglobin from 9.9-7.2 in the span of 1 month but patient denies any bleeding from any source, melena, hematochezia, hematemesis, hematuria or vomiting. He is stable at this time. Endorses that he has been having some shortness of breath. Blood work shows macrocytic anemia. B12 and folic acid were normal earlier this year. May be secondary to hypothyroidism plus/minus CKD. Will give 1 unit of PRBC for symptomatic anemia. Bradycardia seems to be secondary to amiodarone and beta-bhavya toxicity. Amiodarone held but does have a long half-life. Beta-bhavya discontinued. Heart rate currently persisting in the 50s. Keep telemetry pads on. Atropine will be used as needed. Amiodarone induced hypothyroidism. Patient will be started on T4 supplementation. This may be also contributing to bradycardia.
[2020-02-16 20:49] LABS: HEMATOCRIT 20.9 % (37.9-51.0); MEAN CORPUSCULAR HEMOGLOBIN 36.5 pg (27.0-33.4); PLATELET COUNT 176 10^3/uL (150-450); RED BLOOD COUNT 2.13 10^6/uL (4.35-5.55)
[2020-02-16 21:02] LABS: MEAN CORPUSCULAR HGB CONC 37.3 g/dL (32.0-36.0)
[2020-02-16 21:04] LABS: MEAN CORPUSCULAR VOLUME 98 fl (80-97)
[2020-02-16 21:05] LABS: HEMOGLOBIN 7.8 g/dL (13.5-17.0)
[2020-02-16 21:22] LABS: ABSOLUTE LYMPHOCYTES# (MANUAL) 2.1 10^3/uL (0.5-4.7); ABSOLUTE MONOCYTES # (MANUAL) 1.1 10^3/uL (0.1-1.4); BASOPHILS % (MANUAL) 0 % (0-2); EOSINOPHILS % (MANUAL) 0 % (0-6); LYMPHOCYTES % (MANUAL) 40 % (13-45); MONOCYTES % (MANUAL) 21 % (3-13); SEGMENTED NEUTROPHILS % (MAN) 37 % (42-78); TOTAL CELLS COUNTED 100
[2020-02-16 21:23] LABS: ANISOCYTOSIS 3+; PLATELET COMMENT ADEQUATE
[2020-02-17] MEDS: HEPARIN SOD (PORCINE) 5,000 UNIT/ML 1 ML VIAL SUBCUT SCH (05:40)
[2020-02-17 05:57] LABS: HEMATOCRIT 20.9 % (37.9-51.0); MEAN CORPUSCULAR HEMOGLOBIN 36.8 pg (27.0-33.4); MEAN CORPUSCULAR VOLUME 98 fl (80-97); PLATELET COUNT 171 10^3/uL (150-450); RED BLOOD COUNT 2.13 10^6/uL (4.35-5.55); RED CELL DISTRIBUTION WIDTH 20.8 % (11.5-14.0); WHITE BLOOD COUNT 4.4 10^3/uL (4.0-10.5)
[2020-02-17] MEDS ORDERED: LEVOTHYROXINE SODIUM 0.15 MG TABLET PO SCH (06:00)
[2020-02-17 06:19] LABS: ANION GAP 11 (5-19); BLOOD UREA NITROGEN 33 mg/dL (7-20); CALCIUM 8.3 mg/dL (8.4-10.2); CARBON DIOXIDE 22 mmol/L (22-30); CHLORIDE 99 mmol/L (98-107); GLUCOSE 86 mg/dL (75-110); POTASSIUM 3.9 mmol/L (3.6-5.0)
[2020-02-17 07:15] LABS: HEMOGLOBIN 7.8 g/dL (13.5-17.0)
[2020-02-17 07:22] LABS: ABSOLUTE LYMPHOCYTES# (MANUAL) 1.8 10^3/uL (0.5-4.7); ABSOLUTE MONOCYTES # (MANUAL) 0.8 10^3/uL (0.1-1.4); BAND NEUTROPHILS % (MANUAL) 1 % (3-5); BASOPHILS % (MANUAL) 0 % (0-2); EOSINOPHILS % (MANUAL) 1 % (0-6); LYMPHOCYTES % (MANUAL) 40 % (13-45); METAMYELOCYTES % (MANUAL) 1 % (0-1); MONOCYTES % (MANUAL) 19 % (3-13); SEGMENTED NEUTROPHILS % (MAN) 36 % (42-78); TOTAL CELLS COUNTED 100
[2020-02-17 07:23] LABS: ANISOCYTOSIS 1+; OVALOCYTES 1+; POIKILOCYTOSIS 1+; POLYCHROMASIA SLIGHT; TEAR DROP CELLS 1+; TOXIC GRANULATION SLIGHT
[2020-02-17 07:24] LABS: PLATELET COMMENT ADEQUATE
[2020-02-17 07:25] LABS: MEAN CORPUSCULAR HGB CONC 37.6 g/dL (32.0-36.0)
--- NOTE | 2020-02-17 08:39 | PDOC PROGRESS REPORT ---
Subjective Progress Note for:: 02/17/20 Subjective:: MALIKA LEHMAN is a 84 year old male with history of hypertension, hyperlipidemia, renal artery stenosis, PAD with known right iliac occlusion despite 2 previous endovascular procedures, high-grade left common iliac artery stenosis, infrarenal abdominal aortic aneurysm followed by Dr. 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 The patient had been in his usual state of health until early this morning when he got up to use the bathroom at which time he felt significant shortness of breath to the point he could not make it back to his room. He sat down for at least 15 to 20 minutes before he could catch his breath. He continued to be short of breath therefore he came to the emergency room at which time he was found to have a heart rate of 33 bpm. He was given 3 mg of glucagon which increased his rate into the 50s. He now feels much better and states that his shortness of breath is completely resolved. 02/17/2020: The patient had an uneventful night and specifically denies chest pain, shortness of breath, SIMEON, PND, palpitations, dizziness, lightheadedness, syncope and presyncope. He has no cardiovascular complaints this morning. His telemetry demonstrated sinus rhythm as well as sinus bradycardia with heart rates between [address] to 65 bpm. There were no malignant atrial or ventricular dysrhythmias. There was no evidence of advanced AV block. Physical exam on 02/17/2020: GENERAL: Pleasant and conversational. Oriented x3 with normal mood. Not in acute distress. Well groomed and well developed. HEENT: Normocephalic, atraumatic. Pupils equal. Sclerae anicteric. Oropharynx moist. NECK: No JVD. No carotid bruits. LUNGS: Clear to auscultation bilaterally. Normal respiratory effort without the use of accessory muscles or intercostal retractions. CARDIOVASCULAR: Regular rate and rhythm, normal S1 and S2 without murmurs, rubs, or gallops. PMI not displaced. ABDOMEN: No masses or tenderness to palpation. No bruit. No splenomegaly or h epatomegaly. No abdominal aorta bruit noted. EXTREMITIES: 1+ pitting edema bilaterally, no cyanosis, no clubbing. +2 pulses femoral and pedal pulses bilaterally. SKIN: No lesions or rashes. MUSCULOSKELETAL: No chest tenderness to palpation. NEUROLOGIC: Nonfocal. No gross sensory or motor deficits bilateral upper or lower extremities. Cardiac studies: Echocardiogram on 11/02/18: -LV is normal in size. -Mild concentric LVH. -EF 55-60%. -Grade 1 diastolic dysfunction. -Mild LAE. -Mild PI. -Mildly dilated aortic root at 4.0 cm. -Mildly dilated ascending aorta at 3.8 cm. echocardiogram on 09/29/17: -The left ventricle is normal in size. -Mild asymmetric LVH. -Ejection fraction between 60 and 65%. -Grade 1 diastolic dysfunction. -Moderate LAE. -Mild MAC without stenosis. -Trace MR, trace TR, mild PI. Mild aortic root dilatation 0 cm. Dilated proximal ascending aorta at 4.0 cm. LHC on 06/07/17: -Left main: Minimal irregularities. -LAD: Luminal irregularities. -Left circumflex: 20-30% mid stenosis. -OM1: Patent. -OM 2: Minimal irregularities. -RCA: Dominant vessel. Patent. Echocardiogram on 03/29/17: -Left ventricle is normal in size. -Mild concentric LVH. -EF 55-60%. -Grade 1 diastolic dysfunction. -No regional wall motion normalities. -Mild MAC without stenosis. -Trace MR, trace TR, mild PI. -Mildly dilated aortic root at 4.0 cm. Nuclear stress test on 09/29/16: -EF 68%. -No evidence of ischemia or infarct. Reason For Visit: BRADYCARDIA ANEMIA Physical Exam Vital Signs: Temp Pulse Resp BP Pulse Ox 97.7 F 59 L 16 144/58 H 99 02/17/20 03:29 02/17/20 03:29 02/17/20 03:29 02/17/20 03:29 02/17/20 03:29 Intake & Output 02/16/20 02/17/20 02/18/20 06:59 06:59 06:59 Intake Total 1536 Balance 1536 Weight 88.2 kg 88 kg Results Laboratory Results: 02/17/20 05:37 02/17/20 05:37 02/16/20 02/16/20 02/16/20 02:52 13:53 20:16 WBC 5.0 RBC 2.13 L Hgb 7.8 L Hct 20.9 L MCV 98 H D MCH 36.5 H MCHC 37.3 H RDW 21.0 H Plt Count 176 Seg Neutrophils % Not Reportable Sodium Potassium Chloride Carbon Dioxide Anion Gap BUN Creatinine Est GFR ( Amer) Glucose Calcium Free T4 0.66 L Free T3 pg/mL 2.54 L Blood Type O POSITIVE Antibody Screen NEGATIVE 02/17/20 02/17/20 05:37 05:37 WBC 4.4 RBC 2.13 L Hgb 7.8 L Hct 20.9 L MCV 98 H MCH 36.8 H MCHC 37.6 H RDW 20.8 H Plt Count 171 Seg Neutrophils % Not Reportable Sodium 132.0 L Potassium 3.9 Chloride 99 Carbon Dioxide 22 Anion Gap 11 BUN 33 H Creatinine 3.66 H Est GFR ( Amer) 19 L Glucose 86 Calcium 8.3 L Free T4 Free T3 pg/mL Blood Type Antibody Screen 02/16/20 02/16/20 02/16/20 02:52 08:27 16:11 Troponin I 0.014 < 0.012 0.015 NT-Pro-B Natriuret Pep 1540 H 02/16/20 20:16 Troponin I 0.012 NT-Pro-B Natriuret Pep Impressions: Chest X-Ray 02/16/20 04:27 IMPRESSION: No acute disease. 02/17/20 05:37 02/17/20 05:37 MCV 98 fl (80-97) H 02/17/20 05:37 MCH 36.8 pg (27.0-33.4) H 02/17/20 05:37 MCHC 37.6 g/dL (32.0-36.0) H 02/17/20 05:37 RDW 20.8 % (11.5-14.0) H 02/17/20 05:37 Seg Neutrophils % Not Reportable 02/17/20 05:37 Chloride 99 mmol/L (98-107) 02/17/20 05:37 Carbon Dioxide 22 mmol/L (22-30) 02/17/20 05:37 Anion Gap 11 (5-19) 02/17/20 05:37 Est GFR ( Amer) 19 (>60) L 02/17/20 05:37 Glucose 86 mg/dL (75-110) 02/17/20 05:37 Calcium 8.3 mg/dL (8.4-10.2) L 02/17/20 05:37 Magnesium 2.5 mg/dL (1.6-2.3) H 02/16/20 02:52 Total Bilirubin 0.5 mg/dL (0.2-1.3) 02/16/20 02:52 AST 35 U/L (17-59) 02/16/20 02:52 Alkaline Phosphatase 58 U/L (38-126) 02/16/20 02:52 Total Protein 7.1 g/dL (6.3-8.2) 02/16/20 02:52 Albumin 3.5 g/dL (3.5-5.0) 02/16/20 02:52 TSH 64.00 uIU/mL (0.47-4.68) H 02/16/20 02:52 Free T4 0.66 ng/dL (0.78-2.19) L 02/16/20 02:52 Free T3 pg/mL 2.54 pg/mL (2.77-5.27) L 02/16/20 02:52 Blood Type O POSITIVE 02/16/20 13:53 Antibody Screen NEGATIVE 02/16/20 13:53 02/16/20 02/16/20 02/16/20 02:52 08:27 16:11 Troponin I 0.014 < 0.012 0.015 NT-Pro-B Natriuret Pep 1540 H 02/16/20 20:16 Troponin I 0.012 NT-Pro-B Natriuret Pep Current Medication List Generic Name Dose Route Start Last Admin Trade Name Freq PRN Reason Stop Dose Admin Acetaminophen 650 mg 02/16/20 05:55 Tylenol 325 Mg Tablet PO 03/17/20 05:54 Q4HP PRN FOR PAIN OR TEMP Al Hydrox/Mg Hydrox/Simethicone 30 ml 02/16/20 05:55 Maalox Plus Susp 30 Udcup PO 03/17/20 05:54 Q6HP PRN HEARTBURN Albuterol/Ipratropium 3 ml 02/16/20 05:55 Duoneb 3 Ml Ampul NEB 03/17/20 05:54 [id number] PRN SHORTNESS OF BREATH Benazepril HCl 20 mg 02/17/20 10:00 Lotensin 20 Mg Tablet PO 03/18/20 09:59 DAILY [facility] Docusate Sodium 100 mg 02/16/20 10:00 02/16/20 09:09 Colace 100 Mg Capsule PO 03/17/20 09:59 Not Given DAILY KAITLYN Furosemide 40 mg 02/17/20 10:00 Lasix 40 Mg Tablet PO 03/18/20 09:59 QAM [facility] Glucagon 1 mg 02/16/20 05:55 Glucagen Inj 1 Mg Vial SUBCUT 03/17/20 05:54 Q2HP PRN hr<40 Heparin Sodium (Porcine) 5,000 unit 02/16/20 06:00 02/17/20 05:40 Heparin Inj 5,000 Units/Ml 1 Ml Vial SUBCUT 03/17/20 05:59 5,000 unit Q8 KAITLYN Administration Sodium Chloride 250 mls @ 30 mls/hr 02/16/20 13:22 Nacl 0.9% 250 Ml Iv Soln IV 02/17/20 13:21 .DURING TRANSFUSION PRN THIS MED IS NOT "PRN" Sodium Chloride 250 mls @ 0 mls/hr 02/16/20 13:22 Nacl 0.9% 250 Ml Iv Soln IV 02/17/20 13:21 CONTINUOUS PRN AFTER EACH UNIT As Directed Levothyroxine Sodium 0.15 mg 02/17/20 06:00 02/17/20 05:40 Synthroid 0.15 Mg Tablet PO 03/18/20 05:59 0.15 mg Q6AM KAITLYN Administration Magnesium Hydroxide 30 ml 02/16/20 05:55 Milk Of Magnesia 30 Ml Udcup PO 03/17/20 05:54 HSP PRN FOR CONSTIPATION Multivitamins 1 tab 02/18/20 08:00 Tab-A-Annabella (Multiple Vitamin) Tablet PO 03/19/20 07:59 QAM [facility] Polyethylene Glycol 17 gm 02/17/20 10:00 Miralax Powder 17 Gm/Packet PO 03/18/20 09:59 DAILY [facility] Trazodone HCl 50 mg 02/17/20 22:00 Desyrel 50 Mg Tablet PO 03/18/20 21:59 QHS KAITLYN Discontinued Medications Generic Name Dose Route Start Last Admin Trade Name Freq PRN Reason Stop Dose Admin Furosemide 40 mg 02/18/20 08:00 Lasix 40 Mg Tablet PO 03/19/20 07:59 QAM [facility] Glucagon 3 mg 02/16/20 04:31 02/16/20 04:54 Glucagen Inj 1 Mg Vial IV 02/16/20 04:32 3 mg ONCE ONE Administration Sodium Chloride 500 mls @ 125 mls/hr 02/16/20 02:54 02/16/20 03:01 Nacl 0.9% 500 Ml Iv Soln IV 02/16/20 06:53 125 mls/hr NOW ONE Administration Protocol Sodium Chloride 1,000 mls @ 200 mls/hr 02/16/20 05:59 02/16/20 06:15 Nacl 0.9% 1000 Ml Iv Soln IV 02/16/20 10:58 200 mls/hr X 1 BAG ONE Administration Levothyroxine Sodium 0.15 mg 02/16/20 11:57 02/16/20 13:47 Synthroid 0.15 Mg Tablet PO 02/16/20 11:58 0.15 mg NOW ONE Administration Assessment & Plan - Diagnosis (1) Bradycardia Is this a current diagnosis for this admission?: Yes Plan: Likely iatrogenic in nature given his age and the use of beta-bhavya in conjunction with amiodarone. Since admission he has done well and his telemetry showed sinus rhythm with episodes of sinus bradycardia in the 50s. He remains asymptomatic. This morning he was able to get up from bed without any cardiac symptoms and his heart rate was noted to go into the low 60s with just moving around in the bed and standing up. At this point the patient is stable from the cardiovascular standpoint for discharge. The patient may also have a component of sick sinus syndrome but currently does not require pacemaker yet. Recommendations: -Continue to hold amiodarone and all AV jose agents. -The patient may be discharged from the cardiovascular standpoint. -The patient has been instructed to report to my office on 02/19/2020 for placement of Holter monitor for 48 hours versus Preventice monitor for 2 weeks for further surveillance. -We will sign off the case for now. (2) Atrial fibrillation Qualifiers: Atrial fibrillation type: permanent Qualified Code(s): I48.21 - Permanent atrial fibrillation Plan: (2) Atrial fibrillation Qualifiers: Atrial fibrillation type: permanent Qualified Code(s): I48.21 - Permanent atrial fibrillation Plan: The patient is currently hemodynamically stable. He had not been anticoagulated given a significant prior episode of a GI bleed and currently he is very anemic with a hemoglobin of 7.7. Recommendations: -Do not start anticoagulation. -Do not start beta-bhavya or any other AV jose agents. (3) HTN (hypertension) Qualifiers: Hypertension type: essential hypertension Qualified Code(s): I10 - Essential (primary) hypertension Is this a current diagnosis for this admission?: Yes Plan: His blood pressure is acceptable for now. He will follow-up with me as kaitlyn eduprasanth and will readjust his antihypertensives as needed. Recommendations: -Continue with current medical management. -Follow-up in my office as scheduled. ( (4) Anemia Qualifiers: Anemia type: unspecified type Qualified Code(s): D64.9 - Anemia, unspecified Plan: The patient was hospitalized with worsened anemia. I will defer further work-up to the primary team. Recommendations: -Hold anticoagulation. -Further anemia work-up per primary team.
[2020-02-17] MEDS ORDERED: BENAZEPRIL HCL 20 MG TABLET PO SCH (10:00)
[2020-02-17] MEDS ORDERED: POLYETHYLENE GLYCOL 3350 POWDER 17 GM/1 PACKET PO SCH (10:00)
[2020-02-17] MEDS ORDERED: FUROSEMIDE 40 MG TABLET PO SCH (10:00)
[2020-02-17] MEDS: DOCUSATE SODIUM 100 MG CAPSULE PO SCH (10:09)
--- NOTE | 2020-02-17 10:29 | PDOC DISCHARGE SUMMARY ---
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 Is this a current diagnosis for this admission?: Yes (4) Acute on chronic anemia Is this a current diagnosis for this admission?: Yes (5) Anemia in chronic kidney disease (CKD) Is this a current diagnosis for this admission?: Yes - Additional Information Resuscitation Status: Full Code Discharge Diet: As Tolerated, Cardiac Referrals: SHAY SHULTZ MD [ACTIVE PROVISIONAL STAFF] - 02/19/20 Prescriptions: Levothyroxine Sodium [Synthroid 0.15 mg Tablet] 0.15 mg PO Q6AM #30 tablet Home Medications: Benazepril/Hydrochlorothiazide [Lotensin Hct 20-12.5 mg Tablet] 1 tab PO DAILY 01/03/19 Tramadol HCl [Ultram 50 mg Tablet] 50 mg PO BIDP PRN 01/03/19 Trazodone HCl [Desyrel 50 mg Tablet] 50 mg PO QHS 01/03/19 Furosemide [Lasix 40 mg Tablet] 40 mg PO QAM 01/01/20 Polyethylene Glycol 3350 [Miralax] 1 packet PO QAM 01/01/20 Multivitamin [One-A-Day Essential] 1 tab PO QAM 02/16/20 Levothyroxine Sodium [Synthroid 0.15 mg Tablet] 0.15 mg PO Q6AM #30 tablet 02/17/20 History of Present Illiness History of Present Illness: Per admitting provider, MALIKA LEHMAN is a 84 year old male with a past me dical history of atrial fibrillation on amiodarone and diltiazem, nonoliguric stage V CKD, chronic anemia, and recurrent GI bleed. He presents to the emergency department with an unclear duration of shortness of breath prompting evaluation in the emergency department where he is found to have hypotension and bradycardia in the 30s which promptly response to a trial of glucagon. He is underlying chronic kidney disease and anemia is otherwise at baseline. His cello teacher Dr. Shay Valiente is consulted and patient is referred to the hospitalist for admission. He denies chest pain nausea vomiting diaphoresis. He denies change in diet or medication regiment. Hospital Course Hospital Course: Patient was admitted for evaluation of shortness of breath and management of symptomatic bradycardia. On presentation, he was noted to have a heart rate of 30s and sinus bradycardia. He was also briefly hypotensive and was given some IV fluids. Blood work revealed macrocytic anemia of 7.2 which has been showing downward trend since last year. Patient was noted to have been on diltiazem and amiodarone at home. He was given glucagon in the ER with improvement of his heart rate to the 50s. Patient has been monitored on telemetry and has maintained heart rate in the 50s to 70s. With correction of his bradycardia and a transfusion of 1 unit of red blood cells, patient's dyspnea significantly resolved and today patient endorses that he feels a whole lot better and that he does not feel short of breath anymore. His bradycardia was thought to be secondary to amiodarone and diltiazem use and may be a component of hypothyroidism as well. Patient's TSH came back at 64 with low T3 of 2.5 and low T4 of 0.66. 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 Patient was seen by his primary cello teacher Dr. Shultz who recommended discontinuation of his amiodarone and diltiazem altogether and that patient should follow-up with him in the office on 02/19/2020 to have a Holter monitor placed. Patient's anemia was thought to be secondary to chronic kidney disease as well as hypothyroidism based of iron studies, B12 and folic acid studies. Patient stable at this time and feels back to normal and has been cleared by cardiology. Patient is being discharged safely home. Physical Exam Vital Signs: Temp Pulse Resp BP Pulse Ox 97.7 F 54 L 16 144/58 H 98 02/17/20 03:29 02/17/20 08:51 02/17/20 08:51 02/17/20 03:29 02/17/20 08:51 Intake & Output 02/16/20 02/17/20 02/18/20 06:59 06:59 06:59 Intake Total 1536 Balance 1536 Weight 88.2 kg 88 kg General appearance: PRESENT: no acute distress, cooperative Neck exam: ABSENT: JVD Cardiovascular exam: PRESENT: bradycardia - In the 50s to 70, RRR Neurological exam: PRESENT: alert, awake, oriented to person, oriented to place, oriented to time, oriented to situation Results Laboratory Results: WBC 4.4 10^3/uL (4.0-10.5) 02/17/20 05:37 RBC 2.13 10^6/uL (4.35-5.55) L 02/17/20 05:37 Hgb 7.8 g/dL (13.5-17.0) L 02/17/20 05:37 Hct 20.9 % (37.9-51.0) L 02/17/20 05:37 MCV 98 fl (80-97) H 02/17/20 05:37 MCH 36.8 pg (27.0-33.4) H 02/17/20 05:37 MCHC 37.6 g/dL (32.0-36.0) H 02/17/20 05:37 RDW 20.8 % (11.5-14.0) H 02/17/20 05:37 Plt Count 171 10^3/uL (150-450) 02/17/20 05:37 Lymph % (Auto) Not Reportable 02/17/20 05:37 Brantley % (Auto) Not Reportable 02/17/20 05:37 Eos % (Auto) Not Reportable 02/17/20 05:37 Baso % (Auto) Not Reportable 02/17/20 05:37 Absolute Neuts (auto) Not Reportable 02/17/20 05:37 Absolute Lymphs (auto) Not Reportable 02/17/20 05:37 Absolute Monos (auto) Not Reportable 02/17/20 05:37 Absolute Eos (auto) Not Reportable 02/17/20 05:37 Absolute Basos (auto) Not Reportable 02/17/20 05:37 Total Counted 100 02/17/20 05:37 Seg Neutrophils % Not Reportable 02/17/20 05:37 Seg Neuts % (Manual) 36 % (42-78) L 02/17/20 05:37 Band Neutrophils % 1 % (3-5) L 02/17/20 05:37 Lymphocytes % (Manual) 40 % (13-45) 02/17/20 05:37 Atypical Lymphs % 2 % (0) 02/17/20 05:37 Monocytes % (Manual) 19 % (3-13) H 02/17/20 05:37 Eosinophils % (Manual) 1 % (0-6) 02/17/20 05:37 Basophils % (Manual) 0 % (0-2) 02/17/20 05:37 Metamyelocytes % 1 % (0-1) 02/17/20 05:37 Abs Neuts (Manual) 1.7 10^3/uL (1.7-8.2) 02/17/20 05:37 Abs Lymphs (Manual) 1.8 10^3/uL (0.5-4.7) 02/17/20 05:37 Abs Monocytes (Manual) 0.8 10^3/uL (0.1-1.4) 02/17/20 05:37 Absolute Eos (Manual) 0.0 10^3/uL (0.0-0.6) 02/17/20 05:37 Abs Basophils (Manual) 0.0 10^3/uL (0.0-0.2) 02/17/20 05:37 Toxic Granulation SLIGHT 02/17/20 05:37 Platelet Comment ADEQUATE 02/17/20 05:37 Polychromasia SLIGHT 02/17/20 05:37 Poikilocytosis 1+ 02/17/20 05:37 Basophilic Stippling PRESENT 02/17/20 05:37 Anisocytosis 1+ 02/17/20 05:37 Macrocytosis 2+ 02/16/20 02:52 Tear Drop Cells 1+ 02/17/20 05:37 Ovalocytes 1+ 02/17/20 05:37 Sodium 132.0 mmol/L (137-145) L 02/17/20 05:37 Potassium 3.9 mmol/L (3.6-5.0) 02/17/20 05:37 Chloride 99 mmol/L (98-107) 02/17/20 05:37 Carbon Dioxide 22 mmol/L (22-30) 02/17/20 05:37 Anion Gap 11 (5-19) 02/17/20 05:37 BUN 33 mg/dL (7-20) H 02/17/20 05:37 Creatinine 3.66 mg/dL (0.52-1.25) H 02/17/20 05:37 Est GFR ( Amer) 19 (>60) L 02/17/20 05:37 Est GFR (MDRD) Non-Af 16 (>60) L 02/17/20 05:37 Glucose 86 mg/dL (75-110) 02/17/20 05:37 Calcium 8.3 mg/dL (8.4-10.2) L 02/17/20 05:37 Magnesium 2.5 mg/dL (1.6-2.3) H 02/16/20 02:52 Total Bilirubin 0.5 mg/dL (0.2-1.3) 02/16/20 02:52 Direct Bilirubin 0.0 mg/dL (0.0-0.4) 02/16/20 02:52 Neonat Total Bilirubin Not Reportable 02/16/20 02:52 Neonat Direct Bilirubin Not Reportable 02/16/20 02:52 Neonat Indirect Bili Not Reportable 02/16/20 02:52 AST 35 U/L (17-59) 02/16/20 02:52 ALT 41 U/L (<50) 02/16/20 02:52 Alkaline Phosphatase 58 U/L (38-126) 02/16/20 02:52 Troponin I 0.012 ng/mL 02/16/20 20:16 NT-Pro-B Natriuret Pep 1540 pg/mL (<450) H 02/16/20 02:52 Total Protein 7.1 g/dL (6.3-8.2) 02/16/20 02:52 Albumin 3.5 g/dL (3.5-5.0) 02/16/20 02:52 TSH 64.00 uIU/mL (0.47-4.68) H 02/16/20 02:52 Free T4 0.66 ng/dL (0.78-2.19) L 02/16/20 02:52 Free T3 pg/mL 2.54 pg/mL (2.77-5.27) L 02/16/20 02:52 POC Stool Occult Blood NEGATIVE (NEGATIVE) 02/16/20 05:25 Blood Type O POSITIVE 02/16/20 13:53 Antibody Screen NEGATIVE 02/16/20 13:53 Crossmatch See Detail 02/16/20 13:53 02/16/20 02/16/20 02/16/20 02:52 08:27 16:11 Troponin I 0.014 < 0.012 0.015 NT-Pro-B Natriuret Pep 1540 H 02/16/20 20:16 Troponin I 0.012 NT-Pro-B Natriuret Pep Impressions: Chest X-Ray 02/16/20 04:27 IMPRESSION: No acute disease. Plan Time Spent: Less than 30 Minutes Stroke Is this a Stroke Patient?: No Acute Heart Failure - Is this a Heart Failure Patient?: No
[2020-02-17 12:13] VITALS: BP 145/45
[2020-02-17] MEDS ORDERED: TRAZODONE HCL 50 MG TABLET PO SCH (22:00)
[2020-02-18] MEDS ORDERED: MULTIVITAMIN TABLET PO SCH (08:00)
[2020-02-18] MEDS ORDERED: FUROSEMIDE 40 MG TABLET PO SCH (08:00)
--- NOTE | 2020-02-18 10:25 | EKG REPORT ---
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
--- NOTE | 2020-02-18 10:26 | EKG REPORT ---
SEVERITY:- ABNORMAL ECG - A FIB RBBB AND LAFB : Confirmed by: Alexandra Bustamante 18-Feb-2020 10:25:23
== END 2020-02-17 12:13 | disposition home or self-care (01) | DRG 309 ==
LOC: ER 01:41 → EH 07:15 → 3S 08:49
PROVIDERS: ADMIT Internal Medicine; ATTEND Internal Medicine
PROC: 30233N1 Transfusion of Nonautologous Red Blood Cells into Peripheral Vein, Percutaneous Approach (ICD-10-PCS; principal; 2020-02-16)
DX: R00.1 Bradycardia, unspecified (principal); N18.4 Chronic kidney disease, stage 4 (severe); I12.9 Hypertensive chronic kidney disease with stage 1 through stage 4 chronic kidney disease, or unspecified chronic kidney disease; E03.2 Hypothyroidism due to medicaments and other exogenous substances; T46.1X5A Adverse effect of calcium-channel blockers, initial encounter; T46.2X5A Adverse effect of other antidysrhythmic drugs, initial encounter; Y92.9 Unspecified place or not applicable; D63.1 Anemia in chronic kidney disease; E78.5 Hyperlipidemia, unspecified; I70.1 Atherosclerosis of renal artery; I73.9 Peripheral vascular disease, unspecified; I25.10 Atherosclerotic heart disease of native coronary artery without angina pectoris; K21.9 Gastro-esophageal reflux disease without esophagitis; F32.9 Major depressive disorder, single episode, unspecified; I95.9 Hypotension, unspecified; I48.21 Permanent atrial fibrillation; E78.00 Pure hypercholesterolemia, unspecified; Q27.33 Arteriovenous malformation of digestive system vessel; Z96.641 Presence of right artificial hip joint; Z79.899 Other long term (current) drug therapy; Z88.0 Allergy status to penicillin; Z88.8 Allergy status to other drugs, medicaments and biological substances; Z90.5 Acquired absence of kidney
CPT/HCPCS: 36415; 36430; 71045; 80048; 80053; 82270; 83735; 83880; 84439; 84443; 84481; 84484; 85025; 86850; 86900; 86901; 86920; 93005; 93010; 96361; 96372; 96374; 99291; 99292; J1610; J1644; J3490; J7030; J7040; P9016

== ENCOUNTER 2020-03-20 11:19 | Emergency (ER) | payer MEDICARE, OTHER ==
[2020-03-20 12:10] LABS: HEMATOCRIT 19.2 % (37.9-51.0); MEAN CORPUSCULAR HEMOGLOBIN 38.4 pg (27.0-33.4); MEAN CORPUSCULAR HGB CONC 36.1 g/dL (32.0-36.0); MEAN CORPUSCULAR VOLUME 106 fl (80-97); PLATELET COUNT 175 10^3/uL (150-450); RED CELL DISTRIBUTION WIDTH 19.2 % (11.5-14.0); WHITE BLOOD COUNT 4.5 10^3/uL (4.0-10.5)
[2020-03-20 12:22] LABS: HEMOGLOBIN 6.9 g/dL (13.5-17.0)
[2020-03-20 12:23] LABS: ALKALINE PHOSPHATASE 52 U/L (38-126); ANION GAP 10 (5-19); ASPARTATE AMINO TRANSFERASE 21 U/L (17-59); BILIRUBIN,DIRECT 0.1 mg/dL (0.0-0.4); BILIRUBIN,TOTAL 0.4 mg/dL (0.2-1.3); BLOOD UREA NITROGEN 28 mg/dL (7-20); CARBON DIOXIDE 25 mmol/L (22-30); CHLORIDE 97 mmol/L (98-107); GLUCOSE 103 mg/dL (75-110); POTASSIUM 4.4 mmol/L (3.6-5.0); TOTAL PROTEIN 7.6 g/dL (6.3-8.2)
[2020-03-20 12:26] LABS: ABSOLUTE LYMPHOCYTES# (MANUAL) 1.5 10^3/uL (0.5-4.7); ABSOLUTE MONOCYTES # (MANUAL) 1.7 10^3/uL (0.1-1.4); BASOPHILS % (MANUAL) 1 % (0-2); EOSINOPHILS % (MANUAL) 3 % (0-6); LYMPHOCYTES % (MANUAL) 32 % (13-45); MONOCYTES % (MANUAL) 37 % (3-13); SEGMENTED NEUTROPHILS % (MAN) 25 % (42-78); TOTAL CELLS COUNTED 100
[2020-03-20 12:28] LABS: ANISOCYTOSIS 2+; PLATELET COMMENT ADEQUATE; POIKILOCYTOSIS SLIGHT; POLYCHROMASIA SLIGHT; TEAR DROP CELLS SLIGHT
[2020-03-20 12:45] LABS: VENOUS BLOOD BASE EXCESS 0.9 mmol/L; VENOUS BLOOD HCO3 26.1 mmol/L (20-32); VENOUS BLOOD PCO2 44.5 mmHg (35-63); VENOUS BLOOD PH 7.39 (7.30-7.42)
--- NOTE | 2020-03-20 12:47 | RADIOLOGY REPORT (SQ) ---
EXAM DESCRIPTION: CHEST SINGLE VIEW IMAGES COMPLETED DATE/TIME: 03/20/2020 12:32 pm REASON FOR STUDY: SOB COMPARISON: AP view of the chest from 02/16/2020. EXAM PARAMETERS: NUMBER OF VIEWS: One view. TECHNIQUE: An AP view of the chest was obtained. RADIATION DOSE: NA LIMITATIONS: None. FINDINGS: LUNGS AND PLEURA: No consolidation, pleural effusion or pneumothorax. MEDIASTINUM AND HILAR STRUCTURES: No mediastinal or hilar contour abnormality. HEART AND VASCULAR STRUCTURES: The cardiac silhouette and pulmonary vasculature are within normal salazar its. BONES: No acute findings. HARDWARE: None in the chest. OTHER: No other finding. IMPRESSION: Low inspiratory lung volumes without a superimposed acute cardiopulmonary process. TECHNICAL DOCUMENTATION: JOB ID: [id number] 2010 [employer]- All Rights Reserved Reading location - IP/workstation name: [email or web address]
[2020-03-20] MEDS ORDERED: NORMAL SALINE 250 ML IV PRN (12:50)
--- NOTE | 2020-03-20 13:33 | ER Document Report ---
ED General - General Chief Complaint: Shortness Of Breath Stated Complaint: SHORTNESS OF BREATH Time Seen by Provider: 03/20/20 12:11 Notes: 84-year-old male presents today with shortness of breath for about 3 weeks worsening in the last 2 days. Become short of breath at rest but he also become short of breath when walking from one room of his house to another. He is a poor historian in regards to his medical diagnoses and treatment. States he was to get a fistula to begin dialysis but was unable to get appointment scheduled due to COVID-19. TRAVEL OUTSIDE OF THE [place] IN LAST 30 DAYS: No - Related Data Allergies/Adverse Reactions: amoxicillin [Amoxicillin] Allergy (Verified 03/20/20 11:38) ITCHING, HIVES NSAIDS (Non-Steroidal Anti-Inflamma Adverse Reaction (Severe, Verified 03/20/20 11:38) esrd Home Medications: Lotensin HCT, Trazodone, Tramaol, furosemide Past Medical History - Social History Smoking Status: Former Smoker Frequency of alcohol use: Rare Family History: Arthritis, Hypertension Patient has homicidal ideation: No - Past Medical History Cardiac Medical History: Reports: Hx Atrial Fibrillation, Hx Coronary Artery Disease, Hx Hypercholesterolemia, Hx Hypertension, Hx Peripheral Vascular Disease - Right iliac artery stenosis, unsure where Denies: Hx Heart Attack Pulmonary Medical History: Denies: Hx Asthma, Hx Bronchitis, Hx COPD, Hx Pneumonia Neurological Medical History: Denies: Hx Cerebrovascular Accident, Hx Seizures Renal/ Medical History: Denies: Hx Peritoneal Dialysis GI Medical History: Reports: Hx Gastroesophageal Reflux Disease. Denies: Hx Hepatitis, Hx Hiatal Hernia, Hx Ulcer Musculoskeletal Medical History: Reports Hx Arthritis Psychiatric Medical History: Reports: Hx Depression Infectious Medical History: Denies: Hx Hepatitis Past Surgical History: Reports: Hx Abdominal Surgery - Aortic Aneurysm, Hx Ort hopedic Surgery - right hand, bilateral hip replacement, Hx Rectal Surgery - Hemorrhoidectomy 2006, Hx Tonsillectomy, Other - Abdominal aortic aneurysm repair in October 2016, hemorrhoidectomy 2006. Denies: Hx Open Heart Surgery, Hx Pacemaker - Immunizations Hx Diphtheria, Pertussis, Tetanus Vaccination: Yes Hx Pneumococcal Vaccination: 07/06/17 Review of Systems - Review of Systems Constitutional: No symptoms reported EENT: No symptoms reported Cardiovascular: No symptoms reported Respiratory: See HPI Gastrointestinal: No symptoms reported Genitourinary: No symptoms reported Male Genitourinary: No symptoms reported Musculoskeletal: No symptoms reported Skin: No symptoms reported Physical Exam - Vital signs Vitals: Temp Pulse Resp BP Pulse Ox 97.7 F 55 L 20 143/55 H 98 03/20/20 11:38 03/20/20 11:38 03/20/20 11:38 03/20/20 11:38 03/20/20 11:38 - Notes Notes: Adult General: GENERAL: Alert, interacts well. No acute distress HEAD: Normocephalic, atraumatic EYES: Pupils equal, round and reactive to light. Extraocular movements intact. ENT: Oral mucosa moist, tongue midline. Oropharynx unremarkable. Airway patent. NECK: Full range of motion. Supple. Trachea midline. LUNGS: Clear to auscultation bilaterally, no wheezes, rales, or rhonchi. No respiratory distress. Nontender chest wall. HEART: Regular rate and rhythm. No murmurs, rubs or gallops. ABDOMEN: Soft, nontender. distended. Bowel sounds present in all 4 quadrants. GENITOURINARY: Deferred EXTREMITIES: Moves all 4 extremities spontaneously. 1+ pitting edema in BLE BACK: Moves all extremities with full range of motion. NEUROLOGICAL: Alert and oriented x3. Normal speech. Strength 5/ 5 in all extremities. PSYCH: Normal affect, normal mood. SKIN: Warm, dry, normal turgor. No rashes or lesions noted. Course - Re-evaluation Re-evalutation: Patient hemoglobin is 6.9 likely causing his shortness of breath. Transfusion order was placed. 03/20/20 15:34 Patient stool guaiac is negative. 03/20/20 17:08 Patient currently resting in the bed. Transfusion is running. Patient denies any shortness of breath at this time. 03/20/20 19:35 Patient was reevaluated after completion of one unit of PRBC hemoglobin at 6.9. Denies shortness of breath, chest pain or dizziness at this time. CT scan shows no acute findings. X-ray showed no acute cardiopulmonary findings, feet are less swollen at this time. Hemoccult testing is negative. His anemia is likely due to anemia of chronic disease. It appears his baseline hemoglobin is around 7.8. Current hemoglobin is at 7.6. Discussed case with Dr. Corcoran who agrees if patient is at baseline hemoglobin we can discharge him home with follow up with pcm and nephrology. If patient develops shortness of breath chest pain dizziness lightheadedness he is to return to the emergency department. He is to follow-up with nephrology on Wednesday as he is appointment scheduled. I also recommend patient follow-up with PCM as soon as possible. He is in agreement with plan verbalizes understanding. 03/20/20 20:53 - Vital Signs Vital signs: Temp Pulse Resp BP Pulse Ox 97.9 F 56 L 20 154/59 H 100 03/20/20 17:26 03/20/20 17:26 03/20/20 17:26 03/20/20 17:26 03/20/20 17:26 - Laboratory Result Diagrams: 03/20/20 18:32 03/20/20 11:39 Laboratory results interpreted by me: 03/20/20 03/20/20 03/20/20 11:39 11:39 13:07 RBC 1.80 L Hgb 6.9 L Hct 19.2 L MCV 106 H MCH 38.4 H MCHC 36.1 H RDW 19.2 H Plt Count Seg Neuts % (Manual) 25 L Monocytes % (Manual) 37 H Abs Neuts (Manual) 1.1 L Abs Monocytes (Manual) 1.7 H Sodium 132.2 L Chloride 97 L BUN 28 H Creatinine 2.38 H Est GFR ( Amer) 32 L Est GFR (MDRD) Non-Af 26 L Crossmatch See Detail 03/20/20 18:32 RBC 2.06 L Hgb 7.6 L Hct 21.1 L MCV 103 H MCH 37.0 H MCHC 36.1 H RDW 19.4 H Plt Count 149 L Seg Neuts % (Manual) Monocytes % (Manual) Abs Neuts (Manual) Abs Monocytes (Manual) Sodium Chloride BUN Creatinine Est GFR ( Amer) Est GFR (MDRD) Non-Af Crossmatch Discharge - Discharge Clinical Impression: Bilateral lower extremity edema Anemia Qualifiers: Anemia type: due to chronic kidney disease Chronic kidney disease stage: unspecified stage Qualified Code(s): N18.9 - Chronic kidney disease, unspe cified; D63.1 - Anemia in chronic kidney disease HTN (hypertension) Qualifiers: Hypertension type: unspecified Qualified Code(s): I10 - Essential (primary) hypertension Disposition: HOME, SELF-CARE Instructions: Anemia ([facility]) Additional Instructions: You have been treated for anemia. Please follow-up with your primary care and your studio engineer as soon as possible. Return to the ER if you develop any worsening symptoms or development of new symptoms. Referrals: NEPHROLOGY [Provider Group] - Follow up as needed LEONARDO HERNANDEZ MD [ACTIVE STAFF] - Follow up as needed
[2020-03-20 13:53] LABS: APPEARANCE,URINE CLEAR; BILIRUBIN,URINE NEGATIVE (NEGATIVE); COLOR,URINE STRAW; GLUCOSE, URINE NEGATIVE (NEGATIVE); KETONES,URINE NEGATIVE (NEGATIVE); LEUKOCYTE ESTERASE,URINE NEGATIVE (NEGATIVE); NITRITE,URINE NEGATIVE (NEGATIVE); PROTEIN,URINE NEGATIVE (NEGATIVE); URINE SPECIFIC GRAVITY 1.005; UROBILINOGEN,URINE NEGATIVE mg/dL (<2.0)
--- NOTE | 2020-03-20 17:47 | RADIOLOGY REPORT (SQ) ---
EXAM DESCRIPTION: CT ABD/PELVIS NO ORAL OR IV IMAGES COMPLETED DATE/TIME: 03/20/2020 5:31 pm REASON FOR STUDY: distended abdomen COMPARISON: None. TECHNIQUE: CT scan of the abdomen and pelvis performed without intravenous or oral contrast. Images reviewed with lung, soft tissue, and bone windows. Reconstructed coronal and sagittal MPR images revi ewed. All images stored on PACS. All CT scanners at this facility use dose modulation, iterative reconstruction, and/or weight based d osing when appropriate to reduce radiation dose to as low as reasonably achievable (ALARA). [facility]: Dose Right [facility]: CareDose [facility]: Dose Right [facility]: Teradose 4D [facility]: Smart Tu [place] Super RADIATION DOSE: mGy. LIMITATIONS: None. FINDINGS: LOWER CHEST: No significant findings. No nodules or infiltrates. NON-CONTRASTED LIVER, SPLEEN, ADRENALS: Evaluation limited by lack of IV contrast. No identified sign ificant masses. PANCREAS: No masses. No peripancreatic inflammatory changes. GALLBLADDER: Large gallstone in the neck of the gallbladder. RIGHT KIDNEY AND URETER: No suspicious masses. Assessment limited by lack of IV contrast. No signif icant calcifications. No hydronephrosis or hydroureter. LEFT KIDNEY AND URETER: Atrophic. There is a 4 cm cyst. No significant calcifications. No hydron ephrosis or hydroureter. AORTA AND RETROPERITONEUM: Atherosclerosis. There is a right renal artery stent. BOWEL AND PERITONEAL CAVITY: No obvious masses or inflammatory changes. No free fluid. Considerable intra-abdominal fat. APPENDIX: Normal. PELVIS, BLADDER, AND ABDOMINAL WALL:Limited by artifact from bilateral hip arthroplasties. No obviou s pelvic mass. Urinary bladder is mildly distended. Right inguinal hernia containing fat. BONES: Mild compression changes at L2. Degenerative disc disease. OTHER: No other significant finding. IMPRESSION: Cholelithiasis. Atrophic left kidney. Atherosclerosis. Right renal artery stent. Con siderable intra-abdominal fat. No ascites. Right inguinal hernia containing only fat. Osseous find ings as described. COMMENT: None Quality ID # [id number]: Final reports with documentation of one or more dose reduction techniques (e.g., Au tomated exposure control, adjustment of the mA and/or kV according to patient size, use of iterative reconstruction technique) TECHNICAL DOCUMENTATION: JOB ID: [id number] 2010 [employer] All Rights Reserved Reading location - IP/workstation name: [email or web address]
[2020-03-20 18:52] LABS: HEMATOCRIT 21.1 % (37.9-51.0); MEAN CORPUSCULAR HGB CONC 36.1 g/dL (32.0-36.0); MEAN CORPUSCULAR VOLUME 103 fl (80-97); PLATELET COUNT 149 10^3/uL (150-450); RED BLOOD COUNT 2.06 10^6/uL (4.35-5.55); RED CELL DISTRIBUTION WIDTH 19.4 % (11.5-14.0); WHITE BLOOD COUNT 4.5 10^3/uL (4.0-10.5)
[2020-03-20 18:56] LABS: HEMOGLOBIN 7.6 g/dL (13.5-17.0)
--- NOTE | 2020-03-20 19:18 | EKG REPORT ---
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
[2020-03-20 19:55] VITALS: BP 154/53
== END 2020-03-20 20:20 | disposition home or self-care (01) ==
LOC: ER 11:19
DX: Z79.899 Other long term (current) drug therapy (principal); I12.9 Hypertensive chronic kidney disease with stage 1 through stage 4 chronic kidney disease, or unspecified chronic kidney disease; N18.9 Chronic kidney disease, unspecified; D63.1 Anemia in chronic kidney disease; R06.02 Shortness of breath; R14.0 Abdominal distension (gaseous); Z88.0 Allergy status to penicillin; I25.10 Atherosclerotic heart disease of native coronary artery without angina pectoris; Z87.891 Personal history of nicotine dependence
CPT/HCPCS: 93005; 99285; 86900; 86901; 36415; 36430; 86850; 83605; 85025; 82270; 80053; 81001; 86920; 82803; 71045; 74176; 93010; P9016